=== PATIENT | male | born 1930 | race Caucasian/White ===

== ENCOUNTER → 2017-08-19 | Outpatient (CLI) | payer MEDICARE ==
[~2017-08-19] VITALS: Ht 172.7 cm; Wt 75.3 kg
[~2017-08-19] MED LIST: ACDPT PO; ACHD5005 PO; AMOUR THYROID PO; ASP81CT PO; ASPI325T32 PO; ATOR40TA PO; CATHETER FLUSH 10 ML SYR IV PRN; CLOP75TA PO; CYAN10007 PO; HYDR-757 PO; IPRA3AMP IH; ISM30TCR PO; LISI-552 PO; LISI10TA PO; MELO-195 PO; MELO-198 PO; METO-333 PO; METO-387 PO; METOPROLOL PO; MTP25TSR PO; MULT-1029 PO; MULT1CAP27 PO; NAPR220C11 PO; NFNEB10T PO; NITR0.4T12 SL; OMEG-109 PO; OMEG-12 PO; OMEG1CAP58 PO; OMEGA XL; OMEP20CA12 PO; OMG1KC PO; PANT20TA3 PO; PNT40TEC PO; RED YEAST RICE PO; RED600TA PO; ROSU10TA12 PO; SIMV40TA4 PO; SIMV80TA3 PO; THYR30TA2 PO
[2017-08-19 09:06] VITALS: BP 179/95
[2017-08-19 09:14] VITALS: BP 187/91
--- NOTE | 2017-08-20 09:56 | STRESS TEST ---
DATE OF SERVICE: 08/19/2017 EXERCISE MYOVIEW STRESS TEST REPORT REFERRING PHYSICIAN: Dr. Jj Martinez. Baseline heart rate is 73, baseline blood pressure 168/100. Baseline EKG is sinus rhythm with no EKG changes. SUMMARY: The patient was injected with 10.68 mCi of technetium-99 Myoview and the resting images were obtained. Then, the patient started exercising with a baseline heart rate, blood pressure and EKG mentioned above. He was able to exercise for 3 minutes on standard Tree protocol, achieving maximum heart rate of 115, which is 84% of maximum expected heart rate. With peak exercise level, EKG was showing nondiagnostic changes. Blood pressure was 193/97. During recovery, heart rate and blood pressure returned to baseline. EKG returned to baseline. The resting and stress images were reviewed and compared in the short axis, horizontal long axis, and vertical long axis views. Review of the images showed good radiotracer uptake with no significant ischemia or infarction. SSS is 4, SDS is 3, TID value 0.87. On the gated images, the left ventricle appeared to be normal size, mild diffuse left ventricular hypokinesia, calculated ejection fraction 47%. CONCLUSION: 1. Fair exercise tolerance, a total of 3 minutes on standard Tree protocol, total of 4.6 METS achieving 84% of maximum expected heart rate. 2. Hypertensive response to exercise, returned to baseline during recovery. 3. Minimal nondiagnostic EKG changes with exercise, returned to baseline during recovery. 4. Diaphragmatic attenuation with typical male pattern. No significant ischemia or infarction on SPECT images. 5. Mild diffuse left ventricular hypokinesia on gated images with a calculated ejection fraction of 47%. Job ID: [id number] DocumentID: [id number] Dictated Date: 08/20/2017 07:44:37 Suppression Crew Leader Date: 08/20/2017 09:55:26 Dictated By: ENZO MACHADO MD
== END ==
LOC: CARD 06:32
PROVIDERS: ATTEND Internal Medicine Cardiovascular Disease
DX: I25.10 Atherosclerotic heart disease of native coronary artery without angina pectoris (principal); I11.0 Hypertensive heart disease with heart failure; I50.9 Heart failure, unspecified; R06.09 Other forms of dyspnea; E78.5 Hyperlipidemia, unspecified
CPT/HCPCS: 78452; 93017

== ENCOUNTER → 2018-01-21 | Outpatient (CLI) | payer MEDICARE ==
[~2018-01-21] MED LIST changes: -CATHETER FLUSH 10 ML SYR IV PRN; -IPRA3AMP IH; +IPRA3AMP31 IH
--- NOTE | 2018-01-21 14:21 | Diagnostic Imaging Report ---
PROCEDURE: MRI lumbar spine. TECHNIQUE: Multiplanar, multisequence MRI of the lumbar spine was performed without contrast. INDICATION: Back pain. Comparison made with prior examination from 11/04/2011. FINDINGS: The alignment of the lumbar spine is normal. The vertebral body heights are well maintained. There is no spondylolysis or spondylolisthesis. No fractures are identified. Conus medullaris is seen at L1 and is normal in appearance. There is some prominent epidural fat posteriorly at L1-L2, L2-L3, L3-L4, and to a lesser degree L4-L5. At T12-L1, there is some broad-based annular bulging and facet disease. There is mild central spinal stenosis. There is mild bilateral neuroforaminal encroachment. At L1-L2, there is marked broad-based annular bulging, facet disease, and thickening of the ligamentum flavum. There is moderate central spinal stenosis with encroachment upon the lateral recess bilaterally. There is moderate bilateral neuroforaminal encroachment. At L2-L3, there is broad-based annular bulging, facet disease, and thickening of the ligamentum flavum. There is moderate spinal stenosis with encroachment upon the lateral recess bilaterally right greater than left. There is moderate bilateral neuroforaminal encroachment right greater than left. At L3-L4, there is broad-based annular bulging, facet disease, and thickening of the ligamentum flavum. There is [id number] central spinal stenosis with encroachment upon the lateral recess bilaterally. There is moderate left and [id number]-kw-[id number] right neuroforaminal encroachment. At L4-L5, there is broad-based annular bulging, facet disease, and thickening of the ligamentum flavum. There is mild central spinal stenosis with encroachment upon the lateral recess bilaterally. There is moderately severe right and moderate left neuroforaminal encroachment. At L5-S1, there is some minimal annular bulging and facet disease. There is no significant spinal or neuroforaminal encroachment. The abdominal aorta is nonaneurysmal. There are cysts in the kidneys bilaterally. IMPRESSION: Diffuse lumbar spondylosis and multilevel degenerative disc disease as detailed above. This is exacerbated by some prominent epidural fat posteriorly in the upper and mid lumbar spine. Bilateral renal cysts. Dictated by: Dictated on workstation # [id number]
== END ==
LOC: RAD 12:51
PROVIDERS: ATTEND Physician Assistant
DX: M48.05 Spinal stenosis, thoracolumbar region (principal); M51.25 Other intervertebral disc displacement, thoracolumbar region; M51.36 Other intervertebral disc degeneration, lumbar region; M47.816 Spondylosis without myelopathy or radiculopathy, lumbar region; N28.1 Cyst of kidney, acquired
CPT/HCPCS: 72148

== ENCOUNTER → 2018-08-18 | Outpatient (CLI) | payer MEDICARE ==
[~2018-08-18] MED LIST changes: +RT-ALBUTEROL SULF 2.5 MG/3 ML PRE-MIX VIAL INH ONE; +RT-ALBUTEROL SULF 2.5 MG/3 ML PRE-MIX VIAL ONE
== END ==
LOC: RT 09:23
PROVIDERS: ATTEND Nurse Practitioner Family
DX: J44.9 Chronic obstructive pulmonary disease, unspecified (principal); R06.00 Dyspnea, unspecified; G47.10 Hypersomnia, unspecified; G47.33 Obstructive sleep apnea (adult) (pediatric)
CPT/HCPCS: 94060; 94726; 94729

== ENCOUNTER 2018-09-01 20:32 | Outpatient (CLI) | payer MEDICARE ==
[~2018-09-01 20:32] MED LIST changes: -RT-ALBUTEROL SULF 2.5 MG/3 ML PRE-MIX VIAL INH ONE; -RT-ALBUTEROL SULF 2.5 MG/3 ML PRE-MIX VIAL ONE
== END 2018-09-02 06:20 | disposition home or self-care (01) ==
LOC: SLEEP 20:32
PROVIDERS: ATTEND Nurse Practitioner Family
DX: G47.33 Obstructive sleep apnea (adult) (pediatric) (principal); G47.10 Hypersomnia, unspecified; J44.9 Chronic obstructive pulmonary disease, unspecified; R06.00 Dyspnea, unspecified
CPT/HCPCS: 95810

== ENCOUNTER 2018-10-30 19:16 | Outpatient (CLI) | payer MEDICARE | END 2018-10-31 04:00 | disposition home or self-care (01) | LOC: SLEEP 19:16 | PROVIDERS: ATTEND Nurse Practitioner Family | DX: G47.33 Obstructive sleep apnea (adult) (pediatric) (principal); G47.10 Hypersomnia, unspecified; R06.00 Dyspnea, unspecified; J44.9 Chronic obstructive pulmonary disease, unspecified ==

== ENCOUNTER → 2019-03-18 | Outpatient (CLI) | payer MEDICARE | LOC: CARD 13:05 | PROVIDERS: ATTEND Internal Medicine Cardiovascular Disease | DX: I08.3 Combined rheumatic disorders of mitral, aortic and tricuspid valves (principal); I25.10 Atherosclerotic heart disease of native coronary artery without angina pectoris; I11.0 Hypertensive heart disease with heart failure; I50.9 Heart failure, unspecified; E78.5 Hyperlipidemia, unspecified | CPT/HCPCS: 93306 ==

== ENCOUNTER → 2021-01-01 | Outpatient (CLI) | payer MEDICARE ==
[~2021-01-01] VITALS: Ht 172 cm; Wt 73.0 kg
[~2021-01-01] MED LIST changes: +ACET-3075 PO; +AMLO-250 PO; +ASPI-1238 PO; +ATOR80TA76 PO; +CLOP75TA28 PO; +CYAN500T8 PO; +DOCU100C37 PO; +GABA-486 PO; -LISI-552 PO; +LISI20TA26 PO; +MELO15TA39 PO; -METO-387 PO; +MULT-1136 PO; +PANT20TA18 PO; -PANT20TA3 PO; +PANT40TA52 PO; +REGADENOSON 0.4 MG/5 ML SYR (LEXISCAN) IV ONE; +SIMV40TA25 PO; -SIMV40TA4 PO; +[UNRECOGNIZED DRUG - OTHER] PO
[2021-01-01] MEDS: CATHETER FLUSH 10 ML SYR IV PRN ×2 (10:31→12:02)
[2021-01-01 11:54] VITALS: BP 161/74
--- NOTE | 2021-01-02 13:11 | Cardiology Stress Test Report ---
Stress Test Report Date of Procedure/Referring: Date of Procedure: Jan 02, 2021 Mary Crespo Admitting Physician Jj Martinez DO Indications: CAD Baseline Heart Rate: 55 Baseline Blood Pressure: Blood Pressure Systolic: 161 Blood Pressure Diastolic: 74 Baseline Vitals Vital Signs Date Time Temp Pulse Resp B/P (MAP) Pulse Ox O2 Delivery O2 Flow Rate FiO2 01/01/21 11:54 57 14 161/74 (103) 99 Room Air Baseline EKG: Baseline EKG: NSR Summary After explaining the procedure to the patient, he signed a consent and then brought to the stress nuclear laboratory. Patient received 0.4 mg Lexiscan for stress test, ECG, heart rate and blood pressure were monitored continuously. Resting and stress dose of radio tracer were injected, imaging was acquired and reviewed in short axis, horizontal long axis and vertical long axis views. TID: 1 SSS: 11 SDS: 4 EF: 37 1. Patient tolerated Lexiscan well 2. Decreased uptake involving the base of the anterior wall and anterolateral wall and inferolateral wall with subtle reversibility 3. Prominent left ventricle with diffuse left ventricular hypokinesia ejection fraction 37% ENZO MACHADO MD Jan 02, 2021 13:11
== END ==
LOC: CARD 11:00
PROVIDERS: ATTEND Physician Assistant
DX: I25.10 Atherosclerotic heart disease of native coronary artery without angina pectoris (principal)
CPT/HCPCS: 78452; 93017; A9502

== ENCOUNTER 2021-01-30 10:00 | Day surgery (SDC) | payer MEDICARE ==
[2021-01-30] VITALS (11 sets, daily range): BP systolic 111–178; BP diastolic 2–90
[~2021-01-30] VITALS: Ht 172 cm; Wt 72.0 kg
[2021-01-30 07:51] LABS: BILIRUBIN,URINE NEGATIVE (NEGATIVE); CLARITY,URINE CLEAR; COLOR,URINE YELLOW; GLUCOSE, URINE (UA) NEGATIVE (NEGATIVE); KETONES,URINE NEGATIVE (NEGATIVE); LEUKOCYTE ESTERASE ,URINE NEGATIVE (NEGATIVE); NITRITE,URINE NEGATIVE (NEGATIVE); PROTEIN,URINE NEGATIVE (NEGATIVE)
--- NOTE | 2021-01-30 07:52 | Diagnostic Imaging Report ---
Indication: Pre-heart catheterization COMPARISON STUDY: Chest radiograph from 09/03/2020. FINDINGS: Frontal view chest demonstrates previous sternotomy changes. Heart size and vascularity are normal. The lungs are clear. There are no pleural effusions. IMPRESSION: There are no acute findings. Dictated by: Dictated on workstation # [id number]
[2021-01-30 08:11] LABS: ALBUMIN 4.3 GM/DL (3.2-4.5); BILIRUBIN,TOTAL 0.6 MG/DL (0.1-1.0); CALCIUM 9.7 MG/DL (8.5-10.1); CREATININE SERUM 1.25 MG/DL (0.60-1.30); TOTAL PROTEIN 7.9 GM/DL (6.4-8.2)
[2021-01-30 08:15] LABS: PROTHROMBIN TIME PATIENT 13.4 SEC (12.2-14.7)
[2021-01-30 08:20] LABS: RBC,URINE 0-2 /HPF
[2021-01-30 08:21] LABS: BACTERIA,URINE TRACE /HPF; HYALINE CASTS, URINE 0-2 /LPF; SQUAMOUS EPITHELIAL CELL,UR 0-2 /HPF
[~2021-01-30 10:00] MED LIST changes: +ALBU2.5V4 INH; +HEParin (CATH LAB) 2,000 ML IV ONE; +ISOS30TA82 PO; +LIDOCAINE 1% INJ 20 ML 20 ML VIAL ONE; +NS IV 1000 ML 1,000 ML IV SCH; +NS IV 1000 ML 1,000 ML ONE; -REGADENOSON 0.4 MG/5 ML SYR (LEXISCAN) IV ONE; +RT-ALBUINH IH
[2021-01-30] MEDS ORDERED: diphenhydrAMINE 50 MG/ML INJ (BENADRYL) ONE (10:59)
[2021-01-30] MEDS ORDERED: fentaNYL INJ 100 MCG/2 ML AMP ONE (10:59)
[2021-01-30] MEDS ORDERED: MIDAZOLAM 5 MG/5 ML (VERSED) VIAL ONE (11:00)
[2021-01-30] MEDS ORDERED: FAMOTIDINE 20MG/2ML IV (PEPCID) ONE (11:00)
--- NOTE | 2021-01-30 11:10 | Conscious Sedation/ASA ---
Conscious Sedation Pre-Proced Time 11:10 ASA Score 3 For ASA 3 and 4: Consider anesthesia and medical clearance. Also, for patients with a history of failed moderate sedation consider anesthesia. Airway Lungs Heart ASA score ASA 1: a normal healthy patient ASA 2: a patient with a mild systemic disease (mid diabetes, controlled hypertension, obesity x ASA 3: a patient with a severe systemic disease that limits activity (angina, COPD, prior Myocardial infarction) ASA 4: a patient with an incapacitating disease that is a constant threat to life (CHF, renal failure) ASA 5: a moribund patient not expected to survive 24 hrs. (ruptured aneurysm) ASA 6: a declared brain- patient whose organs are being harvested. For emergent operations, add the letter E after the classification Mallampati Classification Grade 3 Sedation Plan Analgesia, Amnesia, Plan communicated to team members, Discussed options with patient/fam, Discussed risks with patient/fam The patient is an appropriate candidate to undergo the planned procedure, sedation, and anesthesia. The patient immediately re-assessed prior to indication. ENZO MACHADO MD Jan 30, 2021 11:10
[2021-01-30] MEDS ORDERED: HEParin 1000 UNIT/ML (10ML VIAL) FOR BOLUS ONE (11:44)
[2021-01-30 11:57] LABS: HEMATOCRIT 44 % (40-54); MEAN CORPUSCULAR HEMOGLOBIN 34 pg (25-34); MEAN CORPUSCULAR HGB CONC 32 g/dL (32-36); MEAN CORPUSCULAR VOLUME 104 fL (80-99); MEAN PLATELET VOLUME 11.5 fL (9.0-12.2); PLATELET COUNT 224 10^3/uL (130-400); WHITE BLOOD COUNT 6.6 10^3/uL (4.3-11.0)
--- NOTE | 2021-01-30 12:06 | Discharge Inst-Post CATH ---
Discharge Inst-CATH/EP Problems Reviewed?: Yes Post Cardiac Cath/EP D/C Inst Follow Up/Plan Appointment with Dr. Burnett's office in 2 to 4 weeks <b>CARDIAC CATH/EP PROCEDURE DISCHARGE INSTRUCTIONS</b> ACTIVITY * Go Home directly and rest. * Limit activity of the leg (or wrist if it was used) for 7 days including aer obics, swimming, jogging, bicycling, etc. * Restrict stair-climbing for 7 days if possible, if not, climb up with your non-cath leg, then bring together on the same step. * Avoid lifting, pushing, pulling or excessive movement of the affected extremi ty for 7 days. * Customary sexual activity may be resumed after 2 days-use caution not to use a position that strains or causes pain to the affected extremity. * No driving for 24 hours. * NO SMOKING. * Avoid straining for bowel movements for 7 days. * Gentle walking on level ground is allowed. * Returning to work will depend on the type of procedure and the results. Your doctor will discuss this with you. CALL YOUR DOCTOR FOR ANY OF THE FOLLOWING: *If bleeding from the puncture site occurs- Apply gentle pressure to site with clean cloth and call your doctor or EMS. * If a knot or lump forms under the skin, increases in size, or causes pain. * If bruising appears to be worsening or moving further down your leg instead of disappearing. * Temperature above 101 F. CARE OF YOUR GROIN INCISION; * Bruising or purple discoloration of the skin near the puncture site is common. * You may shower only, no bathtub bathing for 5 days. Be careful to avoid slipping as your leg may feel stiff. * If a closure device was used on your femoral artery, please see the attached guide regarding care of the device and your leg. * Leave dressing on FOR 24 hours. CARE OF YOUR WRIST INCISION; * Bruising or purple discoloration of the skin near the puncture site is common. * You may shower. * DO NOT submerge wrist. * Leave dressing on FOR 24 hours. ENZO BURNETT MD Jan 30, 2021 12:06
--- NOTE | 2021-01-30 12:12 | Cardiac Cath Report ---
Cardiac Cath Report Physician (s)/Bill Peddler (s) Physician ENZO MACHADO MD Pre-Procedure Diagnosis Pre-Procedure Diagnosis: Coronary artery disease Post-Procedure Note Procedure Start Date: Jan 30, 2021 Name of Procedure: Left heart catheterization Vein graft angiogram Attempt for intervention Findings/Procedure Note PROCEDURE NOTE: 89 years old gentleman with history of coronary artery disease, CABG, underwent intervention on the vein graft to the diagonal artery and vein graft to the obtuse marginal and the right coronary artery in August 2020, has been having some chest pain, had an abnormal stress test, scheduled for cardiac catheterization possible PTCA After explaining the procedure to the patient, all pros and cons were explained, all questions were answered. The patient signed the consent and then he was placed on the cardiac catheterization laboratory. Groin was prepped SL fashion local anesthesia was used. Sheath placed in the right femoral artery. Constantin right and left catheter were used to access the coronary system.Vein Graft evaluated. SPEAR was not evaluated due to the fact that it was patent in August 2020 and no intervention was done, the ischemia was more to the lateral wall.. Pigtail was used to access the left ventricular cavity. Left ventriculogram was not done, pressure was measured Patient did not receive any heparin, I advanced Constantin right guide to the vein graft that was occluded, known to be to the obtuse marginal, attempt to cross it with multiple wires has failed, procedure was aborted. At the end of the procedure the sheath was removed. Closure device was deployed FINDINGS: Hemodynamics LV 156/14, end-diastolic pressure 14 Aorta 145/78 mean of 76 ANATOMY: Left Main is occluded Left Anterior Descending is occluded, SPEAR to the LAD is known to be patent, vein graft to the diagonal artery is occluded Left Circumflex is occluded and the vein graft to the circumflex artery is occluded, attempt to cross the occlusion has failed. Right Coronary Artery is dominant artery with patent stent to the mid right coronary artery SPEAR is known to be patent to the LAD was not evaluated on the study Vein Graft evaluation showed 2 vein grafts Note the lower vein graft is the vein graft to the diagonal artery has a patent stent in the midportion with excellent flow The upper vein graft is the vein graft to the obtuse marginal branch had balloon angioplasty done in August 2020, appeared to be totally occluded at this time. Attempt to cross the lesion was not successful LV Gram was not done pressure was measured CONCLUSION: 1. Severe [place] coronary artery disease in the left system, patent SPEAR to LAD and vein graft to the diagonal artery. The vein graft to the obtuse marginal branch is occluded and appears to be chronic occlusion, failed attempt to intervention. 2. Dominant right coronary artery with patent stent in the mid right coronary artery, mild disease distally nonobstructive disease 3. Normal left ventricular end-diastolic pressure DISCUSSION AND RECOMMENDATION: Medical therapy is recommended Anesthesia Type: Conscious Sedation Estimated blood loss (mL): 25 ml Contrast Amount: 40 ml Total Radiation Dose: 614 mGy Post-Procedure Diagnosis Post-operative diagnosis: Chest pain Coronary artery disease Hypertension Hyperlipidemia ENZO MACHADO MD Jan 30, 2021 12:12
[2021-01-30] MEDS ORDERED: PATIENT MAY USE OWN MEDS, ALL PO SCH (12:15)
[2021-01-30] MEDS ORDERED: NS IV 1000 ML 1,000 ML IV SCH (12:15)
== END 2021-01-30 16:45 ==
LOC: CATH 10:00 → SDC 12:18 → CATH 16:45
PROVIDERS: ATTEND Internal Medicine Cardiovascular Disease
DX: I25.10 Atherosclerotic heart disease of native coronary artery without angina pectoris (principal); E78.2 Mixed hyperlipidemia; E66.9 Obesity, unspecified; G47.33 Obstructive sleep apnea (adult) (pediatric); J44.9 Chronic obstructive pulmonary disease, unspecified; M19.90 Unspecified osteoarthritis, unspecified site; I65.23 Occlusion and stenosis of bilateral carotid arteries; I11.0 Hypertensive heart disease with heart failure; I50.22 Chronic systolic (congestive) heart failure; Z79.51 Long term (current) use of inhaled steroids; Z79.82 Long term (current) use of aspirin; Z79.899 Other long term (current) drug therapy; Z87.891 Personal history of nicotine dependence
CPT/HCPCS: 71045; 80053; 80061; 81000; 85027; 85610; 85730; 87081; 93458; C1760; C1769 ×2; C1887; C1894; 36415

== ENCOUNTER 2021-02-02 06:35 | Inpatient (IN) | payer MEDICARE ==
[~2021-02-02] VITALS: Ht 174 cm; Wt 76.4 kg
[~2021-02-02 06:35] MED LIST changes: -HEParin (CATH LAB) 2,000 ML IV ONE; -LIDOCAINE 1% INJ 20 ML 20 ML VIAL ONE; -NS IV 1000 ML 1,000 ML IV SCH; -NS IV 1000 ML 1,000 ML ONE
--- NOTE | 2021-02-02 06:54 | ED GI ---
General Chief Complaint: Abdominal/GI Problems Stated Complaint: BLOODY POOP Source of Information: Patient Exam Limitations: No Limitations History of Present Illness Date Seen by Provider: Feb 02, 2021 Time Seen by Provider: 06:30 Initial Comments Patient to the ER by EMS from home with chief complaint that he was awoken around 5:00 in the morning and had some bright red bloody stools. He is on Plavix and recently had a heart cath by Dr. Burnett. He says there is nothing that was amenable to stenting at that time. He is not on a blood thinner just antiplatelets. He does take meloxicam for chronic joint pain. He is denying any chest pain jaw pain shortness of air or dyspnea on exertion. No weakness or lightheadedness. Primary care is Dr. NJ in [place]. Last oral intake was yesterday evening. [facility] Cardiac catheterization by Dr. Burnett January 30, 2021: Severe [place] disease of the coronaries with a patent SPEAR to the LAD. Vein graft to the obtuse marginal is chronically occluded failing attempt to intervene. Patent stent in the mid right coronary artery with mild disease distally nonobstructive. Normal left ventricular end-diastolic pressure. Patient had a laparoscopic gastropexy 2005. Dr. Anaya. He reports colonoscopy maybe 3 years ago unsure of any details. Allergies and Home Medications Allergies Coded Allergies: penicillin G (Verified Allergy, Unknown, 08/11/05) Uncoded Allergies: IV CONTRAST (Allergy, Intermediate, 07/23/15) Home Medications Acetaminophen/Diphenhydramine 1 Each Tablet, 2 EACH PO HS, (Reported) Albuterol Sulfate 1 Puff Puff, 2 PUFF IH Q4H PRN for SHORTNESS OF BREATH, (Reported) Albuterol Sulfate 2.5 Mg/3 Ml Vial.neb, 2.5 MG INH Q4H PRN for SHORTNESS OF BREATH, (Reported) Amlodipine Besylate 5 Mg Tablet, 5 MG PO DAILY, (Reported) Aspirin 81 Mg Tablet.dr, 81 MG PO DAILY, (Reported) Atorvastatin Calcium 80 Mg Tablet, 40 MG PO HS, (Reported) TAKES OF A 80MG TAB Clopidogrel Bisulfate 75 Mg Tablet, 75 MG PO DAILY, (Reported) Cyanocobalamin (Vitamin B-12) 500 Mcg Tablet, 500 MCG PO DAILY, (Reported) Gabapentin 100 Mg Capsule, 200 MG PO BID, (Reported) TAKES 2 (100MG) CAPSULES Isosorbide Mononitrate 30 Mg Tab.er.24h, 30 MG PO DAILY, (Reported) Lisinopril 20 Mg Tablet, 20 MG PO DAILY, (Reported) Meloxicam 15 Mg Tablet, 7.5 MG PO DAILY, (Reported) TAKES OF A (15MG) TABLET Metoprolol Tartrate 25 Mg Tablet, 25 MG PO BID, (Reported) Multivitamin 1 Each Tablet, 1 EACH PO DAILY, (Reported) Pantoprazole Sodium 40 Mg Tablet.dr, 40 MG PO DAILY, (Reported) [Supe Beta Prostate] , 1 EA PO BID, (Reported) Patient Home Medication List Home Medication List Reviewed: Yes Review of Systems Review of Systems Constitutional: No chills, No diaphoresis EENTM: No Blurred Vision, No Double Vision Respiratory: Denies Cough, Denies Shortness of Air Cardiovascular: Denies Chest Pain, Denies Lightheadedness Gastrointestinal: See HPI; Denies Constipated; Diarrhea, Rectal Bleeding Genitourinary: Denies Burning, Denies Discharge Musculoskeletal: No back pain, No joint pain All Other Systems Reviewed Negative Unless Noted: Yes Past Vhfqtmg-Evieeh-Qihejj Hx Patient Social History Tobacco Use?: No Use of E-Cig and/or Vaping dev: No Substance use?: No Immunizations Up To Date Tetanus Booster (TDap): Unknown Seasonal Allergies Seasonal Allergies: No Past Medical History Surgeries: Yes (HIATAL HERNIA REPAIR;L SHOULDER REPLACEMENT;3V CABG + STENTS;CATARACTS) Abdominal, Cardiac, CABG, Coronary Stent, Eye Surgery, Orthopedic Respiratory: Yes Chronic Bronchitis Cardiac: Yes (3 VESSEL CABG + STENTS) Coronary Artery Disease, High Cholesterol, Hypertension Neurological: No Reproductive Disorders: No Sexually Transmitted Disease: No HIV/AIDS: No Genitourinary: No Gastrointestinal: Yes (S/P HIATAL HERNIA REPAIR) Gastroesophageal Reflux, Diverticulosis, Hiatal Hernia Musculoskeletal: Yes (LEFT SHOULDER REPLACEMENT) Arthritis Endocrine: Yes Hypothyroidsim Cataract Cancer: No Psychosocial: No Integumentary: No Blood Disorders: No Adverse Reaction/Blood Tranf: No Family Medical History Patient reports no known family medical history. SOCIAL HISTORY: -ETOH--REGULAR/DAILY USE--"A COUPLE " OF DRINKS A DAY -DRUGS-DENIES USE -SMOKED 1 PPD, QUIT 1988 ADDITIONAL PAST MEDICAL/SURGICAL HISTORY: -CARDIAC CATH 07/2015--NO INTERVENTION. DR. BURNETT Physical Exam Vital Signs Vital Signs - First Documented 02/02/21 06:35 Temp 35.8 Pulse 81 Resp 18 B/P (MAP) 122/73 (89) Pulse Ox 98 O2 Delivery Room Air Capillary Refill : Height/Weight/BMI Height: 5'8.00" Weight: 166lbs. 0.0oz. 75.586704qh; 24.33 BMI Method: General Appearance: WD/WN, mild distress HEENT: PERRL/EOMI, pharynx normal Neck: full range of motion, normal inspection Respiratory: no respiratory distress, no accessory muscle use Cardiovascular: normal peripheral pulses, regular rate, rhythm Peripheral Pulses: 2+ Radial Pulses (R), 2+ Radial Pulses (L) Gastrointestinal: normal bowel sounds (Active), non tender, soft Neurologic/Psychiatric: alert, normal mood/affect, oriented x 3 Skin: warm/dry, pallor Progress/Results/Core Measures Results/Orders Lab Results Laboratory Tests Test 02/02/21 07:04 Range/Units White Blood Count 10.4 4.3-11.0 10^3/uL Red Blood Count 3.21 L 4.30-5.52 10^6/uL Hemoglobin 10.8 #L 13.3-17.7 g/dL Hematocrit 34 L 40-54 % Mean Corpuscular Volume 105 H 80-99 fL Mean Corpuscular Hemoglobin 34 25-34 pg Mean Corpuscular Hemoglobin Concent 32 32-36 g/dL Red Cell Distribution Width 14.2 10.0-14.5 % Platelet Count 188 130-400 10^3/uL Mean Platelet Volume 11.1 9.0-12.2 fL Immature Granulocyte % (Auto) 1 % Neutrophils (%) (Auto) 74 42-75 % Lymphocytes (%) (Auto) 17 12-44 % Monocytes (%) (Auto) 8 0-12 % Eosinophils (%) (Auto) 1 0-10 % Basophils (%) (Auto) 0 0-10 % Neutrophils # (Auto) 7.7 1.8-7.8 10^3/uL Lymphocytes # (Auto) 1.7 1.0-4.0 10^3/uL Monocytes # (Auto) 0.8 0.0-1.0 10^3/uL Eosinophils # (Auto) 0.1 0.0-0.3 10^3/uL Basophils # (Auto) 0.0 0.0-0.1 10^3/uL Immature Granulocyte # (Auto) 0.1 0.0-0.1 10^3/uL Sodium Level 134 L 135-145 MMOL/L Potassium Level 4.2 3.6-5.0 MMOL/L Chloride Level 104 98-107 MMOL/L Carbon Dioxide Level 24 21-32 MMOL/L Anion Gap 6 5-14 MMOL/L Blood Urea Nitrogen 36 H 7-18 MG/DL Creatinine 1.27 0.60-1.30 MG/DL Estimat Glomerular Filtration Rate 54 BUN/Creatinine Ratio 28 Glucose Level 99 70-105 MG/DL Calcium Level 8.4 L 8.5-10.1 MG/DL Corrected Calcium 8.8 8.5-10.1 MG/DL Total Bilirubin 0.7 0.1-1.0 MG/DL Aspartate Amino Transf (AST/SGOT) 18 5-34 U/L Alanine Aminotransferase (ALT/SGPT) 16 0-55 U/L Alkaline Phosphatase 83 40-136 U/L Total Protein 6.0 L 6.4-8.2 GM/DL Albumin 3.5 3.2-4.5 GM/DL Smear Scan YES My Orders Orders - ROSCOE CARSON Orthostatic Vital Signs (Adult (02/02/21 06:47) Cbc With Automated Diff (02/02/21 06:47) Comprehensive Metabolic Panel (02/02/21 06:47) Occult Blood Stool (02/02/21 06:47) Orthostatic Vital Signs (Adult (02/02/21 06:47) Ed Iv/Invasive Line Start (02/02/21 06:47) Ns Iv 500 Ml (Sodium Chloride 0.9%) (02/02/21 07:00) Type And Screen (02/02/21 06:54) Pantoprazole Injection (Protonix Injecti (02/02/21 07:00) Ondansetron Injection (Zofran Injectio (02/02/21 07:00) Ed Iv/Invasive Line Start (02/02/21 09:29) Lr 1000ml Iv (02/02/21 09:30) Medications Given in ED Current Medications Medications Dose Ordered Sig/Adolfo Route Start Time Stop Time Status Last Admin Dose Admin Ondansetron HCl 4 mg ONCE ONCE IVP 02/02/21 07:00 02/02/21 07:01 DC 02/02/21 07:21 4 MG Pantoprazole 40 mg ONCE ONCE IV 02/02/21 07:00 02/02/21 07:01 DC 02/02/21 07:20 40 MG Sodium Chloride 500 ml @ 0 mls/hr Q0M ONCE IV 02/02/21 07:00 02/02/21 07:01 DC 02/02/21 07:21 0 MLS/HR Vital Signs/I&O 02/02/21 06:35 Temp 35.8 Pulse 81 Resp 18 B/P (MAP) 122/73 (89) Pulse Ox 98 O2 Delivery Room Air Progress Progress Note : Time: 06:53 Progress Note Gentleman with several episodes in the last 2 hours of bloody stools with blood clots. Plan to initiate an IV give him half a liter of fluids since he has not had anything to eat or drink since yesterday and check a hemoglobin and a type and screen. Orthostatic vital signs. Presenting blood pressure is okay. Considering his dark red stools and he he uses meloxicam daily we will put him on pantoprazole and suspect possibly an upper GI bleed. Departure Communication (Admissions) Time/Spoke to Admitting Phy: 08:42 Dr Phan agrees to admit the patient but she would like him on cardiac stepdown s merly his blood pressure is a little on the soft side 104/58 for continuous monitoring. Another liter of lactated Ringer's was ordered. H&H at 1400. Time/Spoke to Consulting Phy: 08:35 Discussed the case with Dr. Butler who would like medicine to admit. He agrees with pantoprazole twice daily IV, n.p.o. status, hold Plavix since there was no new stent placed recently. Impression Primary Impression: Upper GI bleeding Disposition: ADMITTED INPATIENT Condition: Stable Admissions Decision to Admit Reason: Admit from ER (General) Decision to Admit/Date: Feb 02, 2021 Time/Decision to Admit Time: 08:30 Departure-Patient Inst. Referrals: FOUZIA NJ DO (PCP/Family) Primary Care Physician ROSCOE CARSON Feb 02, 2021 06:54
[2021-02-02] MEDS ORDERED: NS IV 500 ML 500 ML IV ONE (07:00)
[2021-02-02] MEDS ORDERED: PANTOPRAZOLE 40 MG (PROTONIX) VIAL IV ONE (07:00)
[2021-02-02] MEDS ORDERED: ONDANSETRON 4 MG/2 ML (SDV) Z0FRAN IVP ONE (07:00)
[2021-02-02 07:24] LABS: BASOPHILS % (AUTO) 0 % (0-10); EOSINOPHILS # (AUTO) 0.1 10^3/uL (0.0-0.3); EOSINOPHILS % (AUTO) 1 % (0-10); HEMATOCRIT 34 % (40-54); HEMOGLOBIN 10.8 g/dL (13.3-17.7); LYMPHOCYTES # (AUTO) 1.7 10^3/uL (1.0-4.0); LYMPHOCYTES % (AUTO) 17 % (12-44); MEAN CORPUSCULAR HEMOGLOBIN 34 pg (25-34); MEAN CORPUSCULAR HGB CONC 32 g/dL (32-36); MEAN CORPUSCULAR VOLUME 105 fL (80-99); MEAN PLATELET VOLUME 11.1 fL (9.0-12.2); MONOCYTES # (AUTO) 0.8 10^3/uL (0.0-1.0); MONOCYTES % (AUTO) 8 % (0-12); NEUTROPHILS # (AUTO) 7.7 10^3/uL (1.8-7.8); NEUTROPHILS % (AUTO) 74 % (42-75); PLATELET COUNT 188 10^3/uL (130-400); WHITE BLOOD COUNT 10.4 10^3/uL (4.3-11.0)
[2021-02-02 07:40] LABS: SMEAR SCAN COMMENT YES
[2021-02-02 07:47] LABS: ALBUMIN 3.5 GM/DL (3.2-4.5); BILIRUBIN,TOTAL 0.7 MG/DL (0.1-1.0); CALCIUM 8.4 MG/DL (8.5-10.1); CREATININE SERUM 1.27 MG/DL (0.60-1.30); POTASSIUM 4.2 MMOL/L (3.6-5.0)
[2021-02-02] MEDS ORDERED: LACTATED RINGERS 1,000 ML IV ONE (09:30)
--- NOTE | 2021-02-02 12:02 | Conscious Sedation/ASA ---
Conscious Sedation Pre-Proced Time 12:00 ASA Score 3 For ASA 3 and 4: Consider anesthesia and medical clearance. Also, for patients with a history of failed moderate sedation consider anesthesia. Airway Lungs Heart ASA score ASA 1: a normal healthy patient ASA 2: a patient with a mild systemic disease (mid diabetes, controlled hypertension, obesity ASA 3: a patient with a severe systemic disease that limits activity (angina, COPD, prior Myocardial infarction) ASA 4: a patient with an incapacitating disease that is a constant threat to life (CHF, renal failure) ASA 5: a moribund patient not expected to survive 24 hrs. (ruptured aneurysm) ASA 6: a declared brain- patient whose organs are being harvested. For emergent operations, add the letter E after the classification Mallampati Classification Grade 2 Sedation Plan Analgesia, Amnesia, Plan communicated to team members, Discussed options with patient/fam, Discussed risks with patient/fam The patient is an appropriate candidate to undergo the planned procedure, sedation, and anesthesia. The patient immediately re-assessed prior to indication. VIRI MARTINEZ MD Feb 02, 2021 12:02
--- NOTE | 2021-02-02 12:02 | Progress Note-Pre Operative ---
Pre-Operative Progress Note H&P Reviewed The H&P was reviewed, patient examined and no changes noted. Date Seen by Provider: Feb 02, 2021 Time Seen by Provider: 12:00 Date H&P Reviewed: Feb 02, 2021 Time H&P Reviewed: 12:00 Pre-Operative Diagnosis: upper GI bleed VIRI MARTINEZ MD Feb 02, 2021 12:02
--- NOTE | 2021-02-02 12:08 | CONSULTATION REPORT ---
DATE OF SERVICE: 02/02/2021 ATTENDING PRIMARY CARE PHYSICIAN: Jj Martinez DO HISTORY OF PRESENT ILLNESS: The patient is an 89-year-old male who presented to the Emergency Department with several episodes of bloody stools. The stools have been dark maroon in coloration. He also did have an episode in the Emergency Department, and this was visualized and appeared to be clotted dark blood. Upon further questioning, he does report that he did have a colonoscopy approximately 2 years ago for the same issue and no abnormalities detected. He does have a history of peptic ulcer disease and also does take meloxicam. He also does have a history of coronary artery disease and is on Plavix and aspirin daily. PAST MEDICAL HISTORY: Coronary artery disease, hypertension, hypercholesterolemia, peptic ulcer disease, gastroesophageal reflux disease, diverticulosis, COPD. PAST SURGICAL HISTORY: Coronary artery bypass grafting x3 vessels, umbilical hernia repair, left shoulder surgery. ALLERGIES: PENICILLIN, IV CONTRAST. MEDICATIONS: Albuterol 2 puffs q.4 hours p.r.n., amlodipine 5 mg daily, aspirin 81 mg daily, Plavix 75 mg daily, atorvastatin 80 mg daily, gabapentin 200 mg b.i.d., isosorbide mononitrate 30 mg daily, lisinopril 20 mg daily, meloxicam 15 mg daily, metoprolol 25 mg b.i.d., Protonix 40 mg daily. SOCIAL HISTORY: Previous smoke, quit 30 years ago. Social alcohol. FAMILY HISTORY: Mother with some form of malignancy. VITAL SIGNS: Temperature 35.8, blood pressure 122/73, pulse 81, respirations 18, pulse ox 98% on room air. REVIEW OF SYSTEMS: Well-nourished male currently in no acute distress. He is not experiencing any shortness of breath or difficulty breathing. No chest pain, palpitations, diaphoresis. No nausea, vomiting with three episodes of clotted dark maroon stools. He reports a similar episode approximately 2 years ago. No fever, chills, no recent inadvertent weight loss. All other review of systems negative. PHYSICAL EXAMINATION: CHEST: Scattered rales bilaterally. HEART: Regular, no murmurs. EXTREMITIES: No lower extremity edema, negative Homans sign. HEENT: No scleral icterus. NECK: No cervical lymphadenopathy. ABDOMEN: Soft, nontender, nondistended. SKIN: Warm, dry. LABORATORY DATA: WBC 10.4, hemoglobin 10.8, hematocrit 34, platelets 188. BUN is 36, creatinine 1.27. ASSESSMENT AND PLAN: An 89-year-old male with likely upper GI bleed. We will proceed with resuscitation as necessary and close monitoring of hemoglobin as well as clinical correlates. We will also proceed with Protonix 40 mg IV b.i.d. and proceed with an EGD in a.m. Job ID: [id number] DocumentID: [id number] Dictated Date: 02/02/2021 11:59:34 Casting Operator Helper Date: 02/02/2021 12:08:13 Dictated By: VIRI MARTINEZ MD
[2021-02-02 13:57] LABS: HEMOGLOBIN 9.7 g/dL (13.3-17.7)
[2021-02-02] MEDS ORDERED: CATHETER FLUSH 10 ML SYR IV PRN (14:00)
--- NOTE | 2021-02-02 14:15 | History & Physical-Hospitalist ---
History of Present Illness HPI/Chief Complaint Pt is an 89yoCM with a PMH of CAD s/p CABG, HTN, HLD who presented to the ER due to bloody stools. Hereports that he woke up at 5am this morning with maroon colored stools. He is currently on Plavix and takes Mobic as well. They continued so he decided to seek evaluation in the ER. He was found to have a Hgb of 10.8 on arrival down from 14 on 01/30/21. He was also somewhat hypotensive with a BP of 90/70. He had a gastropexy in [address] Anaya and he believes he had a colonoscopy a few years ago when he had a similar episode 2-3 years ago at [facility]. Source: patient Date Seen 02/02/21 Time Seen by a Provider: 14:10 Attending Physician Philly Phan MD PCP Jj Martinez DO Referring Physician Date of Admission Feb 02, 2021 at 08:45 Home Medications & Allergies Home Medications Reviewed patient Home Medication Reconciliation performed by pharmacy medication reconciliations auto technician mechanic and/or nursing. Patients Allergies have been reviewed. Allergies Allergies Coded Allergies penicillin G (Verified Allergy, Unknown, 08/11/05) Uncoded Allergies IV CONTRAST ( Allergy, Intermediate, 07/23/15) Past Zhtmdee-Bdajwl-Cicaab Hx Patient Social History Employed/Student: retired Tobacco Use?: No Smoking Status: Former Smoker Use of E-Cig and/or Vaping dev: No Substance use?: No Alcohol Use?: Yes Alcohol type: Beer Alcohol Frequency: Rarely Pt feels they are or have been: No Immunizations Up To Date Date of Influenza Vaccine: Mar 05, 2020 First/Initial COVID19 Vaccinat: 2 months ago Second COVID19 Vaccination Rony: 2 months ago Tetanus Booster (TDap): Less Than 5 Years Date of Pneumonia Vaccine: Mar 22, 2009 Seasonal Allergies Seasonal Allergies: No Current Status Advance Directives: No Communicates: Verbally Primary Language: Hungarian Preferred Spoken Language: Hungarian Is interpretation needed?: No Sensory deficits: Hearing impairment Implanted or Applied Medical D: None Past Medical History Surgeries: Abdominal, Cardiac, CABG, Coronary Stent, Eye Surgery, Orthopedic Chronic Bronchitis Coronary Artery Disease, High Cholesterol, Hypertension Sexually Transmitted Disease: No HIV/AIDS: No Gastroesophageal Reflux, Diverticulosis, Hiatal Hernia Arthritis Hypothyroidsim Cataract Blood Disorders: No Adverse Reaction/Blood Tranf: No Family Medical History Reviewed Nursing Family Hx Patient reports no known family medical history. SOCIAL HISTORY: -ETOH--REGULAR/DAILY USE--"A COUPLE " OF DRINKS A DAY -DRUGS-DENIES USE -SMOKED 1 PPD, QUIT 1988 ADDITIONAL PAST MEDICAL/SURGICAL HISTORY: -CARDIAC CATH 07/2015--NO INTERVENTION. DR. MACHADO Review of Systems Constitutional: No chills, No fever EENTM: no symptoms reported Respiratory: No cough, No short of breath Cardiovascular: No chest pain, No edema; Hx of Intervention; No palpitations Gastrointestinal: see HPI Genitourinary: no symptoms reported Musculoskeletal: no symptoms reported Skin: no symptoms reported Psychiatric/Neurological: No Symptoms Reported Physical Exam Physical Exam Vital Signs Vital Signs - First Documented 02/02/21 06:35 Temp 35.8 Pulse 81 Resp 18 B/P (MAP) 122/73 (89) Pulse Ox 98 O2 Delivery Room Air Capillary Refill : Less Than 3 Seconds Height, Weight, BMI Height: 5'8.00" Weight: 166lbs. 0.0oz. [id number]; 23.31 BMI Method: General Appearance: No Apparent Distress, WD/WN HEENT: PERRL/EOMI, Moist Mucous Membranes; No Scleral Icterus (L), No Scleral Icterus (R) Neck: Normal Inspection, Supple Respiratory: Lungs Clear, No Respiratory Distress Cardiovascular: Regular Rate, Rhythm, No Murmur Gastrointestinal: Normal Bowel Sounds, Non Tender, Soft Extremity: Normal Capillary Refill, No Calf Tenderness, No Pedal Edema Neurologic/Psychiatric: Alert, Oriented x3 Skin: Normal Color, Warm/Dry, Tattoos/Piercings Results Results/Procedures Labs Laboratory Tests 02/02/21 07:04 02/02/21 13:50 Patient resulted labs reviewed. Assessment/Plan Admission Diagnosis GI Bleed Admission Status: Inpatient Order (span 2 midnights) Reason for Inpatient Admission: see below Assessment and Plan GI Bleed Multiple dark stools in the ER Hgb down from 14 to 10 in 3 days Surgery consulted, appreciate recs Continue IV protonix Plan for EGD in AM T&S done in ER Continue IVF for mild hypotension- blood if needed CAD s/p CABG HTN HLD Hold home meds as it actively bleeding and hypotensive Appears to have last had stents placed in August 2020 DVT ppx: No lovenox for GI bleed Diagnosis/Problems Diagnosis/Problems (1) HLD (hyperlipidemia) (2) Normocytic anemia (3) Upper GI bleeding Status: Acute (4) Coronary artery disease Status: Acute (5) HTN (hypertension) Status: Acute PHILLY PHAN MD Feb 02, 2021 14:15
[2021-02-02] MEDS: LACTATED RINGERS 1,000 ML IV SCH ×2 (14:17→20:57)
[2021-02-02] MEDS: GABAPENTIN 100 MG (NEURONTIN) CAP PO SCH (20:57)
[2021-02-02] MEDS: PANTOPRAZOLE 40 MG (PROTONIX) VIAL IV SCH (20:57)
[2021-02-03] VITALS (20 sets, daily range): BP systolic 70–174; BP diastolic 38–91
[2021-02-03 02:22] LABS: BASOPHILS % (AUTO) 0 % (0-10); EOSINOPHILS % (AUTO) 1 % (0-10); HEMATOCRIT 22 % (40-54); LYMPHOCYTES # (AUTO) 1.5 10^3/uL (1.0-4.0); LYMPHOCYTES % (AUTO) 24 % (12-44); MEAN CORPUSCULAR HEMOGLOBIN 33 pg (25-34); MEAN CORPUSCULAR HGB CONC 31 g/dL (32-36); MEAN CORPUSCULAR VOLUME 106 fL (80-99); MEAN PLATELET VOLUME 11.6 fL (9.0-12.2); MONOCYTES # (AUTO) 0.6 10^3/uL (0.0-1.0); MONOCYTES % (AUTO) 10 % (0-12); NEUTROPHILS # (AUTO) 3.9 10^3/uL (1.8-7.8); NEUTROPHILS % (AUTO) 64 % (42-75); PLATELET COUNT 141 10^3/uL (130-400)
[2021-02-03 02:26] LABS: HEMOGLOBIN 6.8 g/dL (13.3-17.7)
[2021-02-03 02:38] LABS: ALBUMIN 2.7 GM/DL (3.2-4.5); POTASSIUM 4.2 MMOL/L (3.6-5.0)
[2021-02-03 02:39] LABS: CALCIUM 7.5 MG/DL (8.5-10.1)
[2021-02-03 02:40] LABS: TOTAL PROTEIN 4.3 GM/DL (6.4-8.2)
[2021-02-03 02:42] LABS: BILIRUBIN,TOTAL 0.5 MG/DL (0.1-1.0)
[2021-02-03] MEDS ORDERED: NS IV 500 ML 500 ML IV SCH (02:45)
[2021-02-03] MEDS: LACTATED RINGERS 1,000 ML IV SCH ×3 (03:36→16:42)
[2021-02-03] MEDS ORDERED: fentaNYL INJ 100 MCG/2 ML AMP ONE (09:11)
[2021-02-03] MEDS ORDERED: MIDAZOLAM 5 MG/5 ML (VERSED) VIAL ONE (09:12)
[2021-02-03] MEDS ORDERED: HURRICAINE EXT TUBE (BENZOCAINE) ONE (09:13)
[2021-02-03] MEDS ORDERED: LIDOCAINE JELLY 2% 6 ML SYRINGE ONE (09:13)
[2021-02-03] MEDS ORDERED: NS IV 500 ML 500 ML ONE (09:35)
--- NOTE | 2021-02-03 09:50 | Progress Note - Hospitalist ---
Subjective HPI/CC On Admission Date Seen by Provider: Feb 03, 2021 Time Seen by Provider: 09:47 Pt is an 89yoCM with a PMH of CAD s/p CABG, HTN, HLD who presented to the ER due to bloody stools. Hereports that he woke up at 5am this morning with maroon colored stools. He is currently on Plavix and takes Mobic as well. They continu ed so he decided to seek evaluation in the ER. He was found to have a Hgb of 10.8 on arrival down from 14 on 01/30/21. He was also somewhat hypotensive with a BP of 90/70. He had a gastropexy in [address] Anaya and he believes he had a colonoscopy a few years ago when he had a similar episode 2-3 years ago at [facility]. Subjective/Events-last exam Pt reports doing well. last Bm yesterday was yesterday and very bloody. Objective Exam Vital Signs Vital Signs Date Time Temp Pulse Resp B/P (MAP) Pulse Ox O2 Delivery O2 Flow Rate FiO2 02/03/21 08:21 Room Air 02/03/21 07:35 37.0 82 15 139/75 (96) 99 Capillary Refill : Less Than 3 Seconds General Appearance: No Apparent Distress, Chronically ill Respiratory: Lungs Clear, No Respiratory Distress Cardiovascular: Regular Rate, Rhythm, No Murmur Neurologic/Psychiatric: Alert, Oriented x3 Results/Procedures Lab Laboratory Tests 02/02/21 13:50 02/02/21 14:23 02/03/21 02:00 Patient resulted labs reviewed. Assessment/Plan Assessment and Plan Assess & Plan/Chief Complaint GI Bleed Multiple dark stools in the ER, another red stool yesterday Hgb down to 6.8 this AM, 2 units pRBCs given Surgery consulted, appreciate recs Continue IV protonix Patient heading to EGD now Continue IVF, RN reports mild orthostasis with standing CAD s/p CABG HTN HLD Hold home meds as it actively bleeding and hypotensive Appears to have last had stents placed in August 2020 DVT ppx: No lovenox for GI bleed Diagnosis/Problems Diagnosis/Problems (1) HLD (hyperlipidemia) (2) Normocytic anemia (3) Upper GI bleeding Status: Acute (4) Coronary artery disease Status: Acute (5) HTN (hypertension) Status: Acute RAMESH MACARIO MD Feb 03, 2021 09:49
[2021-02-03] MEDS ORDERED: NS IV 500 ML 500 ML IV PRN (10:30)
[2021-02-03] MEDS ORDERED: MIDAZOLAM 5 MG/5 ML (VERSED) VIAL IV ONE (10:30)
[2021-02-03] MEDS ORDERED: fentaNYL INJ 100 MCG/2 ML AMP IVP ONE (10:30)
[2021-02-03] MEDS ORDERED: HURRICAINE EXT TUBE (BENZOCAINE) XX PRN (10:30)
[2021-02-03] MEDS ORDERED: LIDOCAINE JELLY 2% 6 ML SYRINGE MM PRN (10:30)
--- NOTE | 2021-02-03 11:50 | Progress Note-Post Operative ---
Post-Operative Progess Note Surgeon (s)/Acid Conditioner (s) Surgeon VIRI MARTINEZ MD Acid Conditioner: none Pre-Operative Diagnosis upper GI bleed Post-Operative Diagnosis reflux esophagitis(stage 2), recurrent HH(4cm), moderate gastritis, no active bleed. Procedure & Operative Findings Date of Procedure 02/03/21 Procedure Performed/Findings EGD with bx. Anesthesia Type cs Estimated Blood Loss Estimated blood loss (mL): minimal Specimens/Packing Specimens Removed ge jxn, antrum VIRI MARTINEZ MD Feb 03, 2021 11:50
[2021-02-03] MEDS: GABAPENTIN 100 MG (NEURONTIN) CAP PO SCH ×2 (12:26→20:16)
[2021-02-03] MEDS: PANTOPRAZOLE 40 MG (PROTONIX) VIAL IV SCH ×2 (12:27→20:16)
[2021-02-03 13:17] LABS: HEMOGLOBIN 9.6 g/dL (13.3-17.7)
[2021-02-03] MEDS ORDERED: NS IV 1000 ML 1,000 ML ONE (15:23)
--- NOTE | 2021-02-03 15:52 | OPERATIVE REPORT ---
DATE OF SERVICE: 02/03/2021 PREOPERATIVE DIAGNOSIS: Gastrointestinal bleed. POSTOPERATIVE DIAGNOSES: Reflux esophagitis stage II, recurrent, moderate to large hiatal hernia, moderate gastritis, no active bleeding. PROCEDURE: EGD with biopsy. SURGEON: Viri Martinez MD. ANESTHESIA: Conscious sedation. ESTIMATED BLOOD LOSS: Minimal. FINDINGS: Reflux esophagitis stage II, recurrent, moderate to large hiatal hernia, moderate gastritis, no active bleeding. DISPOSITION: The patient tolerated the procedure well. INDICATIONS: The patient is an 89-year-old male, who presented with dark maroon-colored stools for the past day. He states that he had approximately 3 episodes. He did recently undergo cardiac catheterization and does have a significant history of coronary artery disease and is on anticoagulation with aspirin and Plavix. He states that he did have a colonoscopy approximately 2 years ago and does not recall any significant abnormalities. He does have a history of gastroesophageal reflux disease and is status post hiatal hernia repair. DESCRIPTION OF PROCEDURE: The patient was brought to the endoscopy suite, laid in the left lateral decubitus position. After adequate IV pain and sedative medications and conscious sedation anesthesia, the mouthpiece was applied. The endoscope was placed in the mouth, visualizing the pharynx and hypopharyngeal region. Vocal cords, epiglottis and vallecula identified and appeared to be normal. The endoscope was then gently intubated esophageal opening and esophagus insufflated. The endoscope was then advanced through the first, second and third portion of the esophagus at the level of the GE junction, a reflux esophagitis stage II identified. No ulcers or strictures or active bleeding sources identified. The GE junction was also intrathoracic consistent with a recurrent hiatal hernia. The endoscope was then advanced in the stomach and endoscope retroflexed, visualizing the hiatal hernia approximately 4 cm in size. There was a moderate severity gastritis. No formal ulcerations, polyps, or any active bleeding sources. A biopsy was taken of the antrum to rule out H. pylori with visualization of good hemostasis. The endoscope was then advanced through the pylorus into the first and second portion of the duodenum, which appeared normal with no ulcerations or any active bleeding sources. The endoscope was then slowly withdrawn while taking a second look and suctioning of residual air with no additional findings. The patient tolerated the procedure well. We will continue with medical management with Protonix 40 mg on a b.i.d. basis and continue to monitor his clinical status as well as a hemoglobin. If he does have persistent bleeding, we will then proceed with a colonoscopy. Job ID: [id number] DocumentID: [id number] Dictated Date: 02/03/2021 10:20:08 Pediatric Medical Assistant Date: 02/03/2021 15:51:10 Dictated By: VIRI MARTINEZ MD
[2021-02-04] MEDS: LACTATED RINGERS 1,000 ML IV SCH ×4 (00:12→15:28)
[2021-02-04] MEDS: fentaNYL INJ 100 MCG/2 ML AMP IV PRN ×3 (00:12→23:21)
[2021-02-04 04:19] LABS: HEMATOCRIT 27 % (40-54); HEMOGLOBIN 8.7 g/dL (13.3-17.7); MEAN CORPUSCULAR HEMOGLOBIN 33 pg (25-34); MEAN CORPUSCULAR HGB CONC 33 g/dL (32-36); MEAN CORPUSCULAR VOLUME 101 fL (80-99); MEAN PLATELET VOLUME 11.1 fL (9.0-12.2); PLATELET COUNT 174 10^3/uL (130-400); WHITE BLOOD COUNT 6.7 10^3/uL (4.3-11.0)
[2021-02-04 04:28] LABS: POTASSIUM 3.9 MMOL/L (3.6-5.0)
[2021-02-04 04:29] LABS: CALCIUM 7.9 MG/DL (8.5-10.1)
[2021-02-04 04:34] LABS: CREATININE SERUM 1.09 MG/DL (0.60-1.30)
[2021-02-04] MEDS: ONDANSETRON 4 MG/2 ML (SDV) Z0FRAN IV PRN ×2 (07:17→13:01)
[2021-02-04] MEDS: PANTOPRAZOLE 40 MG (PROTONIX) VIAL IV SCH ×2 (07:18→20:00)
[2021-02-04] MEDS ORDERED: meTOprolol 5 MG/5 ML (LOPRESSOR) VIAL ONE (08:43)
[2021-02-04] MEDS: GABAPENTIN 100 MG (NEURONTIN) CAP PO SCH ×2 (08:57→20:00)
[2021-02-04] MEDS ORDERED: meTOprolol 5 MG/5 ML (LOPRESSOR) VIAL IV ONE ×2 (09:00)
--- NOTE | 2021-02-04 09:05 | Progress Note - Hospitalist ---
Subjective HPI/CC On Admission Date Seen by Provider: Feb 04, 2021 Time Seen by Provider: 09:00 Pt is an 89yoCM with a PMH of CAD s/p CABG, HTN, HLD who presented to the ER due to bloody stools. Hereports that he woke up at 5am this morning with maroon colored stools. He is currently on Plavix and takes Mobic as well. They continu ed so he decided to seek evaluation in the ER. He was found to have a Hgb of 10.8 on arrival down from 14 on 01/30/21. He was also somewhat hypotensive with a BP of 90/70. He had a gastropexy in [address] Anaya and he believes he had a colonoscopy a few years ago when he had a similar episode 2-3 years ago at [facility]. Subjective/Events-last exam Pt reports having a lousy night. Had some nausea and vomiting. Thinks it is due to reflux. Objective Exam Vital Signs Vital Signs Date Time Temp Pulse Resp B/P (MAP) Pulse Ox O2 Delivery O2 Flow Rate FiO2 02/04/21 08:10 36.1 100 18 131/73 (92) 96 Room Air 02/03/21 10:25 10 Capillary Refill : Less Than 3 Seconds General Appearance: No Apparent Distress, WD/WN Respiratory: Lungs Clear, No Respiratory Distress Cardiovascular: Regular Rate, Rhythm, No Murmur Neurologic/Psychiatric: Alert, Oriented x3 Results/Procedures Lab Laboratory Tests 02/03/21 13:00 02/04/21 04:00 Patient resulted labs reviewed. Assessment/Plan Assessment and Plan Assess & Plan/Chief Complaint GI Bleed Multiple dark stools in the ER, another red stool yesterday Hgb down a point from yesterday PM Surgery consulted, appreciate recs Continue IV protonix EGD done with revealed gastritis,hiatal hernia, reflux esophagitis CAD s/p CABG HTN HLD Hold home meds as it actively bleeding and hypotensive Appears to have last had stents placed in August 2020- confirmed with that he has been compliant with Plavix until this dose Had some chest pain over night- likely GERD related but will consult card iology DVT ppx: No lovenox for GI bleed Diagnosis/Problems Diagnosis/Problems (1) HLD (hyperlipidemia) (2) Normocytic anemia (3) Upper GI bleeding Status: Acute (4) Coronary artery disease Status: Acute (5) HTN (hypertension) Status: Acute RAMESH MACARIO MD Feb 04, 2021 09:05
--- NOTE | 2021-02-04 09:17 | Consultation-Cardiology ---
HPI-Cardiology Cardiology Consultation Date of Consultation 02/04/21 Date of Admission Time Seen by Provider: 09:09 Indication: Tachycardia, coronary artery disease HPI 89 years old gentleman with history of coronary artery disease, multiple intervention and history of CABG, last cardiac catheterization was done last week. Patient reported multiple episode of bright red blood per rectum, admitted on February 02, 2021 for GI bleed. Underwent upper endoscopy which showed gastritis with no active bleeding, reported a similar episode 2 to 3 years ago and had a colonoscopy and does not recall finding a source of bleeding. This morning he became tachycardic, was having dry heave and nausea, had EKG changes with ST depression. Denied any chest pain. Appeared to be slightly dyspneic Home Medications & Allergies Allergies: Coded Allergies: penicillin G (Verified Allergy, Unknown, 08/11/05) Uncoded Allergies: IV CONTRAST (Allergy, Intermediate, 07/23/15) Home Medication List Reviewed: Yes LQT-Hsgrzk-Nobznt Hx Patient Social History Marital Status: Employed/Student: retired Smoking Status: Former Smoker Former smoker/When Quit: November 04, 1989 2nd Hand Smoke Exposure: No Recent Hopitalizations: No Have you traveled recently?: No Alcohol Use?: Yes Immunizations Up To Date Tetanus Booster (TDap): Unknown Date of Pneumonia Vaccine: Mar 22, 2009 Date of Influenza Vaccine: Mar 05, 2020 Past Medical History Discussed below Family Medical History Family Medical Hx Noncontributory Family History: Patient reports no known family medical history. Review of Systems-General Review of Systems Constitutional: see HPI; No chills, No fever; malaise EENTM: see HPI, no symptoms reported Respiratory: see HPI; No cough, No dyspnea on exertion, No hemoptysis, No orthopnea, No phlegm; short of breath; No stridor, No wheezing, No other Cardiovascular: see HPI; No chest pain, No edema; Hx of Intervention; No palpitations Gastrointestinal: see HPI, heartburn, nausea, vomiting Genitourinary: no symptoms reported, see HPI Musculoskeletal: no symptoms reported, see HPI Skin: no symptoms reported, see HPI Psychiatric/Neurological: No Symptoms Reported, See HPI All Other Systems Reviewed Negative Unless Noted: Yes Reviewed Test Results Reviewed Test Results Lab Laboratory Tests Test 02/03/21 13:00 02/04/21 04:00 Range/Units Hemoglobin 9.6 #L 8.7 L 13.3-17.7 g/dL Hematocrit 30 L 27 L 40-54 % White Blood Count 6.7 4.3-11.0 10^3/uL Red Blood Count 2.66 L 4.30-5.52 10^6/uL Mean Corpuscular Volume 101 H 80-99 fL Mean Corpuscular Hemoglobin 33 25-34 pg Mean Corpuscular Hemoglobin Concent 33 32-36 g/dL Red Cell Distribution Width 15.9 H 10.0-14.5 % Platelet Count 174 130-400 10^3/uL Mean Platelet Volume 11.1 9.0-12.2 fL Sodium Level 137 135-145 MMOL/L Potassium Level 3.9 3.6-5.0 MMOL/L Chloride Level 108 H 98-107 MMOL/L Carbon Dioxide Level 22 21-32 MMOL/L Anion Gap 7 5-14 MMOL/L Blood Urea Nitrogen 19 H 7-18 MG/DL Creatinine 1.09 0.60-1.30 MG/DL Estimat Glomerular Filtration Rate 64 BUN/Creatinine Ratio 17 Glucose Level 113 H 70-105 MG/DL Calcium Level 7.9 L 8.5-10.1 MG/DL Physical Exam Physical Exam Vital Signs Vital Signs - First Documented 02/02/21 02/03/21 06:35 09:35 Temp 35.8 Pulse 81 Resp 18 B/P (MAP) 122/73 (89) Pulse Ox 98 O2 Delivery Room Air O2 Flow Rate 10 Capillary Refill : Less Than 3 Seconds Height, Weight, BMI Height: 5'8.00" Weight: 166lbs. 0.0oz. [id number]; 23.31 BMI Method: General Appearance: No Apparent Distress, WD/WN HEENT: PERRL/EOMI, Moist Mucous Membranes; No Scleral Icterus (L), No Scleral Icterus (R) Neck: Normal Inspection, Supple Respiratory: Lungs Clear, No Respiratory Distress Cardiovascular: Regular Rate, Rhythm, Systolic Murmur Gastrointestinal: Normal Bowel Sounds, Non Tender, Soft Extremity: Normal Capillary Refill, No Calf Tenderness, No Pedal Edema Neurologic/Psychiatric: Alert, Oriented x3 Skin: Normal Color, Warm/Dry, Tattoos/Piercings A/P-Cardiology Admission Diagnosis Anemia GI bleed CAD HTN Assessment/Plan Anemia, GI bleed, underwent upper endoscopy with Dr. Butler reporting gastritis and hiatal hernia, history of gastroplexi done with Dr. Anaya in 2005. Reported colonoscopy 2 to 3 years ago, report is not available. Will require another colonoscopy. Managed by Dr. Butler Sinus tachycardia, frequent PVCs, I gave him 5 mg of IV Lopressor and he is feeling somewhat better. I will start him on IV Lopressor with close monitoring. Chest pain, chronic stable angina, was maintained on Imdur as an outpatient. Coronary artery disease, history of CABG 5 done in 1993. Cardiac catheterization was done in 2011 showing severe in-stent restenosis in the ramus intermedius. Underwent balloon angioplasty using 2.7520 mm apex balloon with no residual stenosis. Underwent cardiac catheterization in July 2015 showing patent 3 bypasses, SPEAR to LAD, vein graft to diagonal with severe disease beyond the anastomosis point and vein graft to obtuse marginal, did not change compared to 2011 procedure, had a patent stent in the proximal ramus intermedius with mild disease distally, patent stent in the midright Coronary artery with 60 percent stenosis distal right coronary artery mild disease, medical therapy is recommended. Had NSTEMI on 09.04.20 underwent LHC showing severe [place] coronary artery disease involving the left main, ostial LAD occlusion, occlusion of the ramus intermedius and diffuse moderate disease in the Cx with 90 percent stenosis in the distal RCA, successful stenting fo the RCA, Alpine 3.0 x12mm, severe stenosis in the prox VG to the OM that was 90 percent in stent restenosis with successful balloon angioplasty. Sever mid vessel stenosis to the VG to danny diagonal artery with successful stenting using Alpine 3.0 x23mm. Cardiac catheterization was carried out on January 30, 2021 showing patent stents in the right coronary artery, patent vein graft to the diagonal artery, occluded vein graft to the obtuse marginal branch and occluded [place] obtuse marginal branch, known to have patent SPEAR. Attempt to intervene on the chronic total occlusion of the vein graft has failed. I did not want to pursue aggressive intervention due to the fact that the patient was clinically stable. Agree with stopping aspirin and Plavix at this point and continue to monitor Echocardiogram done in February 2019 showing normal left ventricular size, ejection fraction 50-55 percent, mild MR, aortic valve sclerosis no stenosis, mild TR, PA 35 mmHg. Continue to monitor Shortness of breath on exertion, restarting Lopressor, monitor tolerance and response Congestive heart failure, chronic compensated left ventricular systolic dysfunction, improved, last echocardiogram done in July 2018 showing ejection fraction 50-55 percent. Continue to monitor Hypertension, currently all his medication on hold. Continue to monitor this Hyperlipidemia, monitor lipids Mild bilateral carotid stenoses nonobstructive disease, last ultrasound was done in August 2020 History of TIA, resolution of his symptoms. Continue to monitor at this time. COPD/obstructive sleep apnea using C Pap, does not follow up with bleach packer, I will arrange an appointment with Dr. Chakraborty Sick sinus syndrome, borderline bradycardia, history of intolerance to beta blockers, tolerating metoprolol at this time. Palpitations-history of Holter monitor done July 2007 revealing occasional episode of PVC, PAC, short runs of paroxysmal SVT. Unable to tolerate higher dose of beta anup secondary to underlying sick sinus syndrome. ENZO MACHADO MD Feb 04, 2021 09:17
[2021-02-04 11:11] LABS: HEMOGLOBIN 8.9 g/dL (13.3-17.7)
--- NOTE | 2021-02-04 11:25 | Physical Therapy Progress Note ---
Therapy Progress Note Patient on Hold per RN secondary to current medical status. PT will check status tomorrow MAULIK Moralez PT Feb 04, 2021 11:25
--- NOTE | 2021-02-04 11:51 | Occ Therapy Progress Note ---
Therapy Progress Note OT orders received and chart reviewed. Pt currently on hold per nurse due to current medical stattus, OT will attempt evaluation tomorrow. DECLAN ALCANTAR OT Feb 04, 2021 11:51
[2021-02-04] MEDS: meTOprolol 5 MG/5 ML (LOPRESSOR) VIAL IV SCH ×3 (11:55→23:22)
[2021-02-04] MEDS: NITROGLYCERIN 0.4 MG SL TABS BTL 25'S SL PRN ×3 (13:58→16:54)
--- NOTE | 2021-02-04 17:59 | Tele-ICU Progress Note ---
Subjective Time Seen by a Provider: 17:58 Sepsis Event Evaluation Height, Weight, BMI Height: 5'8.00" Weight: 166lbs. 0.0oz. [id number]; 23.31 BMI Method: Exam Exam Patient acknowledged, consented, and participated in this virtual visit which was conducted using real time audio/video Vital Signs Date Time Temp Pulse Resp B/P (MAP) Pulse Ox O2 Delivery O2 Flow Rate FiO2 02/04/21 16:00 36.8 02/04/21 16:00 Room Air 02/04/21 16:00 85 21 143/77 (99) 98 Room Air 02/04/21 15:00 141/70 (93) Room Air 02/04/21 12:36 70 02/04/21 12:00 77 30 136/81 (99) 96 Room Air 02/04/21 11:41 37.0 89 14 138/74 (95) 97 Room Air 02/04/21 11:00 85 16 138/74 (95) 99 Room Air 02/04/21 10:00 95 31 149/78 (101) 98 Room Air 02/04/21 09:00 80 13 132/60 (84) 98 Room Air 02/04/21 08:10 36.1 100 18 131/73 (92) 96 Room Air 02/04/21 07:33 Room Air 02/04/21 07:22 90 02/04/21 03:00 36.9 85 14 146/64 (91) 95 Room Air 02/04/21 01:00 79 02/04/21 00:11 36.3 84 14 137/75 (95) 96 Room Air 02/03/21 21:00 Room Air 02/03/21 20:15 84 8 122/75 (91) 96 Room Air 02/03/21 19:55 37.0 81 13 114/64 (81) 95 Room Air 02/03/21 19:09 36.8 86 22 117/64 96 Room Air 02/03/21 19:00 94 I & O 02/04/21 07:00 Intake Total 1620 ml Output Total 625 ml Balance 995 ml Height & Weight Height: 5'8.00" Weight: 166lbs. 0.0oz. 75.541316hm; 23.31 BMI Method: General Appearance: No Apparent Distress, WD/WN HEENT: PERRL/EOMI, Moist Mucous Membranes; No Scleral Icterus (L), No Scleral Icterus (R) Neck: Normal Inspection, Supple Respiratory: Lungs Clear, No Respiratory Distress Cardiovascular: Regular Rate, Rhythm, Systolic Murmur Capillary Refill: Less Than 3 Seconds Peripheral Pulses: 2+ Radial Pulses (R), 2+ Radial Pulses (L) Gastrointestinal: normal bowel sounds (Active), non tender, soft Extremity: Normal Capillary Refill, No Calf Tenderness, No Pedal Edema Neurologic/Psychiatric: Alert, Oriented x3 Skin: Normal Color, Warm/Dry, Tattoos/Piercings Results Lab Laboratory Tests 02/03/21 02:00 02/03/21 13:00 02/04/21 04:00 02/04/21 11:00 Assessment/Plan Assessment/Plan (Tele-ICU Physician , consultation) Available chart/ vitals / labs / Images reviewed H&P is from ER notes Patient's information available about PMH, Shx, Fhx allergy reviewed in EMR. ROS as per chart and RN report Patient admitted 02/02- admitted with ABLA, GIB 02/04 - tramsferred to ICU with angina Now in ICU, hemodynamically stable Video assessment done using teleICU camera, rest of exam as per RN Discussed with RN. Consultants: cards Sx ( GI A/P CAD s/p CABG- multiple stenting in past , recent attempt to intervene on the chronic total occlusion of the vein graft has failed. Acute on chronic angina - as per crds -EF 50% GI Bleed, ABLA - IV protonix -EGD done with revealed gastritis,hiatal hernia, reflux esophagitis - RBPR as per RN - as per SX need for colonoscopy - plavix on hold - monitor Hb COPD/obstructive sleep apnea using C Pap Plans in collaboration with bedside consultants and IM MDs. Discussed with RN to reach out if any questions or concerns A total of 20 minutes of critical care time was devoted to this patient today, required to treat and/or prevent further deterioration of critical care condition ( as above ) . DAREN BUSTOS MD Feb 04, 2021 17:59
[2021-02-04 19:27] LABS: HEMOGLOBIN 8.2 g/dL (13.3-17.7)
--- NOTE | 2021-02-04 19:47 | Progress Note ---
Subjective Date Seen by a Provider: Feb 04, 2021 Time Seen by a Provider: 19:00 Subjective/Events-last exam patient still having maroon stools, hb 8.2 tonight. also having cardiac angina and on nitro. Objective Exam Vital Signs Date Time Temp Pulse Resp B/P (MAP) Pulse Ox O2 Delivery O2 Flow Rate FiO2 02/04/21 18:00 73 17 152/84 (106) 97 Room Air 02/04/21 17:00 96 18 124/76 (92) 97 Room Air 02/04/21 16:00 36.8 02/04/21 16:00 Room Air 02/04/21 16:00 85 21 143/77 (99) 98 Room Air 02/04/21 15:00 141/70 (93) Room Air 02/04/21 12:36 70 02/04/21 12:00 77 30 136/81 (99) 96 Room Air 02/04/21 11:41 37.0 89 14 138/74 (95) 97 Room Air 02/04/21 11:00 85 16 138/74 (95) 99 Room Air 02/04/21 10:00 95 31 149/78 (101) 98 Room Air 02/04/21 09:00 80 13 132/60 (84) 98 Room Air 02/04/21 08:10 36.1 100 18 131/73 (92) 96 Room Air 02/04/21 07:33 Room Air 02/04/21 07:22 90 02/04/21 03:00 36.9 85 14 146/64 (91) 95 Room Air 02/04/21 01:00 79 02/04/21 00:11 36.3 84 14 137/75 (95) 96 Room Air 02/03/21 21:00 Room Air 02/03/21 20:15 84 8 122/75 (91) 96 Room Air 02/03/21 19:55 37.0 81 13 114/64 (81) 95 Room Air I & O 02/04/21 07:00 Intake Total 1620 ml Output Total 625 ml Balance 995 ml Capillary Refill : Less Than 3 Seconds General Appearance: No Apparent Distress HEENT: PERRL/EOMI Neck: Full Range of Motion Respiratory: Decreased Breath Sounds Cardiovascular: Other (having left chest pain relieved by nitro) Gastrointestinal: normal bowel sounds, soft Extremity: Normal Capillary Refill Neurologic/Psychiatric: Alert, Oriented x3 Skin: Normal Color Lymphatic: No Adenopathy Results Lab Laboratory Tests 02/04/21 04:00: White Blood Count 6.7, Red Blood Count 2.66L, Hemoglobin 8.7L, Hematocrit 27L, Mean Corpuscular Volume 101H, Mean Corpuscular Hemoglobin 33, Mean Corpuscular Hemoglobin Concent 33, Red Cell Distribution Width 15.9H, Platelet Count 174, Mean Platelet Volume 11.1, Sodium Level 137, Potassium Level 3.9, Chloride Level 108H, Carbon Dioxide Level 22, Anion Gap 7, Blood Urea Nitrogen 19H, Creatinine 1.09, Estimat Glomerular Filtration Rate 64, BUN/Creatinine Ratio 17, Glucose Level 113H, Calcium Level 7.9L, Troponin I 0.675*H 02/04/21 11:00: Hemoglobin 8.9L, Hematocrit 27L 02/04/21 13:10: Glucometer 115H 02/04/21 16:05: Troponin I 0.618*H 02/04/21 19:20: Hemoglobin 8.2L, Hematocrit 25L Assessment/Plan Assessment/Plan Assess & Plan/Chief Complaint lower gi bleed. give another unit platelets. patient now too unstable for bowel prep however will reeval tomorrow and schedule colonoscopy. VIRI MARTINEZ MD Feb 04, 2021 19:47
[2021-02-04] MEDS ORDERED: NS IV 500 ML 500 ML ONE (21:19)
[2021-02-04 21:24] VITALS: BP 143/79
[2021-02-04 21:40] VITALS: BP 145/92
[2021-02-05 00:14] VITALS: BP 137/72
[2021-02-05] MEDS: LACTATED RINGERS 1,000 ML IV SCH ×4 (00:38→23:34)
[2021-02-05] MEDS: fentaNYL INJ 100 MCG/2 ML AMP IV PRN ×2 (02:10→15:50)
[2021-02-05 03:34] LABS: BASOPHILS % (AUTO) 0 % (0-10); EOSINOPHILS % (AUTO) 0 % (0-10); HEMATOCRIT 25 % (40-54); HEMOGLOBIN 8.1 g/dL (13.3-17.7); LYMPHOCYTES # (AUTO) 1.3 10^3/uL (1.0-4.0); LYMPHOCYTES % (AUTO) 13 % (12-44); MEAN CORPUSCULAR HEMOGLOBIN 33 pg (25-34); MEAN CORPUSCULAR HGB CONC 32 g/dL (32-36); MEAN CORPUSCULAR VOLUME 101 fL (80-99); MEAN PLATELET VOLUME 10.5 fL (9.0-12.2); MONOCYTES # (AUTO) 0.9 10^3/uL (0.0-1.0); MONOCYTES % (AUTO) 8 % (0-12); NEUTROPHILS # (AUTO) 7.9 10^3/uL (1.8-7.8); NEUTROPHILS % (AUTO) 78 % (42-75); PLATELET COUNT 277 10^3/uL (130-400); WHITE BLOOD COUNT 10.2 10^3/uL (4.3-11.0)
[2021-02-05 03:45] LABS: POTASSIUM 3.6 MMOL/L (3.6-5.0)
[2021-02-05 03:47] LABS: CALCIUM 8.1 MG/DL (8.5-10.1)
[2021-02-05 03:50] LABS: PHOSPHORUS 2.5 MG/DL (2.3-4.7)
[2021-02-05 03:51] LABS: CREATININE SERUM 0.9 MG/DL (0.60-1.30)
[2021-02-05 03:52] LABS: MAGNESIUM 1.8 MG/DL (1.6-2.4)
[2021-02-05] MEDS: MAGNESIUM 1 GM/100 ML IVPB 100 ML IV SCH (04:02)
[2021-02-05] MEDS: POTASSIUM CL 10MEQ/50ML IVPB 50 ML IV SCH (04:02)
[2021-02-05] MEDS: KCL 20 MEQ TAB (K-DUR) PO SCH (04:03)
[2021-02-05] MEDS: meTOprolol 5 MG/5 ML (LOPRESSOR) VIAL IV SCH ×3 (06:41→17:46)
--- NOTE | 2021-02-05 06:56 | Occ Therapy Progress Note ---
Therapy Progress Note Due to decline in medical status, pt is discharged from OT services. New orders will be needed when pt is medically stable to tolerate skilled therapy. DEMARCO ZENG Feb 05, 2021 06:55
--- NOTE | 2021-02-05 07:44 | Physical Therapy Progress Note ---
Therapy Progress Note Patient transferred to ICU. PT will require new orders when patient is medically stable and able to actively participate with skilled therapy. MAULIK SAMANO PT Feb 05, 2021 07:44
[2021-02-05] MEDS: PANTOPRAZOLE 40 MG (PROTONIX) VIAL IV SCH ×2 (07:58→20:29)
[2021-02-05] MEDS: GABAPENTIN 100 MG (NEURONTIN) CAP PO SCH ×2 (07:59→20:29)
--- NOTE | 2021-02-05 08:33 | Cardiology Progress Note ---
Subjective Date Seen by Provider: Feb 05, 2021 Time Seen by Provider: 08:31 Subjective/Events-last exam Patient is still having significant nausea, occasional jaw pain. No chest pain Review of Systems General: No Chills, No Night Sweats, No Fatigue, No Malaise, No Appetite, No Other HEENT: No Head Aches, No Visual Changes, No Eye Pain, No Ear Pain, No Dysphasia, No Sinus Congestion, No Post Nasal Drip, No Sore Throat, No Other Pulmonary: No Dyspnea, No Cough, No Pleuritic Chest Pain, No Other Cardiovascular: No: Chest Pain, Palpitations, Orthopnea, Paroxysmal Noc. Dyspnea, Edema, Lt Headedness, Other Objective-Cardiology Exam Last Set of Vital Signs Vital Signs 02/03/21 02/05/21 02/05/21 02/05/21 02/05/21 02/05/21 10:25 05:00 06:00 07:00 07:40 08:00 Temp 37.0 Pulse 83 Resp 14 B/P (MAP) 134/68 (90) Pulse Ox 96 O2 Delivery Room Air O2 Flow Rate 10 I&O Intake and Output 02/05/21 00:00 Intake Total 550 ml Output Total 1250 ml Balance -700 ml Intake Oral 550 ml Output Urine Total 1250 ml # Voids 1 # Bowel Movements 8 General: Alert, Oriented X3, Cooperative HEENT: Atraumatic, PERRLA Neck: Supple, No JVD, No Thyromegaly Lungs: Clear to Auscultation, Normal Air Movement Heart: Regular Rate, Normal S1, Normal S2, Other (Systolic murmur at the left sternal border) Abdomen: Normal Bowel Sounds, Soft, No Tenderness, No Hepatosplenomegaly, No Masses Extremities: No Clubbing, No Cyanosis, No Edema, Normal Pulses, No Tenderness/Swelling Skin: No Rashes, No Breakdown, No Significant Lesion Neuro: Normal Gait, Normal Speech, Strength at 5/5 X4 Ext, Normal Tone, Sensation Intact Psych/Mental Status: Mental Status NL, Mood NL Results Lab Laboratory Tests 02/04/21 11:00 02/04/21 19:20 02/05/21 03:20 A/P-Cardiology Admission Diagnosis Anemia GI bleed CAD HTN Assessment/Plan Anemia, GI bleed, underwent upper endoscopy with Dr. Butler reporting gastritis and hiatal hernia, history of gastroplexi done with Dr. Anaya in 2005. Reported colonoscopy 2 to 3 years ago, report is not available. Will require another colonoscopy. Managed by Dr. Butler Recurrent nausea, occasional vomiting, probably secondary to gastritis, managed by primary team Sinus tachycardia, frequent PVCs, better after starting Lopressor. Continue to monitor Chest pain, chronic stable angina, was maintained on Imdur as an outpatient. I will restart Imdur at this point Coronary artery disease, history of CABG 5 done in 1993. Cardiac catheterization was done in 2011 showing severe in-stent restenosis in the ramus intermedius. Underwent balloon angioplasty using 2.7520 mm apex balloon with no residual stenosis. Underwent cardiac catheterization in July 2015 showing patent 3 bypasses, SPEAR to LAD, vein graft to diagonal with severe disease beyond the anastomosis point and vein graft to obtuse marginal, did not change compared to 2011 procedure, had a patent stent in the proximal ramus intermedius with mild disease distally, patent stent in the midright Coronary artery with 60 percent stenosis distal right coronary artery mild disease, medical therapy is recommended. Had NSTEMI on 09.04.20 underwent LHC showing severe [place] coronary artery disease involving the left main, ostial LAD occlusion, occlusion of the ramus intermedius and diffuse moderate disease in the Cx with 90 percent stenosis in the distal RCA, successful stenting fo the RCA, Alpine 3.0 x12mm, severe stenosis in the prox VG to the OM that was 90 percent in stent restenosis with successful balloon angioplasty. Sever mid vessel stenosis to the VG to danny diagonal artery with successful stenting using Alpine 3.0 x23mm. Cardiac catheterization was carried out on January 30, 2021 showing patent stents in the right coronary artery, patent vein graft to the diagonal artery, occluded vein graft to the obtuse marginal branch and occluded chitimacha obtuse marginal branch, known to have patent SPEAR. Attempt to intervene on the chronic total occlusion of the vein graft has failed. I did not want to pursue aggressive intervention due to the fact that the patient was clinically stable. Agree with stopping aspirin and Plavix at this point and continue to monitor Echocardiogram done in February 2019 showing normal left ventricular size, ejection fraction 50-55 percent, mild MR, aortic valve sclerosis no stenosis, mild TR, PA 35 mmHg. Continue to monitor Shortness of breath on exertion, restarting Lopressor, monitor tolerance and response Congestive heart failure, chronic compensated left ventricular systolic dysfunction, improved, last echocardiogram done in July 2018 showing ejection fraction 50-55 percent. Continue to monitor Hypertension, currently all his medication on hold. Continue to monitor this Hyperlipidemia, monitor lipids Mild bilateral carotid stenoses nonobstructive disease, last ultrasound was done in August 2020 History of TIA, resolution of his symptoms. Continue to monitor at this time. 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 Chakraborty Sick sinus syndrome, borderline bradycardia, history of intolerance to beta blockers, tolerating metoprolol at this time. Palpitations-history of Holter monitor done July 2007 revealing occasional episode of PVC, PAC, short runs of paroxysmal SVT. Unable to tolerate higher dose of beta anup secondary to underlying sick sinus syndrome. ENZO MACHADO MD Feb 05, 2021 08:33
[2021-02-05] MEDS: ONDANSETRON 4 MG/2 ML (SDV) Z0FRAN IV PRN (08:35)
[2021-02-05] MEDS ORDERED: KCL 20 MEQ TAB (K-DUR) PO ONE (09:00)
[2021-02-05] MEDS: ISOSORBIDE MONONITRATE 30 MG (IMDUR) TAB PO SCH (09:37)
--- NOTE | 2021-02-05 12:19 | Progress Note - Hospitalist ---
Subjective HPI/CC On Admission Date Seen by Provider: Feb 05, 2021 Time Seen by Provider: 08:20 Pt is an 89yoCM with a PMH of CAD s/p CABG, HTN, HLD who presented to the ER due to bloody stools. Hereports that he woke up at 5am this morning with maroon colored stools. He is currently on Plavix and takes Mobic as well. They continu ed so he decided to seek evaluation in the ER. He was found to have a Hgb of 10.8 on arrival down from 14 on 01/30/21. He was also somewhat hypotensive with a BP of 90/70. He had a gastropexy in [address] Anaya and he believes he had a colonoscopy a few years ago when he had a similar episode 2-3 years ago at [facility]. Subjective/Events-last exam He is feeling nauseous. He has been having jaw pain. He has been diaphoretic. He denies any chest pain. He denies any shortness of breath. He has not had any more bloody stools. Objective Exam Vital Signs Vital Signs Date Time Temp Pulse Resp B/P (MAP) Pulse Ox O2 Delivery O2 Flow Rate FiO2 02/05/21 12:00 37.3 02/05/21 09:00 90 20 126/67 (86) 94 Room Air 02/03/21 10:25 10 Capillary Refill : Less Than 3 Seconds General Appearance: Mild Distress (uncomfortable) Respiratory: Lungs Clear, Normal Breath Sounds, No Respiratory Distress Cardiovascular: Regular Rate, Rhythm, No Edema, No Murmur Gastrointestinal: Normal Bowel Sounds, Non Tender, Soft Extremity: Normal Inspection, Non Tender, No Pedal Edema Neurologic/Psychiatric: Alert, Oriented x3, No Motor/Sensory Deficits, Normal Mood/Affect Skin: Normal Color, Warm/Dry Results/Procedures Lab Laboratory Tests 02/04/21 19:20 02/05/21 03:20 Patient resulted labs reviewed. Assessment/Plan Assessment and Plan Assess & Plan/Chief Complaint Acute upper GI bleed Hemoglobin stable Status post 2 units PRBC EGD revealed gastritis, hiatal hernia, and esophagitis Continue PPI NSTEMI CAD Likely type II, demand ischemia, due to anemia Cardiology following Planning for conservative medical management Continue Imdur Continue metoprolol Holding aspirin and Plavix Nausea Continue antiemetics HTN HLD Holding home meds DVT prophylaxis: SCDs, pharmacologic held due to GI bleeding Diagnosis/Problems Diagnosis/Problems (1) Upper GI bleeding Status: Acute (2) Non-STEMI (non-ST elevated myocardial infarction) Status: Acute (3) Coronary artery disease Status: Acute IRVING ZARATE MD Feb 05, 2021 12:19
--- NOTE | 2021-02-05 13:07 | Tele-ICU Progress Note ---
Subjective Date Seen by a Provider: Feb 05, 2021 Time Seen by a Provider: 13:07 Sepsis Event Evaluation Height, Weight, BMI Height: 5'8.00" Weight: 166lbs. 0.0oz. 75.506507ga; 23.31 BMI Method: Exam Exam Patient acknowledged, consented, and participated in this virtual visit which was conducted using real time audio/video Vital Signs Date Time Temp Pulse Resp B/P (MAP) Pulse Ox O2 Delivery O2 Flow Rate FiO2 02/05/21 12:00 37.3 02/05/21 12:00 66 24 129/65 (86) 96 Room Air 02/05/21 11:00 75 20 140/77 (98) 98 Room Air 02/05/21 10:00 71 14 133/62 (85) 97 Room Air 02/05/21 09:00 90 20 126/67 (86) 94 Room Air 02/05/21 08:00 80 19 134/68 (90) 95 Room Air 02/05/21 08:00 37.0 02/05/21 07:40 96 Room Air 02/05/21 07:00 75 16 136/72 (93) 97 Room Air 02/05/21 07:00 83 02/05/21 06:00 71 134/68 (90) 97 Room Air 02/05/21 05:00 89 14 141/79 (99) 97 Room Air 02/05/21 04:55 36.8 02/05/21 04:02 Room Air 02/05/21 04:00 84 15 142/82 (102) 97 Room Air 02/05/21 03:00 76 13 141/82 (101) 94 Room Air 02/05/21 02:00 99 25 118/72 (87) Room Air 02/05/21 01:00 67 02/05/21 01:00 67 15 107/51 (69) 94 Room Air 02/05/21 00:34 Room Air 02/05/21 00:15 37.2 02/05/21 00:14 37.2 73 16 137/72 97 Room Air 02/05/21 00:00 70 16 122/66 (84) 94 Room Air 02/04/21 23:00 87 16 152/79 (103) 97 Room Air 02/04/21 22:00 73 143/68 (93) 98 Room Air 02/04/21 21:40 37.1 86 16 145/92 99 Room Air 02/04/21 21:25 74 10 143/79 (100) 98 Room Air 02/04/21 21:24 37.3 74 19 143/79 98 Room Air 02/04/21 20:50 37.0 02/04/21 20:00 Room Air 02/04/21 20:00 82 22 155/90 (111) 98 Room Air 02/04/21 19:59 79 20 154/78 (103) 98 Room Air 02/04/21 19:00 75 02/04/21 19:00 75 15 154/78 (103) 99 Room Air 02/04/21 18:00 73 17 152/84 (106) 97 Room Air 02/04/21 17:00 96 18 124/76 (92) 97 Room Air 02/04/21 16:00 36.8 02/04/21 16:00 Room Air 02/04/21 16:00 85 21 143/77 (99) 98 Room Air 02/04/21 15:00 141/70 (93) Room Air I & O 02/05/21 07:00 Intake Total 300 ml Output Total 1650 ml Balance -1350 ml Height & Weight Height: 5'8.00" Weight: 166lbs. 0.0oz. 75.679400lb; 23.31 BMI Method: General Appearance: Mild Distress (uncomfortable) HEENT: PERRL/EOMI Neck: Full Range of Motion Respiratory: Lungs Clear, Normal Breath Sounds, No Respiratory Distress Cardiovascular: Regular Rate, Rhythm, No Edema, No Murmur Capillary Refill: Less Than 3 Seconds Peripheral Pulses: 2+ Radial Pulses (R), 2+ Radial Pulses (L) Gastrointestinal: normal bowel sounds, soft Extremity: Normal Inspection, Non Tender, No Pedal Edema Neurologic/Psychiatric: Alert, Oriented x3, No Motor/Sensory Deficits, Normal Mood/Affect Skin: Normal Color, Warm/Dry Lymphatic: No Adenopathy Results Lab Laboratory Tests 02/04/21 04:00 02/04/21 11:00 02/04/21 19:20 02/05/21 03:20 Assessment/Plan Assessment/Plan Video assessment done , Hemodynamically stable Available charting reviewed, discussed with RN 02/02- admitted with ABLA, GIB 02/04 - tramsferred to ICU with angina Consultants: cards Sx ( GI A/P CAD s/p CABG- multiple stenting in past , recent attempt to intervene on the chronic total occlusion of the vein graft has failed. Acute on chronic angina - as per crds -EF 50% GI Bleed, ABLA - IV protonix -EGD done with revealed gastritis,hiatal hernia, reflux esophagitis - RBPR as per RN - as per SX need for colonoscopy when stable - plavix on hold , PLT transfused - monitor Hb - stable COPD/ OASA? -? using C Pap NO TELE-ICU CONSULT REQUESTED CONTINUE TO MONITOR PER USUAL TELE-ICU PROTOCOL No need for Tele-ICU interventions Plans as delineated by bedside physicians / consultants DAREN BUSTOS MD Feb 05, 2021 13:07
[2021-02-05] MEDS ORDERED: PROMETHAZINE INJ 25 MG/ML (PHENERGAN) AMP IVP PRN (13:15)
--- NOTE | 2021-02-05 15:32 | Progress Note ---
Subjective Date Seen by a Provider: Feb 05, 2021 Time Seen by a Provider: 12:00 Subjective/Events-last exam no rectal bleed since yesterday. Hb stable at 8.1. having significant n ausea/vomiting. Objective Exam Vital Signs Date Time Temp Pulse Resp B/P (MAP) Pulse Ox O2 Delivery O2 Flow Rate FiO2 02/05/21 14:00 99 Nasal Cannula 2.00 02/05/21 13:00 95 02/05/21 12:00 97 Room Air 02/05/21 12:00 37.3 02/05/21 12:00 66 24 129/65 (86) 96 Room Air 02/05/21 11:00 75 20 140/77 (98) 98 Room Air 02/05/21 10:00 71 14 133/62 (85) 97 Room Air 02/05/21 09:00 90 20 126/67 (86) 94 Room Air 02/05/21 08:00 80 19 134/68 (90) 95 Room Air 02/05/21 08:00 37.0 02/05/21 07:40 96 Room Air 02/05/21 07:00 75 16 136/72 (93) 97 Room Air 02/05/21 07:00 83 02/05/21 06:00 71 134/68 (90) 97 Room Air 02/05/21 05:00 89 14 141/79 (99) 97 Room Air 02/05/21 04:55 36.8 02/05/21 04:02 Room Air 02/05/21 04:00 84 15 142/82 (102) 97 Room Air 02/05/21 03:00 76 13 141/82 (101) 94 Room Air 02/05/21 02:00 99 25 118/72 (87) Room Air 02/05/21 01:00 67 02/05/21 01:00 67 15 107/51 (69) 94 Room Air 02/05/21 00:34 Room Air 02/05/21 00:15 37.2 02/05/21 00:14 37.2 73 16 137/72 97 Room Air 02/05/21 00:00 70 16 122/66 (84) 94 Room Air 02/04/21 23:00 87 16 152/79 (103) 97 Room Air 02/04/21 22:00 73 143/68 (93) 98 Room Air 02/04/21 21:40 37.1 86 16 145/92 99 Room Air 02/04/21 21:25 74 10 143/79 (100) 98 Room Air 02/04/21 21:24 37.3 74 19 143/79 98 Room Air 02/04/21 20:50 37.0 02/04/21 20:00 Room Air 02/04/21 20:00 82 22 155/90 (111) 98 Room Air 02/04/21 19:59 79 20 154/78 (103) 98 Room Air 02/04/21 19:00 75 02/04/21 19:00 75 15 154/78 (103) 99 Room Air 02/04/21 18:00 73 17 152/84 (106) 97 Room Air 02/04/21 17:00 96 18 124/76 (92) 97 Room Air 02/04/21 16:00 36.8 02/04/21 16:00 Room Air 02/04/21 16:00 85 21 143/77 (99) 98 Room Air I & O 02/05/21 07:00 Intake Total 300 ml Output Total 1650 ml Balance -1350 ml Capillary Refill : Less Than 3 Seconds General Appearance: No Apparent Distress HEENT: PERRL/EOMI Neck: Full Range of Motion Respiratory: Decreased Breath Sounds, Rhonci Cardiovascular: Regular Rate, Rhythm Gastrointestinal: normal bowel sounds, soft Extremity: Normal Capillary Refill Neurologic/Psychiatric: Alert, Oriented x3 Skin: Normal Color Lymphatic: No Adenopathy Results Lab Laboratory Tests 02/04/21 16:05: Troponin I 0.618*H 02/04/21 19:20: Hemoglobin 8.2L, Hematocrit 25L 02/05/21 03:20: Hemoglobin 8.1L, Hematocrit 25L, White Blood Count 10.2, Red Blood Count 2.49L, Mean Corpuscular Volume 101H, Mean Corpuscular Hemoglobin 33, Mean Corpuscular Hemoglobin Concent 32, Red Cell Distribution Width 15.5H, Platelet Count 277, Mean Platelet Volume 10.5, Immature Granulocyte % (Auto) 1, Neutrophils (%) (Auto) 78H, Lymphocytes (%) (Auto) 13, Monocytes (%) (Auto) 8, Eosinophils (%) (Auto) 0, Basophils (%) (Auto) 0, Neutrophils # (Auto) 7.9H, Lymphocytes # (Auto) 1.3, Monocytes # (Auto) 0.9, Eosinophils # (Auto) 0.0, Basophils # (Auto) 0.0, Immature Granulocyte # (Auto) 0.1, Sodium Level 137, Potassium Level 3.6, Chloride Level 104, Carbon Dioxide Level 19L, Anion Gap 14, Blood Urea Nitrogen 19H, Creatinine 0.90, Estimat Glomerular Filtration Rate 80, BUN/Creatinine Ratio 21, Glucose Level 104, Calcium Level 8.1L, Phosphorus Level 2.5, Magnesium Level 1.8 02/05/21 13:33: Lab Scanned Report Transfusion Reaction Form Assessment/Plan Assessment/Plan Assess & Plan/Chief Complaint lower gi bleed. seems to have slowed or stoppped. still having significant nausea and vomiting. start phenergan and try prep tomorrow. VIRI MARTINEZ MD Feb 05, 2021 15:32
[2021-02-06] MEDS: meTOprolol 5 MG/5 ML (LOPRESSOR) VIAL IV SCH ×5 (00:02→23:41)
[2021-02-06 03:12] LABS: BASOPHILS % (AUTO) 0 % (0-10); EOSINOPHILS # (AUTO) 0.2 10^3/uL (0.0-0.3); EOSINOPHILS % (AUTO) 2 % (0-10); HEMATOCRIT 21 % (40-54); LYMPHOCYTES # (AUTO) 1.6 10^3/uL (1.0-4.0); LYMPHOCYTES % (AUTO) 19 % (12-44); MEAN CORPUSCULAR HEMOGLOBIN 34 pg (25-34); MEAN CORPUSCULAR HGB CONC 33 g/dL (32-36); MEAN CORPUSCULAR VOLUME 103 fL (80-99); MEAN PLATELET VOLUME 10.8 fL (9.0-12.2); MONOCYTES # (AUTO) 0.8 10^3/uL (0.0-1.0); MONOCYTES % (AUTO) 10 % (0-12); NEUTROPHILS # (AUTO) 5.6 10^3/uL (1.8-7.8); NEUTROPHILS % (AUTO) 68 % (42-75); PLATELET COUNT 258 10^3/uL (130-400); WHITE BLOOD COUNT 8.3 10^3/uL (4.3-11.0)
[2021-02-06 03:14] LABS: HEMOGLOBIN 6.8 g/dL (13.3-17.7)
[2021-02-06 03:15] LABS: POTASSIUM 3.4 MMOL/L (3.6-5.0)
[2021-02-06 03:17] LABS: CALCIUM 7.7 MG/DL (8.5-10.1)
[2021-02-06 03:21] LABS: CREATININE SERUM 0.89 MG/DL (0.60-1.30); PHOSPHORUS 1.9 MG/DL (2.3-4.7)
[2021-02-06 03:24] LABS: MAGNESIUM 1.6 MG/DL (1.6-2.4)
[2021-02-06] MEDS: MAGNESIUM 1 GM/100 ML IVPB 100 ML IV SCH ×2 (04:01→04:11)
[2021-02-06] MEDS: POTASSIUM CL 10MEQ/50ML IVPB 50 ML IV SCH ×2 (04:01→04:11)
[2021-02-06] MEDS: KCL 20 MEQ TAB (K-DUR) PO SCH (04:11)
[2021-02-06] MEDS: LACTATED RINGERS 1,000 ML IV SCH ×3 (06:02→23:47)
[2021-02-06] MEDS ORDERED: NS IV 500 ML 500 ML IV SCH ×2 (08:15→08:30)
[2021-02-06] MEDS: PANTOPRAZOLE 40 MG (PROTONIX) VIAL IV SCH ×2 (08:35→20:23)
[2021-02-06] MEDS: GABAPENTIN 100 MG (NEURONTIN) CAP PO SCH ×2 (08:35→20:24)
[2021-02-06] MEDS: ISOSORBIDE MONONITRATE 30 MG (IMDUR) TAB PO SCH (08:35)
[2021-02-06] MEDS: MAGNESIUM CITRATE 300 ML BTL PO SCH ×2 (08:37→20:23)
--- NOTE | 2021-02-06 09:17 | Cardiology Progress Note ---
Subjective Date Seen by Provider: Feb 06, 2021 Time Seen by Provider: 09:15 Subjective/Events-last exam Patient was seen at bedside, laying down comfortably, feeling better, no chest pain or shortness of breath, no nausea today. Has significant drop in his hemoglobin Review of Systems General: No Chills, No Night Sweats, No Fatigue, No Malaise, No Appetite, No Other HEENT: No Head Aches, No Visual Changes, No Eye Pain, No Ear Pain, No Dysphasia, No Sinus Congestion, No Post Nasal Drip, No Sore Throat, No Other Pulmonary: No Dyspnea, No Cough, No Pleuritic Chest Pain, No Other Cardiovascular: No: Chest Pain, Palpitations, Orthopnea, Paroxysmal Noc. Dyspnea, Edema, Lt Headedness, Other Objective-Cardiology Exam Last Set of Vital Signs Vital Signs 02/05/21 02/06/21 02/06/21 15:00 06:00 08:00 Temp 36.1 Pulse 73 Resp 14 B/P (MAP) 126/62 (83) Pulse Ox 100 O2 Delivery Room Air O2 Flow Rate 2.00 I&O Intake and Output 02/06/21 00:00 Intake Total 2500 ml Output Total 1650 ml Balance 850 ml Intake Oral 500 ml IV Total 2000 ml Output Urine Total 1650 ml # Voids 1 General: Alert, Oriented X3, Cooperative HEENT: Atraumatic, PERRLA Neck: Supple, No JVD, No Thyromegaly Lungs: Clear to Auscultation, Normal Air Movement Heart: Regular Rate, Normal S1, Normal S2, Other (Systolic murmur at the left sternal border) Abdomen: Normal Bowel Sounds, Soft, No Tenderness, No Hepatosplenomegaly, No Masses Extremities: No Clubbing, No Cyanosis, No Edema, Normal Pulses, No Tenderness/Swelling Skin: No Rashes, No Breakdown, No Significant Lesion Neuro: Normal Gait, Normal Speech, Strength at 5/5 X4 Ext, Normal Tone, Sensation Intact Psych/Mental Status: Mental Status NL, Mood NL Results Lab Laboratory Tests 02/06/21 02:45 A/P-Cardiology Admission Diagnosis Anemia GI bleed CAD HTN Assessment/Plan Anemia, GI bleed, underwent upper endoscopy with Dr. Butler reporting gastritis and hiatal hernia, history of gastroplexi done with Dr. Anaya in 2005. Reported colonoscopy 2 to 3 years ago, report is not available. Scheduled for possible colonoscopy tomorrow Anemia, another drop in hemoglobin, I will transfuse 2 units of packed RBCs and give Lasix 20 mg in between units. Recurrent nausea, occasional vomiting, probably secondary to gastritis, managed by primary team Sinus tachycardia, frequent PVCs, better after starting Lopressor. Continue to monitor Chest pain, chronic stable angina, was maintained on Imdur as an outpatient. Try to avoid severe anemia as a cause for ischemia and chest pain especially with his extensive small vessel disease and coronary artery disease. Coronary artery disease, history of CABG 5 done in 1993. Cardiac catheterization was done in 2011 showing severe in-stent restenosis in the ramus intermedius. Underwent balloon angioplasty using 2.7520 mm apex balloon with no residual stenosis. Underwent cardiac catheterization in July 2015 showing patent 3 bypasses, SPEAR to LAD, vein graft to diagonal with severe disease beyond the anastomosis point and vein graft to obtuse marginal, did not change compared to 2011 procedure, had a patent stent in the proximal ramus intermedius with mild disease distally, patent stent in the midright Coronary artery with 60 percent stenosis distal right coronary artery mild disease, medical therapy is recommended. Had NSTEMI on 09.04.20 underwent LHC showing severe [place] coronary artery disease involving the left main, ostial LAD occlusion, occlusion of the ramus intermedius and diffuse moderate disease in the Cx with 90 percent stenosis in the distal RCA, successful stenting fo the RCA, Alpine 3.0 x12mm, severe stenosis in the prox VG to the OM that was 90 percent in stent restenosis with successful balloon angioplasty. Sever mid vessel stenosis to the VG to danny diagonal artery with successful stenting using Alpine 3.0 x23mm. Cardiac catheterization was carried out on January 30, 2021 showing patent stents in the right coronary artery, patent vein graft to the diagonal artery, occluded vein graft to the obtuse marginal branch and occluded [place] obtuse marginal branch, known to have patent SPEAR. Attempt to intervene on the chronic total occlusion of the vein graft has failed. I did not want to pursue aggressive intervention due to the fact that the patient was clinically stable. Agree with stopping aspirin and Plavix at this point and continue to monitor Echocardiogram done in February 2019 showing normal left ventricular size, ejection fraction 50-55 percent, mild MR, aortic valve sclerosis no stenosis, mild TR, PA 35 mmHg. Continue to monitor Shortness of breath on exertion, restarting Lopressor, monitor tolerance and response Congestive heart failure, chronic compensated left ventricular systolic dysfunction, improved, last echocardiogram done in July 2018 showing ejection fraction 50-55 percent. Continue to monitor Hypertension, currently all his medication on hold. Continue to monitor this Hyperlipidemia, monitor lipids Mild bilateral carotid stenoses nonobstructive disease, last ultrasound was done in August 2020 History of TIA, resolution of his symptoms. Continue to monitor at this time. 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 Chakraborty Sick sinus syndrome, borderline bradycardia, history of intolerance to beta blockers, tolerating metoprolol at this time. Palpitations-history of Holter monitor done July 2007 revealing occasional episode of PVC, PAC, short runs of paroxysmal SVT. Unable to tolerate higher dose of beta anup secondary to underlying sick sinus syndrome. ENZO MACHADO MD Feb 06, 2021 09:17
[2021-02-06 10:12] VITALS: BP 113/62
[2021-02-06 10:33] VITALS: BP 119/59
[2021-02-06] MEDS ORDERED: FUROSEMIDE 40 MG/4 ML INJ (LASIX) IVP ONE (11:00)
[2021-02-06] MEDS: fentaNYL INJ 100 MCG/2 ML AMP IV PRN ×2 (11:41→22:05)
[2021-02-06 13:22] VITALS: BP 123/58
[2021-02-06 13:47] VITALS: BP 121/66
--- NOTE | 2021-02-06 14:02 | Physical Therapy Progress Note ---
Therapy Progress Note Attempted to see patient for PT Evaluation. Nurse reports patients BP has been low this morning and he is currently receiving his first of 2 units of blood. Patient will be placed on Hold this date and will attempt PT eval tomorrow is able to participate. RUBY KNIGHT PT Feb 06, 2021 14:02
[2021-02-06 14:10] VITALS: BP 138/80
--- NOTE | 2021-02-06 14:53 | Progress Note ---
Subjective Date Seen by a Provider: Feb 06, 2021 Time Seen by a Provider: 14:30 Subjective/Events-last exam was only able to tolerate 150ml of mg citrate however was able to have a liquid dark BM. Objective Exam Vital Signs Date Time Temp Pulse Resp B/P (MAP) Pulse Ox O2 Delivery O2 Flow Rate FiO2 02/06/21 14:10 36.5 70 14 138/80 100 Room Air 02/06/21 14:00 71 13 136/74 (94) 100 Room Air 02/06/21 13:47 36.4 66 14 121/66 98 Room Air 02/06/21 13:22 36.4 61 12 123/58 100 Room Air 02/06/21 13:02 62 16 122/58 (79) 100 Room Air 02/06/21 12:18 69 02/06/21 12:00 62 9 101/54 (70) 100 Room Air 02/06/21 11:57 36.2 02/06/21 11:22 100 Room Air 02/06/21 11:00 66 11 122/68 (86) 90 Room Air 02/06/21 10:33 36.2 80 12 119/59 100 Room Air 02/06/21 10:12 36.2 91 20 113/62 100 Room Air 02/06/21 10:00 96 20 115/67 (83) 97 Room Air 02/06/21 09:00 82 17 142/97 (112) 100 Room Air 02/06/21 08:40 99 Room Air 02/06/21 08:00 36.1 02/06/21 08:00 69 14 136/72 (93) 96 Room Air 02/06/21 07:07 62 02/06/21 07:00 68 17 124/63 (83) 100 Room Air 02/06/21 06:00 73 14 126/62 (83) 100 Room Air 02/06/21 05:00 68 11 130/66 (87) 99 Room Air 02/06/21 04:00 99 Room Air 02/06/21 04:00 71 9 129/109 (116) 100 Room Air 02/06/21 03:00 73 12 123/64 (83) 100 Room Air 02/06/21 02:00 61 16 113/56 (75) 98 Room Air 02/06/21 01:00 85 02/06/21 01:00 71 9 110/67 (81) 100 Room Air 02/06/21 00:00 36.4 02/06/21 00:00 64 12 114/66 (82) 100 Room Air 02/05/21 23:59 99 Room Air 02/05/21 23:00 82 12 128/73 (91) 100 Room Air 02/05/21 22:00 71 11 119/68 (85) 100 Room Air 02/05/21 21:00 76 11 120/73 (89) 100 Room Air 02/05/21 20:00 97 Room Air 02/05/21 20:00 36.6 02/05/21 20:00 74 14 125/63 (83) 100 Room Air 02/05/21 19:00 74 19 132/72 (92) 100 Room Air 02/05/21 19:00 74 02/05/21 18:00 80 22 134/74 (94) 100 Room Air 02/05/21 17:00 83 13 142/73 (96) 99 Room Air 02/05/21 16:30 97 Room Air 02/05/21 16:00 97 Room Air 02/05/21 16:00 82 9 113/59 (77) 100 Room Air 02/05/21 16:00 36.6 02/05/21 15:00 71 15 89/50 (63) 99 Nasal Cannula 2.00 I & O 02/06/21 07:00 Intake Total 2500 ml Output Total 2025 ml Balance 475 ml Capillary Refill : Less Than 3 Seconds General Appearance: No Apparent Distress HEENT: PERRL/EOMI Neck: Full Range of Motion Respiratory: Decreased Breath Sounds Cardiovascular: Regular Rate, Rhythm Gastrointestinal: normal bowel sounds, soft Extremity: Normal Capillary Refill Neurologic/Psychiatric: Alert, Oriented x3 Skin: Normal Color Lymphatic: No Adenopathy Results Lab Laboratory Tests 02/06/21 02:45: White Blood Count 8.3, Red Blood Count 2.01L, Hemoglobin 6.8*L, Hematocrit 21L, Mean Corpuscular Volume 103H, Mean Corpuscular Hemoglobin 34, Mean Corpuscular Hemoglobin Concent 33, Red Cell Distribution Width 15.5H, Platelet Count 258, Mean Platelet Volume 10.8, Immature Granulocyte % (Auto) 1, Neutrophils (%) (Auto) 68, Lymphocytes (%) (Auto) 19, Monocytes (%) (Auto) 10, Eosinophils (%) (Auto) 2, Basophils (%) (Auto) 0, Neutrophils # (Auto) 5.6, Lymphocytes # (Auto) 1.6, Monocytes # (Auto) 0.8, Eosinophils # (Auto) 0.2, Basophils # (Auto) 0.0, Immature Granulocyte # (Auto) 0.1, Sodium Level 136, Potassium Level 3.4L, Chloride Level 105, Carbon Dioxide Level 21, Anion Gap 10, Blood Urea Nitrogen 15, Creatinine 0.89, Estimat Glomerular Filtration Rate 81, BUN/Creatinine Ratio 17, Glucose Level 98, Calcium Level 7.7L, Phosphorus Level 1.9L, Magnesium Level 1.6 Assessment/Plan Assessment/Plan Assess & Plan/Chief Complaint lower gi bleed. seems to have slowed or stoppped. still having significant nausea and vomiting. start phenergan schedule colonoscopy for tomorrow VIRI MARTINEZ MD Feb 06, 2021 14:53
--- NOTE | 2021-02-06 15:13 | Diagnostic Imaging Report ---
PROCEDURE: US Gallbladder. TECHNIQUE: Multiple real-time grayscale images were obtained over the right upper quadrant in various projections. INDICATION: Nausea and vomiting and bloody stools. FINDINGS: Liver is normal in size at 15 cm. No discrete liver mass is identified. Portal vein is patent and shows normal direction of flow. Gallbladder is without stones or sludge. No wall thickening or biliary ductal dilatation is seen. Pancreas is obscured. Aorta is obscured. IVC is patent. Right kidney does contain a cyst in the midportion of 17 mm in size. No calculi or hydronephrosis is identified. There is no ascites. IMPRESSION: 1. No evidence of cholelithiasis or acute cholecystitis. 2. Right renal cyst. Dictated by: Dictated on workstation # [id number]
--- NOTE | 2021-02-06 15:35 | Progress Note - Hospitalist ---
Subjective HPI/CC On Admission Date Seen by Provider: Feb 06, 2021 Time Seen by Provider: 08:40 Pt is an 89yoCM with a PMH of CAD s/p CABG, HTN, HLD who presented to the ER due to bloody stools. Hereports that he woke up at 5am this morning with maroon colored stools. He is currently on Plavix and takes Mobic as well. They continu ed so he decided to seek evaluation in the ER. He was found to have a Hgb of 10.8 on arrival down from 14 on 01/30/21. He was also somewhat hypotensive with a BP of 90/70. He had a gastropexy in [address] Anaya and he believes he had a colonoscopy a few years ago when he had a similar episode 2-3 years ago at [place]. Subjective/Events-last exam He is feeling better. He is not nauseous. He has not had any bowel movements. He denies chest pain. His jaw pain has resolved. Objective Exam Vital Signs Vital Signs Date Time Temp Pulse Resp B/P (MAP) Pulse Ox O2 Delivery O2 Flow Rate FiO2 02/06/21 15:00 67 13 133/79 (97) 100 Room Air 02/06/21 14:10 36.5 02/05/21 15:00 2.00 Capillary Refill : Less Than 3 Seconds General Appearance: No Apparent Distress, WD/WN Respiratory: Lungs Clear, Normal Breath Sounds, No Respiratory Distress Cardiovascular: Regular Rate, Rhythm, No Edema, No Murmur Gastrointestinal: Normal Bowel Sounds, Non Tender, Soft Extremity: Normal Inspection, Non Tender, No Pedal Edema Neurologic/Psychiatric: Alert, Oriented x3, Normal Mood/Affect Skin: Warm/Dry, Pallor Results/Procedures Lab Laboratory Tests 02/06/21 02:45 Patient resulted labs reviewed. Imaging: Reviewed Imaging Report Assessment/Plan Assessment and Plan Assess & Plan/Chief Complaint Acute upper GI bleed Hemoglobin 6.8 s/p 2 units PRBC Transfuse 2 more units PRBC EGD revealed gastritis, hiatal hernia, and esophagitis Continue PPI Continue fluids Dr. Butler, surgery, following Planning for colonoscopy tomorrow NSTEMI CAD Likely type II, demand ischemia, due to anemia Cardiology following Planning for conservative medical management Continue Imdur Continue metoprolol Holding aspirin and Plavix Nausea Continue antiemetics HTN HLD Holding home meds DVT prophylaxis: SCDs, pharmacologic held due to GI bleeding Diagnosis/Problems Diagnosis/Problems (1) Upper GI bleeding Status: Acute (2) Non-STEMI (non-ST elevated myocardial infarction) Status: Acute (3) Coronary artery disease Status: Acute IRVING ZARATE MD Feb 06, 2021 15:35
--- NOTE | 2021-02-06 16:29 | Progress Note-Pre Operative ---
Pre-Operative Progress Note H&P Reviewed The H&P was reviewed, patient examined and no changes noted. Date Seen by Provider: Feb 06, 2021 Time Seen by Provider: 16:00 Date H&P Reviewed: Feb 06, 2021 Time H&P Reviewed: 16:00 Pre-Operative Diagnosis: lower gi bleed VIRI MARTINEZ MD Feb 06, 2021 16:29
[2021-02-06 17:35] VITALS: BP 131/86
[2021-02-06 19:54] LABS: HEMOGLOBIN 10.9 g/dL (13.3-17.7)
[2021-02-06] MEDS: ONDANSETRON 4 MG/2 ML (SDV) Z0FRAN IV PRN (22:05)
[2021-02-07 06:38] LABS: BASOPHILS % (AUTO) 0 % (0-10); EOSINOPHILS # (AUTO) 0.1 10^3/uL (0.0-0.3); EOSINOPHILS % (AUTO) 1 % (0-10); HEMATOCRIT 32 % (40-54); HEMOGLOBIN 10.6 g/dL (13.3-17.7); LYMPHOCYTES # (AUTO) 1.2 10^3/uL (1.0-4.0); LYMPHOCYTES % (AUTO) 14 % (12-44); MEAN CORPUSCULAR HEMOGLOBIN 31 pg (25-34); MEAN CORPUSCULAR HGB CONC 33 g/dL (32-36); MEAN CORPUSCULAR VOLUME 92 fL (80-99); MEAN PLATELET VOLUME 10.5 fL (9.0-12.2); MONOCYTES % (AUTO) 11 % (0-12); NEUTROPHILS # (AUTO) 6.4 10^3/uL (1.8-7.8); NEUTROPHILS % (AUTO) 73 % (42-75); PLATELET COUNT 239 10^3/uL (130-400); WHITE BLOOD COUNT 8.8 10^3/uL (4.3-11.0)
[2021-02-07] MEDS: KCL 20 MEQ TAB (K-DUR) PO SCH (06:44)
[2021-02-07] MEDS: meTOprolol 5 MG/5 ML (LOPRESSOR) VIAL IV SCH ×4 (06:52→23:19)
[2021-02-07 06:53] LABS: POTASSIUM 3.6 MMOL/L (3.6-5.0)
[2021-02-07 06:54] LABS: CALCIUM 8.3 MG/DL (8.5-10.1)
[2021-02-07] MEDS: POTASSIUM CL 10MEQ/50ML IVPB 50 ML IV SCH ×3 (06:57→11:40)
[2021-02-07 06:58] LABS: PHOSPHORUS 2.4 MG/DL (2.3-4.7)
[2021-02-07 07:01] LABS: MAGNESIUM 2.5 MG/DL (1.6-2.4)
[2021-02-07] MEDS: MAGNESIUM 1 GM/100 ML IVPB 100 ML IV SCH (07:33)
--- NOTE | 2021-02-07 07:49 | Physical Therapy Progress Note ---
Therapy Progress Note With transfer to ICU, PT will require new orders to initiate therapy. MAULIK SAMANO PT Feb 07, 2021 07:49
--- NOTE | 2021-02-07 08:20 | Cardiology Progress Note ---
Subjective Date Seen by Provider: Feb 07, 2021 Time Seen by Provider: 08:19 Subjective/Events-last exam Patient was seen at bedside, laying down comfortably, having right shoulder pain Review of Systems General: No Chills, No Night Sweats, No Fatigue, No Malaise, No Appetite, No Other HEENT: No Head Aches, No Visual Changes, No Eye Pain, No Ear Pain, No Dysphasia, No Sinus Congestion, No Post Nasal Drip, No Sore Throat, No Other Pulmonary: No Dyspnea, No Cough, No Pleuritic Chest Pain, No Other Cardiovascular: No: Chest Pain, Palpitations, Orthopnea, Paroxysmal Noc. Dyspnea, Edema, Lt Headedness, Other Objective-Cardiology Exam Last Set of Vital Signs Vital Signs 02/05/21 02/07/21 02/07/21 02/07/21 15:00 06:00 07:00 08:06 Temp 36.7 Pulse 71 Resp 16 B/P (MAP) 150/78 (102) Pulse Ox 100 O2 Delivery Room Air O2 Flow Rate 2.00 I&O Intake and Output 02/07/21 00:00 Intake Total 1970 ml Output Total 4450 ml Balance -2480 ml Intake Oral 1850 ml Other 120 ml Output Urine Total 4450 ml # Voids 1 # Bowel Movements 2 General: Alert, Oriented X3, Cooperative HEENT: Atraumatic, PERRLA Neck: Supple, No JVD, No Thyromegaly Lungs: Clear to Auscultation, Normal Air Movement Heart: Regular Rate, Normal S1, Normal S2, Other (Systolic murmur at the left sternal border) Abdomen: Normal Bowel Sounds, Soft, No Tenderness, No Hepatosplenomegaly, No Masses Extremities: No Clubbing, No Cyanosis, No Edema, Normal Pulses, No Tenderness/Swelling Skin: No Rashes, No Breakdown, No Significant Lesion Neuro: Normal Gait, Normal Speech, Strength at 5/5 X4 Ext, Normal Tone, Sensation Intact Psych/Mental Status: Mental Status NL, Mood NL Results Lab Laboratory Tests 02/06/21 19:48 02/07/21 05:25 A/P-Cardiology Admission Diagnosis Anemia GI bleed CAD HTN Assessment/Plan Anemia, GI bleed, underwent upper endoscopy with Dr. Butler reporting gastritis and hiatal hernia, history of gastroplexi done with Dr. Anaya in 2005. Reported colonoscopy 2 to 3 years ago, report is not available. Scheduled for possible colonoscopy today Anemia, received 2 units of packed RBCs on February 06, 2021, hemoglobin is better. Patient is feeling better. Scheduled for colonoscopy today. Recurrent nausea, occasional vomiting, probably secondary to gastritis, managed by primary team Sinus tachycardia, frequent PVCs, better after starting Lopressor. Continue to monitor Chest pain, chronic stable angina, was maintained on Imdur as an outpatient. Try to avoid severe anemia as a cause for ischemia and chest pain especially with his extensive small vessel disease and coronary artery disease. Coronary artery disease, history of CABG 5 done in 1993. Cardiac catheterization was done in 2011 showing severe in-stent restenosis in the ramus intermedius. Underwent balloon angioplasty using 2.7520 mm apex balloon with no residual stenosis. Underwent cardiac catheterization in July 2015 showing patent 3 bypasses, SPEAR to LAD, vein graft to diagonal with severe disease beyond the anastomosis point and vein graft to obtuse marginal, did not change compared to 2011 procedure, had a patent stent in the proximal ramus intermedius with mild disease distally, patent stent in the midright Coronary artery with 60 percent stenosis distal right coronary artery mild disease, medical therapy is recommended. Had NSTEMI on 21 underwent LHC showing severe [place] coronary artery disease involving the left main, ostial LAD occlusion, occlusion of the ramus intermedius and diffuse moderate disease in the Cx with 90 percent stenosis in the distal RCA, successful stenting fo the RCA, Alpine 3.0 x12mm, severe stenosis in the prox VG to the OM that was 90 percent in stent restenosis with successful balloon angioplasty. Sever mid vessel stenosis to the VG to [place]anny diagonal artery with successful stenting using Alpine 3.0 x23mm. Cardiac catheterization was carried out on January 30, 2021 showing patent stents in the right coronary artery, patent vein graft to the diagonal artery, occluded vein graft to the obtuse marginal branch and occluded [place] obtuse marginal branch, known to have patent SPEAR. Attempt to intervene on the chronic total occlusion of the vein graft has failed. I did not want to pursue aggressive int ervention due to the fact that the patient was clinically stable. Agree with stopping aspirin and Plavix at this point and continue to monitor Echocardiogram done in February 2019 showing normal left ventricular size, ejection fraction 50-55 percent, mild MR, aortic valve sclerosis no stenosis, mi ld TR, PA 35 mmHg. Continue to monitor Shortness of breath on exertion, restarting Lopressor, monitor tolerance and response Congestive heart failure, chronic compensated left ventricular systolic d ysfunction, improved, last echocardiogram done in July 2018 showing ejection fraction 50-55 percent. Continue to monitor Hypertension, currently all his medication on hold. Continue to monitor this Hyperlipidemia, monitor lipids Mild bilateral carotid stenoses nonobstructive disease, last ultrasound was done in August 2020 History of TIA, resolution of his symptoms. Continue to monitor at this time. 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 Chakraborty Sick sinus syndrome, borderline bradycardia, history of intolerance to beta blockers, tolerating metoprolol at this time. Palpitations-history of Holter monitor done July 2007 revealing occasional episode of PVC, PAC, short runs of paroxysmal SVT. Unable to tolerate higher dose of beta anup secondary to underlying sick sinus syndrome. ENZO MACHADO MD Feb 07, 2021 08:20
[2021-02-07] MEDS: PANTOPRAZOLE 40 MG (PROTONIX) VIAL IV SCH ×2 (08:55→19:56)
[2021-02-07] MEDS: GABAPENTIN 100 MG (NEURONTIN) CAP PO SCH ×2 (08:55→19:57)
[2021-02-07] MEDS: ISOSORBIDE MONONITRATE 30 MG (IMDUR) TAB PO SCH (08:55)
--- NOTE | 2021-02-07 14:30 | Progress Note - Hospitalist ---
Subjective HPI/CC On Admission Date Seen by Provider: Feb 07, 2021 Time Seen by Provider: 08:30 Pt is an 89yoCM with a PMH of CAD s/p CABG, HTN, HLD who presented to the ER due to bloody stools. Hereports that he woke up at 5am this morning with maroon colored stools. He is currently on Plavix and takes Mobic as well. They continu ed so he decided to seek evaluation in the ER. He was found to have a Hgb of 10.8 on arrival down from 14 on 01/30/21. He was also somewhat hypotensive with a BP of 90/70. He had a gastropexy in [address] Anaya and he believes he had a colonoscopy a few years ago when he had a similar episode 2-3 years ago at [place]. Subjective/Events-last exam He is feeling better today. He has had several bowel movements with his bowel prep. He has not had any frankly bloody stools. He denies lightheadedness and dizziness. He denies chest pain. He denies jaw pain. He is not short of breath. Objective Exam Vital Signs Vital Signs Date Time Temp Pulse Resp B/P (MAP) Pulse Ox O2 Delivery O2 Flow Rate FiO2 02/07/21 12:16 37.0 02/07/21 12:00 77 16 156/81 (106) 95 Room Air 02/05/21 15:00 2.00 Capillary Refill : Less Than 3 Seconds General Appearance: No Apparent Distress, WD/WN Respiratory: Lungs Clear, Normal Breath Sounds, No Respiratory Distress Cardiovascular: Regular Rate, Rhythm, No Edema, No Murmur Gastrointestinal: Normal Bowel Sounds, Non Tender, Soft Extremity: Normal Inspection, Non Tender, No Pedal Edema Neurologic/Psychiatric: Alert, Oriented x3, No Motor/Sensory Deficits, Normal Mood/Affect Skin: Normal Color, Warm/Dry Results/Procedures Lab Laboratory Tests 02/06/21 19:48 02/07/21 05:25 Patient resulted labs reviewed. Imaging: Reviewed Imaging Report Assessment/Plan Assessment and Plan Assess & Plan/Chief Complaint Acute GI bleed Hemoglobin improved s/p 4 units PRBC Keep Hemoglobin >8 due to acute coronary disease/type II NSTEMI EGD revealed gastritis, hiatal hernia, and esophagitis Continue PPI Continue fluids Dr. Butler, surgery, following Planning for colonoscopy today NSTEMI CAD Likely type II, demand ischemia, due to anemia Cardiology following Planning for conservative medical management Continue Imdur Continue metoprolol Holding aspirin and Plavix HTN HLD Holding home meds DVT prophylaxis: SCDs, pharmacologic held due to GI bleeding Nausea, resolved Diagnosis/Problems Diagnosis/Problems (1) Upper GI bleeding Status: Acute (2) Non-STEMI (non-ST elevated myocardial infarction) Status: Acute (3) Coronary artery disease Status: Acute IRVING ZARATE MD Feb 07, 2021 14:30
[2021-02-07] MEDS ORDERED: LACTATED RINGERS 1,000 ML IV ONE (15:32)
[2021-02-07] MEDS ORDERED: LIDOCAINE JELLY 2% 6 ML SYRINGE ONE (16:11)
[2021-02-07] MEDS ORDERED: PROPOFOL INJECTION 50 ML IV ONE (16:12)
[2021-02-07] MEDS ORDERED: LIDOCAINE JELLY 2% 6 ML SYRINGE MM PRN (16:15)
[2021-02-07] MEDS ORDERED: LACTATED RINGERS 1,000 ML IV STA (16:15)
[2021-02-07 16:35] VITALS: BP 70/46
[2021-02-07 16:40] VITALS: BP 79/47
[2021-02-07 16:45] VITALS: BP 105/56
--- NOTE | 2021-02-07 17:15 | Progress Note-Post Operative ---
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 Procedure & Operative Findings Date of Procedure 02/07/21 Procedure Performed/Findings colonoscopy Anesthesia Type mac Estimated Blood Loss Estimated blood loss (mL): minimal Specimens/Packing Specimens Removed none VIRI MARTINEZ MD Feb 07, 2021 17:15
[2021-02-07] MEDS: LACTATED RINGERS 1,000 ML IV SCH ×2 (17:51→20:24)
--- NOTE | 2021-02-07 23:41 | OPERATIVE REPORT ---
DATE OF SERVICE: ATTENDING PRIMARY CARE PHYSICIAN: Jj Martinez DO PREOPERATIVE DIAGNOSIS: Lower gastrointestinal bleeding. POSTOPERATIVE DIAGNOSES: Chronic stage II external and internal hemorrhoids, severe descending and sigmoid colonic diverticulosis with dark maroon colored stools. There was no active red blood per any of the identified diverticula within the lumen of the colon. PROCEDURE: Colonoscopy. SURGEON: Viri Butler MD. ANESTHESIA: Monitored anesthesia care. ESTIMATED BLOOD LOSS: Minimal. FINDINGS: Same as postoperative diagnosis. DISPOSITION: The patient tolerated the procedure well. INDICATIONS: The patient is an 89-year-old male who was initially admitted on 02/02/2021 for significant anemia. He had reported dark stools and it was initially thought that he had an upper gastrointestinal bleed. He does have significant coronary artery disease and underwent a recent cardiac catheterization; however, no stents were placed. He is on aspirin and Plavix for his coronary artery disease. Since being admitted, his aspirin and Plavix have been held. He underwent an EGD earlier on admission where he was found to have a reflux esophagitis stage II, small hiatal hernia as well as a moderate gastritis; however, no active bleeding. He continued to have bleeding and required further blood transfusions and we will now proceed with a colonoscopy. His hemoglobin has been stable for the past 2 days. DESCRIPTION OF PROCEDURE: The patient was brought to the endoscopy suite, laid in the left lateral decubitus position. After adequate IV pain and sedative medications and monitored anesthesia care, digital rectal examination was performed. Mild chronic stage II external and internal hemorrhoids were identified, which were not actively edematous nor inflamed and no bleeding. Normal sphincter tone was felt and there were no palpable masses. Prostate gland was enlarged; however, no nodules. The endoscope was then intubated into anus and rectum gently insufflated. The endoscope was then advanced to the valves of Rogers of the rectum with no polyps or any neoplasms identified. Throughout the entirety of the rectum and colon, there was a dark maroon to now brown color film likely consistent with a previous bleed; however, nothing active at this time. The endoscope was then advanced through the sigmoid colon where a severe sigmoid diverticulosis was identified. There was again the same type of darker blood; however, there was no visual active red blood per any of the diverticula identified. There was no active red blood within any part of the lumen of the colon as well. The endoscope was then advanced through the remainder of the descending, transverse and ascending colon to the cecum, which appeared to be normal. The endoscope was then slowly withdrawn while taking a second look and suctioning of residual air with no additional findings. The patient tolerated the procedure well. We will start a clear liquid diet and advance as tolerated. We will recommend continued conservative management with a hemoglobin and hematocrit checks and clinical monitoring of any continued bleed. Once stable, medical and cardiac management may continue anticoagulation as necessary. Job ID: [id number] DocumentID: [id number] Dictated Date: 02/07/2021 16:41:03 Canoe Maker Date: 02/07/2021 22:01:16 Dictated By: VIRI BUTLER MD
--- NOTE | 2021-02-07 23:42 | Anesthesia-General Post-Op ---
MAC Patient Condition Mental Status/LOC: Same as Preop Cardiovascular: Satisfactory Nausea/Vomiting: Absent Respiratory: Satisfactory Pain: Controlled Complications: Absent Post Op Complications Complications None Follow Up Care/Instructions Patient Instructions None needed. Anesthesiology Discharge Order Discharge Order Patient is doing well, no complaints, stable vital signs, no apparent adverse anesthesia problems. No complications reported per nursing. LUCIE ADKINS CRNA Feb 07, 2021 23:42
[2021-02-08] MEDS: fentaNYL INJ 100 MCG/2 ML AMP IV PRN (03:40)
[2021-02-08 04:28] LABS: BASOPHILS % (AUTO) 0 % (0-10); EOSINOPHILS # (AUTO) 0.2 10^3/uL (0.0-0.3); EOSINOPHILS % (AUTO) 2 % (0-10); HEMATOCRIT 31 % (40-54); LYMPHOCYTES # (AUTO) 1.1 10^3/uL (1.0-4.0); LYMPHOCYTES % (AUTO) 11 % (12-44); MEAN CORPUSCULAR HEMOGLOBIN 30 pg (25-34); MEAN CORPUSCULAR HGB CONC 32 g/dL (32-36); MEAN CORPUSCULAR VOLUME 94 fL (80-99); MEAN PLATELET VOLUME 10.6 fL (9.0-12.2); MONOCYTES # (AUTO) 0.9 10^3/uL (0.0-1.0); MONOCYTES % (AUTO) 9 % (0-12); NEUTROPHILS # (AUTO) 7.4 10^3/uL (1.8-7.8); NEUTROPHILS % (AUTO) 77 % (42-75); PLATELET COUNT 239 10^3/uL (130-400); WHITE BLOOD COUNT 9.6 10^3/uL (4.3-11.0)
[2021-02-08 04:30] LABS: POTASSIUM 3.6 MMOL/L (3.6-5.0)
[2021-02-08 04:32] LABS: CALCIUM 8.2 MG/DL (8.5-10.1)
[2021-02-08 04:36] LABS: PHOSPHORUS 2.4 MG/DL (2.3-4.7)
[2021-02-08 04:38] LABS: MAGNESIUM 2.1 MG/DL (1.6-2.4)
[2021-02-08] MEDS: meTOprolol 5 MG/5 ML (LOPRESSOR) VIAL IV SCH (04:58)
[2021-02-08] MEDS: POTASSIUM CL 10MEQ/50ML IVPB 50 ML IV SCH (04:58)
[2021-02-08] MEDS: KCL 20 MEQ TAB (K-DUR) PO SCH (05:58)
[2021-02-08] MEDS: MAGNESIUM 1 GM/100 ML IVPB 100 ML IV SCH (05:58)
--- NOTE | 2021-02-08 07:27 | Physical Therapy Progress Note ---
Therapy Progress Note PT will require new orders due to transfer to ICU with change in status. MAULIK SAMANO PT Feb 08, 2021 07:27
[2021-02-08] MEDS: PANTOPRAZOLE 40 MG (PROTONIX) VIAL IV SCH (07:56)
[2021-02-08] MEDS: ISOSORBIDE MONONITRATE 30 MG (IMDUR) TAB PO SCH (07:56)
[2021-02-08] MEDS: GABAPENTIN 100 MG (NEURONTIN) CAP PO SCH (07:56)
[2021-02-08] MEDS ORDERED: meTOprolol SUCCINATE 100 MG (TOPROL XL) TAB PO SCH (10:30)
[2021-02-08] MEDS ORDERED: FAMO-119 PO (10:38)
[2021-02-08] MEDS ORDERED: MTP100TCR PO (10:38)
[2021-02-08] MEDS ORDERED: ASPI-999 PO (10:38)
[2021-02-08] MEDS ORDERED: ASPIRIN 81 MG CHEW (CHILDREN'S ASA) PO ONE (10:45)
--- NOTE | 2021-02-08 11:03 | Progress Note ---
Subjective Date Seen by a Provider: Feb 08, 2021 Time Seen by a Provider: 10:30 Subjective/Events-last exam doing ok. did have some loose dark BM yesterday but not today. Hb stable. tolerating diet. Objective Exam Vital Signs Date Time Temp Pulse Resp B/P (MAP) Pulse Ox O2 Delivery O2 Flow Rate FiO2 02/08/21 10:00 86 17 97 Room Air 02/08/21 09:00 101 21 134/72 (92) 96 Room Air 02/08/21 08:00 100 Room Air 02/08/21 08:00 88 21 157/88 (111) 96 Room Air 02/08/21 07:26 36.0 02/08/21 07:00 85 02/08/21 07:00 87 24 149/78 (101) 96 Room Air 02/08/21 06:00 84 20 149/78 (101) 92 Room Air 02/08/21 05:00 86 21 142/79 (100) 96 Room Air 02/08/21 04:00 86 19 143/82 (102) 96 Room Air 02/08/21 04:00 36.4 02/08/21 04:00 100 Room Air 02/08/21 03:00 74 19 152/80 (104) 95 Room Air 02/08/21 02:00 87 18 124/64 (84) 91 Room Air 02/08/21 01:00 78 14 140/66 (90) 97 Room Air 02/08/21 01:00 78 02/08/21 00:00 36.5 02/08/21 00:00 80 17 94/72 (79) 98 Room Air 02/07/21 23:59 98 Room Air 02/07/21 23:00 70 17 111/69 (83) 97 Room Air 02/07/21 22:00 77 17 103/48 (66) 97 Room Air 02/07/21 21:00 85 17 132/65 (87) 98 Room Air 02/07/21 20:08 36.4 02/07/21 20:00 100 Room Air 02/07/21 19:00 82 02/07/21 19:00 77 21 121/65 (83) 98 Room Air 02/07/21 18:15 18 160/84 (109) 100 Room Air 02/07/21 17:20 36.7 02/07/21 17:16 100 Room Air 02/07/21 17:00 143/71 (95) 99 Room Air 02/07/21 16:45 67 16 100 Room Air 02/07/21 16:40 59 16 100 OxyMask 10 02/07/21 16:35 62 16 100 OxyMask 10 02/07/21 15:00 90 12 99 Room Air 02/07/21 14:00 79 17 152/79 (103) 99 Room Air 02/07/21 13:00 80 02/07/21 13:00 76 17 141/87 (105) 94 Room Air 02/07/21 12:16 37.0 02/07/21 12:00 77 16 156/81 (106) 95 Room Air 02/07/21 12:00 100 Room Air I & O 02/08/21 07:00 Intake Total 3700 ml Output Total 1500 ml Balance 2200 ml Capillary Refill : Less Than 3 Seconds General Appearance: No Apparent Distress HEENT: PERRL/EOMI Neck: Full Range of Motion Respiratory: Chest Non Tender, Lungs Clear, Normal Breath Sounds Cardiovascular: Regular Rate, Rhythm Gastrointestinal: normal bowel sounds, non tender, soft Extremity: Normal Capillary Refill Neurologic/Psychiatric: Alert, Oriented x3 Skin: Normal Color Lymphatic: No Adenopathy Results Lab Laboratory Tests 02/08/21 04:08: White Blood Count 9.6, Red Blood Count 3.32L, Hemoglobin 10.0L, Hematocrit 31L, Mean Corpuscular Volume 94, Mean Corpuscular Hemoglobin 30, Mean Corpuscular Hemoglobin Concent 32, Red Cell Distribution Width 20.8H, Platelet Count 239, Mean Platelet Volume 10.6, Immature Granulocyte % (Auto) 0, Neutrophils (%) (Auto) 77H, Lymphocytes (%) (Auto) 11L, Monocytes (%) (Auto) 9, Eosinophils (%) (Auto) 2, Basophils (%) (Auto) 0, Neutrophils # (Auto) 7.4, Lymphocytes # (Auto) 1.1, Monocytes # (Auto) 0.9, Eosinophils # (Auto) 0.2, Basophils # (Auto) 0.0, Immature Granulocyte # (Auto) 0.0, Sodium Level 135, Potassium Level 3.6, Chloride Level 102, Carbon Dioxide Level 22, Anion Gap 11, Blood Urea Nitrogen 11, Creatinine 1.00, Estimat Glomerular Filtration Rate 71, BUN/Creatinine Ratio 11, Glucose Level 101, Calcium Level 8.2L, Phosphorus Level 2.4, Magnesium Level 2.1 Assessment/Plan Assessment/Plan Assess & Plan/Chief Complaint lower gi bleed secondary to diverticulosis. no active bleed on colonoscopy. ok asa. ambulate. diet as tolerated. VIRI MARTINEZ MD Feb 08, 2021 11:03
[2021-02-08] MEDS: LACTATED RINGERS 1,000 ML IV SCH (11:28)
--- NOTE | 2021-02-08 12:45 | Progress Note - Cardiology ---
Cardiology SOAP Progress Note Subjective: No cp or palp or syncope No shortness of breath No n/v/d Insistent on going home Objective: I&O/Vital Signs 02/08/21 02/08/21 02/08/21 02/08/21 01:00 01:00 02:00 03:00 Pulse 78 78 87 74 Resp 14 18 19 B/P (MAP) 140/66 (90) 124/64 (84) 152/80 (104) Pulse Ox 97 91 95 O2 Delivery Room Air Room Air Room Air 02/08/21 02/08/21 02/08/21 02/08/21 04:00 04:00 04:00 05:00 Temp 36.4 Pulse 86 86 Resp 19 21 B/P (MAP) 143/82 (102) 142/79 (100) Pulse Ox 100 96 96 O2 Delivery Room Air Room Air Room Air 02/08/21 02/08/21 02/08/21 02/08/21 06:00 07:00 07:00 07:26 Temp 36.0 Pulse 84 87 85 Resp 20 24 B/P (MAP) 149/78 (101) 149/78 (101) Pulse Ox 92 96 O2 Delivery Room Air Room Air 02/08/21 02/08/21 02/08/21 02/08/21 08:00 08:00 08:00 09:00 Temp 37.0 Pulse 88 101 Resp 21 21 B/P (MAP) 157/88 (111) 134/72 (92) Pulse Ox 96 100 96 O2 Delivery Room Air Room Air Room Air 02/08/21 02/08/21 10:00 11:00 Pulse 86 86 Resp 17 17 B/P (MAP) 114/62 (79) Pulse Ox 97 97 O2 Delivery Room Air Room Air 02/08/21 00:00 Intake Total 3200 ml Output Total 600 ml Balance 2600 ml Weight (Pounds): 166 Weight (Ounces): 0.0 Weight (Calculated Kilograms): 75.036464 Constitutional: AAO x 3, well-developed, well-nourished Respiratory: No accessory muscle use; other (fair to good, bilateral air entry, somewhat diminished at the bases) Cardiovascular: regular rate-rhythm, S1 and S2, systolic murmur (soft AMANDO at card bse) Gastrointestional: No tender; soft; No guarding, No rebound; audible bowel sounds Extremities: No clubbing, No cyanosis, No significant edema Neurologic/Psychiatric: alert, oriented x 3, other (moves all limbs equally) Skin: No rash on exposed areas, No ulcerations on exposed areas Results/Procedures: Labs Laboratory Tests 02/08/21 04:08: White Blood Count 9.6, Red Blood Count 3.32L, Hemoglobin 10.0L, Hematocrit 31L, Mean Corpuscular Volume 94, Mean Corpuscular Hemoglobin 30, Mean Corpuscular Hemoglobin Concent 32, Red Cell Distribution Width 20.8H, Platelet Count 239, Mean Platelet Volume 10.6, Immature Granulocyte % (Auto) 0, Neutrophils (%) (Auto) 77H, Lymphocytes (%) (Auto) 11L, Monocytes (%) (Auto) 9, Eosinophils (%) (Auto) 2, Basophils (%) (Auto) 0, Neutrophils # (Auto) 7.4, Lymphocytes # (Auto) 1.1, Monocytes # (Auto) 0.9, Eosinophils # (Auto) 0.2, Basophils # (Auto) 0.0, Immature Granulocyte # (Auto) 0.0, Sodium Level 135, Potassium Level 3.6, Chloride Level 102, Carbon Dioxide Level 22, Anion Gap 11, Blood Urea Nitrogen 11, Creatinine 1.00, Estimat Glomerular Filtration Rate 71, BUN/Creatinine Ratio 11, Glucose Level 101, Calcium Level 8.2L, Phosphorus Level 2.4, Magnesium Level 2.1 Laboratory Tests 02/06/21 19:48 02/07/21 05:25 02/08/21 04:08 A/P: Assessment: Anemia due to GI bleed requiring transfusions - underwent upper and lower endoscopy: gastritis, hiatal hernia, diverticulosis. Dr Butler has diagnosed the bleed to be due to diverticulosis and has okayed resumption of ASA Chest pain, chronic stable angina, was maintained on Imdur as an outpatient. Try to avoid severe anemia as a cause for ischemia and chest pain especially with his extensive small vessel disease and coronary artery disease. Coronary artery disease, history of CABG 5 done in 1993. Cardiac catheterization was done in 2011 showing severe in-stent restenosis in the ramus intermedius. Underwent balloon angioplasty using 2.7520 mm apex balloon with no residual stenosis. Underwent cardiac catheterization in July 2015 showing patent 3 bypasses, SPEAR to LAD, vein graft to diagonal with severe disease beyond the anastomosis point and vein graft to obtuse marginal, did not change compared to 2012 procedure, had a patent stent in the proximal ramus intermedius with mild disease distally, patent stent in the midright Coronary artery with 60 percent stenosis distal right coronary artery mild disease, medical therapy is recommended. Had NSTEMI on 21 underwent LHC showing severe [place] coronary artery disease involving the left main, ostial LAD occlusion, occlusion of the ramus intermedius and diffuse moderate disease in the Cx with 90 percent stenosis in the distal RCA, successful stenting fo the RCA, Alpine 3.0 x12mm, severe stenosis in the prox VG to the OM that was 90 percent in stent restenosis with successful balloon angioplasty. Sever mid vessel stenosis to the VG to danny diagonal artery with successful stenting using Alpine 3.0 x23mm. Cardiac catheterization was carried out on January 30, 2021 showing patent stents in the right coronary artery, patent vein graft to the diagonal artery, occluded vein graft to the obtuse marginal branch and occluded [place] obtuse marginal branch, known to have patent SPEAR. Attempt to intervene on the chronic total occlusion of the vein graft has failed. SSS: intermittent SVT/PAF that has been treated with iv lopressor 5 mg q 6h [id number] during this hospitalization Congestive heart failure, chronic compensated left ventricular systolic dysfunction, improved - last echocardiogram done in July 2018 showing ejection fraction 50-55 percent Hypertension Hyperlipidemia Mild bilateral carotid stenoses nonobstructive disease, last ultrasound was done in August 2020 History of TIA, no recent symptoms Obstructive sleep apnea, using C Pap Plan: * I interviewed and examined him and reviewed his records * I discussed his case with Dr Burnett and Dr Segura on the phone * Management is complex because of the need for antiplatelet agents for his CAD and the need for oral anticoagulation for stroke prophylaxis, but because of active and marked GI bleed he is not suitable for full resumption. Today, we are resuming only low-dose ASA that is to be given every other day, after this has been approved by Dr Segura and Dr Butler. This would need to be monitored closely and we have asked him to f/u with Dr Burnett in 4-5 days * In the hospital he has regularly been getting iv beta-anup (q 6 h) and has tolerated it well. We are changing to Toprol XL 100 mg daily. We are holding off on amlodipine to allow room on bp for Toprol XL. We are continuing CHELITA- inhib * Continue stating and Imdur * Questions answered in detail and he was advised close outpt f/u ADIN JAMES MD FACP FACC CCDS Feb 08, 2021 12:45
== END 2021-02-08 13:00 | disposition home or self-care (01) | DRG 377 ==
LOC: EDUNIT# 06:35 → ER 06:36 → CSD 08:45 → OBSVTOIN 02-04 11:24 → ICU 02-04 15:00
PROVIDERS: ADMIT Family Medicine; ATTEND Internal Medicine
PROC: 0DB48ZX Excision of Esophagogastric Junction, Via Natural or Artificial Opening Endoscopic, Diagnostic (ICD-10-PCS; 2021-02-03)
PROC: 0DB78ZX Excision of Stomach, Pylorus, Via Natural or Artificial Opening Endoscopic, Diagnostic (ICD-10-PCS; principal; 2021-02-03 09:30)
PROC: 0DJD8ZZ Inspection of Lower Intestinal Tract, Via Natural or Artificial Opening Endoscopic (ICD-10-PCS; 2021-02-07)
DX: K57.31 Diverticulosis of large intestine without perforation or abscess with bleeding (principal); I21.A1 Myocardial infarction type 2; D62 Acute posthemorrhagic anemia; I50.22 Chronic systolic (congestive) heart failure; I25.719 Atherosclerosis of autologous vein coronary artery bypass graft(s) with unspecified angina pectoris; I25.82 Chronic total occlusion of coronary artery; I25.119 Atherosclerotic heart disease of native coronary artery with unspecified angina pectoris; I11.0 Hypertensive heart disease with heart failure; Z20.822 Contact with and (suspected) exposure to COVID-19; K64.1 Second degree hemorrhoids; E78.00 Pure hypercholesterolemia, unspecified; E78.5 Hyperlipidemia, unspecified; I49.3 Ventricular premature depolarization; J44.9 Chronic obstructive pulmonary disease, unspecified; K21.9 Gastro-esophageal reflux disease without esophagitis; K21.00 Gastro-esophageal reflux disease with esophagitis, without bleeding; K44.9 Diaphragmatic hernia without obstruction or gangrene; K29.70 Gastritis, unspecified, without bleeding; G47.33 Obstructive sleep apnea (adult) (pediatric); M19.91 Primary osteoarthritis, unspecified site; E03.9 Hypothyroidism, unspecified; I08.3 Combined rheumatic disorders of mitral, aortic and tricuspid valves; I65.23 Occlusion and stenosis of bilateral carotid arteries; I25.2 Old myocardial infarction; Z87.891 Personal history of nicotine dependence; Z86.73 Personal history of transient ischemic attack (TIA), and cerebral infarction without residual deficits; Z95.1 Presence of aortocoronary bypass graft; Z95.5 Presence of coronary angioplasty implant and graft; Z96.612 Presence of left artificial shoulder joint; Z88.0 Allergy status to penicillin; Z79.02 Long term (current) use of antithrombotics/antiplatelets; Z79.82 Long term (current) use of aspirin
CPT/HCPCS: 36410; 36415; 36430; 76705; 76937; 80048; 80053; 82947; 83735; 84100; 84484; 85014; 85018; 85025; 85027; 86850; 86900; 86901; 86920; 87636; 88305; 93005

== ENCOUNTER → 2021-05-27 | Outpatient (CLI) | payer MEDICARE ==
[~2021-05-27] MED LIST changes: +ASPI-999 PO; +FAMO-119 PO; +FAMO20TA5 PO; +FERR325T24 PO; +FURO20TA4 PO; +MTP100TCR PO
[2021-05-27 11:32] LABS: CALCIUM 9.5 MG/DL (8.5-10.1); CREATININE SERUM 1.19 MG/DL (0.60-1.30); POTASSIUM 4.5 MMOL/L (3.6-5.0)
== END ==
LOC: LAB 10:53
PROVIDERS: ATTEND Internal Medicine Cardiovascular Disease
DX: I50.22 Chronic systolic (congestive) heart failure (principal)
CPT/HCPCS: 36415; 80048

== ENCOUNTER 2021-08-15 19:50 | Emergency (ER) | payer MEDICARE ==
[~2021-08-15] VITALS: Ht 174 cm; Wt 70.3 kg
--- NOTE | 2021-08-15 20:00 | ED Chest Pain ---
General Chief Complaint: Chest Pain Stated Complaint: CHEST PAIN Source: patient Exam Limitations: no limitations History of Present Illness Date Seen by Provider: Aug 15, 2021 Time Seen by Provider: 19:55 Initial Comments To ER by [facility] with reports of pain to the plantar surface of both feet this evening as well as some pressure in his chest. His rubbed his feet and he took a nitro and then the pain in his feet and the chest pressure went away. He has been getting some intermittent chest pressure and jaw pain over the course of the past week with some intermittent troubles breathing. He states that he will wake up from a nap gasping for breath which is unusual for him. He otherwise does not feel short of breath. He denies nausea or sweating. History of CABG. Follows with Dr. Burnett. Currently is pain-free. EMS gave 324 mg of aspirin around the hospital. PMH includes CAD, HLD, HTN, COPD, RAJINDER requiring CPAP, CHF, GI bleed requiring transfusions. Timing/Duration: intermittent, 2-3 days Severity/Quality: moderate Location: central Radiation: no radiation Activities at Onset: none ASA po HRBP: Yes NTG SL HRBP: Yes Allergies and Home Medications Allergies Coded Allergies: penicillin G (Verified Allergy, Unknown, 08/11/05) Uncoded Allergies: IV CONTRAST (Allergy, Intermediate, 07/23/15) Patient Home Medication List Home Medication List Reviewed: Yes Acetaminophen/Diphenhydramine (Tylenol Pm Ex-Strength Caplet) 1 Each Tablet, 2 EACH PO HS, (Reported) Entered as Reported by: JACINTO MORENO on 09/04/20 1227 Albuterol Sulfate (Proair Hfa) 1 Puff Puff, 2 PUFF IH Q4H PRN for SHORTNESS OF BREATH, (Reported) Entered as Reported by: MARQUISE CHACON on 01/30/21 0839 Albuterol Sulfate (Albuterol Sulfate) 2.5 Mg/3 Ml Vial.neb, 2.5 MG INH Q4H PRN for SHORTNESS OF BREATH, (Reported) Entered as Reported by: MARQUISE CHACON on 01/30/21 0839 Aspirin (Aspirin) 81 Mg Tab.chew, 81 MG PO Q48H Prescribed by: RAMESH MACARIO on 02/15/21 0959 Atorvastatin Calcium (Atorvastatin Calcium) 80 Mg Tablet, 40 MG PO HS, (Reported) Entered as Reported by: JACINTO MORENO on 09/04/201226 Cyanocobalamin (Vitamin B-12) (Vitamin B-12) 500 Mcg Tablet, 500 MCG PO DAILY, (Reported) Entered as Reported by: JACINTO MORENO on 09/04/201226 Famotidine (Famotidine) 20 Mg Tablet, 20 MG PO BID, (Reported) Entered as Reported by: JACINTO MORENO on 02/14/21 1049 Ferrous Sulfate (Ferosul) 325 Mg Tablet, 325 MG PO DAILY Prescribed by: RAMESH MACARIO on 02/15/21 0959 Furosemide (Furosemide) 20 Mg Tablet, 20 MG PO DAILY Prescribed by: RAMESH MACARIO on 02/15/21 0953 Gabapentin (Gabapentin) 100 Mg Capsule, 200 MG PO BID, (Reported) Entered as Reported by: JACINTO MORENO on 09/04/201226 Isosorbide Mononitrate (Isosorbide Mononitrate ER) 30 Mg Tab.er.24h, 30 MG PO Anita RAI, (Reported) Entered as Reported by: MARQUISE CHACON on 01/30/21 0839 Lisinopril (Lisinopril) 20 Mg Tablet, 20 MG PO DAILY, (Reported) Entered as Reported by: MARQUISE CHACON on 01/30/21 0839 Metoprolol Succinate (Metoprolol Succinate) 100 Mg Tab.er.24h, 100 MG PO DAILY, (Reported) Entered as Reported by: JACINTO MORENO on 02/14/21 104 Multivitamin (Multivitamin) 1 Each Tablet, 1 EACH PO DAILY, (Reported) Entered as Reported by: JACINTO MORENO on 09/04/201226 Pantoprazole Sodium (Pantoprazole Sodium) 40 Mg Tablet.dr, 40 MG PO DAILY, (Reported) Entered as Reported by: JACINTO MORENO on 09/04/201226 [Supe Beta Prostate] , 1 EA PO BID, (Reported) Entered as Reported by: JACINTO MORENO on 09/04/201226 Review of Systems Review of Systems Constitutional: see HPI EENTM: No Symptoms Reported Respiratory: No Symptoms Reported Cardiovascular: No Symptoms Reported Gastrointestinal: No Symptoms Reported Genitourinary: No Symptoms Reported Musculoskeletal: no symptoms reported Skin: no symptoms reported Psychiatric/Neurological: No Symptoms Reported Endocrine: No Symptoms Reported Hematologic/Lymphatic: No Symptoms Reported Past Ieusqxx-Igwsfe-Xawdvu Hx Immunizations Up To Date Tetanus Booster (TDap): Unknown Seasonal Allergies Seasonal Allergies: No Past Medical History Surgery/Hospitalization HX: 5 VESSEL CABG 1993 CARDIAC CATHS AND MULTIPLE STENTS AND ANGIOPLASTIES--LAST CARDIAC CATH 01/30/[address] BURNETT CONCLUSION: 1. Severe [place] coronary artery disease in the left system, patent SPEAR to LAD and vein graft to the diagonal artery. The vein graft to the obtuse marginal branch is occluded and appears to be chronic occlusion, failed attempt to intervention. 2. Dominant right coronary artery with patent stent in the mid right coronary artery, mild disease distally nonobstructive disease 3. Normal left ventricular end-diastolic pressure DISCUSSION AND RECOMMENDATION: Medical therapy is recommended LEFT SHOULDER SURGERY/REPLACEMENT HIATAL HERNIA REPAIR/LAPAROSCOPIC GASTROPEXY [address] HERNANDEZ EGD/COLONOSCOPIES CATARACT SURGERIES Surgeries: Yes (HIATAL HERNIA REPAIR;L SHOULDER REPLACEMENT;3V CABG + STENTS;CATARACTS) Abdominal, Cardiac, CABG, Coronary Stent, Eye Surgery, Joint Replacement, Orthopedic Respiratory: Yes Chronic Bronchitis, Sleep Apnea Currently Using CPAP: No Cardiac: Yes (5 VESSEL CABG + STENTS/ANGIOPLASTIES;MILD CAROTID DISEASE;CHF;SVT/PVC/PAC) Atrial Fibrillation, Coronary Artery Disease, Heart Attack, High Cholesterol, Hypertension, Palpitations Neurological: Yes TIA Reproductive Disorders: No Sexually Transmitted Disease: No HIV/AIDS: No Genitourinary: No Gastrointestinal: Yes (S/P HIATAL HERNIA REPAIR) Gastroesophageal Reflux, Gastrointestinal Bleed, Diverticulosis, Hiatal Hernia Musculoskeletal: Yes (LEFT SHOULDER REPLACEMENT) Arthritis Endocrine: Yes Hypothyroidsim HEENT: Yes Cataract Cancer: No Psychosocial: No Integumentary: No Blood Disorders: No Adverse Reaction/Blood Tranf: No Family Medical History Patient reports no known family medical history. SOCIAL HISTORY: -ETOH--REGULAR/DAILY USE--"A COUPLE " OF DRINKS A DAY -DRUGS-DENIES USE -SMOKED 1 PPD, QUIT 1988 ADDITIONAL PAST MEDICAL/SURGICAL HISTORY: -CARDIAC CATH 07/2015--NO INTERVENTION. DR. BURNETT Physical Exam Vital Signs Vital Signs - First Documented 08/15/21 19:50 Temp 36.7 Pulse 76 Resp 20 B/P (MAP) 165/99 (121) Pulse Ox 97 O2 Delivery Room Air Capillary Refill : Height, Weight, BMI Height: 5'8.00" Weight: 166lbs. 0.0oz. 75.680548lg; 23.56 BMI Method: General Appearance: No Apparent Distress, WD/WN, Chronically ill HEENT: PERRL/EOMI, TMs Normal Neck: Full Range of Motion, Normal Inspection Respiratory: No Accessory Muscle Use, No Respiratory Distress Cardiovascular: Regular Rate, Rhythm, Normal Peripheral Pulses Gastrointestinal: Non Tender, Soft Extremity: Normal Capillary Refill, Normal Inspection Neurologic/Psychiatric: Alert, Oriented x3 Skin: Normal Color, Warm/Dry Progress/Results/Core Measures Results/Orders Lab Results Laboratory Tests Test 08/15/21 19:55 08/15/21 20:34 08/15/21 21:58 Range/Units White Blood Count 8.4 4.3-11.0 10^3/uL Red Blood Count 3.64 L 4.30-5.52 10^6/uL Hemoglobin 11.7 L 13.3-17.7 g/dL Hematocrit 37 L 40-54 % Mean Corpuscular Volume 101 H 80-99 fL Mean Corpuscular Hemoglobin 32 25-34 pg Mean Corpuscular Hemoglobin Concent 32 32-36 g/dL Red Cell Distribution Width 14.6 H 10.0-14.5 % Platelet Count 210 130-400 10^3/uL Mean Platelet Volume 11.2 9.0-12.2 fL Immature Granulocyte % (Auto) 0 % Neutrophils (%) (Auto) 72 42-75 % Lymphocytes (%) (Auto) 15 12-44 % Monocytes (%) (Auto) 11 0-12 % Eosinophils (%) (Auto) 1 0-10 % Basophils (%) (Auto) 0 0-10 % Neutrophils # (Auto) 6.1 1.8-7.8 10^3/uL Lymphocytes # (Auto) 1.2 1.0-4.0 10^3/uL Monocytes # (Auto) 0.9 0.0-1.0 10^3/uL Eosinophils # (Auto) 0.1 0.0-0.3 10^3/uL Basophils # (Auto) 0.0 0.0-0.1 10^3/uL Immature Granulocyte # (Auto) 0.0 0.0-0.1 10^3/uL Prothrombin Time 13.2 12.2-14.7 SEC INR Comment 1.0 0.8-1.4 Activated Partial Thromboplast Time 28 24-35 SEC Sodium Level 138 135-145 MMOL/L Potassium Level 4.2 3.6-5.0 MMOL/L Chloride Level 106 98-107 MMOL/L Carbon Dioxide Level 23 21-32 MMOL/L Anion Gap 9 5-14 MMOL/L Blood Urea Nitrogen 21 H 7-18 MG/DL Creatinine 1.14 0.60-1.30 MG/DL Estimat Glomerular Filtration Rate 62 BUN/Creatinine Ratio 18 Glucose Level 63 L 70-105 MG/DL Calcium Level 8.7 8.5-10.1 MG/DL Corrected Calcium 8.9 8.5-10.1 MG/DL Magnesium Level 2.1 1.6-2.4 MG/DL Total Bilirubin 0.4 0.1-1.0 MG/DL Aspartate Amino Transf (AST/SGOT) 22 5-34 U/L Alanine Aminotransferase (ALT/SGPT) 10 0-55 U/L Alkaline Phosphatase 88 40-136 U/L Myoglobin 60.7 10.0-92.0 NG/ML Troponin I < 0.028 < 0.028 <0.028 NG/ML B-Type Natriuretic Peptide 774.8 H <100.0 PG/ML Total Protein 6.7 6.4-8.2 GM/DL Albumin 3.7 3.2-4.5 GM/DL Glucometer 81 70-110 MG/DL My Orders Orders - DONY JOHNSON APRN Cbc With Automated Diff (08/15/21 19:54) Magnesium (08/15/21 19:54) Chest 1 View, Ap/Pa Only (08/15/21 19:54) Ekg Tracing (08/15/21 19:54) Comprehensive Metabolic Panel (08/15/21 19:54) Myoglobin Serum (08/15/21 19:54) Protime With Inr (08/15/21 19:54) Partial Thromboplastin Time (08/15/21 19:54) O2 (08/15/21 19:54) Monitor-Rhythm Ecg Trace Only (08/15/21 19:54) Lipid Panel (08/16/21 06:00) Ed Iv/Invasive Line Start (08/15/21 19:54) Bnp [place] (08/15/21 19:54) Troponin I [place] (08/15/21 19:54) Accucheck Stat ONCE (08/15/21 20:30) Troponin I [place] (08/15/21 21:49) Furosemide Injection (Lasix Injection) (08/15/21 22:30) Medications Given in ED Current Medications Medications Dose Ordered Sig/Adolfo Route Start Time Stop Time Status Last Admin Dose Admin Furosemide 40 mg ONCE ONCE IVP 08/15/21 22:30 08/15/21 22:31 08/15/21 22:26 40 MG Vital Signs/I&O 08/15/21 19:50 Temp 36.7 Pulse 76 Resp 20 B/P (MAP) 165/99 (121) Pulse Ox 97 O2 Delivery Room Air Departure Communication (Admissions) Family Conversation 2229-repeat troponin still negative and he is still symptom-free and would like to go home. We will get this going. EKG is without any ST segment elevation. It does actually look better than his last EKG on February 142020 which is to say that the significant ST depression in the anterolateral leads is less notable today. Impression Primary Impression: CHF (congestive heart failure) Additional Impressions: Coronary artery disease Chest pain Disposition: ADMITTED INPATIENT Condition: Stable Admissions Decision to Admit/Date: Aug 15, 2021 Departure-Patient Inst. Decision time for Depature: 22:31 Referrals: FOUZIA NJ DO (PCP/Family) Primary Care Physician Patient Instructions: Chest Pain, Adult ED Add. Discharge Instructions: 1. Return to ER for any concerns. Follow-up with your doctor next week. All discharge instructions reviewed with patient and/or family. Voiced understanding. DONY JOHNSON APRN Aug 15, 2021 20:00
[2021-08-15 20:07] LABS: BASOPHILS % (AUTO) 0 % (0-10); EOSINOPHILS # (AUTO) 0.1 10^3/uL (0.0-0.3); EOSINOPHILS % (AUTO) 1 % (0-10); HEMATOCRIT 37 % (40-54); HEMOGLOBIN 11.7 g/dL (13.3-17.7); LYMPHOCYTES # (AUTO) 1.2 10^3/uL (1.0-4.0); LYMPHOCYTES % (AUTO) 15 % (12-44); MEAN CORPUSCULAR HEMOGLOBIN 32 pg (25-34); MEAN CORPUSCULAR HGB CONC 32 g/dL (32-36); MEAN CORPUSCULAR VOLUME 101 fL (80-99); MEAN PLATELET VOLUME 11.2 fL (9.0-12.2); MONOCYTES # (AUTO) 0.9 10^3/uL (0.0-1.0); MONOCYTES % (AUTO) 11 % (0-12); NEUTROPHILS # (AUTO) 6.1 10^3/uL (1.8-7.8); NEUTROPHILS % (AUTO) 72 % (42-75); PLATELET COUNT 210 10^3/uL (130-400); WHITE BLOOD COUNT 8.4 10^3/uL (4.3-11.0)
[2021-08-15 20:22] LABS: PROTHROMBIN TIME PATIENT 13.2 SEC (12.2-14.7)
--- NOTE | 2021-08-15 20:25 | Diagnostic Imaging Report ---
EXAMINATION: Portable chest. COMPARISON: Prior study from February 14, 2021. INDICATION: Chest pressure and chest pain. FINDINGS: Sternotomy wires and multiple surgical clips projecting over the heart and mediastinal contours are unchanged. There are no current findings to suggest edema or failure. There is flattening of the diaphragms. There is no alveolar consolidation. There is no large effusion or pneumothorax. There is density related to a hiatal hernia. IMPRESSION: 1. Prior operative changes of bypass grafting. Heart size is prominent without current evidence of edema or failure. There are no findings of pneumonia or a significant effusion. 2. Hiatal hernia. Dictated by: Dictated on workstation # [id number]
[2021-08-15 20:29] LABS: ALBUMIN 3.7 GM/DL (3.2-4.5); BILIRUBIN,TOTAL 0.4 MG/DL (0.1-1.0); CALCIUM 8.7 MG/DL (8.5-10.1); CREATININE SERUM 1.14 MG/DL (0.60-1.30); MAGNESIUM 2.1 MG/DL (1.6-2.4); POTASSIUM 4.2 MMOL/L (3.6-5.0); TOTAL PROTEIN 6.7 GM/DL (6.4-8.2)
[2021-08-15] MEDS ORDERED: FUROSEMIDE 40 MG/4 ML INJ (LASIX) IVP ONE (22:30)
[2021-08-15 22:38] VITALS: BP 166/96
== END 2021-08-15 22:38 | disposition other institution (70) ==
LOC: EDUNIT# 19:50 → ER 19:51
DX: I50.9 Heart failure, unspecified (principal); I25.10 Atherosclerotic heart disease of native coronary artery without angina pectoris
CPT/HCPCS: 36415; 71045; 80053; 82947; 83735; 83874; 83880; 84484; 85025; 85610; 85730; 93005; 93041; 96374

== ENCOUNTER 2022-02-06 12:09 | Inpatient (IN) | payer MEDICARE ==
[~2022-02-06] VITALS: Ht 172.7 cm; Wt 75.0 kg
[2022-02-06] MEDS ORDERED: LOPERAMIDE 2 MG (IMODIUM) TABLET PO PRN (12:15)
[2022-02-06] MEDS ORDERED: CALCIUM CARBONATE 500 MG (TUMS) TAB.CHEW PO PRN (12:15)
[2022-02-06] MEDS ORDERED: FLEET ENEMA ADULT 1 EA BTL PR PRN (12:15)
[2022-02-06] MEDS ORDERED: DOCUSATE SODIUM 100 MG (COLACE) CAP PO PRN (12:15)
[2022-02-06] MEDS ORDERED: BISACODYL 10 MG SUPP (DULCOLAX) PR PRN (12:15)
[2022-02-06] MEDS ORDERED: diphenhydrAMINE 25 MG TAB (BENADRYL) PO PRN (12:15)
[2022-02-06] MEDS ORDERED: LACTULOSE SYRUP 10GM/15ML (ENULOSE) 30ML UDC PO PRN (12:15)
[2022-02-06] MEDS ORDERED: guaiFENesin/CODEINE (ROBITUSSIN AC) 10ML UDC PO PRN (12:15)
--- NOTE | 2022-02-06 12:17 | PM&R Post Admission Assessment ---
PM&R HP Date of Visit: Feb 06, 2022 Time of Visit: 16:00 History of Present Illness Chief complaint: CVA with homonymous hemianopsia History present illness: This is an 89-year-old white male clinic patient of Dr. NJ and cardiology Dr. 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 He is in need of working on balance and ambulation and increase ADLs with vision loss. CC: vision loss, debility due to CVA HPI: Reymundo Manley is a 89y/o M who has been transferred from [facility] due to vision loss and debility due to CVA. Pt reports that on 02/05 he began having acute vision loss. Says that he started losing vision in the lower half of both his eyes. Denies having any issues with mobility or physical weakness at that time. He was then taken to the ED in [place]. A MRI was done which showed an area of restricted diffusion on the right occipital lobe in distribution of the right ELEPHANT TAMER suggesting a subacute infarct. CT also done which showed low attenuation in right occipital lobe in distribution of right ELEPHANT TAMER. Pt states that before the stroke that he was living at home with no difficulties. He is having issues seeing on the left side currently. Says that his hearing has worsened since the CVA. Able to talk without any issue. His physical conditioning and strength is "not quite what it was before the stroke" according to patient. 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 FH: no pertinent ROS: gen-no fevers, chills heent- positive for vision and hearing changes cardiac- no chest pain, palpitations lungs- has a cough, no SOB GI- no abdominal pain, N/V, constipation - no dysuria, hematuria MSK- no muscle weakness or pain neuro- positive for dizziness and headaches PE: gen: WD/WD, no distress heent: PERRL, unable to see in left half of vision field for both eyes cardiac: RRR, normal pulses lungs: CTAB, normal rate GI: soft, not tender LE: no pedal edema, no tenderness 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 strength 5/5 b/l, alert Imaging: see HPI for pertinent image reports from [facility] A&P: Assessment Debility due to CVA Left homonymous hemianopsia HTN HLD RAJINDER COPD Hx of TIA b/l carotid stenosis sick sinus syndrome neuropathy osteoarthritis Plan Start PT/OT Consult cardiology Restart home medications Will get labs tomorrow morning Closely monitor SCDs for DVT prophylaxis, anticoagulation contraindicated due to hx of GI bleed and anemia Protonix for GI prophylaxis Regular diet Code status: full code SHAYNE ALLEN Feb 06, 2022 15:46 <Created by SHAYNE ALLEN > Past Imitwnb-Dkrxat-Ikiier Hx Past Med/Social Hx: Reviewed Nursing Past Med/Soc Hx, Reviewed and Corrections made Patient Social History Marrital Status: Employed/Student: employed Alcohol Use: Rarely Uses Alcohol Beverage of Choice: Beer 2nd Hand Smoke Exposure: No Recent Hopitalizations: No Immunizations Up To Date Tetanus Booster (TDap): Unknown Date of Pneumonia Vaccine: Mar 22, 2009 Date of Influenza Vaccine: Mar 05, 2020 Seasonal Allergies Seasonal Allergies: No Past Medical History Surgeries: Abdominal, Cardiac, CABG, Coronary Stent, Eye Surgery, Joint Replacement, Orthopedic Currently Using CPAP: No Cardiac: Atrial Fibrillation, Coronary Artery Disease, Heart Attack, High Cholesterol, Hypertension, Palpitations Neurological: TIA Reproductive: No Sexually Transmitted Disease: No HIV/AIDS: No Gastrointestinal: Gastroesophageal Reflux, Gastrointestinal Bleed, Diverticulosis, Hiatal Hernia Musculoskeletal: Arthritis Endocrine: Hypothyroidsim HEENT: Cataract History of Blood Disorders: No Adverse Reaction to Blood Lopez: No Family History Patient reports no known family medical history. SOCIAL HISTORY: -ETOH--REGULAR/DAILY USE--"A COUPLE " OF DRINKS A DAY -DRUGS-DENIES USE -SMOKED 1 PPD, QUIT 1988 ADDITIONAL PAST MEDICAL/SURGICAL HISTORY: -CARDIAC CATH 07/2015--NO INTERVENTION. DR. BURNETT PM&R Allergy/Meds/Data Review Allergies Coded Allergies: penicillin G (Verified Allergy, Unknown, 08/11/05) Uncoded Allergies: IV CONTRAST (Allergy, Intermediate, 07/23/15) Home Medications Scheduled Amlodipine Besylate (Amlodipine Besylate), 5 MG PO DAILY, (Reported) Aspirin (Aspirin), 81 MG PO DAILY, (Reported) Atorvastatin Calcium (Atorvastatin Calcium), 40 MG PO HS, (Reported) Clopidogrel Bisulfate (Clopidogrel), 75 MG PO DAILY, (Reported) Furosemide (Furosemide), 20 MG PO DAILY, (Reported) Gabapentin (Gabapentin), 100 MG PO BID, (Reported) Lisinopril (Lisinopril), 20 MG PO DAILY, (Reported) Meloxicam (Meloxicam), 7.5 MG PO DAILY, (Reported) Metoprolol Succinate (Metoprolol Succinate), 50 MG PO DAILY, (Reported) Potassium Chloride (Klor-Con 10), 10 MEQ PO DAILY, (Reported) Scheduled PRN Albuterol Sulfate (Albuterol Sulfate), 2.5 MG INH Q4H PRN for SHORTNESS OF BREATH, (Reported) Discontinued Medications Acetaminophen/Diphenhydramine (Tylenol Pm Ex-Strength Caplet), 2 EACH PO HS, (Reported) Discontinued Reason: No Longer Taking Albuterol Sulfate (Proair Hfa), 2 PUFF IH Q4H PRN for SHORTNESS OF BREATH, (Reported) Discontinued Reason: No Longer Taking Aspirin (Aspirin), 81 MG PO Q48H Discontinued Reason: No Longer Taking Cyanocobalamin (Vitamin B-12) (Vitamin B-12), 500 MCG PO DAILY, (Reported) Discontinued Reason: No Longer Taking Famotidine (Famotidine), 20 MG PO BID, (Reported) Discontinued Reason: No Longer Taking Ferrous Sulfate (Ferosul), 325 MG PO DAILY Discontinued Reason: No Longer Taking Furosemide (Furosemide), 20 MG PO DAILY Discontinued Reason: No Longer Taking Isosorbide Mononitrate (Isosorbide Mononitrate ER), 30 MG PO DAILY, (Reported) Discontinued Reason: No Longer Taking Metoprolol Succinate (Metoprolol Succinate), 100 MG PO DAILY, (Reported) Discontinued Reason: No Longer Taking Multivitamin (Multivitamin), 1 EACH PO DAILY, (Reported) Discontinued Reason: No Longer Taking Pantoprazole Sodium (Pantoprazole Sodium), 40 MG PO DAILY, (Reported) Discontinued Reason: No Longer Taking [Supe Beta Prostate], 1 EA PO BID, (Reported) Discontinued Reason: No Longer Taking Current Medications Current Medications Reviewed Review of Systems Constitutional: see HPI, malaise, weakness EENTM: blurred vision, double vision, vision loss Respiratory: no symptoms reported Cardiovascular: no symptoms reported Gastrointestinal: no symptoms reported Genitourinary: no symptoms reported Musculoskeletal: no symptoms reported Skin: no symptoms reported Psychiatric/Neurological: No Symptoms Reported All Other Systems Reviewed Negative Unless Noted: Yes Physical Exam Physical Exam Vital Signs Capillary Refill : Height, Weight, BMI Height: 5'8.00" Weight: 166lbs. 0.0oz. 75.315614rp; 23.00 BMI Method: General Appearance: No Apparent Distress, WD/WN, Chronically ill Eyes: Bilateral Eye Normal Inspection, Bilateral Eye PERRL HEENT: Normal ENT Inspection, Pharynx Normal, Other (Vision loss lower left bilaterally) Neck: Full Range of Motion, Normal Inspection, Non Tender, Supple, Carotid Br uit Respiratory: Chest Non Tender, Lungs Clear, Normal Breath Sounds, No Accessory Muscle Use, No Respiratory Distress Cardiovascular: Regular Rate, Rhythm, No Edema, No Gallop, No JVD, No Murmur, Normal Peripheral Pulses Gastrointestinal: Normal Bowel Sounds, No Organomegaly, No Pulsatile Mass, Non Tender, Soft Back: Normal Inspection, No CVA Tenderness, No Vertebral Tenderness Extremity: Normal Capillary Refill, Normal Inspection, Normal Range of Motion, Non Tender, No Calf Tenderness, No Pedal Edema Neurologic/Psychiatric: Alert, Oriented x3, Normal Mood/Affect, instrumentation technologist II-XII Norm as Tested, Abnormal Gait, Motor Weakness (Generalized weakness 4/5) Skin: Normal Color, Warm/Dry Lymphatic: No Adenopathy PM&R Medical Assessment & Plan REHAB/MEDICAL ASSESSMENT AND PLAN: REHAB IMPAIRMENT GROUP: CVA ETIOLOGIC DIAGNOSIS: CVA The comorbidities that impact the patients function and/or functional outcome by: Advanced age, GI bleed in the past placed on aspirin and Plavix, complicated CAD REHAB PLAN: The patient is being admitted to our comprehensive inpatient rehabilitation facility and can tolerate the intensity of service consisting of at least: 180 minutes of therapy a day, 5 out of 7 days a week Rehab treatment will consist of: PT and OT will focus on regaining enough func tion to return back to independent living and use assistive devices to compensate for the acute vision loss The patient/family has a good understanding of our discharge process and will benefit from an interdisciplinary inpatient rehabilitation program. The patient has potential to make improvement and is in need of at least two of the following multidisciplinary therapies including but not limited to physical, occupational, speech, and prosthetics and orthotics. Additionally the patient will need services from respiratory, nutritional services, wound care, psychology, etc. (Customize this to each patient). Given the patients complex condition and risk of further medical complications, rehabilitation services cannot be safely or effectively provided at a lower level of care such as a senior living facility. BARRIERS TO DISCHARGE: Vision loss and advanced age ESTIMATED LOS: 10 days DISPOSITION: Home RELEVANT CHANGES SINCE PREADMISSION SCREENING: I have compared the patients medical and functional status at the time of the preadmission screening and there are: no changes PROGNOSIS: Fair REHABILITATION GOALS: 1. PT and OT will focus on regaining enough function to return back to independent living and use assistive devices to compensate for the acute vision loss All the above goals were reviewed with the patient and he/she is in agreement. By signing this document, I acknowledge that I have personally performed a full physical examination on this patient within 24 hours of admission to this [facility] rehabilitation facility and have determined the patient to be able to tolerate the above course of treatment at an intensive level for a reasonable period of time. I will be completing a detailed individualized Plan of Care for this patient by day #4 of the patients stay based upon the Preadmission Screen, the Post-Admission Evaluation, and the therapy evaluations. Admission Dx/Comorbidities: (1) Homonymous hemianopsia ICD Codes: H53.469 - Homonymous bilateral field defects, unspecified side (2) CHF (congestive heart failure) Status: Acute ICD Codes: I50.9 - Heart failure, unspecified (3) Coronary artery disease Status: Acute (4) HTN (hypertension) Status: Acute (5) HLD (hyperlipidemia) ICD Codes: E78.5 - Hyperlipidemia, unspecified Assessment/Plan Assessment and Plan Assess & Plan/Chief Complaint Assessment: CVA Homonymous hemianopsia CAD previous bypass and stents Recent GI bleed 1 year ago Atrial fibrillation Hypertension COPD RAJINDER Hyperlipidemia Hypothyroidism Plan: Inpatient rehab protocol Supportive care Monitor for GI bleed due to Plavix and aspirin TOY TAPIA DO Feb 06, 2022 12:17
[2022-02-06 13:35] VITALS: BP 121/80
[2022-02-06] MEDS ORDERED: POTA-160 PO (14:03)
[2022-02-06] MEDS ORDERED: FURO20TA4 PO (14:03)
[2022-02-06] MEDS ORDERED: MELO15TA39 PO (14:03)
[2022-02-06] MEDS ORDERED: METO50TA7 PO (14:03)
[2022-02-06] MEDS ORDERED: AMLO-250 PO (14:03)
[2022-02-06] MEDS ORDERED: CLOP75TA28 PO (14:03)
[2022-02-06] MEDS ORDERED: ASPI-999 PO (14:03)
--- NOTE | 2022-02-06 14:18 | Occupational Therapy Eval ---
OT Evaluation-General/PLF Medical Diagnosis Admission Date Feb 06, 2022 at 13:35 Medical Diagnosis: CVA with homonymous hemianopsia Onset Date: Feb 05, 2022 Therapy Diagnosis Therapy Diagnosis: decreased ADL status, vision impairments Height/Weight Height (Feet): 5 Height (Inches): 8.00 Weight (Pounds): 166 Weight (Ounces): 0.0 Precautions Precautions/Isolations: Fall Prevention, Standard Precautions Weight Bear Status Weight Bearing Restriction: Weight Bearing/Tolerated Location Restriction: LE Bilateral Referral Physician: Dami Referral Reason: Evaluation/Treatment Medical History Additional Medical History CHF, CAD, previous bypass with multiple stents, angina, HTN, HLD, bilateral carotid stenosis, SSS intolerant to most beta-blockers, COPD, neuropathy, RAJINDER, OA, TIA, Current History 02/05/22 [place] [facility] [place] acute vision loss. MRI revealed subacute infarct in R occipital lobe Social History Home: Single Level Current Living Status: Significant Other Entry Into Home: Ramp, Stairs With Railing Steps Into Home: 3 3-4 steps in the back, pt also has a ramp ADL-Prior Level of Function SCALE: Activities may be completed with or without assistive devices. 8-Wndmkajqmr-yqjpoks completes the activity by him/herself with no assistance from a helper. 5-Set-up or Clean-up Assistance-helper sets up or cleans up; patient completes activity. [place] assists only prior to or following the activity. 4-Supervision or Touching Assistance-helper provides verbal cues and/or touchin g/steadying and/or contact guard assistance as patient completes activity. Assistance may be provided throughout the activity or intermittently. 3-Partial/Moderate Assistance-helper does LESS THAN HALF the effort. [place] lifts, holds or supports trunk or limbs, but provides less than half the effort. 2-Substantial/Maximal Assistance-helper does MORE THAN HALF the effort. [place] lifts or holds trunk or limbs and provides more than half the effort. 8-Ohtubugbc-swggtr does ALL the effort. Patient does none of the effort to complete the activity. Or, the assistance of 2 or more helpers is required for the patient to complete the activity. If activity was not attempted, code reason: 7-Patient Refused. 9-Not Applicable-not attempted and the patient did not perform the activity before the current illness, exacerbation or injury. 10-Not Attempted due to Environmental Limitations-(lack of equipment, weather restraints, etc.). 88-Not Attempted due to Medical Conditions or Safety Concerns. ADL PLOF Comments Pt was independent with ADLs and functional mobility at [facility], using SPC when outside of the house. 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 He has both a tall toilet and a standard toilet, walk in shower and walk in tub. No SC. 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 Pt wore sunglasses during tx d/t light sensitivity. Mental Status/Objective Patient Orientation: Person, Place, Situation Current Glasses/Contacts: Yes Dentures/Partials: Yes Hand Dominance: Right Upper Extremity ROM WFL BUEs Upper Extremity Coordination WFL, no coordination deficits noted. Upper Extremity Sensation WFL, pt denies changes in sensation bilaterally. Upper Extremity Strength grossly 4/5 BUEs. L Homonymous Hemianopsia, L field cut bilaterally. ADL-Treatment Eating (QC): 6 (IND per pt report) Oral Hygiene (QC): 4 (CGA standing at sink, with cues initially where items were located) Shower/Bathe Self (QC): 4 (SBA for standing balance, VCs for safety/scanning) Upper Body Dressing (QC): 5 Lower Body Dressing (QC): 3 (Min A with threading BLE through correct pant legs and tying strings) On/Off Footwear (QC): 5 Toileting Hygiene (QC): 4 (SBA for standing balance during pant hike) Other Treatments Pt in [facility] with family, CGA from car to w/c. Pt taken up to ARU via w/c, OT evaluation complete and vision assessed. Pt has L side homonymous hemianopsia. PT evaluation complete, then OT/PT cotreat due to skill of 2 clinicians required which a rehab office coordinator could not perform in order to increase strength, activity tolerance, dynamic standing balance, visual attention to environment, and due to pt's limitations in strength, activity tolerance, and vision deficits. OT focused on UE placement, gross overall movement, ADLs, PT focused on LE placement, gross overall movements, transfers and mobility. Pt completed functional mobility/transfers in ARU common area/therapy gym, and participated in balance assessment. Pt returned to his room, completing showering and dressing in bathroom, please refer to QC scores above. Pt walked back to therapy gym with SPC, CGA, requiring verbal and tactile cues to scan environment. Pt participated in standing functional activities to challenge activity tolerance and scanning visual field, instructed to locate letters in various planes, requiring scanning into L visual field. Pt appeared to tolerate activity well, requiring min verbal cues in order to locate letters. Pt able to locate letters A-S, then required seated rest break, c/o slight headache above his eyes, nurse aware. Pt returned to room using SPC, transferred to recliner. Post tx, pt in recliner, call light in reach and all needs met. Education OT Patient Education: Correct positioning, Energy conservation, Modified ADL techniques, Progress toward Goal/Update tx plan, Purpose of tx/functional activities, Rehab process Teaching Recipient: Patient Teaching Methods: Discussion Response to Teaching: Verbalize Understanding OT Short Term Goals Short Term Goals Time Frame: Feb 14, 2022 Shower/bathe self: 5 Lower body dressin Putting on/taking off footwear: 5 OT Pig Lead Melter Helper Goals Pig Lead Melter Helper Goals Time Frame: Mar 07, 2022 Eating (QC): 6 Oral Hygiene (QC): 6 Toileting Hygiene (QC): 6 Shower/Bathe Self (QC): 6 Upper Body Dressing (QC): 6 Lower Body Dressing (QC): 6 On/Off Footwear (QC): 6 Additional Goals: 1-Demonstrate ADL Tasks, 2-Verbalize Understanding, 3- ImproveStrength/Dolly 1=Demonstrate adherence to instructed precautions during ADL tasks. 2=Patient will verbalize/demonstrate understanding of assistive devices/modifications for ADL. 3=Patient will improve strength/tolerance for activity to enable patient to perform ADL's. OT Education/Plan Problem List/Assessment Assessment: Decreased Activ Tolerance, Decreased UE Strength, Impaired Coordination, Impaired Funct Balance, Impaired I ADL's, Impaired Self-Care Skills, Visual-Perceptual Deficit Discharge Recommendations Plan/Recommendations: Continue POC Therapy Discharge Recommendati: Home & Family Equpiment Recommendations-D/C: Bath Chair Treatment Plan/Plan of Care Patient would benefit from OT for education, treatment and training to promote independence in ADL's, mobility, safety and/or upper extremity function for ADL's. Plan of Care: ADL Retraining, Functional Mobility, Group Exercise/Act as Ind, UE Funct Exercise/Act, Visual/Perceptual Retrain Treatment Duration: Mar 07, 2022 Frequency: At least 5 of 7 days/Wk (IRF) Estimated Hrs Per Day: 1.5 hours per day Agreement: Yes Time/GCodes Start Time: 13:35 Stop Time: 15:20 Total Time Billed (hr/min): 95 Billed Treatment Time 0141-9461 OT evaluation, 0907-2514 PT eval (not billed), [id number] Cotreat 1, EVL (20'), FA 3 (45'), ADL 2 (30') DECLAN ALCANTAR OT Feb 06, 2022 14:18
--- NOTE | 2022-02-06 15:22 | Physical Therapy Daily Note ---
PT Daily Note-Current Subjective Patient agrees to PT. Transfers SCALE: Activities may be completed with or without assistive devices. 7-Nxnqrvvocv-ulheyuv completes the activity by him/herself with no assistance from a helper. 5-Set-up or Clean-up Assistance-helper sets up or cleans up; patient completes activity. [place] assists only prior to or following the activity. 4-Supervision or Touching Assistance-helper provides verbal cues and/or touching/steadying and/or contact guard assistance as patient completes activity. Assistance may be provided throughout the activity or intermittently. 3-Partial/Moderate Assistance-helper does LESS THAN HALF the effort. [place] lifts, holds or supports trunk or limbs, but provides less than half the effort. 2-Substantial/Maximal Assistance-helper does MORE THAN HALF the effort. [place] lifts or holds trunk or limbs and provides more than half the effort. 3-Xflhvdovz-kmruyi does ALL the effort. Patient does none of the effort to complete the activity. Or, the assistance of 2 or more helpers is required for the patient to complete the activity. If activity was not attempted, code reason: 7-Patient Refused. 9-Not Applicable-not attempted and the patient did not perform the activity before the current illness, exacerbation or injury. 10-Not Attempted due to Environmental Limitations-(lack of equipment, weather restraints, etc.). 88-Not Attempted due to Medical Conditions or Safety Concerns. Sit to Stand (QC): 4 Gait Training Distance: 150' Walk 10 feet (QC): 4 Walk 50 ft with 2 Turns(QC): 4 Walk 150 ft (QC): 4 Gait Assistive Device: Cane Single Point safe and functional with minimal VC's due to left visual deficit Treatments Co Treat with OT on neuromuscular balance technique with visual activity on white board with scattered alphabet letters. Assessment Patient very fatigued and has c/o mild GUILLEN with RN notified. PT to continue to address functional strength, mobility and balance activity. PT Plan Treatment/Plan Treatment Plan: Continue Plan of Care Frequency: At least 5 of 7 days/Wk (IRF) Estimated Hrs Per Day: 1.5 hours per day Time/GCodes Time In: 1500 Time Out: 1520 Total Billed Treatment Time: 20 Total Billed Treatment 1 visit NM 20 min MAULIK SAMANO PT Feb 06, 2022 15:22
--- NOTE | 2022-02-06 15:46 | Progress Note ---
SHAYNE ALLEN 02/06/22 1546: Progress Note CC: vision loss, debility due to CVA HPI: Reymundo Manley is a 89y/o M who has been transferred from [facility] due to vision loss and debility due to CVA. Pt reports that on 02/05 he began having acute vision loss. Says that he started losing vision in the lower half of both his eyes. Denies having any issues with mobility or physical weakness at that time. He was then taken to the ED in [place]. A MRI was done which showed an area of restricted diffusion on the right occipital lobe in distribution of the right PHOTO TECH suggesting a subacute infarct. CT also done which showed low attenuation in right occipital lobe in distribution of right PHOTO TECH. Pt states that before the stroke that he was living at home with no difficulties. He is having issues seeing on the left side currently. Says that his hearing has worsened since the CVA. Able to talk without any issue. His physical conditioning and strength is "not quite what it was before the stroke" according to patient. 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 FH: no pertinent ROS: gen-no fevers, chills heent- positive for vision and hearing changes cardiac- no chest pain, palpitations lungs- has a cough, no SOB GI- no abdominal pain, N/V, constipation - no dysuria, hematuria MSK- no muscle weakness or pain neuro- positive for dizziness and headaches PE: gen: WD/WD, no distress heent: PERRL, unable to see in left half of vision field for both eyes cardiac: RRR, normal pulses lungs: CTAB, normal rate GI: soft, not tender LE: no pedal edema, no tenderness neuro: medical leader strength 5/5 b/l, alert Imaging: see HPI for pertinent [place] [facility] [place] [facility] [place]: Assessment Debility due to CVA Left homonymous hemianopsia HTN HLD RAJINDER COPD Hx of TIA b/l carotid stenosis sick sinus syndrome neuropathy osteoarthritis Plan Start PT/OT Consult cardiology Restart home medications Will get labs tomorrow morning Closely monitor SCDs for DVT prophylaxis, anticoagulation contraindicated due to hx of GI bleed and anemia Protonix for GI prophylaxis Regular diet Code status: full code MAURA TAPIA DO 02/06/221: Supervisory-Addendum Brief Verification & Attestation Participated in pt care: history, MDM, physical Personally performed: exam, history, MDM, supervision of care Care discussed with: Medical Student Procedures: n/a Results interpretation: Verified all documentation Verification and Attestation of Medical Student E/M Service A medical student performed and documented this service in my presence. I reviewed and verified all information documented by the medical student and made modifications to such information, when appropriate. I personally performed the physical exam and medical decision making. Maura Tapia Feb 06, 2022,21:31 SHAYNE ALLEN Feb 06, 2022 15:46 MAURA TAPIA DO Feb 06, 2022 21:31
--- NOTE | 2022-02-06 16:09 | Physical Therapy Evaluation ---
PT Evaluation-General Medical Diagnosis Admission Date Feb 06, 2022 at 13:35 Medical Diagnosis: CVA with homonymous hemianopsia Onset Date: Feb 05, 2022 Therapy Diagnosis Therapy Diagnosis: impaired mobility Height/Weight Height (Feet): 5 Height (Inches): 8.00 Weight (Pounds): 166 Weight (Ounces): 0.0 Precautions Precautions/Isolations: Fall Prevention, Standard Precautions Referral Physician: Maura Lomax DO Reason for Referral: Evaluation/Treatment Medical History Additional Medical History CHF, CAD, previous bypass with multiple stents, angina, HTN, HLD, bilateral carotid stenosis, SSS intolerant to most beta-blockers, COPD, neuropathy, RJAINDER, OA, TIA, Reviewed History: Yes Social History Home: Single Level Current Living Status: Significant Other Entry Into Home: Ramp, Stairs With Railing PT Steps Into Home: 3 ramp in the front Prior Prior Level of Function SCALE: Activities may be completed with or without assistive devices. 0-Dtqhgolxns-uunsqvj completes the activity by him/herself with no assistance fr om a helper. 5-Set-up or Clean-up Assistance-helper sets up or cleans up; patient completes activity. [place] assists only prior to or following the activity. 4-Supervision or Touching Assistance-helper provides verbal cues and/or touching/steadying and/or contact guard assistance as patient completes activity. Assistance may be provided throughout the activity or intermittently. 3-Partial/Moderate Assistance-helper does LESS THAN HALF the effort. [place] lifts, holds or supports trunk or limbs, but provides less than half the effort. 2-Substantial/Maximal Assistance-helper does MORE THAN HALF the effort. [place] lifts or holds trunk or limbs and provides more than half the effort. 1-Sbtdalywa-hczyqg does ALL the effort. Patient does none of the effort to complete the activity. Or, the assistance of 2 or more helpers is required for the patient to complete the activity. If activity was not attempted, code reason: 7-Patient Refused. 9-Not Applicable-not attempted and the patient did not perform the activity before the current illness, exacerbation or injury. 10-Not Attempted due to Environmental Limitations-(lack of equipment, weather restraints, etc.). 88-Not Attempted due to Medical Conditions or Safety Concerns. Bed Mobility: 6 Transfers (B,C,W/C): 6 Gait: 6 Stairs: 6 Indoor Mobility (Ambulation): Independent Stairs: Independent used a SPC outside of the home PT Evaluation-Current Subjective Patient in WC in room pre tx, agrees to PT, has no complaints of pain, just complaints of impaired vision. Will be co-treating with OT for part of tx due to poor patient mobility, endurance, SOB with activity, coordinate UE and LE with activity, safety and reduce risk of falls. Pt/Family Goals to be independent at home Objective Patient Orientation: Person, Place, Situation ROM/Strength ROM Lower Extremities WNL Strength Lower Extremities LLE (hip flexion 4/5, knee flexion 4+/5, knee extension 4+/5, dorsiflexion 4+/5), RLE (hip flexion 4/5, knee flexion 4+/5, knee extension 4+/5, dorsifl exion 4+/5) Neuromuscular (Tone, Coordination, Reflexes) Patient has impaired peripheral vision on the left and impaired tracking. Patient shows intact coordination via marie slide bilaterally and intact proprioception at the ankle. Sensory Vision: Hearing: Impaired Hand Dominance: Right Sensation Right Lower Extremit: Intact Sensation Left Lower Extremity: Intact Transfers Roll Left & Right (QC): 6 Sit to Lying (QC): 6 Lying to Sitting/Side of Bed(Q: 6 Sit to Stand (QC): 4 Chair/Qmt-np-Eheqp Xfer(QC): 4 Toilet Transfer (QC): 4 Car Transfer (QC): 4 Patient performs rolling and supine <-> sit with independence, sit <-> stand and transfers CGA, car transfer CGA. Patient needs a lot of cues for direction due to his impaired vision and cues for hand placement when sitting. Gait Does the Patient Walk?: Yes Mode of Locomotion: Walk Anticipated Mode of Locomotion: Walk Walk 10 feet (QC): 4 Walk 50 ft with 2 Turns(QC): 4 Walk 150 ft (QC): 4 Walking 10ft/uneven surface-QC: 4 Distance: 150', 120'x2 Gait Assistive Device: FWW Comments/Gait Description Patient can ambulate 150' with a rolling walker with CGA (including 50' with at least 2 turns of 90 degrees and 10' over an uneven surface), he also ambulated 120'x2 using a single point cane with CGA, he needs cues for direction due to his impaired vision, patient ambulates very slowly Wheelchair Training Wheel 50 ft with 2 turns (QC): 9 Wheel 150 ft (QC): 9 Stairs #of Steps: 12 1 Step (curb) (QC): 4 4 Steps (QC): 4 12 Steps (QC): 4 Patient can go up and down 12 steps using 2 handrails with CGA, cues for safety Balance Sitting Static: Normal Sitting Dynamic: Normal Standing Static: Fair Standing Dynamic: Fair Picking up an Object (QC): 4 (CGA with yarn finisher) Special Test Comments Patient scored 24/28 on the Tinetti Assessment Tool. Treatment Patient also performed bathing and dressing and ADL's at the sink as well as a standing activity with reaching and scanning. PT performed bed mobility and transfers, ambulation, stair training, balance during standing activity, standing and positioning during bathing and dressing and ADL's. OT performed bathing, dressing, ADL's, UE positioning and safety during activity, safety cues. Assessment/Needs Patient in therapy gym post tx, RN TELEPHONIC taking over for PT. Rehab Potential: Fair PT Short Term Goals Short Term Goals Time Frame: Feb 13, 2022 Roll Left & Right: 6 Sit to lyin Lying to sitting on side of be: 6 Sit to stand: 4 (SBA) Chair/gug-ql-xfoeq transfer: 4 (SBA) Walk 10 feet: 4 (SBA) Walk 50 feet with two turns: 4 (SBA) Walk 150 feet: 4 (SBA) PT [facility] Goals Motor Runner Goals PT Motor Runner Goals Time Frame: Feb 27, 2022 Roll Left & Right (QC): 6 Sit to Lying (QC): 6 Lying-Sitting on Side/Bed(QC): 6 Sit to Stand (QC): 5 Chair/Bmu-xe-Qjlro Xfer(QC): 5 Toilet Transfer (QC): 5 Car Transfer (QC): 5 Does the Patient Walk: Yes Walk 10 feet (QC): 5 Walk 50ft with 2 Turns (QC): 5 Walk 150 ft (QC): 5 Walking 10ft on Uneven Surface: 5 1 Step (curb) (QC): 4 (SBA) 4 Steps (QC): 4 (SBA) 12 Steps (QC): 4 (SBA) Picking up an Object (QC): 4 (SBA) Wheel 50 feet with 2 turns (QC: 9 Wheel 150 feet: 9 PT Plan Problem List Problem List: Activity Tolerance, Functional Strength, Safety, Balance, Gait, Transfer, Bed Mobility, ROM Treatment/Plan Treatment Plan: Continue Plan of Care Treatment Plan: Bed Mobility, Education, Functional Activity [place], Functional Strength, Group Therapy, Gait, Safety, Therapeutic Exercise, Transfers Treatment Duration: Feb 27, 2022 Frequency: At least 5 of 7 days/Wk (IRF) Estimated Hrs Per Day: 1.5 hours per day Patient and/or Family Agrees t: Yes Safety Risks/Education Patient Education: Gait Training, Transfer Techniques, Steps, Correct Positioning, Safety Issues Teaching Recipient: Patient Teaching Methods: Demonstration, Discussion Response to Teaching: Reinforcement Needed Discharge Recommendations Plan Patient will perform bed mobility and transfer training, balance and endurance training, functional strengthening, stair training, gait training, and education, to improve functional mobility and independence at home. Therapy Discharge Recommendati: Scheduled Assistance, Home & Family, Post Acute PT Time/GCodes Time In: 1355 Time Out: 1500 Total Billed Treatment Time: 65 Total Billed Treatment 1 visit EVM 10' FA 55' (only charge 3 units) PT eval from 4051-0169, co-treat from [id number] KYLE HEREDIA PT Feb 06, 2022 16:09
[2022-02-06] MEDS: ACETAMINOPHEN 325 MG TABLET PO PRN (16:39)
[2022-02-06] MEDS: ONDANSETRON 4 MG (ZOFRAN) ORAL DISSOLVE TAB PO PRN (18:02)
[2022-02-06 19:00] VITALS: BP 177/89
[2022-02-06 19:23] VITALS: BP 171/79
[2022-02-06] MEDS: SENNA W/DOCUSATE (SENOKOT S) TABLET PO SCH (20:27)
[2022-02-06] MEDS: PANTOPRAZOLE 40 MG (PROTONIX) TAB PO SCH (20:27)
[2022-02-06] MEDS: GABAPENTIN 100 MG (NEURONTIN) CAP PO SCH (20:27)
[2022-02-06] MEDS: DOCUSATE SODIUM 100 MG (COLACE) CAP PO SCH (20:27)
[2022-02-06] MEDS: polyethylene glycoL POWDER 17 GM (MIRALAX) PACK PO SCH (20:28)
[2022-02-06 21:57] VITALS: BP 130/69
--- NOTE | 2022-02-07 03:30 | PM&R Progress Note ---
Subjective HPI/CC On Admission Date Seen by Provider: Feb 07, 2022 Time Seen by Provider: 06:00 Subjective/Events-last exam 02/07/2022: Doing about the same Vision loss is a challenge No falls but he is impulsive Eating well Checked meds and labs Review of Systems General: Fatigue, Malaise HEENT: Visual Changes Objective Exam Vital Signs Vital Signs Date Time Temp Pulse Resp B/P (MAP) Pulse Ox O2 Delivery O2 Flow Rate FiO2 02/07/22 20:12 36.7 67 20 146/71 (96) 97 Room Air Capillary Refill : General Appearance: No Apparent Distress, WD/WN, Chronically ill HEENT: Normal ENT Inspection, Pharynx Normal, Other (Vision loss lower left bilaterally) Neck: Full Range of Motion, Normal Inspection, Non Tender, Supple, Carotid Bruit Respiratory: Chest Non Tender, Lungs Clear, Normal Breath Sounds, No Accessory Muscle Use, No Respiratory Distress Cardiovascular: Regular Rate, Rhythm, No Edema, No Gallop, No JVD, No Murmur, Normal Peripheral Pulses Gastrointestinal: Normal Bowel Sounds, No Organomegaly, No Pulsatile Mass, Non Tender, Soft Back: Normal Inspection, No CVA Tenderness, No Vertebral Tenderness Extremity: Normal Capillary Refill, Normal Inspection, Normal Range of Motion, Non Tender, No Calf Tenderness, No Pedal Edema Neurologic/Psychiatric: Alert, Oriented x3, Normal Mood/Affect, perforating 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 FIM Transfers Therapy Code Descriptions/Definitions Functional [place] Measure: 0=Not Assessed/NA 4=Minimal Assistance 1=Total Assistance 5=Supervision or Setup 2=Maximal Assistance 6=Modified [place] 3=Moderate Assistance 7=Complete IndependenceSCALE: Activities may be completed with or without assistive devices. 5-Bvfyknlwmc-ysyzsdh completes the activity by him/herself with no assistance from a helper. 5-Set-up or Clean-up Assistance-helper sets up or cleans up; patient completes activity. [place] assists only prior to or following the activity. 4-Supervision or Touching Assistance-helper provides verbal cues and/or touching/steadying and/or contact guard assistance as patient completes activity. Assistance may be provided throughout the activity or intermittently. 3-Partial/Moderate Assistance-helper does LESS THAN HALF the effort. [place] lifts, holds or supports trunk or limbs, but provides less than half the effort. 2-Substantial/Maximal Assistance-helper does MORE THAN HALF the effort. [place] lifts or holds trunk or limbs and provides more than half the effort. 9-Gstrqgtxn-tnqofn does ALL the effort. Patient does none of the effort to complete the activity. Or, the assistance of 2 or more helpers is required for the patient to complete the activity. If activity was not attempted, code reason: 7-Patient Refused. 9-Not Applicable-not attempted and the patient did not perform the activity before the current illness, exacerbation or injury. 10-Not Attempted due to Environmental Limitations-(lack of equipment, weather restraints, etc.). 88-Not Attempted due to Medical Conditions or Safety Concerns. Roll Left to Right (QC): 6 Sit to Lying (QC): 6 Sit to Stand (QC): 4 Chair/Zph-yt-Fpyeo Xfer(QC): 4 Car Transfer (QC): 4 Gait Training Does the Patient Walk?: Yes Distance: 150' Walk 10 feet (QC): 4 Walk 50 ft with 2 Turns(QC): 4 Walk 150 ft (QC): 4 Walking 10ft/uneven surface-QC: 4 Gait Assistive Device: FWW Wheelchair Training Wheel 50 ft with 2 turns (QC): 9 Wheel 150 ft (QC): 9 Stair Training #of Steps: 12 1 Step (curb) (QC): 4 4 Steps (QC): 4 12 Steps (QC): 4 Balance Picking up an Object (QC): 4 (CGA with primer inserting machine operator) ADL-Treatment Eating (QC): 6 (IND per pt report) Oral Hygiene (QC): 4 (CGA standing at sink, with cues initially where items were located) Shower/Bathe Self (QC): 4 (SBA for standing balance, VCs for safety/scanning) Upper Body Dressing (QC): 5 Lower Body Dressing (QC): 3 (Min A with threading BLE through correct pant legs and tying strings) On/Off Footwear (QC): 5 Toileting Hygiene (QC): 4 (SBA for standing balance during pant hike) Assessment/Plan Assessment and Plan Assess & Plan/Chief Complaint Assessment: CVA Homonymous hemianopsia CAD previous bypass and stents Recent GI bleed 1 year ago Atrial fibrillation Hypertension COPD 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
--- NOTE | 2022-02-07 03:30 | Individualized Plan of Care ---
Individualized Plan of Care Rehab Nursing IPOC Order Admission Date Feb 06, 2022 at 13:35 Current Orders Orders Admission Order(Inpt,Obs,Sdc) (02/06/22 12:14) Vital Signs: Per Unit Policy ( 08,16,00 (02/06/22 12:14) Steven Ojeda (02/06/22 12:14) Sequential Compression Device (02/06/22 12:14) Inventory Manager-Inpt Rehab Con (02/06/22 12:14) Rehab Nursing Orders-Ipoc (02/06/22 12:14) Physical Therapy Rehab Orders (02/06/22 12:14) Occupational Therapy Rehab Ord (02/06/22 12:14) Speech Therapy Rehab Orders (02/06/22 12:14) Cbc With Automated Diff (02/07/22 06:00) Comprehensive Metabolic Panel (02/07/22 06:00) Precautions (Aru) (02/06/22 12:14) Weekly Weight WEEK (02/06/22 12:14) Rehab-Intensity Of Therapy (02/06/22 12:14) Initiate Admission Nursing Pro .admission (02/06/22 12:14) Alprazolam Tablet (Xanax Tablet) (02/06/22 12:15) Calcium Carbonate Chew Tablet (Antacid C (02/06/22 12:15) Diphenhydramine Tablet (Benadryl Tablet) (02/06/22 12:15) Docusate Sodium Capsule (Colace Capsule) (02/06/22 21:00) Docusate Sodium Capsule (Colace Capsule) (02/06/22 12:15) Bisacodyl Suppository (Dulcolax Supposit (02/06/22 12:15) Lactulose Oral Solution (Enulose Oral So (02/06/22 12:15) Na Phos/Na Biphos Enema (Fleet Enema Henri (02/06/22 12:15) Guaifenesin/Codeine Syrup (Robitussin Ac (02/06/22 12:15) Loperamide Tablet (Imodium Tablet) (02/06/22 12:15) Melatonin Tablet (Melatonin Tablet) (02/06/22 12:15) Polyethylene Glycol Powder Pkt (Miralax (02/06/22 21:00) Ondansetron Oral Dissolve Tab (Zofran (02/06/22 12:15) Senna S Tablet (Senokot S Tablet) (02/06/22 21:00) Acetaminophen Tablet/Caplet (Tylenol T (02/06/22 12:15) Code/Resuscitation (02/06/22 12:14) Initiate Admission Nursing Pro .admission (02/06/22 12:14) Consult Cardiology (02/06/22 12:14) Pantoprazole Tablet (Protonix Tablet) (02/06/22 21:00) Admission Arrival Bed Request (02/06/22 13:42) Patient Visit (02/06/22 ) Ex Neuromuscular, Ea 15 Min (02/06/22 ) Code/Resuscitation (02/06/22 16:04) Albuterol Pre-Mix Nebs (Rt) (Proventil (02/06/22 17:00) Amlodipine Tablet (Norvasc Tablet) (02/07/22 09:00) Aspirin Chewable Tablet (Baby Aspirin Ch (02/07/22 09:00) Atorvastatin Tablet (Lipitor Tablet) (02/06/22 21:00) Clopidogrel Tablet (Plavix Tablet) (02/07/22 09:00) Furosemide Tablet (Lasix Tablet) (02/07/22 09:00) Gabapentin Capsule/Tablet (Neurontin Cap (02/06/22 21:00) Lisinopril Tablet (Zestril Tablet) (02/07/22 09:00) Metoprolol Succinate (Xl) Tab (Toprol Xl (02/07/22 09:00) Potassium Chloride (Tablet) (Klor Con Ta (02/07/22 08:00) (Nf) Meloxicam (02/07/22 09:00) Svn Small Volume Nebulizer (02/06/22 16:48) Meloxicam Tablet (Mobic Tablet) (02/07/22 08:00) General/Regular (02/06/22 Lunch) Patient Visit (02/06/22 ) Pt Eval Moderate Complexity (02/06/22 ) Functional Activities, Ea 15 (02/06/22 ) Ekg Tracing (02/07/22 09:17) Telemetry (02/07/22 09:18) Telemetry Nursing Assessment ( (02/07/22 09:18) Telemetry Nursing Assessment ( (02/07/22 09:18) Patient Visit (02/07/22 ) Speech Sound Lang Comp (02/07/22 ) Treat. Speech/Lang/Voice (02/07/22 ) Patient Visit (02/07/22 ) Exercise Therap, Ea 15 Min (02/07/22 ) Functional Activities, Ea 15 (02/07/22 ) Patient Visit (02/07/22 ) Exercise Therap, Ea 15 Min (02/07/22 ) Functional Activities, Ea 15 (02/07/22 ) Rehab Nursing Orders: Ongoing Assess. of Cognitive Status, Ongoing Assess. of Function Status, Bladder Management, Bladder Scan, Bladder Training, Bowel Management, Bowel Training, Disease Management & Educaiton, DVT Prophylaxis, Fall Prevention, Fluid/Electrolyte/Nutrition Mgmt, Infection Prevention, Medication Management & Education, Management of Risks & Complications, Management of Skin Intergrity, Nutrition Management, Pain Management, Pa tient/Family Support, Safety Management Intensity of Therapy to be met Patient to be seen: Min.3h per day/5 of 7d PT IPOC Problem List: Activity Tolerance, Functional Strength, Safety, Balance, Gait, Transfer, Bed Mobility, ROM Treatment Plan: Continue Plan of Care Bed Mobility, Education, Functional Activity Dolly, Functional Strength, Group Therapy, Gait, Safety, Therapeutic Exercise, Transfers Treatment Duration: Feb 27, 2022 Frequency: At least 5 of 7 days/Wk (IRF) Estimated Hrs Per Day: 1.5 hours per day OT IPOC Problems: Decreased Activ Tolerance, Decreased UE Strength, Impaired Coordination, Impaired Funct Balance, Impaired I ADL's, Impaired Self-Care Skills, Visual-Perceptual Deficit OT Treatment, Training and Edu: Yes Plan of Care: ADL Retraining, Functional Mobility, Group Exercise/Act as Ind, UE Funct Exercise/Act, Visual/Perceptual Retrain Treatment Duration: Mar 07, 2022 Frequency: At least 5 of 7 days/Wk (IRF) Estimated Hrs Per Day: 1.[address] IPOC Speech Therapy Treatment Plan: Continue Plan of Care Treatment Duration: Feb 07, 2022 Frequency: Modified Program (IRF) Estimated Hrs Per Day: Other Inventory Manager/Case Mgmt Inventory Manager/Case Managemen: Discharge Planning Dietitian/Cooler Conveyor Loader Dietitian/Cooler Conveyor Loader to monitor nutritional status and make changes and/or recommendations as needed and work with speech pathology on dietary upgrades as the occur. Physician IPOC Medical Issues being managed closely and that require the 24 hour availability of a physician: Recent CVA with acute vision loss will require close monitoring for decompensation and will require monitoring for GIB Medical Issues: Bowel/Bladder Function, DVT Prophylaxis, Falls Precautions, Fluid/Electrolyte/Nutrition Balance, Infection Protection, Pain Management Brief Synthesis of Preadmission Screen, Post-Admission Evaluation, and Therapy Evaluations: PT OT will focus on regaining function in order to use assisitive devices in order to compensate for vision loss and increased fall risk Medical Prognosis: Fair Anticipated Length of Stay: 7 days TOY TAPIA DO Feb 07, 2022 03:30
[2022-02-07 06:22] LABS: BASOPHILS % (AUTO) 0 % (0-10); EOSINOPHILS # (AUTO) 0.1 10^3/uL (0.0-0.3); EOSINOPHILS % (AUTO) 1 % (0-10); HEMATOCRIT 40 % (40-54); HEMOGLOBIN 13.2 g/dL (13.3-17.7); LYMPHOCYTES # (AUTO) 1.2 10^3/uL (1.0-4.0); LYMPHOCYTES % (AUTO) 19 % (12-44); MEAN CORPUSCULAR HEMOGLOBIN 35 pg (25-34); MEAN CORPUSCULAR HGB CONC 33 g/dL (32-36); MEAN CORPUSCULAR VOLUME 104 fL (80-99); MEAN PLATELET VOLUME 11.5 fL (9.0-12.2); MONOCYTES # (AUTO) 0.7 10^3/uL (0.0-1.0); MONOCYTES % (AUTO) 12 % (0-12); NEUTROPHILS # (AUTO) 4.2 10^3/uL (1.8-7.8); NEUTROPHILS % (AUTO) 67 % (42-75); PLATELET COUNT 196 10^3/uL (130-400); WHITE BLOOD COUNT 6.3 10^3/uL (4.3-11.0)
[2022-02-07 06:34] LABS: ALBUMIN 3.8 GM/DL (3.2-4.5)
[2022-02-07 06:35] LABS: POTASSIUM 4.2 MMOL/L (3.6-5.0)
[2022-02-07 06:36] LABS: CALCIUM 9.2 MG/DL (8.5-10.1)
[2022-02-07 06:37] LABS: TOTAL PROTEIN 6.7 GM/DL (6.4-8.2)
[2022-02-07 06:39] LABS: BILIRUBIN,TOTAL 0.6 MG/DL (0.1-1.0)
[2022-02-07 06:41] LABS: CREATININE SERUM 1.16 MG/DL (0.60-1.30)
--- NOTE | 2022-02-07 07:05 | Physical Therapy Daily Note ---
PT Daily Note-Current Transfers SCALE: Activities may be completed with or without assistive devices. 1-Fdyabmgkei-aysnnwk completes the activity by him/herself with no assistance from a helper. 5-Set-up or Clean-up Assistance-helper sets up or cleans up; patient completes activity. [place] assists only prior to or following the activity. 4-Supervision or Touching Assistance-helper provides verbal cues and/or touching/steadying and/or contact guard assistance as patient completes activity. Assistance may be provided throughout the activity or intermittently. 3-Partial/Moderate Assistance-helper does LESS THAN HALF the effort. [place] lifts, holds or supports trunk or limbs, but provides less than half the effort. 2-Substantial/Maximal Assistance-helper does MORE THAN HALF the effort. [place] lifts or holds trunk or limbs and provides more than half the effort. 1-Njarmeqbq-ptcjcn does ALL the effort. Patient does none of the effort to complete the activity. Or, the assistance of 2 or more helpers is required for the patient to complete the activity. If activity was not attempted, code reason: 7-Patient Refused. 9-Not Applicable-not attempted and the patient did not perform the activity before the current illness, exacerbation or injury. 10-Not Attempted due to Environmental Limitations-(lack of equipment, weather restraints, etc.). 88-Not Attempted due to Medical Conditions or Safety Concerns. Sit to Stand (QC): 4 Gait Training Distance: 150' Walk 10 feet (QC): 4 Walk 50 ft with 2 Turns(QC): 4 Walk 150 ft (QC): 4 Gait Assistive Device: Cane Single Point safe and functional with minimal VC's due to left visual deficit Treatments Co Treat with OT on neuromuscular balance technique with visual activity on white board with scattered alphabet letters. Assessment Patient very fatigued and has c/o mild GUILLEN with RN notified. PT to continue to address functional strength, mobility and balance activity. PT Short Term Goals Short Term Goals Time Frame: Feb 13, 2022 Roll Left & Right: 6 Sit to lyin Lying to sitting on side of be: 6 Sit to stand: 4 (SBA) Chair/hyd-ie-wxobq transfer: 4 (SBA) Walk 10 feet: 4 (SBA) Walk 50 feet with two turns: 4 (SBA) Walk 150 feet: 4 (SBA) PT Vp Of Customer Experience Strategy Goals Vp Of Customer Experience Strategy Goals PT Vp Of Customer Experience Strategy Goals Time Frame: Feb 27, 2022 Roll Left & Right (QC): 6 Sit to Lying (QC): 6 Lying-Sitting on Side/Bed(QC): 6 Sit to Stand (QC): 5 Chair/Vfj-nk-Mnzpt Xfer(QC): 5 Toilet Transfer (QC): 5 Car Transfer (QC): 5 Does the Patient Walk: Yes Walk 10 feet (QC): 5 Walk 50ft with 2 Turns (QC): 5 Walk 150 ft (QC): 5 Walking 10ft on Uneven Surface: 5 1 Step (curb) (QC): 4 (SBA) 4 Steps (QC): 4 (SBA) 12 Steps (QC): 4 (SBA) Picking up an Object (QC): 4 (SBA) Wheel 50 feet with 2 turns (QC: 9 Wheel 150 feet: 9 PT Plan Treatment/Plan Treatment Plan: Continue Plan of Care Treatment Plan: Bed Mobility, Education, Functional Activity Dolly, Functional Strength, Group Therapy, Gait, Safety, Therapeutic Exercise, Transfers Treatment Duration: Feb 27, 2022 Frequency: At least 5 of 7 days/Wk (IRF) Estimated Hrs Per Day: 1.5 hours per day Patient and/or Family Agrees t: Yes Time/GCodes Time In: 1500 Time Out: 1520 Total Billed Treatment Time: 20 Total Billed Treatment 1 visit NM 20 min MAULIK SAMANO PT Feb 07, 2022 07:05
[2022-02-07] MEDS: CLOPIDOGREL 75 MG (PLAVIX) TABLET PO SCH (07:59)
[2022-02-07] MEDS: KCL 10 MEQ TAB (MICRO K) PO SCH (07:59)
[2022-02-07 08:00] VITALS: BP 141/84
[2022-02-07] MEDS: meTOproloL SUCCINATE 50 MG (TOPROL XL) TAB PO SCH (08:00)
[2022-02-07] MEDS: MELOXICAM 7.5 MG (MOBIC) TABLET PO SCH (08:00)
[2022-02-07] MEDS: FUROSEMIDE 20 MG (LASIX) TAB PO SCH (08:00)
[2022-02-07] MEDS: ASPIRIN 81 MG CHEW (CHILDREN'S ASA) PO SCH (08:00)
[2022-02-07] MEDS: amLODIPine 5 MG (NORVASC) TAB PO SCH (08:00)
[2022-02-07] MEDS: lisINopril 20 MG (PRINIVIL) TABLET PO SCH (08:00)
[2022-02-07] MEDS: GABAPENTIN 100 MG (NEURONTIN) CAP PO SCH ×2 (08:00→19:53)
[2022-02-07] MEDS: PANTOPRAZOLE 40 MG (PROTONIX) TAB PO SCH ×2 (08:00→19:54)
--- NOTE | 2022-02-07 08:00 | Physical Therapy Daily Note ---
PT Daily Note-Current Subjective Pt. in chair eating breakfast. States he can barley make out the items on his tray visually but can feel them with his fork and it tastes good. Pt. states he misses his " She is what makes the sun rise for me" Pain Location: No Pain Reported Mental Status Patient Orientation: Normal For Age Transfers SCALE: Activities may be completed with or without assistive devices. 1-Pksabzcean-srswrnf completes the activity by him/herself with no assistance fr om a helper. 5-Set-up or Clean-up Assistance-helper sets up or cleans up; patient completes activity. [place] assists only prior to or following the activity. 4-Supervision or Touching Assistance-helper provides verbal cues and/or touching/steadying and/or contact guard assistance as patient completes activity. Assistance may be provided throughout the activity or intermittently. 3-Partial/Moderate Assistance-helper does LESS THAN HALF the effort. [place] lifts, holds or supports trunk or limbs, but provides less than half the effort. 2-Substantial/Maximal Assistance-helper does MORE THAN HALF the effort. [place] lifts or holds trunk or limbs and provides more than half the effort. 7-Pnnibleok-rjcygn does ALL the effort. Patient does none of the effort to complete the activity. Or, the assistance of 2 or more helpers is required for the patient to complete the activity. If activity was not attempted, code reason: 7-Patient Refused. 9-Not Applicable-not attempted and the patient did not perform the activity before the current illness, exacerbation or injury. 10-Not Attempted due to Environmental Limitations-(lack of equipment, weather restraints, etc.). 88-Not Attempted due to Medical Conditions or Safety Concerns. sit to stands x 2 with SBA, at recliner Exercises Seated Therapy Exercises: Ankle pumps, Sit to stand, Long arc quads, Hip flexion, Hip abd/add Seated Reps: 15 Treatments seated therex, ARU orientation, assist to manage brkfst, sit to stands Assessment Current Status: Good Progress PT Short Term Goals Short Term Goals Time Frame: Feb 13, 2022 Roll Left & Right: 6 Sit to lyin Lying to sitting on side of be: 6 Sit to stand: 4 (SBA) Chair/vtn-iv-qldop transfer: 4 (SBA) Walk 10 feet: 4 (SBA) Walk 50 feet with two turns: 4 (SBA) Walk 150 feet: 4 (SBA) PT Residential Goals Residential Goals PT Residential Goals Time Frame: Feb 27, 2022 Roll Left & Right (QC): 6 Sit to Lying (QC): 6 Lying-Sitting on Side/Bed(QC): 6 Sit to Stand (QC): 5 Chair/Byd-gc-Simuf Xfer(QC): 5 Toilet Transfer (QC): 5 Car Transfer (QC): 5 Does the Patient Walk: Yes Walk 10 feet (QC): 5 Walk 50ft with 2 Turns (QC): 5 Walk 150 ft (QC): 5 Walking 10ft on Uneven Surface: 5 1 Step (curb) (QC): 4 (SBA) 4 Steps (QC): 4 (SBA) 12 Steps (QC): 4 (SBA) Picking up an Object (QC): 4 (SBA) Wheel 50 feet with 2 turns (QC: 9 Wheel 150 feet: 9 PT Plan Treatment/Plan Treatment Plan: Continue Plan of Care Treatment Plan: Bed Mobility, Education, Functional Activity Dolly, Functional Strength, Group Therapy, Gait, Safety, Therapeutic Exercise, Transfers Treatment Duration: Feb 27, 2022 Frequency: At least 5 of 7 days/Wk (IRF) Estimated Hrs Per Day: 1.5 hours per day Patient and/or Family Agrees t: Yes Safety Risks/Education Patient Education: Transfer Techniques, Correct Positioning, Disease Process, Safety Issues Teaching Recipient: Patient Teaching Methods: Demonstration, Discussion Response to Teaching: Verbalize Understanding, Return Demonstration, Reinforcement Needed Time/GCodes Time In: 730 Time Out: 800 Total Billed Treatment Time: 30 Total Billed Treatment 1,FA10m,EX20m JAYDEN HUNTLEY PROPERTY MANAGEMENT ACCOUNTANT Feb 07, 2022 08:00
--- NOTE | 2022-02-07 08:53 | Physical Therapy Daily Note ---
PT Daily Note-Current Subjective Patient in recliner pre tx, agrees to PT, has no complaints of pain. Appearance Patient in recliner post tx with nurse call, phone, tray, all needs met, chair alarm on. Mental Status Patient Orientation: Person, Place, Situation Transfers SCALE: Activities may be completed with or without assistive devices. 7-Xmpdlgwnbm-ewuwmdt completes the activity by him/herself with no assistance from a helper. 5-Set-up or Clean-up Assistance-helper sets up or cleans up; patient completes activity. [place] assists only prior to or following the activity. 4-Supervision or Touching Assistance-helper provides verbal cues and/or touching/steadying and/or contact guard assistance as patient completes activity. Assistance may be provided throughout the activity or intermittently. 3-Partial/Moderate Assistance-helper does LESS THAN HALF the effort. [place] lifts, holds or supports trunk or limbs, but provides less than half the effort. 2-Substantial/Maximal Assistance-helper does MORE THAN HALF the effort. [place] lifts or holds trunk or limbs and provides more than half the effort. 9-Gtbujhlho-codpxk does ALL the effort. Patient does none of the effort to complete the activity. Or, the assistance of 2 or more helpers is required for the patient to complete the activity. If activity was not attempted, code reason: 7-Patient Refused. 9-Not Applicable-not attempted and the patient did not perform the activity before the current illness, exacerbation or injury. 10-Not Attempted due to Environmental Limitations-(lack of equipment, weather restraints, etc.). 88-Not Attempted due to Medical Conditions or Safety Concerns. Sit to Stand (QC): 4 Chair/Qbl-qb-Yczpu Xfer(QC): 4 Gait Training Distance: 150'x2, 120' Walk 10 feet (QC): 4 Walk 50 ft with 2 Turns(QC): 4 Walk 150 ft (QC): 4 Gait Persons Needed: 1 Gait Assistive Device: Cane Single Point Patient has much worse vision today, needs WOOD PROCESSING WORKER on the left side (uses SPC on the right) and needs to be led using hand and with tactile cues from the gait belt as well as verbal cues. Ambulates extremely slowly, gets slightly SOB with activity. Exercises NuStep Minutes: 15 NuStep Workload: 5 Treatments transfers, ambulation, functional strengthening Assessment Current Status: Poor Progress Much worse vision, needs to be led around in addition to verbal cues, sometimes uses his cane as a blind person would to feel his surroundings. PT Short Term Goals Short Term Goals Time Frame: Feb 13, 2022 Roll Left & Right: 6 Sit to lyin Lying to sitting on side of be: 6 Sit to stand: 4 (SBA) Chair/mrp-wx-hnejk transfer: 4 (SBA) Walk 10 feet: 4 (SBA) Walk 50 feet with two turns: 4 (SBA) Walk 150 feet: 4 (SBA) PT Standpipe Tender Goals [facility] Goals PT Standpipe Tender Goals Time Frame: Feb 27, 2022 Roll Left & Right (QC): 6 Sit to Lying (QC): 6 Lying-Sitting on Side/Bed(QC): 6 Sit to Stand (QC): 5 Chair/Kst-tv-Swmyg Xfer(QC): 5 Toilet Transfer (QC): 5 Car Transfer (QC): 5 Does the Patient Walk: Yes Walk 10 feet (QC): 5 Walk 50ft with 2 Turns (QC): 5 Walk 150 ft (QC): 5 Walking 10ft on Uneven Surface: 5 1 Step (curb) (QC): 4 (SBA) 4 Steps (QC): 4 (SBA) 12 Steps (QC): 4 (SBA) Picking up an Object (QC): 4 (SBA) Wheel 50 feet with 2 turns (QC: 9 Wheel 150 feet: 9 PT Plan Problem List Problem List: Activity Tolerance, Functional Strength, Safety, Balance, Gait, Transfer, Bed Mobility, ROM Treatment/Plan Treatment Plan: Continue Plan of Care Treatment Plan: Bed Mobility, Education, Functional Activity Dolly, Functional Strength, Group Therapy, Gait, Safety, Therapeutic Exercise, Transfers Treatment Duration: Feb 27, 2022 Frequency: At least 5 of 7 days/Wk (IRF) Estimated Hrs Per Day: 1.5 hours per day Patient and/or Family Agrees t: Yes Safety Risks/Education Patient Education: Gait Training, Transfer Techniques, Correct Positioning, Safety Issues Teaching Recipient: Patient Teaching Methods: Demonstration, Discussion Response to Teaching: Reinforcement Needed Time/GCodes Time In: 0800 Time Out: 0900 Total Billed Treatment Time: 60 Total Billed Treatment 1 visit EX 15' FA 45' KYLE HEREDIA PT Feb 07, 2022 08:53
[2022-02-07] MEDS: polyethylene glycoL POWDER 17 GM (MIRALAX) PACK PO SCH ×2 (08:56→19:25)
[2022-02-07] MEDS: SENNA W/DOCUSATE (SENOKOT S) TABLET PO SCH ×2 (08:56→19:54)
[2022-02-07] MEDS: DOCUSATE SODIUM 100 MG (COLACE) CAP PO SCH ×2 (08:56→19:54)
[2022-02-07] MEDS ORDERED: MELOXICAM 7.5 MG PO SCH (09:00)
--- NOTE | 2022-02-07 10:11 | Consultation-Cardiology ---
HPI-Cardiology Cardiology Consultation Date of Consultation 02/07/22 Date of Admission Time Seen by Provider: 06:00 Indication: Acute CVA HPI 89 years old gentleman with history of recurrent GI bleed, was admitted to [facility] with acute vision loss showing homonymous hemianopsia. He was transferred to acute rehab for evaluation and management On my evaluation he was sitting in a chair. Still having problem with his vision. He denied any palpitation, admit having mild chest discomfort. 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 Denied any syncope or near syncopal episodes Home Medications & Allergies Allergies: Coded Allergies: penicillin G (Verified Allergy, Unknown, 08/11/05) Uncoded Allergies: IV CONTRAST (Allergy, Intermediate, 07/23/15) Home Medication List Reviewed: Yes TPN-Rokgpt-Cjvaib Hx Patient Social History Marital Status: Employed/Student: employed Former smoker/When Quit: November 04, 1989 2nd Hand Smoke Exposure: No Recent Hopitalizations: No Alcohol Use?: Yes Immunizations Up To Date Tetanus Booster (TDap): Unknown Date of Pneumonia Vaccine: Mar 22, 2009 Date of Influenza Vaccine: Mar 05, 2020 Past Medical History Discussed below Family Medical History Family Medical Hx Noncontributory Family History: Patient reports no known family medical history. Review of Systems-General Review of Systems Constitutional: see HPI, malaise, weakness EENTM: blurred vision, double vision, vision loss Respiratory: see HPI; No cough, No dyspnea on exertion, No hemoptysis, No orthopnea, No phlegm, No short of breath, No stridor, No wheezing, No other Cardiovascular: see HPI, chest pain; No edema, No Hx of Intervention, No palpitations, No syncope, No vascular heart diseas, No other Gastrointestinal: no symptoms reported, see HPI Genitourinary: no symptoms reported, see HPI Musculoskeletal: no symptoms reported, see HPI Skin: no symptoms reported, see HPI Psychiatric/Neurological: No Symptoms Reported, See HPI All Other Systems Reviewed Negative Unless Noted: Yes Reviewed Test Results Reviewed Test Results Lab Laboratory Tests Test 02/06/22 19:22 02/07/22 05:28 Range/Units Glucometer 144 H 70-110 MG/DL White Blood Count 6.3 4.3-11.0 10^3/uL Red Blood Count 3.81 L 4.30-5.52 10^6/uL Hemoglobin 13.2 L 13.3-17.7 g/dL Hematocrit 40 40-54 % Mean Corpuscular Volume 104 H 80-99 fL Mean Corpuscular Hemoglobin 35 H 25-34 pg Mean Corpuscular Hemoglobin Concent 33 32-36 g/dL Red Cell Distribution Width 14.5 10.0-14.5 % Platelet Count 196 130-400 10^3/uL Mean Platelet Volume 11.5 9.0-12.2 fL Immature Granulocyte % (Auto) 0 % Neutrophils (%) (Auto) 67 42-75 % Lymphocytes (%) (Auto) 19 12-44 % Monocytes (%) (Auto) 12 0-12 % Eosinophils (%) (Auto) 1 0-10 % Basophils (%) (Auto) 0 0-10 % Neutrophils # (Auto) 4.2 1.8-7.8 10^3/uL Lymphocytes # (Auto) 1.2 1.0-4.0 10^3/uL Monocytes # (Auto) 0.7 0.0-1.0 10^3/uL Eosinophils # (Auto) 0.1 0.0-0.3 10^3/uL Basophils # (Auto) 0.0 0.0-0.1 10^3/uL Immature Granulocyte # (Auto) 0.0 0.0-0.1 10^3/uL Sodium Level 137 135-145 MMOL/L Potassium Level 4.2 3.6-5.0 MMOL/L Chloride Level 102 98-107 MMOL/L Carbon Dioxide Level 25 21-32 MMOL/L Anion Gap 10 5-14 MMOL/L Blood Urea Nitrogen 16 7-18 MG/DL Creatinine 1.16 0.60-1.30 MG/DL Estimat Glomerular Filtration Rate 60 BUN/Creatinine Ratio 14 Glucose Level 90 70-105 MG/DL Calcium Level 9.2 8.5-10.1 MG/DL Corrected Calcium 9.4 8.5-10.1 MG/DL Total Bilirubin 0.6 0.1-1.0 MG/DL Aspartate Amino Transf (AST/SGOT) 20 5-34 U/L Alanine Aminotransferase (ALT/SGPT) 18 0-55 U/L Alkaline Phosphatase 82 40-136 U/L Total Protein 6.7 6.4-8.2 GM/DL Albumin 3.8 3.2-4.5 GM/DL Physical Exam Physical Exam Vital Signs Vital Signs - First Documented 02/06/22 02/06/22 13:35 15:47 Temp 37.2 Pulse 91 Resp 16 B/P (MAP) 121/80 (94) Pulse Ox 96 O2 Delivery Room Air Capillary Refill : Height, Weight, BMI Height: 5'8.00" Weight: 166lbs. 0.0oz. [id number]; 25.14 BMI Method: General Appearance: No Apparent Distress, WD/WN, Chronically ill Eyes: Bilateral Eye Normal Inspection, Bilateral Eye PERRL HEENT: Normal ENT Inspection, Pharynx Normal, Other (Vision loss lower left bilaterally) Neck: Full Range of Motion, Normal Inspection, Non Tender, Supple, Carotid Bruit Respiratory: Chest Non Tender, Lungs Clear, Normal Breath Sounds, No Accessory Muscle Use, No Respiratory Distress Cardiovascular: Regular Rate, Rhythm, No Edema, No Gallop, No JVD, No Murmur, Normal Peripheral Pulses Gastrointestinal: Normal Bowel Sounds, No Organomegaly, No Pulsatile Mass, Non Tender, Soft Back: Normal Inspection, No CVA Tenderness, No Vertebral Tenderness Extremity: Normal Capillary Refill, Normal Inspection, Normal Range of Motion, Non Tender, No Calf Tenderness, No Pedal Edema Neurologic/Psychiatric: Alert, Oriented x3, Normal Mood/Affect, rig superintendent II-XII Norm as Tested, Abnormal Gait, Motor Weakness (Generalized weakness 4/5) Skin: Normal Color, Warm/Dry Lymphatic: No Adenopathy A/P-Cardiology Admission Diagnosis Acute CVA Palpitation Coronary artery disease Hypertension Assessment/Plan Subacute CVA, MRI suggestive of infarct in the distribution of the right REGISTER CLERK. 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 Patient has history of GI bleed preclude the use of aspirin and Plavix. Currently restarted on aspirin and Plavix and will monitor H&H. I will evaluate twelve-lead EKG and a Holter monitor, I am suspecting underlying atrial fibrillation as a cause of his stroke. He probably could benefit from Pradaxa, it is reversible anticoagulation in case of active bleeding History of sick sinus syndrome with borderline bradycardia, has been on low-dose beta-blockers and tolerating it well. History of palpitation in the past. Had a Holter monitor done in 2007 showing occasional PVCs and PACs and short run of paroxysmal SVT. No documented atrial fibrillation in the past. Placing him back on telemetry and monitor History of recurrent GI, intolerant to anticoagulation Had work-up in the past for lower GI bleed which was negative. At that time conservative management was recommended Chest pain, patient had history of chronic stable angina. Coronary artery disease, History of CABG 5 done in 1993. Cardiac catheterization was done in 2011 showing severe in-stent restenosis in the ramus intermedius. Underwent balloon angioplasty using 2.7520 mm apex balloon with no residual stenosis. Cardiac catheterization in July 2015 showing patent 3 bypasses, SPEAR to LAD, vein graft to diagonal with severe disease beyond the anastomosis point and vein graft to obtuse marginal, did not change compared to 2011 procedure, had a patent stent in the proximal ramus intermedius with mild disease distally, patent stent in the midright Coronary artery with 60 percent stenosis distal right coronary artery mild disease, medical therapy is recommended. Had NSTEMI on 09.04.20 underwent LHC showing severe three affiliated coronary artery disease involving the left main, ostial LAD occlusion, occlusion of the ramus intermedius and diffuse moderate disease in the Cx with 90 percent stenosis in the distal RCA, successful stenting fo the RCA, Alpine 3.0 x12mm, severe stenosis in the prox VG to the OM that was 90 percent in stent restenosis with successful balloon angioplasty. Sever mid vessel stenosis to the VG to danny diagonal artery with successful stenting using Alpine 3.0 x23mm. Cardiac catheterization was done on January 30, 2021 showing severe three affiliated artery disease with patent SPEAR to LAD, vein graft to diagonal. The vein graft to the obtuse marginal branch that had balloon angioplasty in August 2020 became occluded. Failed attempt to intervention. The right coronary artery is dominant with patent stent in the mid right, mild disease distally. Was on aspirin and Plavix, has GI bleed, severe anemia which resolved and discontinuation of the aspirin and Plavix. Echocardiogram done in [facility] on February 06, 2022 showed normal left ventricular size and systolic function, no significant abnormality was noted. Stress test was done on January 18, 2021 and it was abnormal, underwent cardiac catheterization as described above Congestive heart failure, chronic compensated left ventricular systolic dysfunction, improved, last echocardiogram done in July 2018 showing ejection fraction 50-55 percent. Continue to monitor Hypertension, history of dizziness and lightheadedness Continue to monitor blood pressure Hyperlipidemia, monitor lipids Mild bilateral carotid stenoses nonobstructive disease, last ultrasound was done in August 2020 COPD/obstructive sleep apnea using C Pap, does not follow up with certified pharmacist assistant, I will arrange an appointment with Dr. Chakraborty Degenerative joint disease. Arthritic pain. ENZO MACHADO MD Feb 07, 2022 10:11
--- NOTE | 2022-02-07 10:26 | Occupational Ther Daily Note ---
OT Current Status-Daily Note Subjective Pt seated in recliner upon OT arrival, agreeable to tx. Pt c/o worsening vision and RUQ pain in his abdomen, states nurse and med student are aware. Mental Status/Objective Patient Orientation: Person, Place, Situation Attachments: Telemetry ADL-Treatment Therapy Code Descriptions/Definitions Functional [place] Measure: 0=Not Assessed/NA 4=Minimal Assistance 1=Total Assistance 5=Supervision or Setup 2=Maximal Assistance 6=Modified [place] 3=Moderate Assistance 7=Complete IndependenceSCALE: Activities may be completed with or without assistive devices. 2-Rihzcaovci-yudlpgg completes the activity by him/herself with no assistance from a helper. 5-Set-up or Clean-up Assistance-helper sets up or cleans up; patient completes activity. [place] assists only prior to or following the activity. 4-Supervision or Touching Assistance-helper provides verbal cues and/or touching/steadying and/or contact guard assistance as patient completes activity. Assistance may be provided throughout the activity or intermittently. 3-Partial/Moderate Assistance-helper does LESS THAN HALF the effort. [place] lifts, holds or supports trunk or limbs, but provides less than half the effort. 2-Substantial/Maximal Assistance-helper does MORE THAN HALF the effort. [place] lifts or holds trunk or limbs and provides more than half the effort. 6-Qpopiivqz-kbbgau does ALL the effort. Patient does none of the effort to complete the activity. Or, the assistance of 2 or more helpers is required for the patient to complete the activity. If activity was not attempted, code reason: 7-Patient Refused. 9-Not Applicable-not attempted and the patient did not perform the activity before the current illness, exacerbation or injury. 10-Not Attempted due to Environmental Limitations-(lack of equipment, weather restraints, etc.). 88-Not Attempted due to Medical Conditions or Safety Concerns. Eating (QC): 4 (SBA for v/c's d/t worsening vision) On/Off Footwear: 3 (Min A to thread L foot into velcro shoes. V/c's to fasten straps on both shoes.) Other Treatment Pt declined all ADLs at this time d/t worsening vision or having already completed them. He required verbal, visual, and tactile cues to locate shoes and Velcro straps during footwear. He stood from recliner with CGA, and required [facility] assistance to navigate hallways to therapy gym. He completed 10min seated on arm bike (with 15 chapin of resistance) to increase BUE strength and activity tolerance needed for ADLs and functional transfers. After completing task, pt c/o of nausea, nurse notified. He then participated in functional activities with colored cones to challenge visual scanning and hand-eye coordination, completed two rounds. Pt then walked back to room with [facility] assistance and SPC. Pt again required verbal, visual, and tactile cues to navigate hallways. Post tx, pt left in recliner with call light placed on R side and all needs met. Education OT Patient Education: Correct positioning, Energy conservation, Exercise program, Modified ADL techniques, Progress toward Goal/Update tx plan, Purpose of tx/functional activities, Rehab process, Safety issues, Transfer techniques Teaching Recipient: Patient Teaching Methods: Discussion Response to Teaching: Verbalize Understanding OT Short Term Goals Short Term Goals Time Frame: Feb 14, 2022 Shower/bathe self: 5 Lower body dressin Putting on/taking off footwear: 5 OT Fci Goals Fci Goals Time Frame: Mar 07, 2022 Eating (QC): 6 Oral Hygiene (QC): 6 Toileting Hygiene (QC): 6 Shower/Bathe Self (QC): 6 Upper Body Dressing (QC): 6 Lower Body Dressing (QC): 6 On/Off Footwear (QC): 6 Additional Goals: 1-Demonstrate ADL Tasks, 2-Verbalize Understanding, 3- ImproveStrength/Dolly 1=Demonstrate adherence to instructed precautions during ADL tasks. 2=Patient will verbalize/demonstrate understanding of assistive devices/mo difications for ADL. 3=Patient will improve strength/tolerance for activity to enable patient to perform ADL's. OT Education/Plan Problem List/Assessment Assessment: Decreased Activ Tolerance, Decreased Safety Aware, Decreased UE Strength, Impaired Coordination, Impaired Funct Balance, Impaired I ADL's, Impaired Self-Care Skills, Visual-Perceptual Deficit Discharge Recommendations Plan/Recommendations: Continue POC Treatment Plan/Plan of Care Patient would benefit from OT for education, treatment and training to promote independence in ADL's, mobility, safety and/or upper extremity function for ADL's. Plan of Care: ADL Retraining, Functional Mobility, Group Exercise/Act as Ind, UE Funct Exercise/Act, Visual/Perceptual Retrain Treatment Duration: Mar 07, 2022 Frequency: At least 5 of 7 days/Wk (IRF) Estimated Hrs Per Day: 1.5 hours per day Agreement: Yes Rehab Potential: Fair Time/GCodes Start Time: 10:00 Stop Time: 11:00 Total Time Billed (hr/min): 60 Billed Treatment Time 1, ADL (15'), Ex (15'), FA 2 (30') DECLAN ALCANTAR OT Feb 07, 2022 10:26
[2022-02-07] MEDS: ONDANSETRON 4 MG (ZOFRAN) ORAL DISSOLVE TAB PO PRN ×2 (10:39→17:10)
--- NOTE | 2022-02-07 12:38 | ST Cognitive Linguistic Eval ---
Speech Evaluation-General Medical Diagnosis CVA with Homonymous Hemianopsia Onset Date: Feb 05, 2022 Therapy Diagnosis Therapy Diagnosis: Neurocognitive Impairment Precautions Precautions: Fall Precautions/Isolations: Fall Prevention, Standard Precautions Referral Referring Physician: Dr. Maura Lomax Reason for Referral: Evaluation/Treatment Medical History Current History The patient is an 89 year-old male with a past medical history of CHF, CAD, HTN, HLD, atrial fibrillation, GI bleed, diverticulosis, hypothyroidism, hiatal h ernia, TIA, and COPD, who has been transferred from [facility] due to vision loss and debility secondary to CVA. 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 The patient denied declines in cognitive function, however, reports a deficit in his hearing and visual field. Subjective The patient was seated upright in his recliner, awake and alert upon entrance to his room by the clinician. The patient greeted the clinician appropriately and was agreeable to participation in the cognitive linguistic assessment. Language Eval: Auditory Comprehends Simple Yes/No Ques: Functional Indent/Objects Multiple [place]ja: Functional Ident/Pics in Multiple Ceja: Functional Follows 1-Step Commands: Functional Follows General Conversations: Functional Repetition was required for increased comprehension which may be secondary to the patient's hearing deficit. Language Eval: Verbal Language Completes Spontaneous Greeting: Functional Produces Auto, Serial Info: Functional Imitates Simple Words/Phrases: Functional Word Finding: Functional Requests Basic Needs: Functional States Basic Personal Info: Functional Language Evaluation: Writing Writes to Simple Dictation: Functional (With head turn away from visual field neglect.) Cognitive Patient Orientation The patient was independently oriented to self, location, month, day of week, date and year. Objective Cognitive Domain Attention: WNL Memory: Mild Problem Solving: Mild Visuospatial Skills: Moderate (Left visual field neglect.) Composite Severity Rating: Mild Clock Drawing Severity Rating: Mild Objective Formal/Standardized Tests [facility] Mental Status Exam (UMS) Results The patient demonstrated a result of +20/30 correlating to a result of mild neurocognitive impairment per SLUMS. Oral Motor/Speech Production The patient does not display dysarthria or apraxia of speech at this time. The patient is 100% intelligible in known and unknown contexts. Impression The patient demonstrated a mild neurocognitive impairment in the areas of memory and problem solving. Additionally, a left visual field neglect is present. Speech Patient Assess Expression of Ideas/Wants: Exhibits (3) Understanding Verbal Content: Usually Understands (3) (The patient's hearing status may negatively impact comprehension.) Brief Interview-Mental Status: Yes Repetition of Three Words: Three (3) Temporal Orientation: Year: Correct (3) Temporal Orientation: Month: Accurate within 5 days(2) Temporal Orientation: Day: Correct (1) Recall : Wear to say "Sock": Yes, no cue required (2) Recall : Color: Yes, no cue required (2) Recall : Bed: Yes,after cueing (1) Memory/Recall Ability: Current season, That he or she is in a hsp/hsp unit Speech Short Term Goals Short Term Goals Short Term Goals 1. The patient will complete visual scanning activities with 80% accuracy and mild clinician verbal and visual cueing. Time Frame-STG: One Week. Speech Skilled Nursing Goals Manager Multimedia Goals 1. The patient will demonstrate improved cognitive linguistic skills for safe discharge to the least restrictive environment. Time Frame: Ten Days. Speech-Plan Treatment Plan Speech Therapy Treatment Plan: Continue Plan of Care Treatment Duration: Feb 19, 2022 Frequency: Modified Program (IRF) (Three to five times per week.) Estimated Hrs Per Day: .5 hour per day Rehab Potential: Fair Pt/Family Agrees to Plan: Yes Safety Risks/Education Teaching Recipient: Patient Teaching Methods: Discussion Response to Teaching: Verbalize Understanding Education Topics Provided: Results of SLUMS, Speech Pathology Plan of Care Time Speech Therapy Time In: 11:30 Speech Therapy Time Out: 12:00 Total Billed Time: 30 Billed Treatment Time 1, LIZZIE CAR ELIZABETH ST Feb 07, 2022 12:38
--- NOTE | 2022-02-07 14:31 | Progress Note ---
BONG POWER 02/07/22 1431: Progress Note 89 M day 2 of admission to in-pt rehab for vision loss and debility due to CVA. Pt confirms diplopia and left sided homonous hemianopsia. Pt is in no pain but claims RUQ discomfort when sitting on rt side. Pt/OT tolerated well. DVT and GI bleed prophylaxis continued. BM and voiding remain normal.Denies loss of sensation or motor fxn in BL extremities. 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 I reviewed and verified all information documented by the medical student and made modifications to such information, when appropriate. I personally performed the physical exam and medical decision making. Maura Lomax Feb 07, 2022,21:16 BONG POWER Feb 07, 2022 14:31 MAURA LOMAX DO Feb 07, 2022 21:16
[2022-02-07 20:12] VITALS: BP 146/71
[2022-02-07] MEDS: MELATONIN 3 MG TABLET PO PRN (22:16)
[2022-02-08 07:43] VITALS: BP 126/72
--- NOTE | 2022-02-08 08:02 | PM&R Progress Note ---
Subjective HPI/CC On Admission Date Seen by Provider: Feb 08, 2022 Time Seen by Provider: 06:00 Subjective/Events-last exam 02/08/2022: Patient sleeping well at night Confusion is noted at times Patient patient loss causes increased confusion 02/07/2022: Doing about the same Vision loss is a challenge No falls but he is impulsive Eating well Checked meds and labs Review of Systems General: Fatigue, Malaise Objective Exam Vital Signs Vital Signs Date Time Temp Pulse Resp B/P (MAP) Pulse Ox O2 Delivery O2 Flow Rate FiO2 02/08/22 09:00 Room Air 02/08/22 08:20 95 0.00 02/08/22 07:43 36.7 71 16 126/72 (90) Capillary Refill : General Appearance: No Apparent Distress, WD/WN, Chronically ill HEENT: Normal ENT Inspection, Pharynx Normal, Other (Vision loss lower left bilaterally) Neck: Full Range of Motion, Normal Inspection, Non Tender, Supple, Carotid Bruit Respiratory: Chest Non Tender, Lungs Clear, Normal Breath Sounds, No Accessory Muscle Use, No Respiratory Distress Cardiovascular: Regular Rate, Rhythm, No Edema, No Gallop, No JVD, No Murmur, Normal Peripheral Pulses Gastrointestinal: Normal Bowel Sounds, No Organomegaly, No Pulsatile Mass, Non Tender, Soft Back: Normal Inspection, No CVA Tenderness, No Vertebral Tenderness Extremity: Normal Capillary Refill, Normal Inspection, Normal Range of Motion, Non Tender, No Calf Tenderness, No Pedal Edema Neurologic/Psychiatric: Alert, Oriented x3, Normal Mood/Affect, soap chipper II-XII Norm as Tested, Abnormal Gait, Motor Weakness (Generalized weakness 4/5) Skin: Normal Color, Warm/Dry Lymphatic: No Adenopathy Results/Procedures Lab Patient resulted labs reviewed. FIM Transfers Therapy Code Descriptions/Definitions Functional [place] Measure: 0=Not Assessed/NA 4=Minimal Assistance 1=Total Assistance 5=Supervision or Setup 2=Maximal Assistance 6=Modified [place] 3=Moderate Assistance 7=Complete IndependenceSCALE: Activities may be completed with or without assistive devices. 4-Egitpadnus-hpiiefv completes the activity by him/herself with no assistance from a helper. 5-Set-up or Clean-up Assistance-helper sets up or cleans up; patient completes activity. [place] assists only prior to or following the activity. 4-Supervision or Touching Assistance-helper provides verbal cues and/or touching/steadying and/or contact guard assistance as patient completes activity. Assistance may be provided throughout the activity or intermittently. 3-Partial/Moderate Assistance-helper does LESS THAN HALF the effort. [place] lifts, holds or supports trunk or limbs, but provides less than half the effort. 2-Substantial/Maximal Assistance-helper does MORE THAN HALF the effort. [place] lifts or holds trunk or limbs and provides more than half the effort. 2-Cnhpbumyr-kmrcdl does ALL the effort. Patient does none of the effort to complete the activity. Or, the assistance of 2 or more helpers is required for the patient to complete the activity. If activity was not attempted, code reason: 7-Patient Refused. 9-Not Applicable-not attempted and the patient did not perform the activity before the current illness, exacerbation or injury. 10-Not Attempted due to Environmental Limitations-(lack of equipment, weather restraints, etc.). 88-Not Attempted due to Medical Conditions or Safety Concerns. Roll Left to Right (QC): 6 Sit to Lying (QC): 6 Sit to Stand (QC): 4 Chair/Vyx-vn-Cwkhw Xfer(QC): 4 Car Transfer (QC): 4 Gait Training Does the Patient Walk?: Yes Distance: 150'x2, 120' Walk 10 feet (QC): 4 Walk 50 ft with 2 Turns(QC): 4 Walk 150 ft (QC): 4 Walking 10ft/uneven surface-QC: 4 Gait Persons Needed: 1 Gait Assistive Device: Cane Single Point Wheelchair Training Wheel 50 ft with 2 turns (QC): 9 Wheel 150 ft (QC): 9 Stair Training #of Steps: 12 1 Step (curb) (QC): 4 4 Steps (QC): 4 12 Steps (QC): 4 Balance Picking up an Object (QC): 4 (CGA with repairer resistance welding machines) ADL-Treatment Eating (QC): 4 (SBA for v/c's d/t worsening vision) Oral Hygiene (QC): 4 (CGA standing at sink, with cues initially where items were located) Shower/Bathe Self (QC): 4 (SBA for standing balance, VCs for safety/scanning) Upper Body Dressing (QC): 5 Lower Body Dressing (QC): 3 (Min A with threading BLE through correct pant legs and tying strings) On/Off Footwear (QC): 3 (Min A to thread L foot into velcro shoes. 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
[2022-02-08] MEDS: meTOproloL SUCCINATE 50 MG (TOPROL XL) TAB PO SCH (08:36)
[2022-02-08] MEDS: PANTOPRAZOLE 40 MG (PROTONIX) TAB PO SCH ×2 (08:36→19:44)
[2022-02-08] MEDS: lisINopril 20 MG (PRINIVIL) TABLET PO SCH (08:36)
[2022-02-08] MEDS: KCL 10 MEQ TAB (MICRO K) PO SCH (08:36)
[2022-02-08] MEDS: SENNA W/DOCUSATE (SENOKOT S) TABLET PO SCH ×2 (08:36→19:44)
[2022-02-08] MEDS: GABAPENTIN 100 MG (NEURONTIN) CAP PO SCH ×2 (08:36→19:44)
[2022-02-08] MEDS: DOCUSATE SODIUM 100 MG (COLACE) CAP PO SCH ×2 (08:36→19:44)
[2022-02-08] MEDS: FUROSEMIDE 20 MG (LASIX) TAB PO SCH (08:36)
[2022-02-08] MEDS: polyethylene glycoL POWDER 17 GM (MIRALAX) PACK PO SCH ×2 (08:36→19:45)
[2022-02-08] MEDS: MELOXICAM 7.5 MG (MOBIC) TABLET PO SCH (08:36)
[2022-02-08] MEDS: amLODIPine 5 MG (NORVASC) TAB PO SCH (08:36)
[2022-02-08] MEDS: CLOPIDOGREL 75 MG (PLAVIX) TABLET PO SCH (08:36)
[2022-02-08] MEDS: ASPIRIN 81 MG CHEW (CHILDREN'S ASA) PO SCH (08:36)
[2022-02-08] MEDS: ACETAMINOPHEN 325 MG TABLET PO PRN (08:46)
--- NOTE | 2022-02-08 11:12 | Cardiology Progress Note ---
Progress Note-Cardiology Events since last exam Date Seen by Provider: Feb 08, 2022 Time Seen by Provider: 11:06 Events since last exam We are following him due to his chronic cardiac conditions now with a cerebrovascular accident. He remains on the inpatient physical rehabilitation unit. His is at the bedside. He was doing bed exercises with his physical therapist. He has regained some vision in his left eye. He denies chest discomfort. He does have some dyspnea on exertion with physical therapy. He denies palpitations, syncope, or ankle edema. Certain portions of this document may have been dictated utilizing voice recognition technology. Inherent to this technology, typographical and grammatical errors may exist. As much as I am diligent to identify and correct these mistakes, some errors may remain in the document. Vitals Last set of Vitals Signs Vital Signs 02/08/22 02/08/22 02/08/22 07:43 08:20 09:00 Temp 36.7 Pulse 71 Resp 16 B/P (MAP) 126/72 (90) Pulse Ox 95 O2 Delivery Room Air O2 Flow Rate 0.00 Exam Vital Signs Vital Signs Date Time Temp Pulse Resp B/P (MAP) Pulse Ox O2 Delivery O2 Flow Rate FiO2 02/08/22 09:00 Room Air 02/08/22 08:20 95 0.00 02/08/22 07:43 36.7 71 16 126/72 (90) Physical Exam General: Alert. No acute distress. Eye: No xanthelasma. HENT: Normocephalic. Neck: Jugular venous pressure does not appear elevated. Respiratory: Lungs are clear to auscultation. Respirations are non-labored. Breath sounds are equal. Symmetrical chest wall expansion. Cardiovascular: Normal rate. Regular rhythm. No murmur. No gallop. No edema. Gastrointestinal: Soft. Normal bowel sounds. Skin: Warm. Dry. Neurologic: Alert and oriented to person, place, time. Cranial nerves 3-11 grossly intact but with partial vision loss in the left eye, mainly peripheral. Psychiatric: Cooperative. Appropriate mood & affect. Diagnosis/Problems Diagnosis/Problems (1) Acute cerebrovascular accident Assessment & Plan: He continues with ambulation physical therapy. His aspirin and clopidogrel have been resumed. These had been discontinued in the past due to severe anemia. He is also on statin medication. His regular bakery technician plans on some outpatient monitoring to screen for atrial fibrillation. At this point in time, in the absence of any confirmed atrial fibrillation, there is no indication for oral anticoagulant therapy. He should continue on the current antiplatelet therapy. (2) Chronic combined systolic and diastolic congestive heart failure Assessment & Plan: He seems to be about class I at this point in time. He does not take a diuretic at home. If his dyspnea persists or worsens, we may want to consider a chest x-ray. His most recent echocardiogram from 09/04/2020 showed an ejection fraction of 45-50% and then a nuclear stress test from 01/02/2021 showed an ejection fraction of 37%. He is on metoprolol succinate and lisinopril. We may want to consider a follow-up assessment of his ejection f raction but this could certainly be done as an outpatient. (3) Coronary artery disease without angina pectoris Assessment & Plan: He is not having any angina at this point in time. Continue aspirin, beta-anup and statin medication. As above, he is also on clopidogrel due to the recent stroke. (4) Primary hypertension Assessment & Plan: Blood pressure is reasonably controlled with the present combination of medications. (5) Mixed hyperlipidemia Assessment & Plan: Continue statin medication. (6) Normocytic anemia Assessment & Plan: His hemoglobin has been stable during this hospitalization. This will need to be monitored intermittently with the resumption of aspirin and clopidogrel. ABRAHAM BLEVINS JR, MD Feb 08, 2022 11:12
[2022-02-08 11:22] LABS: TRIGLYCERIDES 84 MG/DL (<150); VLDL CHOLESTEROL 17 MG/DL (5-40)
[2022-02-08 11:27] LABS: CHOLESTEROL 144 MG/DL (< 200); HDL CHOLESTEROL 52 MG/DL (40-60)
--- NOTE | 2022-02-08 11:32 | Physical Therapy Daily Note ---
PT Daily Note-Current Subjective Pt. and in room, pt. in bed, states in very weak voice, slow response, " I have already walked some today with the nurse, can I stay here in bed"? Pain Location: No Pain Reported Mental Status Patient Orientation: Person, Place, Time Transfers SCALE: Activities may be completed with or without assistive devices. 7-Vwlbkuxnbv-ibvicwc completes the activity by him/herself with no assistance from a helper. 5-Set-up or Clean-up Assistance-helper sets up or cleans up; patient completes activity. [place] assists only prior to or following the activity. 4-Supervision or Touching Assistance-helper provides verbal cues and/or touching/steadying and/or contact guard assistance as patient completes activit y. Assistance may be provided throughout the activity or intermittently. 3-Partial/Moderate Assistance-helper does LESS THAN HALF the effort. [place] lifts, holds or supports trunk or limbs, but provides less than half the effort. 2-Substantial/Maximal Assistance-helper does MORE THAN HALF the effort. [place] lifts or holds trunk or limbs and provides more than half the effort. 7-Udjodbnjv-fxyzjh does ALL the effort. Patient does none of the effort to complete the activity. Or, the assistance of 2 or more helpers is required for the patient to complete the activity. If activity was not attempted, code reason: 7-Patient Refused. 9-Not Applicable-not attempted and the patient did not perform the activity before the current illness, exacerbation or injury. 10-Not Attempted due to Environmental Limitations-(lack of equipment, weather restraints, etc.). 88-Not Attempted due to Medical Conditions or Safety Concerns. rolling left and right as well as pushing self up in bed all with instruction o nly Exercises Supine Ex: Bridging, Ankle pumps, Quad Set, Rolling, Glut sets, Lower trunk rotation, Heel Slides, Short Arc Quads, Scooting, Straight leg raise, Hip abd/add Supine Reps: 15 Assessment Current Status: Fair Progress PT Short Term Goals Short Term Goals Time Frame: Feb 13, 2022 Roll Left & Right: 6 Sit to lyin Lying to sitting on side of be: 6 Sit to stand: 4 (SBA) Chair/heu-mh-pmmhi transfer: 4 (SBA) Walk 10 feet: 4 (SBA) Walk 50 feet with two turns: 4 (SBA) Walk 150 feet: 4 (SBA) PT Care Home Goals Curriculum Writer Goals PT Care Home Goals Time Frame: Feb 27, 2022 Roll Left & Right (QC): 6 Sit to Lying (QC): 6 Lying-Sitting on Side/Bed(QC): 6 Sit to Stand (QC): 5 Chair/Mue-ba-Rcohf Xfer(QC): 5 Toilet Transfer (QC): 5 Car Transfer (QC): 5 Does the Patient Walk: Yes Walk 10 feet (QC): 5 Walk 50ft with 2 Turns (QC): 5 Walk 150 ft (QC): 5 Walking 10ft on Uneven Surface: 5 1 Step (curb) (QC): 4 (SBA) 4 Steps (QC): 4 (SBA) 12 Steps (QC): 4 (SBA) Picking up an Object (QC): 4 (SBA) Wheel 50 feet with 2 turns (QC: 9 Wheel 150 feet: 9 PT Plan Treatment/Plan Treatment Plan: Continue Plan of Care Treatment Plan: Bed Mobility, Education, Functional Activity Dolly, Functional Strength, Group Therapy, Gait, Safety, Therapeutic Exercise, Transfers Treatment Duration: Feb 27, 2022 Frequency: At least 5 of 7 days/Wk (IRF) Estimated Hrs Per Day: 1.5 hours per day Patient and/or Family Agrees t: Yes Safety Risks/Education Patient Education: Transfer Techniques, Correct Positioning Teaching Recipient: Patient Teaching Methods: Demonstration, Discussion Response to Teaching: Verbalize Understanding, Return Demonstration, Reinforcement Needed Time/GCodes Time In: 1055 Time Out: 1110 Total Billed Treatment Time: 15 Total Billed Treatment 1,EX15m JAYDEN HUNTLEY PENCIL SORTER Feb 08, 2022 11:32
[2022-02-08] MEDS: RT-ALBUTEROL SULF 2.5 MG/3 ML PRE-MIX VIAL INH PRN (12:10)
[2022-02-08] MEDS: ONDANSETRON 4 MG (ZOFRAN) ORAL DISSOLVE TAB PO PRN (19:17)
[2022-02-08] MEDS: MELATONIN 3 MG TABLET PO PRN (19:44)
[2022-02-08 20:00] VITALS: BP 102/62
[2022-02-09] MEDS: ACETAMINOPHEN 325 MG TABLET PO PRN (01:31)
[2022-02-09] MEDS: RT-ALBUTEROL SULF 2.5 MG/3 ML PRE-MIX VIAL INH PRN (02:34)
[2022-02-09 07:30] VITALS: BP 124/56
--- NOTE | 2022-02-09 08:09 | PM&R Progress Note ---
Subjective HPI/CC On Admission Date Seen by Provider: Feb 09, 2022 Time Seen by Provider: 13:00 Subjective/Events-last exam 02/09/2022: Doing better Vision loss is profound Dr Anderson ordered Tely Monitor closely 02/08/2022: Patient sleeping well at night Confusion is noted at times Patient patient loss causes increased confusion 02/07/2022: Doing about the same Vision loss is a challenge No falls but he is impulsive Eating well Checked meds and labs Review of Systems HEENT: Visual Changes Objective Exam Vital Signs Vital Signs Date Time Temp Pulse Resp B/P (MAP) Pulse Ox O2 Delivery O2 Flow Rate FiO2 02/09/22 12:53 61 02/09/22 09:58 98 Room Air 0.00 02/09/22 07:30 36.7 16 124/56 (78) Capillary Refill : General Appearance: No Apparent Distress, WD/WN, Chronically ill HEENT: Normal ENT Inspection, Pharynx Normal, Other (Vision loss lower left bilaterally) Neck: Full Range of Motion, Normal Inspection, Non Tender, Supple, Carotid Bruit Respiratory: Chest Non Tender, Lungs Clear, Normal Breath Sounds, No Accessory Muscle Use, No Respiratory Distress Cardiovascular: Regular Rate, Rhythm, No Edema, No Gallop, No JVD, No Murmur, Normal Peripheral Pulses Gastrointestinal: Normal Bowel Sounds, No Organomegaly, No Pulsatile Mass, Non Tender, Soft Back: Normal Inspection, No CVA Tenderness, No Vertebral Tenderness Extremity: Normal Capillary Refill, Normal Inspection, Normal Range of Motion, Non Tender, No Calf Tenderness, No Pedal Edema Neurologic/Psychiatric: Alert, Oriented x3, Normal Mood/Affect, cash register mechanic II-XII Norm as Tested, Abnormal Gait, Motor Weakness (Generalized weakness 4/5) Skin: Normal Color, Warm/Dry Lymphatic: No Adenopathy Results/Procedures Lab Patient resulted labs reviewed. FIM Transfers Therapy Code Descriptions/Definitions Functional [place] Measure: 0=Not Assessed/NA 4=Minimal Assistance 1=Total Assistance 5=Supervision or Setup 2=Maximal Assistance 6=Modified [place] 3=Moderate Assistance 7=Complete IndependenceSCALE: Activities may be completed with or without assistive devices. 4-Ptfxpjdrpt-zwgdzfx completes the activity by him/herself with no assistance from a helper. 5-Set-up or Clean-up Assistance-helper sets up or cleans up; patient completes a ctivity. [place] assists only prior to or following the activity. 4-Supervision or Touching Assistance-helper provides verbal cues and/or touching/steadying and/or contact guard assistance as patient completes activity. Assistance may be provided throughout the activity or intermittently. 3-Partial/Moderate Assistance-helper does LESS THAN HALF the effort. [place] lifts, holds or supports trunk or limbs, but provides less than half the effort. 2-Substantial/Maximal Assistance-helper does MORE THAN HALF the effort. [place] lifts or holds trunk or limbs and provides more than half the effort. 9-Kpgeqvfvh-fmlebi does ALL the effort. Patient does none of the effort to complete the activity. Or, the assistance of 2 or more helpers is required for the patient to complete the activity. If activity was not attempted, code reason: 7-Patient Refused. 9-Not Applicable-not attempted and the patient did not perform the activity before the current illness, exacerbation or injury. 10-Not Attempted due to Environmental Limitations-(lack of equipment, weather restraints, etc.). 88-Not Attempted due to Medical Conditions or Safety Concerns. Roll Left to Right (QC): 6 Sit to Lying (QC): 6 Sit to Stand (QC): 4 Chair/Ifz-xu-Jldua Xfer(QC): 4 Car Transfer (QC): 4 Gait Training Does the Patient Walk?: Yes Distance: 150'x2, 120' Walk 10 feet (QC): 4 Walk 50 ft with 2 Turns(QC): 4 Walk 150 ft (QC): 4 Walking 10ft/uneven surface-QC: 4 Gait Persons Needed: 1 Gait Assistive Device: Cane Single Point Wheelchair Training Wheel 50 ft with 2 turns (QC): 9 Wheel 150 ft (QC): 9 Stair Training #of Steps: 12 1 Step (curb) (QC): 4 4 Steps (QC): 4 12 Steps (QC): 4 Balance Picking up an Object (QC): 4 (CGA with retail tire sales manager) ADL-Treatment Eating (QC): 4 (SBA for v/c's d/t worsening vision) Oral Hygiene (QC): 4 (CGA standing at sink, with cues initially where items were located) Shower/Bathe Self (QC): 4 (SBA for standing balance, VCs for safety/scanning) Upper Body Dressing (QC): 5 Lower Body Dressing (QC): 3 (Min A with threading BLE through correct pant legs and tying strings) On/Off Footwear (QC): 3 (Min A to thread L foot into velcro shoes. V/c's to fasten straps on both shoes.) Toileting Hygiene (QC): 4 (SBA for standing balance during pant hike) Assessment/Plan Assessment and Plan Assess & Plan/Chief Complaint Assessment: CVA Homonymous hemianopsia CAD previous bypass and stents Recent GI bleed 1 year ago Atrial fibrillation Hypertension COPD RAJINDER Hyperlipidemia Hypothyroidism Plan: Inpatient rehab protocol Supportive care Monitor for GI bleed due to Plavix and aspirin 02/07/2022: Monitor for GIB 02/08/2022: Appreciate cardiology 02/09/2022: PT OT Vision loss will be a challenge (1) Acute cerebrovascular accident Assessment & Plan: He continues with ambulation physical therapy. His aspirin and clopidogrel have been resumed. These had been discontinued in the past due to severe anemia. He is also on statin medication. His regular music director plans on some outpatient monitoring to screen for atrial fibrillation. At this point in time, in the absence of any confirmed atrial fibrillation, there is no indication for oral anticoagulant therapy. He should continue on the current antiplatelet therapy. (2) Chronic combined systolic and diastolic congestive heart failure Assessment & Plan: He seems to be about class I at this point in time. He does not take a diuretic at home. If his dyspnea persists or worsens, we may want to consider a chest x-ray. His most recent echocardiogram from 09/04/2020 showed an ejection fraction of 45-50% and then a nuclear stress test from 01/02/2021 showed an ejection fraction of 37%. He is on metoprolol succinate and lisinopril. We may want to consider a follow-up assessment of his ejection fraction but this could certainly be done as an outpatient. (3) Coronary artery disease without angina pectoris Assessment & Plan: He is not having any angina at this point in time. Continue aspirin, beta-anup and statin medication. As above, he is also on clopidogrel due to the recent stroke. (4) Primary hypertension Assessment & Plan: Blood pressure is reasonably controlled with the present combination of medications. (5) Mixed hyperlipidemia Assessment & Plan: Continue statin medication. (6) Normocytic anemia Assessment & Plan: His hemoglobin has been stable during this hospitalization. This will need to be monitored intermittently with the resumption of aspirin and clopidogrel. TOY TAPIA DO Feb 09, 2022 08:09
[2022-02-09] MEDS: KCL 10 MEQ TAB (MICRO K) PO SCH (08:24)
[2022-02-09] MEDS: PANTOPRAZOLE 40 MG (PROTONIX) TAB PO SCH ×2 (08:24→19:57)
[2022-02-09] MEDS: meTOproloL SUCCINATE 50 MG (TOPROL XL) TAB PO SCH (08:24)
[2022-02-09] MEDS: MELOXICAM 7.5 MG (MOBIC) TABLET PO SCH (08:25)
[2022-02-09] MEDS: lisINopril 20 MG (PRINIVIL) TABLET PO SCH (08:25)
[2022-02-09] MEDS: DOCUSATE SODIUM 100 MG (COLACE) CAP PO SCH ×2 (08:25→19:56)
[2022-02-09] MEDS: amLODIPine 5 MG (NORVASC) TAB PO SCH (08:25)
[2022-02-09] MEDS: GABAPENTIN 100 MG (NEURONTIN) CAP PO SCH ×2 (08:25→19:56)
[2022-02-09] MEDS: CLOPIDOGREL 75 MG (PLAVIX) TABLET PO SCH (08:25)
[2022-02-09] MEDS: ASPIRIN 81 MG CHEW (CHILDREN'S ASA) PO SCH (08:25)
[2022-02-09] MEDS: FUROSEMIDE 20 MG (LASIX) TAB PO SCH (08:25)
[2022-02-09] MEDS: SENNA W/DOCUSATE (SENOKOT S) TABLET PO SCH ×2 (08:25→19:57)
[2022-02-09] MEDS: ONDANSETRON 4 MG (ZOFRAN) ORAL DISSOLVE TAB PO PRN (08:27)
[2022-02-09] MEDS: polyethylene glycoL POWDER 17 GM (MIRALAX) PACK PO SCH ×2 (08:28→19:30)
--- NOTE | 2022-02-09 11:08 | Cardiology Progress Note ---
Progress Note-Cardiology Events since last exam Date Seen by Provider: Feb 09, 2022 Time Seen by Provider: 11:07 Events since last exam We are following him due to his chronic cardiac conditions in the setting of a stroke. He has been having some nausea but denies vomiting. He told the nurse he has to be careful how much he eats or his reflux will bother him. He had been complaining of shortness of breath but was up walking today and not complaining of shortness of breath. He has not been reporting chest pain, palpitations, syncope, or ankle edema. Certain portions of this document may have been dictated utilizing voice recognition technology. Inherent to this technology, typographical and grammatical errors may exist. As much as I am diligent to identify and correct these mistakes, some errors may remain in the document. Vitals Last set of Vitals Signs Vital Signs 02/09/22 02/09/22 07:30 09:58 Temp 36.7 Pulse 64 Resp 16 B/P (MAP) 124/56 (78) Pulse Ox 98 O2 Delivery Room Air O2 Flow Rate 0.00 Exam Vital Signs Vital Signs Date Time Temp Pulse Resp B/P (MAP) Pulse Ox O2 Delivery O2 Flow Rate FiO2 02/09/22 09:58 98 Room Air 0.00 02/09/22 07:30 36.7 64 16 124/56 (78) Physical Exam General: Alert. No acute distress. He was up walking with a walker with assistance. Eye: No xanthelasma. HENT: Normocephalic. Neck: Jugular venous pressure does not appear elevated. Respiratory: Lungs are clear to auscultation. Respirations are non-labored. Breath sounds are equal. Symmetrical chest wall expansion. Cardiovascular: Normal rate. Regular rhythm. No murmur. No gallop. No edema. Gastrointestinal: Soft. Normal bowel sounds. Skin: Warm. Dry. Neurologic: Alert and oriented to person, place, time. Cranial nerves 3-11 grossly intact. Psychiatric: Cooperative. Appropriate mood & affect. Diagnosis/Problems Diagnosis/Problems (1) Acute cerebrovascular accident Assessment & Plan: He continues to work with occupational and physical therapy. His aspirin and clopidogrel have been resumed. These had been discontinued in the past due to severe anemia. He is also on statin medication. His regular freight agent plans on some outpatient monitoring to screen for atrial fibrillation. At this point in time, in the absence of any confirmed atrial fibrillation, there is no indication for oral anticoagulant therapy. He should continue on the current antiplatelet therapy. (2) Chronic combined systolic and diastolic congestive heart failure Assessment & Plan: He seems to be about class I at this point in time. He was complaining of dyspnea on 02/08 but today has not been complaining of dyspnea. He does not take a diuretic at home. If his dyspnea persists or worsens, we may want to consider a chest x-ray. His most recent echocardiogram from 09/04/2020 showed an ejection fraction of 45-50% and then a nuclear stress test from 01/02/2021 showed an ejection fraction of 37%. He is on metoprolol succinate and lisinopril. We may want to consider a follow-up assessment of his ejection fraction but this could certainly be done as an outpatient. (3) Coronary artery disease without angina pectoris Assessment & Plan: He is not having any angina at this point in time. Continue aspirin, beta-anup and statin medication. As above, he is also on clopidogrel due to the recent stroke. (4) Primary hypertension Assessment & Plan: Blood pressure is reasonably controlled with the present combination of medications. (5) Mixed hyperlipidemia Assessment & Plan: Continue statin medication. (6) Normocytic anemia Assessment & Plan: His hemoglobin has been stable during this hospitalization. This will need to be monitored intermittently with the resumption of aspirin and clopidogrel. ABRAHAM BLEVINS JR, MD Feb 09, 2022 11:08
[2022-02-09] MEDS: SUCRALFATE 1 GM (CARAFATE) TAB PO SCH ×3 (12:36→19:57)
[2022-02-09 19:51] VITALS: BP 132/59
[2022-02-09] MEDS: MELATONIN 3 MG TABLET PO PRN (19:57)
[2022-02-09] MEDS: ALPRAZolam 0.25 MG (XANAX) TAB PO PRN (21:46)
--- NOTE | 2022-02-10 05:37 | PM&R Progress Note ---
Subjective HPI/CC On Admission Date Seen by Provider: Feb 10, 2022 Time Seen by Provider: 08:30 Subjective/Events-last exam 02/10/2022: Pt is doing well Family is here Insomnia is noted Heart rate is 58 on telemetry Bowels moved today Loop recorder will likely be placed 02/09/2022: Doing better Vision loss is profound Dr Anderson ordered Tely Monitor closely 02/08/2022: Patient sleeping well at night Confusion is noted at times Patient patient loss causes increased confusion 02/07/2022: Doing about the same Vision loss is a challenge No falls but he is impulsive Eating well Checked meds and labs Review of Systems General: Fatigue, Malaise Objective Exam Vital Signs Vital Signs Date Time Temp Pulse Resp B/P (MAP) Pulse Ox O2 Delivery O2 Flow Rate FiO2 02/10/22 20:10 Room Air 02/10/22 19:36 36.8 58 16 123/65 (84) 96 02/09/22 09:58 0.00 Capillary Refill : General Appearance: No Apparent Distress, WD/WN, Chronically ill HEENT: Normal ENT Inspection, Pharynx Normal, Other (Vision loss lower left bilaterally) Neck: Full Range of Motion, Normal Inspection, Non Tender, Supple, Carotid Bruit Respiratory: Chest Non Tender, Lungs Clear, Normal Breath Sounds, No Accessory Muscle Use, No Respiratory Distress Cardiovascular: Regular Rate, Rhythm, No Edema, No Gallop, No JVD, No Murmur, Normal Peripheral Pulses Gastrointestinal: Normal Bowel Sounds, No Organomegaly, No Pulsatile Mass, Non Tender, Soft Back: Normal Inspection, No CVA Tenderness, No Vertebral Tenderness Extremity: Normal Capillary Refill, Normal Inspection, Normal Range of Motion, Non Tender, No Calf Tenderness, No Pedal Edema Neurologic/Psychiatric: Alert, Oriented x3, Normal 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 FIM Transfers Therapy Code Descriptions/Definitions Functional [place] Measure: 0=Not Assessed/NA 4=Minimal Assistance 1=Total Assistance 5=Supervision or Setup 2=Maximal Assistance 6=Modified [place] 3=Moderate Assistance 7=Complete IndependenceSCALE: Activities may be completed with or without assistive devices. 6-Qfrsxjpqpb-grcezfa completes the activity by him/herself with no assistance from a helper. 5-Set-up or Clean-up Assistance-helper sets up or cleans up; patient completes activity. [place] assists only prior to or following the activity. 4-Supervision or Touching Assistance-helper provides verbal cues and/or touching/steadying and/or contact guard assistance as patient completes activity. Assistance may be provided throughout the activity or intermittently. 3-Partial/Moderate Assistance-helper does LESS THAN HALF the effort. [place] lifts, holds or supports trunk or limbs, but provides less than half the effort. 2-Substantial/Maximal Assistance-helper does MORE THAN HALF the effort. [place] lifts or holds trunk or limbs and provides more than half the effort. 7-Njcuoqqzw-gjdqem does ALL the effort. Patient does none of the effort to complete the activity. Or, the assistance of 2 or more helpers is required for the patient to complete the activity. If activity was not attempted, code reason: 7-Patient Refused. 9-Not Applicable-not attempted and the patient did not perform the activity before the current illness, exacerbation or injury. 10-Not Attempted due to Environmental Limitations-(lack of equipment, weather restraints, etc.). 88-Not Attempted due to Medical Conditions or Safety Concerns. Roll Left to Right (QC): 6 Sit to Lying (QC): 6 Sit to Stand (QC): 4 Chair/Rrw-sy-Fozfg Xfer(QC): 4 Car Transfer (QC): 4 Gait Training Does the Patient Walk?: Yes Distance: 150'x2, 120' Walk 10 feet (QC): 4 Walk 50 ft with 2 Turns(QC): 4 Walk 150 ft (QC): 4 Walking 10ft/uneven surface-QC: 4 Gait Persons Needed: 1 Gait Assistive Device: Cane Single Point Wheelchair Training Wheel 50 ft with 2 turns (QC): 9 Wheel 150 ft (QC): 9 Stair Training #of Steps: 12 1 Step (curb) (QC): 4 4 Steps (QC): 4 12 Steps (QC): 4 Balance Picking up an Object (QC): 4 (CGA with jackscrew worker) ADL-Treatment Eating (QC): 4 (SBA for v/c's d/t worsening vision) Oral Hygiene (QC): 4 (CGA standing at sink, with cues initially where items were located) Shower/Bathe Self (QC): 4 (SBA for standing balance, VCs for safety/scanning) Upper Body Dressing (QC): 5 Lower Body Dressing (QC): 3 (Min A with threading BLE through correct pant legs and tying strings) On/Off Footwear (QC): 3 (Min A to thread L foot into velcro shoes. 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 His aspirin and clopidogrel have been resumed. These had been discontinued in the past due to severe anemia. He is also on statin medication. 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 At this point in time, in the absence of any confirmed atrial fibrillation, there is no indication for oral anticoagulant therapy. He should continue on the current antiplatelet therapy. (2) Chronic combined systolic and diastolic congestive heart failure Assessment & Plan: He seems to be about class I at this point in time. He was complaining of dyspnea on 02/08 but today has not been complaining of dyspnea. He does not take a diuretic at home. If his dyspnea persists or worsens, we may want to consider a chest x-ray. His most recent echocardiogram from 09/04/2020 showed an ejection fraction of 45-50% and then a nuclear stress test from 01/02/2021 showed an ejection fraction of 37%. He is on metoprolol succinate and lisinopril. We may want to consider a follow-up assessment of his ejection fraction but this could certainly be done as an outpatient. (3) Coronary artery disease without angina pectoris Assessment & Plan: He is not having any angina at this point in time. Continue aspirin, beta-anup and statin medication. As above, he is also on clopidogrel due to the recent stroke. (4) Primary hypertension Assessment & Plan: Blood pressure is reasonably controlled with the present combination of medications. (5) Mixed hyperlipidemia Assessment & Plan: Continue statin medication. (6) Normocytic anemia Assessment & Plan: His hemoglobin has been stable during this hospitalization. This will need to be monitored intermittently with the resumption of aspirin and clopidogrel. TOY TAPIA DO Feb 10, 2022 05:36
[2022-02-10] MEDS: SUCRALFATE 1 GM (CARAFATE) TAB PO SCH ×4 (06:03→21:32)
[2022-02-10] MEDS: amLODIPine 5 MG (NORVASC) TAB PO SCH (07:42)
[2022-02-10] MEDS: MELOXICAM 7.5 MG (MOBIC) TABLET PO SCH (07:42)
[2022-02-10] MEDS: PANTOPRAZOLE 40 MG (PROTONIX) TAB PO SCH ×2 (07:42→21:31)
[2022-02-10] MEDS: ASPIRIN 81 MG CHEW (CHILDREN'S ASA) PO SCH (07:42)
[2022-02-10] MEDS: SENNA W/DOCUSATE (SENOKOT S) TABLET PO SCH ×2 (07:42→21:50)
[2022-02-10] MEDS: lisINopril 20 MG (PRINIVIL) TABLET PO SCH (07:42)
[2022-02-10] MEDS: meTOproloL SUCCINATE 50 MG (TOPROL XL) TAB PO SCH (07:42)
[2022-02-10] MEDS: KCL 10 MEQ TAB (MICRO K) PO SCH (07:42)
[2022-02-10] MEDS: GABAPENTIN 100 MG (NEURONTIN) CAP PO SCH ×2 (07:42→21:32)
[2022-02-10] MEDS: CLOPIDOGREL 75 MG (PLAVIX) TABLET PO SCH (07:42)
[2022-02-10] MEDS: DOCUSATE SODIUM 100 MG (COLACE) CAP PO SCH ×2 (07:43→21:50)
[2022-02-10] MEDS: FUROSEMIDE 20 MG (LASIX) TAB PO SCH (07:43)
[2022-02-10] MEDS: polyethylene glycoL POWDER 17 GM (MIRALAX) PACK PO SCH ×2 (07:58→19:48)
[2022-02-10 08:00] VITALS: BP 129/59
--- NOTE | 2022-02-10 08:49 | Cardiology Progress Note ---
Subjective Date Seen by Provider: Feb 10, 2022 Time Seen by Provider: 08:47 Subjective/Events-last exam Patient sitting up in chair, reports vision improved. Denies any chest pain or palpitations. Objective-Cardiology Exam Last Set of Vital Signs Vital Signs 02/09/22 02/10/22 09:58 08:00 Temp 37.0 Pulse 57 Resp 16 B/P (MAP) 129/59 (82) Pulse Ox 96 O2 Delivery Room Air O2 Flow Rate 0.00 General: Alert, Oriented X3, Cooperative HEENT: Atraumatic Lungs: Clear to Auscultation, Normal Air Movement Heart: Regular Rate Abdomen: Normal Bowel Sounds, Soft, No Tenderness Extremities: No Clubbing, No Edema Skin: No Rashes, No Significant Lesion Neuro: Normal Speech Psych/Mental Status: Mental Status NL, Mood NL A/P-Cardiology Admission Diagnosis Acute CVA Palpitation Coronary artery disease Hypertension Assessment/Plan Subacute CVA, MRI suggestive of infarct in the distribution of the 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 Patient has history of GI bleed preclude the use of aspirin and Plavix. Currently restarted on aspirin and Plavix and will monitor H&H. Currently on telemetry, no arrhythmia detected so far. I am suspecting underlying atrial fibrillation as a cause of his stroke, planning to [employer] implantations for further monitoring. He probably could benefit from Pradaxa, it is reversible anticoagulation in case of active bleeding History of sick sinus syndrome with borderline bradycardia, has been on low-dose beta-blockers and tolerating it well. History of palpitation in the past. Had a Holter monitor done in 2007 showing occasional PVCs and PACs and short run of paroxysmal SVT. No documented atrial fibrillation in the past. Placing him back on telemetry and monitor History of recurrent GI, intolerant to anticoagulation Had work-up in the past for lower GI bleed which was negative. At that time conservative management was recommended Chest pain, patient had history of chronic stable angina. Coronary artery disease, History of CABG 5 done in 1993. Cardiac catheterization was done in 2011 showing severe in-stent restenosis in the ramus intermedius. Underwent balloon angioplasty using 2.7520 mm apex bal loon with no residual stenosis. Cardiac catheterization in July 2015 showing patent 3 bypasses, SPEAR to LAD, vein graft to diagonal with severe disease beyond the anastomosis point and vein graft to obtuse marginal, did not change compared to 2012 procedure, had a patent stent in the proximal ramus intermedius with mild disease distally, patent stent in the midright Coronary artery with 60 percent stenosis distal right coronary artery mild disease, medical therapy is recommended. Had NSTEMI on 09.04.21 underwent LHC showing severe grayling coronary artery disease involving the left main, ostial LAD occlusion, occlusion of the ramus intermedius and diffuse moderate disease in the Cx with 90 percent stenosis in the distal RCA, successful stenting fo the RCA, Alpine 3.0 x12mm, severe stenosis in the prox VG to the OM that was 90 percent in stent restenosis with successful balloon angioplasty. Sever mid vessel stenosis to the VG to danny diagonal artery with successful stenting using Alpine 3.0 x23mm. Cardiac catheterization was done on January 30, 2021 showing severe grayling artery disease with patent SPEAR to LAD, vein graft to diagonal. The vein graft to the obtuse marginal branch that had balloon angioplasty in August 2020 became occluded. Failed attempt to intervention. The right coronary artery is dominant with patent stent in the mid right, mild disease distally. Was on aspirin and Plavix, has GI bleed, severe anemia which resolved and discontinuation of the aspirin and Plavix. Currently back on ASA and Plavix, c ontinue to monitor. Echocardiogram done in [facility] on February 06, 2022 showed normal left ventricular size and systolic function, no significant abnormality was noted. Stress test was done on January 18, 2021 and it was abnormal, underwent cardiac catheterization as described above Congestive heart failure, chronic compensated left ventricular systolic dysfunction, improved, last echocardiogram done in July 2018 showing ejection fraction 50-55 percent. Continue to monitor Hypertension, history of dizziness and lightheadedness Continue to monitor blood pressure Hyperlipidemia, monitor lipids Mild bilateral carotid stenoses nonobstructive disease, last ultrasound was done in August 2020 COPD/obstructive sleep apnea using C Pap, does not follow up with hazardous waste remover, I will arrange an appointment with Dr. Chakraborty Degenerative joint disease. Arthritic pain. Supervisory-Addendum Brief Supervisory Addendum Participated in pt care: history, MDM, physical Personally performed: exam, history, MDM Care discussed with: MICHAEL Results interpretation: Verified all documentation Notes: Patient was seen and evaluated with Mary, examination performed, management plan was discussed, agree with the current scribed note, I made few changes to the note using Italic font Patient was seen at bedside, laying down comfortably, feeling better Asking to go home I proceeded with loop monitor implantation Continue on aspirin and Plavix for now Okay for discharge and follow-up as an outpatient. MARY MELARA Feb 10, 2022 08:49 ENZO MACHADO MD Feb 10, 2022 12:03
--- NOTE | 2022-02-10 09:59 | Occupational Ther Daily Note ---
OT Current Status-Daily Note Subjective Pt in recliner, family present. Pt agreeable to OT Tx. Pt states he would like to leave as soon as possible, he felt ready to leave yesterday. Mental Status/Objective Patient Orientation: Person, Place, Situation ADL-Treatment Therapy Code Descriptions/Definitions Functional [place] Measure: 0=Not Assessed/NA 4=Minimal Assistance 1=Total Assistance 5=Supervision or Setup 2=Maximal Assistance 6=Modified [place] 3=Moderate Assistance 7=Complete IndependenceSCALE: Activities may be completed with or without assistive devices. 9-Tgplqlyxdj-jizmdyq completes the activity by him/herself with no assistance from a helper. 5-Set-up or Clean-up Assistance-helper sets up or cleans up; patient completes activity. [place] assists only prior to or following the activity. 4-Supervision or Touching Assistance-helper provides verbal cues and/or touching/steadying and/or contact guard assistance as patient completes activi ty. Assistance may be provided throughout the activity or intermittently. 3-Partial/Moderate Assistance-helper does LESS THAN HALF the effort. [place] lifts, holds or supports trunk or limbs, but provides less than half the effort. 2-Substantial/Maximal Assistance-helper does MORE THAN HALF the effort. [place] lifts or holds trunk or limbs and provides more than half the effort. 2-Amvlugxjl-ildnbi does ALL the effort. Patient does none of the effort to complete the activity. Or, the assistance of 2 or more helpers is required for the patient to complete the activity. If activity was not attempted, code reason: 7-Patient Refused. 9-Not Applicable-not attempted and the patient did not perform the activity before the current illness, exacerbation or injury. 10-Not Attempted due to Environmental Limitations-(lack of equipment, weather restraints, etc.). 88-Not Attempted due to Medical Conditions or Safety Concerns. Oral Hygiene (QC): 7 Shower/Bathe Self (QC): 4 (Supervision) Upper Body Dressing (QC): 5 (Set up to doff overhead shirt.) Lower Body Dressing (QC): 4 (Supervision in stand.) On/Off Footwear: 3 (Min A with pulling gripper socks up.) Toileting Hygiene (QC): 4 (Supervision, pt able to manage clothes and hygiene) Other Treatment Pt in recliner, used SPC to transfer into bathroom and onto ND with CGA. Pt completed dressing and showering at ND, then returned to recliner. In order to increase scanning into L visual field, increase fine motor coordination and hand eye coordination, pt completed "Perfection" task. Pt required moderate verbal cues throughout task in order to place shapes into correct holes and for locating holes in L visual field. Post tx, pt in recliner, call light in reach and all needs met, chair alarm activated. Education OT Patient Education: Correct positioning, Energy conservation, Modified ADL te chniques, Progress toward Goal/Update tx plan, Purpose of tx/functional activities, Rehab process Teaching Recipient: Patient Teaching Methods: Discussion Response to Teaching: Verbalize Understanding OT Short Term Goals Short Term Goals Time Frame: Feb 14, 2022 Shower/bathe self: 5 Lower body dressin Putting on/taking off footwear: 5 OT Fpc Goals Fpc Goals Time Frame: Mar 07, 2022 Eating (QC): 6 Oral Hygiene (QC): 6 Toileting Hygiene (QC): 6 Shower/Bathe Self (QC): 6 Upper Body Dressing (QC): 6 Lower Body Dressing (QC): 6 On/Off Footwear (QC): 6 Additional Goals: 1-Demonstrate ADL Tasks, 2-Verbalize Understanding, 3- ImproveStrength/Dolly 1=Demonstrate adherence to instructed precautions during ADL tasks. 2=Patient will verbalize/demonstrate understanding of assistive devices/modifications for ADL. 3=Patient will improve strength/tolerance for activity to enable patient to perform ADL's. OT Education/Plan Problem List/Assessment Assessment: Decreased Activ Tolerance, Decreased UE Strength, Impaired Funct Balance, Impaired I ADL's, Impaired Self-Care Skills, Visual-Perceptual Deficit Discharge Recommendations Plan/Recommendations: Continue POC Treatment Plan/Plan of Care Patient would benefit from OT for education, treatment and training to promote independence in ADL's, mobility, safety and/or upper extremity function for ADL's. Plan of Care: ADL Retraining, Functional Mobility, Group Exercise/Act as Ind, UE Funct Exercise/Act, Visual/Perceptual Retrain Treatment Duration: Mar 07, 2022 Frequency: At least 5 of 7 days/Wk (IRF) Estimated Hrs Per Day: 1.5 hours per day Agreement: Yes Rehab Potential: Fair Time/GCodes Start Time: 09:00 Stop Time: 10:00 Total Time Billed (hr/min): 60 Billed Treatment Time 1, ADL 3 (45'), FA (15') DECLAN ALCANTAR OT Feb 10, 2022 09:59
--- NOTE | 2022-02-10 10:57 | Physical Therapy Daily Note ---
PT Daily Note-Current Subjective Patient in recliner pre tx, agrees to PT, has no complaints of pain. Appearance Patient in recliner post tx with nurse call, phone, tray, all needs met, chair alarm on. Mental Status Patient Orientation: Person, Place, Situation Transfers SCALE: Activities may be completed with or without assistive devices. 4-Vemuelpxkx-mhpeger completes the activity by him/herself with no assistance from a helper. 5-Set-up or Clean-up Assistance-helper sets up or cleans up; patient completes activity. [place] assists only prior to or following the activity. 4-Supervision or Touching Assistance-helper provides verbal cues and/or touching/steadying and/or contact guard assistance as patient completes activity. Assistance may be provided throughout the activity or intermittently. 3-Partial/Moderate Assistance-helper does LESS THAN HALF the effort. [place] lifts, holds or supports trunk or limbs, but provides less than half the effort. 2-Substantial/Maximal Assistance-helper does MORE THAN HALF the effort. [place] lifts or holds trunk or limbs and provides more than half the effort. 7-Svgjcfjef-hsbdyy does ALL the effort. Patient does none of the effort to complete the activity. Or, the assistance of 2 or more helpers is required for the patient to complete the activity. If activity was not attempted, code reason: 7-Patient Refused. 9-Not Applicable-not attempted and the patient did not perform the activity before the current illness, exacerbation or injury. 10-Not Attempted due to Environmental Limitations-(lack of equipment, weather restraints, etc.). 88-Not Attempted due to Medical Conditions or Safety Concerns. Sit to Stand (QC): 4 Chair/Nrn-kh-Pipod Xfer(QC): 4 Gait Training Distance: 150'x2, 120' Walk 10 feet (QC): 4 Walk 50 ft with 2 Turns(QC): 4 Walk 150 ft (QC): 4 Gait Persons Needed: 1 Gait Assistive Device: FWW very slow ambulation, needs cues for direction due to visual impairment Exercises sit to stands 2 sets of 10 NuStep Minutes: 15 NuStep Workload: 5 Treatments transfers,ambulation, functional strengthening Assessment Current Status: Fair Progress improved vision but still needs cues for direction PT Short Term Goals Short Term Goals Time Frame: Feb 13, 2022 Roll Left & Right: 6 Sit to lyin Lying to sitting on side of be: 6 Sit to stand: 4 (SBA) Chair/rqy-ux-ohhjt transfer: 4 (SBA) Walk 10 feet: 4 (SBA) Walk 50 feet with two turns: 4 (SBA) Walk 150 feet: 4 (SBA) PT Shelter Goals Business Proposal Rep Goals PT Shelter Goals Time Frame: Feb 27, 2022 Roll Left & Right (QC): 6 Sit to Lying (QC): 6 Lying-Sitting on Side/Bed(QC): 6 Sit to Stand (QC): 5 Chair/Uwu-da-Dutvs Xfer(QC): 5 Toilet Transfer (QC): 5 Car Transfer (QC): 5 Does the Patient Walk: Yes Walk 10 feet (QC): 5 Walk 50ft with 2 Turns (QC): 5 Walk 150 ft (QC): 5 Walking 10ft on Uneven Surface: 5 1 Step (curb) (QC): 4 (SBA) 4 Steps (QC): 4 (SBA) 12 Steps (QC): 4 (SBA) Picking up an Object (QC): 4 (SBA) Wheel 50 feet with 2 turns (QC: 9 Wheel 150 feet: 9 PT Plan Problem List Problem List: Activity Tolerance, Functional Strength, Safety, Balance, Gait, Transfer, Bed Mobility, ROM Treatment/Plan Treatment Plan: Continue Plan of Care Treatment Plan: Bed Mobility, Education, Functional Activity [place]olly, Functional Strength, Group Therapy, Gait, Safety, Therapeutic Exercise, Transfers Treatment Duration: Feb 27, 2022 Frequency: At least 5 of 7 days/Wk (IRF) Estimated Hrs Per Day: 1.5 hours per day Patient and/or Family Agrees t: Yes Safety Risks/Education Patient Education: Gait Training, Transfer Techniques, Correct Positioning, Safety Issues Teaching Recipient: Patient Teaching Methods: Demonstration, Discussion Response to Teaching: Reinforcement Needed Time/GCodes Time In: 1000 Time Out: 1100 Total Billed Treatment Time: 60 Total Billed Treatment 1 visit EX 20' FA 40' KYLE HEREDIA PT Feb 10, 2022 10:57
--- NOTE | 2022-02-10 12:04 | Implantation of Loop Monitor ---
Implant of Loop Monitior IMPLANTATION OF LOOP MONITOR REPORT DATE OF PROCEDURE: 02/10/22 PREOP DIAGNOSIS: Cryptogenic stroke POSTOP DIAGNOSIS: Cryptogenic stroke PROCEDURE DETAILS: The patient is a 89 male with cryptogenic stroke requiring long-term surveillance. Therefore implantable loop recorder was discussed and agreed with the patient. Informed consent was taken. All risks and complications were discussed at length. The patient was draped and prepped in the usual sterile fashion. Local anesthesia was lidocaine, which was given in the substernal area close to the 4th intercostal space. Loop monitor [employer] with serial number [id number] was implanted according to the protocol. Steri-Strips were placed at the end of the procedure. There were no complications and the patient tolerated the procedure well. ANESTHESIA: Local anesthesia with lidocaine. COMPLICATIONS: None CONTRAST/FLUOROSCOPY: None CONCLUSION: Successful implantation of loop monitor with no complication FINAL DIAGNOSIS: Cryptogenic stroke Hypertension ENZO MACHADO MD Feb 10, 2022 12:04
--- NOTE | 2022-02-10 12:48 | Speech Therapy Daily Note ---
Speech Daily Progress Note Subjective Date Seen by Provider: Feb 10, 2022 Time Seen by Provider: 11:00 The patient was seated upright in his bed for a portion of the session and upright in his recliner for a portion of the session. The patient was alert and awake upon entering his room, greeting the clinician appropriately and agreeing to participation in today's treatment session. Objective - Orientation: The patient remains independently oriented to self, location, month, day of the week, date and year. - Functional Review: The patient was able to review therapy exercises and recommendations on this date with high accuracy, independently. The patient consistently requests discharge stating he needs to get home to take care of his . The clinician reviewed the patient's current therapy goals, as well as, discussed the importance of strengthening for safe discharge to his home environment (if appropriate). The patient reports and demonstrates improved vision in the left visual field, however, a deficit does remain. Assessment Assessment Current Status: Fair Progress Treatment Plan Continue Plan of Care Speech Short Term Goals Short Term Goals Short Term Goals 1. The patient will complete visual scanning activities with 80% accuracy and mild clinician verbal and visual cueing. Time Frame-STG: One Week. Speech Picture Enlarger Goals Correction Goals 1. The patient will demonstrate improved cognitive linguistic skills for safe discharge to the least restrictive environment. Time Frame: Ten Days. Speech-Plan Treatment Plan Speech Therapy Treatment Plan: Continue Plan of Care Treatment Duration: Feb 07, 2022 Frequency: Modified Program (IRF) Estimated Hrs Per Day: Other Rehab Potential: Fair Safety Risks/Education Teaching Recipient: Patient Teaching Methods: Discussion Response to Teaching: Reinforcement Needed Education Topics Provided: Therapy Goals Time Speech Therapy Time In: 11:00 Speech Therapy Time Out: 11:30 Total Billed Time: 30 Billed Treatment Time 1, LIZZIE DIONICIO SAMUELS Feb 10, 2022 12:48
--- NOTE | 2022-02-10 13:19 | Occupational Ther Daily Note ---
OT Current Status-Daily Note Subjective Pt in bathroom, agreeable to therapy tx. ADL-Treatment Therapy Code Descriptions/Definitions Functional [place] Measure: 0=Not Assessed/NA 4=Minimal Assistance 1=Total Assistance 5=Supervision or Setup 2=Maximal Assistance 6=Modified [place] 3=Moderate Assistance 7=Complete IndependenceSCALE: Activities may be completed with or without assistive devices. 7-Fcbcjaqvka-votsclz completes the activity by him/herself with no assistance from a helper. 5-Set-up or Clean-up Assistance-helper sets up or cleans up; patient completes activity. [place] assists only prior to or following the activity. 4-Supervision or Touching Assistance-helper provides verbal cues and/or touching/steadying and/or contact guard assistance as patient completes activity. Assistance may be provided throughout the activity or intermittently. 3-Partial/Moderate Assistance-helper does LESS THAN HALF the effort. [place] lifts, holds or supports trunk or limbs, but provides less than half the effort. 2-Substantial/Maximal Assistance-helper does MORE THAN HALF the effort. [place] lifts or holds trunk or limbs and provides more than half the effort. 0-Pydjsyzui-swcvvs does ALL the effort. Patient does none of the effort to complete the activity. Or, the assistance of 2 or more helpers is required for the patient to complete the activity. If activity was not attempted, code reason: 7-Patient Refused. 9-Not Applicable-not attempted and the patient did not perform the activity before the current illness, exacerbation or injury. 10-Not Attempted due to Environmental Limitations-(lack of equipment, weather restraints, etc.). 88-Not Attempted due to Medical Conditions or Safety Concerns. Toileting Hygiene (QC): 4 (supervision) Other Treatment OT/PT cotreat due to skill of 2 clinicians required which a rehabilitation team lead could not perform in order to increase strength, activity tolerance, dynamic standing balance, visual attention to environment, and due to pt's limitations in strength, activity tolerance, and vision deficits. OT focused on UE placement, gross overall movement, ADLs, PT focused on LE placement, gross overall movements, transfers and mobility. Pt completed toileting, then used FWW to go to therapy gym. Pt stood at white board, participating in dynamic standing activity, requiring pt to scan into L visual field. Pt located letters of alphabet in order, reaching across midline in order to touch the letters with his fingers, min verbal cues required to locate all letters in order. Pt returned to his room, transferring to recliner. Post tx, pt in recliner, call light in reach and all needs met Education OT Patient Education: Correct positioning, Energy conservation, Modified ADL techniques, Progress toward Goal/Update tx plan, Purpose of tx/functional activities, Rehab process Teaching Recipient: Patient Teaching Methods: Discussion Response to Teaching: Verbalize Understanding OT Short Term Goals Short Term Goals Time Frame: Feb 14, 2022 Shower/bathe self: 5 Lower body dressin Putting on/taking off footwear: 5 OT Senior Living Goals Metal Building Assembler Goals Time Frame: Mar 07, 2022 Eating (QC): 6 Oral Hygiene (QC): 6 Toileting Hygiene (QC): 6 Shower/Bathe Self (QC): 6 Upper Body Dressing (QC): 6 Lower Body Dressing (QC): 6 On/Off Footwear (QC): 6 Additional Goals: 1-Demonstrate ADL Tasks, 2-Verbalize Understanding, 3- ImproveStrength/Dolly 1=Demonstrate adherence to instructed precautions during ADL tasks. 2=Patient will verbalize/demonstrate understanding of assistive devices/modifications for ADL. 3=Patient will improve strength/tolerance for activity to enable patient to perform ADL's. OT Education/Plan Problem List/Assessment Assessment: Decreased Activ Tolerance, Decreased UE Strength, Impaired Funct Balance, Impaired I ADL's, Impaired Self-Care Skills, Visual-Perceptual Deficit Discharge Recommendations Plan/Recommendations: Continue POC Treatment Plan/Plan of Care Patient would benefit from OT for education, treatment and training to promote independence in ADL's, mobility, safety and/or upper extremity function for ADL's. Plan of Care: ADL Retraining, Functional Mobility, Group Exercise/Act as Ind, UE Funct Exercise/Act, Visual/Perceptual Retrain Treatment Duration: Mar 07, 2022 Frequency: At least 5 of 7 days/Wk (IRF) Estimated Hrs Per Day: 1.5 hours per day Agreement: Yes Rehab Potential: Fair Time/GCodes Start Time: 13:00 Stop Time: 13:15 Total Time Billed (hr/min): 15 Billed Treatment Time 1, DECLAN BRYANT OT Feb 10, 2022 13:19
--- NOTE | 2022-02-10 13:33 | Physical Therapy Daily Note ---
PT Daily Note-Current Subjective Patient in restroom pre tx, agrees to PT, has no complaints of pain. Will be co-treating with OT due to poor patient mobility, severe debility, coordinate UE and LE during activity, safety and reduce risk of falls, and to work on more advanced standing and scanning activity. Appearance Patient in recliner post tx with nurse call, phone, tray, all needs met. Mental Status Patient Orientation: Person, Place, Situation Transfers SCALE: Activities may be completed with or without assistive devices. 3-Oitqsbipfs-bnqmmfd completes the activity by him/herself with no assistance from a helper. 5-Set-up or Clean-up Assistance-helper sets up or cleans up; patient completes activity. [place] assists only prior to or following the activity. 4-Supervision or Touching Assistance-helper provides verbal cues and/or touching/steadying and/or contact guard assistance as patient completes activity. Assistance may be provided throughout the activity or intermittently. 3-Partial/Moderate Assistance-helper does LESS THAN HALF the effort. [place] lifts, holds or supports trunk or limbs, but provides less than half the effort. 2-Substantial/Maximal Assistance-helper does MORE THAN HALF the effort. [place] lifts or holds trunk or limbs and provides more than half the effort. 8-Xstqtzpyf-thkibz does ALL the effort. Patient does none of the effort to complete the activity. Or, the assistance of 2 or more helpers is required for the patient to complete the activity. If activity was not attempted, code reason: 7-Patient Refused. 9-Not Applicable-not attempted and the patient did not perform the activity before the current illness, exacerbation or injury. 10-Not Attempted due to Environmental Limitations-(lack of equipment, weather restraints, etc.). 88-Not Attempted due to Medical Conditions or Safety Concerns. Sit to Stand (QC): 4 Chair/Zlr-os-Gdkon Xfer(QC): 4 cues for hand placement and safety Gait Training Distance: 120'x2 Walk 10 feet (QC): 4 Walk 50 ft with 2 Turns(QC): 4 Gait Persons Needed: 1 Gait Assistive Device: FWW very slow ambulation, cues for direction due to poor eyesight Exercises standing activity while scanning for different letters and reaching, working on balance and endurance Assessment Current Status: Fair Progress vision seems better today PT Short Term Goals Short Term Goals Time Frame: Feb 13, 2022 Roll Left & Right: 6 Sit to lyin Lying to sitting on side of be: 6 Sit to stand: 4 (SBA) Chair/qxk-rp-xitzc transfer: 4 (SBA) Walk 10 feet: 4 (SBA) Walk 50 feet with two turns: 4 (SBA) Walk 150 feet: 4 (SBA) PT Snf Goals Superintendent Stations Goals PT Snf Goals Time Frame: Feb 27, 2022 Roll Left & Right (QC): 6 Sit to Lying (QC): 6 Lying-Sitting on Side/Bed(QC): 6 Sit to Stand (QC): 5 Chair/Tqb-ng-Eofat Xfer(QC): 5 Toilet Transfer (QC): 5 Car Transfer (QC): 5 Does the Patient Walk: Yes Walk 10 feet (QC): 5 Walk 50ft with 2 Turns (QC): 5 Walk 150 ft (QC): 5 Walking 10ft on Uneven Surface: 5 1 Step (curb) (QC): 4 (SBA) 4 Steps (QC): 4 (SBA) 12 Steps (QC): 4 (SBA) Picking up an Object (QC): 4 (SBA) Wheel 50 feet with 2 turns (QC: 9 Wheel 150 feet: 9 PT Plan Problem List Problem List: Activity Tolerance, Functional Strength, Safety, Balance, Gait, Transfer, Bed Mobility, ROM Treatment/Plan Treatment Plan: Continue Plan of Care Treatment Plan: Bed Mobility, Education, Functional Activity Dolly, Functional Strength, Group Therapy, Gait, Safety, Therapeutic Exercise, Transfers Treatment Duration: Feb 27, 2022 Frequency: At least 5 of 7 days/Wk (IRF) Estimated Hrs Per Day: 1.5 hours per day Patient and/or Family Agrees t: Yes Safety Risks/Education Patient Education: Gait Training, Transfer Techniques, Correct Positioning, Safety Issues Teaching Recipient: Patient Teaching Methods: Demonstration, Discussion Response to Teaching: Reinforcement Needed Time/GCodes Time In: 1300 Time Out: 1315 Total Billed Treatment Time: 15 Total Billed Treatment 1 visit FA 15' co-treated for 15' YANKYLE PT Feb 10, 2022 13:32
[2022-02-10] MEDS: ACETAMINOPHEN 325 MG TABLET PO PRN (13:53)
[2022-02-10] MEDS: RT-ALBUTEROL SULF 2.5 MG/3 ML PRE-MIX VIAL INH PRN (15:02)
[2022-02-10 19:36] VITALS: BP 123/65
[2022-02-10] MEDS: MELATONIN 3 MG TABLET PO PRN (21:32)
--- NOTE | 2022-02-11 06:17 | PM&R Progress Note ---
Subjective HPI/CC On Admission Date Seen by Provider: Feb 11, 2022 Time Seen by Provider: 09:00 Subjective/Events-last exam 02/11/2022: Pt is doing alot better Wants to go home Carafate has really helped the GERD Bowels moved today Had a headache last night 02/10/2022: Pt is doing well Family is here Insomnia is noted Heart rate is 58 on telemetry Bowels moved today Loop recorder will likely be placed 02/09/2022: Doing better Vision loss is profound Dr Anderson ordered Tely Monitor closely 02/08/2022: Patient sleeping well at night Confusion is noted at times Patient patient loss causes increased confusion 02/07/2022: Doing about the same Vision loss is a challenge No falls but he is impulsive Eating well Checked meds and labs Review of Systems General: Fatigue, Malaise Objective Exam Vital Signs Vital Signs Date Time Temp Pulse Resp B/P (MAP) Pulse Ox O2 Delivery O2 Flow Rate FiO2 02/11/22 20:00 Room Air 02/11/22 07:59 36.0 65 20 151/71 (97) 95 02/09/22 09:58 0.00 Capillary Refill : General Appearance: No Apparent Distress, WD/WN, Chronically ill HEENT: Normal ENT Inspection, Pharynx Normal, Other (Vision loss lower left bilaterally) Neck: Full Range of Motion, Normal Inspection, Non Tender, Supple, Carotid Bruit Respiratory: Chest Non Tender, Lungs Clear, Normal Breath Sounds, No Accessory Muscle Use, No Respiratory Distress Cardiovascular: Regular Rate, Rhythm, No Edema, No Gallop, No JVD, No Murmur, Normal Peripheral Pulses Gastrointestinal: Normal Bowel Sounds, No Organomegaly, No Pulsatile Mass, Non Tender, Soft Back: Normal Inspection, No CVA Tenderness, No Vertebral Tenderness Extremity: Normal Capillary Refill, Normal Inspection, Normal Range of Motion, Non Tender, No Calf Tenderness, No Pedal Edema Neurologic/Psychiatric: Alert, Oriented x3, Normal Mood/Affect, health facilities surveyor II-XII Norm as Tested, Abnormal Gait, Motor Weakness (Generalized weakness 4/5) Skin: Normal Color, Warm/Dry Lymphatic: No Adenopathy Results/Procedures Lab Patient resulted labs reviewed. FIM Transfers Therapy Code Descriptions/Definitions Functional [place] Measure: 0=Not Assessed/NA 4=Minimal Assistance 1=Total Assistance 5=Supervision or Setup 2=Maximal Assistance 6=Modified [place] 3=Moderate Assistance 7=Complete IndependenceSCALE: Activities may be completed with or without assistive devices. 4-Ducawteegx-opiwfdo completes the activity by him/herself with no assistance from a helper. 5-Set-up or Clean-up Assistance-helper sets up or cleans up; patient completes activity. [place] assists only prior to or following the activity. 4-Supervision or Touching Assistance-helper provides verbal cues and/or touching/steadying and/or contact guard assistance as patient completes activity. Assistance may be provided throughout the activity or intermittently. 3-Partial/Moderate Assistance-helper does LESS THAN HALF the effort. [place] lifts, holds or supports trunk or limbs, but provides less than half the effort. 2-Substantial/Maximal Assistance-helper does MORE THAN HALF the effort. [place] lifts or holds trunk or limbs and provides more than half the effort. 8-Nxavcwgmw-qxomuv does ALL the effort. Patient does none of the effort to complete the activity. Or, the assistance of 2 or more helpers is required for the patient to complete the activity. If activity was not attempted, code reason: 7-Patient Refused. 9-Not Applicable-not attempted and the patient did not perform the activity before the current illness, exacerbation or injury. 10-Not Attempted due to Environmental Limitations-(lack of equipment, weather restraints, etc.). 88-Not Attempted due to Medical Conditions or Safety Concerns. Roll Left to Right (QC): 6 Sit to Lying (QC): 6 Sit to Stand (QC): 4 Chair/Yrx-sq-Ytixu Xfer(QC): 4 Car Transfer (QC): 4 Gait Training Does the Patient Walk?: Yes Distance: 120'x2 Walk 10 feet (QC): 4 Walk 50 ft with 2 Turns(QC): 4 Walk 150 ft (QC): 4 Walking 10ft/uneven surface-QC: 4 Gait Persons Needed: 1 Gait Assistive Device: FWW Wheelchair Training Wheel 50 ft with 2 turns (QC): 9 Wheel 150 ft (QC): 9 Stair Training #of Steps: 12 1 Step (curb) (QC): 4 4 Steps (QC): 4 12 Steps (QC): 4 Balance Picking up an Object (QC): 4 (CGA with washery engineer) ADL-Treatment Eating (QC): 4 (SBA for v/c's d/t worsening vision) Oral Hygiene (QC): 7 Shower/Bathe Self (QC): 4 (Supervision) Upper Body Dressing (QC): 5 (Set up to doff overhead shirt.) Lower Body Dressing (QC): 4 (Supervision in stand.) On/Off Footwear (QC): 3 (Min A with pulling gripper socks up.) Toileting Hygiene (QC): 4 (supervision) Assessment/Plan Assessment and Plan Assess & Plan/Chief Complaint Assessment: CVA Homonymous hemianopsia CAD previous bypass and stents Recent GI bleed 1 year ago Atrial fibrillation Hypertension COPD 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 (1) Acute cerebrovascular accident Assessment & Plan: He continues to work with occupational and physical therapy. His aspirin and clopidogrel have been resumed. These had been discontinued in the past due to severe anemia. He is also on statin medication. His regular acquisition marketing manager plans on some outpatient monitoring to screen for atrial fibrillation. At this point in time, in the absence of any confirmed atrial fibrillation, there is no indication for oral anticoagulant therapy. He should continue on the current antiplatelet therapy. (2) Chronic combined systolic and diastolic congestive heart failure Assessment & Plan: He seems to be about class I at this point in time. He was complaining of dyspnea on 02/08 but today has not been complaining of dyspnea. He does not take a diuretic at home. If his dyspnea persists or worsens, we may want to consider a chest x-ray. His most recent echocardiogram from 09/04/2020 showed an ejection fraction of 45-50% and then a nuclear stress test from 01/02/2021 showed an ejection fraction of 37%. He is on metoprolol succinate and lisinopril. We may want to consider a follow-up assessment of his ejection fraction but this could certainly be done as an outpatient. (3) Coronary artery disease without angina pectoris Assessment & Plan: He is not having any angina at this point in time. Continue aspirin, beta-anup and statin medication. As above, he is also on clopidogrel due to the recent stroke. (4) Primary hypertension Assessment & Plan: Blood pressure is reasonably controlled with the present combination of medications. (5) Mixed hyperlipidemia Assessment & Plan: Continue statin medication. (6) Normocytic anemia Assessment & Plan: His hemoglobin has been stable during this hospitalization. This will need to be monitored intermittently with the resumption of aspirin and clopidogrel. TOY TAPIA DO Feb 11, 2022 06:17
[2022-02-11] MEDS: ACETAMINOPHEN 325 MG TABLET PO PRN (06:19)
[2022-02-11] MEDS: SUCRALFATE 1 GM (CARAFATE) TAB PO SCH ×4 (06:19→19:55)
[2022-02-11 07:59] VITALS: BP 151/71
[2022-02-11] MEDS: KCL 10 MEQ TAB (MICRO K) PO SCH (08:11)
[2022-02-11] MEDS: PANTOPRAZOLE 40 MG (PROTONIX) TAB PO SCH ×2 (08:11→19:55)
[2022-02-11] MEDS: FUROSEMIDE 20 MG (LASIX) TAB PO SCH (08:11)
[2022-02-11] MEDS: CLOPIDOGREL 75 MG (PLAVIX) TABLET PO SCH (08:11)
[2022-02-11] MEDS: lisINopril 20 MG (PRINIVIL) TABLET PO SCH (08:11)
[2022-02-11] MEDS: GABAPENTIN 100 MG (NEURONTIN) CAP PO SCH ×2 (08:12→19:55)
[2022-02-11] MEDS: MELOXICAM 7.5 MG (MOBIC) TABLET PO SCH (08:12)
[2022-02-11] MEDS: amLODIPine 5 MG (NORVASC) TAB PO SCH (08:12)
[2022-02-11] MEDS: meTOproloL SUCCINATE 50 MG (TOPROL XL) TAB PO SCH (08:12)
[2022-02-11] MEDS: ASPIRIN 81 MG CHEW (CHILDREN'S ASA) PO SCH (08:12)
--- NOTE | 2022-02-11 08:40 | Occupational Ther Daily Note ---
OT Current Status-Daily Note Subjective Pt agreeable to OT Tx. ADL-Treatment Therapy Code Descriptions/Definitions Functional [place] Measure: 0=Not Assessed/NA 4=Minimal Assistance 1=Total Assistance 5=Supervision or Setup 2=Maximal Assistance 6=Modified [place] 3=Moderate Assistance 7=Complete IndependenceSCALE: Activities may be completed with or without assistive devices. 4-Kuhrsyqyur-bjbafjz completes the activity by him/herself with no assistance from a helper. 5-Set-up or Clean-up Assistance-helper sets up or cleans up; patient completes activity. [place] assists only prior to or following the activity. 4-Supervision or Touching Assistance-helper provides verbal cues and/or touching/steadying and/or contact guard assistance as patient completes activity. Assistance may be provided throughout the activity or intermittently. 3-Partial/Moderate Assistance-helper does LESS THAN HALF the effort. [place] lifts, holds or supports trunk or limbs, but provides less than half the effort. 2-Substantial/Maximal Assistance-helper does MORE THAN HALF the effort. [place] lifts or holds trunk or limbs and provides more than half the effort. 2-Eaduwvqaq-mczsei does ALL the effort. Patient does none of the effort to complete the activity. Or, the assistance of 2 or more helpers is required for the patient to complete the activity. If activity was not attempted, code reason: 7-Patient Refused. 9-Not Applicable-not attempted and the patient did not perform the activity before the current illness, exacerbation or injury. 10-Not Attempted due to Environmental Limitations-(lack of equipment, weather restraints, etc.). 88-Not Attempted due to Medical Conditions or Safety Concerns. Upper Body Dressing (QC): 5 (set up with overhead shirt.) Lower Body Dressing (QC): 3 (Min A threading feet due to pt threading in wrong hole, pt reports increased difficulty due to vision) Other Treatment Pt at EOB eating breakfast, used SPC to transfer into bathroom and to chair at sink. Pt completed shaving, min A with locating missed section on chin. Pt then completed dressing as outlined above. Pt took medications provided by nursing, then used SPC to perform functional mobility to kitchen area, CGA with cues for direction. Pt took seated rest break, then poured a cup of coffee, pt slow with movements, but able to pour coffee without spilling. Pt returned to his room, SPC CGA, cues to locate room, then transferred to recliner. Post tx, pt in r ecliner, call light in reach and all needs met, chair alarm activated. Education OT Patient Education: Correct positioning, Energy conservation, Modified ADL techniques, Progress toward Goal/Update tx plan, Purpose of tx/functional activities, Rehab process Teaching Recipient: Patient Teaching Methods: Discussion Response to Teaching: Verbalize Understanding OT Short Term Goals Short Term Goals Time Frame: Feb 14, 2022 Shower/bathe self: 5 Lower body dressin Putting on/taking off footwear: 5 OT Sound Ranging Crewmember Goals Sound Ranging Crewmember Goals Time Frame: Mar 07, 2022 Eating (QC): 6 Oral Hygiene (QC): 6 Toileting Hygiene (QC): 6 Shower/Bathe Self (QC): 6 Upper Body Dressing (QC): 6 Lower Body Dressing (QC): 6 On/Off Footwear (QC): 6 Additional Goals: 1-Demonstrate ADL Tasks, 2-Verbalize Understanding, 3- ImproveStrength/Dolly 1=Demonstrate adherence to instructed precautions during ADL tasks. 2=Patient will verbalize/demonstrate understanding of assistive devices/modifications for ADL. 3=Patient will improve strength/tolerance for activity to enable patient to perform ADL's. OT Education/Plan Problem List/Assessment Assessment: Decreased Activ Tolerance, Decreased UE Strength, Impaired Funct Balance, Impaired I ADL's, Impaired Self-Care Skills Discharge Recommendations Plan/Recommendations: Continue POC Treatment Plan/Plan of Care Patient would benefit from OT for education, treatment and training to promote independence in ADL's, mobility, safety and/or upper extremity function for ADL's. Plan of Care: ADL Retraining, Functional Mobility, Group Exercise/Act as Ind, UE Funct Exercise/Act, Visual/Perceptual Retrain Treatment Duration: Mar 07, 2022 Frequency: At least 5 of 7 days/Wk (IRF) Estimated Hrs Per Day: 1.5 hours per day Agreement: Yes Rehab Potential: Fair Time/GCodes Start Time: 07:45 Stop Time: 08:45 Total Time Billed (hr/min): 60 Billed Treatment Time 1, ADL 4 DECLAN ALCANTAR OT Feb 11, 2022 08:40
--- NOTE | 2022-02-11 08:57 | Cardiology Progress Note ---
Subjective Date Seen by Provider: Feb 11, 2022 Time Seen by Provider: 08:52 Subjective/Events-last exam Patient sitting up in chair, no new complaints. Denies any chest pain. Objective-Cardiology Exam Last Set of Vital Signs Vital Signs 02/09/22 02/11/22 02/11/22 09:58 07:59 09:00 Temp 36.0 Pulse 65 Resp 20 B/P (MAP) 151/71 (97) Pulse Ox 95 O2 Delivery Room Air O2 Flow Rate 0.00 General: Alert, Oriented X3, Cooperative HEENT: Atraumatic Lungs: Clear to Auscultation, Normal Air Movement Heart: Regular Rate Abdomen: Normal Bowel Sounds, Soft, No Tenderness Extremities: No Clubbing, No Edema Skin: No Rashes, No Significant Lesion Neuro: Normal Speech Psych/Mental Status: Mental Status NL, Mood NL A/P-Cardiology Admission Diagnosis Acute CVA Palpitation Coronary artery disease Hypertension Assessment/Plan Subacute CVA, MRI suggestive of infarct 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 Patient has history of GI bleed preclude the use of aspirin and Plavix. Currently restarted on aspirin and Plavix and will monitor H&H. Currently on telemetry, no arrhythmia detected so far. I am suspecting underlying atrial fibrillation as a cause of his stroke, s/p Linq implantation done yesterday. Site is C/D/I History of sick sinus syndrome with borderline bradycardia, has been on low-dose beta-blockers and tolerating it well. History of palpitation in the past. Had a Holter monitor done in 2007 showing occasional PVCs and PACs and short run of paroxysmal SVT. No documented atrial fibrillation in the past. Placing him back on telemetry and monitor History of recurrent GI, intolerant to anticoagulation Had work-up in the past for lower GI bleed which was negative. At that time conservative management was recommended Chest pain, patient had history of chronic stable angina. Coronary artery disease, History of CABG 5 done in 1993. Cardiac catheterization was done in 2011 showing severe in-stent restenosis in the ramus intermedius. Underwent balloon angioplasty using 2.7520 mm apex balloon with no residual stenosis. Cardiac catheterization in July 2015 showing patent 3 bypasses, SPEAR to LAD, vein graft to diagonal with severe disease beyond the anastomosis point and vein graft to obtuse marginal, did not change compared to 2012 procedure, had a patent stent in the proximal ramus intermedius with mild disease distally, patent stent in the midright Coronary artery with 60 percent stenosis distal right coronary artery mild disease, medical therapy is recommended. Had NSTEMI on 09.04.21 underwent LHC showing severe [place] coronary artery disease involving the left main, ostial LAD occlusion, occlusion of the ramus intermedius and diffuse moderate disease in the Cx with 90 percent stenosis in the distal RCA, successful stenting fo the RCA, Alpine 3.0 x12mm, severe stenosis in the prox VG to the OM that was 90 percent in stent restenosis with s uccessful balloon angioplasty. Sever mid vessel stenosis to the VG to danny diagonal artery with successful stenting using Alpine 3.0 x23mm. Cardiac catheterization was done on January 30, 2021 showing severe [place] artery disease with patent SPEAR to LAD, vein graft to diagonal. The vein graft to the obtuse marginal branch that had balloon angioplasty in August 2020 became occluded. Failed attempt to intervention. The right coronary artery is dominant with patent stent in the mid right, mild disease distally. Was on aspirin and Plavix, has GI bleed, severe anemia which resolved and discontinuation of the aspirin and Plavix. Currently back on ASA and Plavix, continue to monitor. Echocardiogram done in [facility] on February 06, 2022 showed normal left ventricular size and systolic function, no significant abnormality was noted. Stress test was done on January 18, 2021 and it was abnormal, underwent cardiac catheterization as described above Congestive heart failure, chronic compensated left ventricular systolic dysfunction, improved, last echocardiogram done in July 2018 showing ejection fraction 50-55 percent. Continue to monitor Hypertension, history of dizziness and lightheadedness Continue to monitor blood pressure Hyperlipidemia, monitor lipids Mild bilateral carotid stenoses nonobstructive disease, last ultrasound was done in August 2020 COPD/obstructive sleep apnea using C Pap, does not follow up with panelbeater, I will arrange an appointment with Dr. Chakraborty Degenerative joint disease. Arthritic pain. Supervisory-Addendum Brief Supervisory Addendum Participated in pt care: history, MDM, physical Personally performed: exam, history, MDM Care discussed with: MICHAEL Results interpretation: Verified all documentation Notes: Patient was seen and evaluated with Mary, examination performed, management plan was discussed, agree with the current scribed note, I made few changes to the note using Italic font Patient was seen at bedside, sitting comfortably Feeling better and asking to go home Cardiac status is stable Loop monitor site is healing well Continue to monitor MARY MELARA Feb 11, 2022 08:57 ENZO MACHADO MD Feb 11, 2022 11:40
[2022-02-11] MEDS: SENNA W/DOCUSATE (SENOKOT S) TABLET PO SCH ×2 (09:33→19:24)
[2022-02-11] MEDS: DOCUSATE SODIUM 100 MG (COLACE) CAP PO SCH ×2 (09:33→19:24)
[2022-02-11] MEDS: polyethylene glycoL POWDER 17 GM (MIRALAX) PACK PO SCH ×2 (09:33→19:24)
--- NOTE | 2022-02-11 11:10 | Speech Therapy Daily Note ---
Speech Daily Progress Note Subjective Date Seen by Provider: Feb 11, 2022 Time Seen by Provider: 10:00 The patient was seated upright in his recliner, awake but with an washcloth draped over his eyes and glasses due to light sensitivity. The patient greeted the clinician appropriately and was agreeable to participation in the cognitive linguistic treatment session. Objective The patient initiated the treatment session by letting the clinician know he was discharging on this date. Following a chart review, the clinician stated she did not see documentation of discharge for today's date and from a skilled speech pathology standpoint does not recommend discharge at this time. The patient stated, "I need you to let me out or I am going to let myself out." The clinician provided support and encouragement while providing skilled therapy goals and safety education. The patient stated, "I need to go take care of grandma." The patient refers to his as "grandma" and stated he cares for her medication management and needs to ensure she is taking her medication accurately. Per patient, "her minds not right." The clinician completed discussions of safety precautions following discharge. The patient stated he will return to "dozing" and driving following discharge. The clinician reviewed the patient's vision and he stated, "Yeah, I think I can still do it." The clinician stated she does not recommend controlling the heavy machinery or driving following discharge due to the patient's impaired visual field. The patient reported, "Then grandma can drive me." The patient previously reported his displays cognitive issues, therefore, the clinician is unsure if the patient's is safe to be driving either. Regardless of redirection, the patient continued to request discharge. At this time, the clinician contacted and provided the message to the patient's RN. To be specific, this clinician does not recommend discharge home independently, returning to work to control a piece of heavy machinery, or driving. Assessment Assessment Current Status: Poor Progress Treatment Plan Continue Plan of Care Speech Short Term Goals Short Term Goals Short Term Goals 1. The patient will complete visual scanning activities with 80% accuracy and mild clinician verbal and visual cueing. Time Frame-STG: One Week. Speech Longterm Goals Longterm Goals 1. The patient will demonstrate improved cognitive linguistic skills for safe discharge to the least restrictive environment. Time Frame: Ten Days. Speech-Plan Treatment Plan Speech Therapy Treatment Plan: Continue Plan of Care Treatment Duration: Feb 07, 2022 Frequency: Modified Program (IRF) Estimated Hrs Per Day: Other Rehab Potential: Fair Safety Risks/Education Teaching Recipient: Patient Teaching Methods: Discussion Response to Teaching: Reinforcement Needed Education Topics Provided: Safety Precautions Time Speech Therapy Time In: 10:00 Speech Therapy Time Out: 10:30 Total Billed Time: 30 Billed Treatment Time RayshawnGAVINNELY DIONICIO Mora Feb 11, 2022 11:10
--- NOTE | 2022-02-11 11:43 | Physical Therapy Daily Note ---
PT Daily Note-Current Subjective Patient in recliner pre tx, agrees to PT, has no complaints of pain. Appearance Patient in recliner post tx with nurse call, phone, tray, all needs met, family in room, chair alarm on. Mental Status Patient Orientation: Person, Place, Situation Transfers SCALE: Activities may be completed with or without assistive devices. 7-Synayxdhoi-bhiszoa completes the activity by him/herself with no assistance from a helper. 5-Set-up or Clean-up Assistance-helper sets up or cleans up; patient completes activity. [place] assists only prior to or following the activity. 4-Supervision or Touching Assistance-helper provides verbal cues and/or touching/steadying and/or contact guard assistance as patient completes activity. Assistance may be provided throughout the activity or intermittently. 3-Partial/Moderate Assistance-helper does LESS THAN HALF the effort. [place] lifts, holds or supports trunk or limbs, but provides less than half the effort. 2-Substantial/Maximal Assistance-helper does MORE THAN HALF the effort. [place] lifts or holds trunk or limbs and provides more than half the effort. 5-Vnzhoifdi-jfexvh does ALL the effort. Patient does none of the effort to complete the activity. Or, the assistance of 2 or more helpers is required for the patient to complete the activity. If activity was not attempted, code reason: 7-Patient Refused. 9-Not Applicable-not attempted and the patient did not perform the activity before the current illness, exacerbation or injury. 10-Not Attempted due to Environmental Limitations-(lack of equipment, weather restraints, etc.). 88-Not Attempted due to Medical Conditions or Safety Concerns. Roll Left & Right (QC): 6 Sit to Lying (QC): 6 Lying to Sitting/Side of Bed(Q: 6 Sit to Stand (QC): 4 Chair/Cej-eb-Pnkjf Xfer(QC): 4 Toilet Transfer (QC): 4 Car Transfer (QC): 4 Patient performs rolling and supine <-> sit with independence, sit <-> stand and transfers SBA, car transfer SBA. Patient needs occasional cues for hand placeme nt and safety. Gait Training Distance: 150'x3 Walk 10 feet (QC): 4 Walk 50 ft with 2 Turns(QC): 4 Walk 150 ft (QC): 4 Walking 10ft/uneven surface-QC: 4 Gait Persons Needed: 1 Gait Assistive Device: FWW Patient can ambulate 150' with a rolling walker with SBA (including 50' with at least 2 turns of 90 degrees but needs CGA for 10' over an uneven surface), ambulates very slowly, fatigues after 150' Wheelchair Training Does the Pt Use a Wheelchair?: No Wheel 50 ft with 2 turns (QC): 9 Wheel 150 ft (QC): 9 Stair Training Stair Training: Handrails/: 2 handrails #of Steps: 12 1 Step (curb) (QC): 4 4 Steps (QC): 4 12 Steps (QC): 4 Stairs: Pattern: Reciprocal Patient can go up and down 12 steps using 2 handrails with SBA, cues for safety Balance Picking up an Object (QC): 4 (CGA, without using a special education para professional) Neuromuscular Patient scored a 22/28 on the Tinetti Assessment Tool, moderate risk of falls. Treatments bed mobility and transfers, ambulation, stair training, balance Assessment Current Status: Fair Progress Patient has made progress with functional mobility but still needs somebody with him during ambulation and transfers, he is a moderate fall risk, his vision does seem a little better than yesterday PT Short Term Goals Short Term Goals Time Frame: Feb 13, 2022 Roll Left & Right: 6 Sit to lyin Lying to sitting on side of be: 6 Sit to stand: 4 (SBA) Chair/aks-se-wwcxf transfer: 4 (SBA) Walk 10 feet: 4 (SBA) Walk 50 feet with two turns: 4 (SBA) Walk 150 feet: 4 (SBA) PT Statistics Teacher Goals Statistics Teacher Goals PT Statistics Teacher Goals Time Frame: Feb 27, 2022 Roll Left & Right (QC): 6 Sit to Lying (QC): 6 Lying-Sitting on Side/Bed(QC): 6 Sit to Stand (QC): 5 Chair/Ebv-nw-Imtvv Xfer(QC): 5 Toilet Transfer (QC): 5 Car Transfer (QC): 5 Does the Patient Walk: Yes Walk 10 feet (QC): 5 Walk 50ft with 2 Turns (QC): 5 Walk 150 ft (QC): 5 Walking 10ft on Uneven Surface: 5 1 Step (curb) (QC): 4 (SBA) 4 Steps (QC): 4 (SBA) 12 Steps (QC): 4 (SBA) Picking up an Object (QC): 4 (SBA) Wheel 50 feet with 2 turns (QC: 9 Wheel 150 feet: 9 PT Plan Problem List Problem List: Activity Tolerance, Functional Strength, Safety, Balance, Gait, Transfer, Bed Mobility, ROM Treatment/Plan Treatment Plan: Continue Plan of Care Treatment Plan: Bed Mobility, Education, Functional Activity Dolly, Functional Strength, Group Therapy, Gait, Safety, Therapeutic Exercise, Transfers Treatment Duration: Feb 27, 2022 Frequency: At least 5 of 7 days/Wk (IRF) Estimated Hrs Per Day: 1.5 hours per day Patient and/or Family Agrees t: Yes Safety Risks/Education Patient Education: Gait Training, Transfer Techniques, Steps, Correct Positioning, Safety Issues Teaching Recipient: Patient Teaching Methods: Demonstration, Discussion Response to Teaching: Reinforcement Needed Time/GCodes Time In: 1100 Time Out: 1145 Total Billed Treatment Time: 45 Total Billed Treatment 1 visit FA 45' KYLE HEREDIA PT Feb 11, 2022 11:43
--- NOTE | 2022-02-11 14:54 | Therapy Group Daily Note ---
Therapy Daily Group Note Patient Education Topic Energy Cons, Other List Below (Community Access) Exercises LE Seated Exercise, UE Exercise Session Ratio (pt:therapist): 3:1 Goal of Session: Education on ARU Expectations, Energy Conservation Tech., UE/LE Strengthing Goal Met for this Session: Yes Pt Benefit of Group: Contributions to Others, F/U Use of Strategies @Home, Increased Functional Safety, Increased Functional Strength, Improved Cognition, Recognition of Peers, Socialization Other/Notes Pt ambulated to PT/OT Group using FWW. PT/OT group consisted of introductions (name, place living, favorite restaurant), socialization, B UE/LE seated exercises and educational topics of energy conservation/community access. Pt actively listened to peers and appropriately introduced self. Pt was able to complete B UE/LE seated exercises correctly with skilled instruction. Pt was able to demonstrate understanding of educational topics by giving own personal strategies and routines. After therapy, pt lying in bed with call light/phone in reach. All needs met in room. Start Time: 13:00 Stop Time: 14:00 Total Billed Treatment Time: 60 Total Billed Treatment 1, GRP RELLLAMBERTO MCCLELLAN BUSINESS TECHNOLOGY TEACHER Feb 11, 2022 14:54
[2022-02-11] MEDS: MELATONIN 3 MG TABLET PO PRN (19:55)
[2022-02-11 20:00] VITALS: BP 145/67
[2022-02-11] MEDS: ALPRAZolam 0.25 MG (XANAX) TAB PO PRN (22:34)
[2022-02-12] MEDS: SUCRALFATE 1 GM (CARAFATE) TAB PO SCH ×4 (05:55→20:39)
[2022-02-12] MEDS: ACETAMINOPHEN 325 MG TABLET PO PRN (05:56)
--- NOTE | 2022-02-12 06:19 | PM&R Progress Note ---
Subjective HPI/CC On Admission Date Seen by Provider: Feb 12, 2022 Time Seen by Provider: 08:30 Subjective/Events-last exam 02/12/2022: Pt is doing pretty well Took Xanax last night and that helped him Family training went pretty well Really needs more care but he is insisting on going home tomorrow 02/11/2022: Pt is doing alot better Wants to go home Carafate has really helped the GERD Bowels moved today Had a headache last night 02/10/2022: Pt is doing well Family is here Insomnia is noted Heart rate is 58 on telemetry Bowels moved today Loop recorder will likely be placed 02/09/2022: Doing better Vision loss is profound Dr Anderson ordered Tely Monitor closely 02/08/2022: Patient sleeping well at night Confusion is noted at times Patient patient loss causes increased confusion 02/07/2022: Doing about the same Vision loss is a challenge No falls but he is impulsive Eating well Checked meds and labs Review of Systems General: Fatigue, Malaise Objective Exam Vital Signs Vital Signs Date Time Temp Pulse Resp B/P (MAP) Pulse Ox O2 Delivery O2 Flow Rate FiO2 02/12/22 20:05 36.9 59 20 138/87 (104) 96 Room Air 02/09/22 09:58 0.00 Capillary Refill : General Appearance: No Apparent Distress, WD/WN, Chronically ill HEENT: Normal ENT Inspection, Pharynx Normal, Other (Vision loss lower left bilaterally) Neck: Full Range of Motion, Normal Inspection, Non Tender, Supple, Carotid Bruit Respiratory: Chest Non Tender, Lungs Clear, Normal Breath Sounds, No Accessory Muscle Use, No Respiratory Distress Cardiovascular: Regular Rate, Rhythm, No Edema, No Gallop, No JVD, No Murmur, Normal Peripheral Pulses Gastrointestinal: Normal Bowel Sounds, No Organomegaly, No Pulsatile Mass, Non Tender, Soft Back: Normal Inspection, No CVA Tenderness, No Vertebral Tenderness Extremity: Normal Capillary Refill, Normal Inspection, Normal Range of Motion, Non Tender, No Calf Tenderness, No Pedal Edema Neurologic/Psychiatric: Alert, Oriented x3, Normal Mood/Affect, trading analyst II-XII Norm as Tested, Abnormal Gait, Motor Weakness (Generalized weakness 4/5) Skin: Normal Color, Warm/Dry Lymphatic: No Adenopathy Results/Procedures Lab Patient resulted labs reviewed. FIM Transfers Therapy Code Descriptions/Definitions Functional [place] Measure: 0=Not Assessed/NA 4=Minimal Assistance 1=Total Assistance 5=Supervision or Setup 2=Maximal Assistance 6=Modified [place] 3=Moderate Assistance 7=Complete IndependenceSCALE: Activities may be completed with or without assistive devices. 3-Sgamiaepig-hgutogx completes the activity by him/herself with no assistance from a helper. 5-Set-up or Clean-up Assistance-helper sets up or cleans up; patient completes activity. [place] assists only prior to or following the activity. 4-Supervision or Touching Assistance-helper provides verbal cues and/or touching/steadying and/or contact guard assistance as patient completes activity. Assistance may be provided throughout the activity or intermittently. 3-Partial/Moderate Assistance-helper does LESS THAN HALF the effort. [place] lifts, holds or supports trunk or limbs, but provides less than half the effort. 2-Substantial/Maximal Assistance-helper does MORE THAN HALF the effort. [place] lifts or holds trunk or limbs and provides more than half the effort. 5-Genqmlszb-meecxp does ALL the effort. Patient does none of the effort to complete the activity. Or, the assistance of 2 or more helpers is required for the patient to complete the activity. If activity was not attempted, code reason: 7-Patient Refused. 9-Not Applicable-not attempted and the patient did not perform the activity before the current illness, exacerbation or injury. 10-Not Attempted due to Environmental Limitations-(lack of equipment, weather restraints, etc.). 88-Not Attempted due to Medical Conditions or Safety Concerns. Roll Left to Right (QC): 6 Sit to Lying (QC): 6 Sit to Stand (QC): 4 Chair/Jbw-ax-Exioi Xfer(QC): 4 Car Transfer (QC): 4 Gait Training Does the Patient Walk?: Yes Distance: 150'x3 Walk 10 feet (QC): 4 Walk 50 ft with 2 Turns(QC): 4 Walk 150 ft (QC): 4 Walking 10ft/uneven surface-QC: 4 Gait Persons Needed: 1 Gait Assistive Device: FWW Wheelchair Training Does the Pt Use a Wheelchair?: No Wheel 50 ft with 2 turns (QC): 9 Wheel 150 ft (QC): 9 Type of Wheelchair: N/A Stair Training Stair Training: Handrails/: 2 handrails #of Steps: 12 1 Step (curb) (QC): 4 4 Steps (QC): 4 12 Steps (QC): 4 Stairs: Pattern: Reciprocal Balance Picking up an Object (QC): 4 (CGA, without using a critical care educator) ADL-Treatment Eating (QC): 4 (SBA for v/c's d/t worsening vision) Oral Hygiene (QC): 7 Shower/Bathe Self (QC): 4 (Supervision) Upper Body Dressing (QC): 5 (set up with overhead shirt.) Lower Body Dressing (QC): 3 (Min A threading feet due to pt threading in wrong hole, pt reports increased difficulty due to vision) On/Off Footwear (QC): 3 (Min A with pulling gripper socks up.) Toileting Hygiene (QC): 4 (supervision) Assessment/Plan Assessment and Plan Assess & Plan/Chief Complaint Assessment: CVA Homonymous hemianopsia CAD previous bypass and stents Recent GI bleed 1 year ago Atrial fibrillation Hypertension COPD 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 02/12/2022: Discharge plan for tomorrow (1) Acute cerebrovascular accident Assessment & Plan: He continues to work with occupational and physical therapy. His aspirin and clopidogrel have been resumed. These had been discontinued in the past due to severe anemia. He is also on statin medication. His regular ballistics expert plans on some outpatient monitoring to screen for atrial fibrillation. At this point in time, in the absence of any confirmed atrial fibrillation, there is no indication for oral anticoagulant therapy. He should continue on the current antiplatelet therapy. (2) Chronic combined systolic and diastolic congestive heart failure Assessment & Plan: He seems to be about class I at this point in time. He was complaining of dyspnea on 02/08 but today has not been complaining of dyspnea. He does not take a diuretic at home. If his dyspnea persists or worsens, we may want to consider a chest x-ray. His most recent echocardiogram from 09/04/2020 showed an ejection fraction of 45-50% and then a nuclear stress test from 01/02/2021 showed an ejection fraction of 37%. He is on metoprolol succinate and lisinopril. We may want to consider a follow-up assessment of his ejection fraction but this could certainly be done as an outpatient. (3) Coronary artery disease without angina pectoris Assessment & Plan: He is not having any angina at this point in time. Continue aspirin, beta-anup and statin medication. As above, he is also on clopidogrel due to the recent stroke. (4) Primary hypertension Assessment & Plan: Blood pressure is reasonably controlled with the present combination of medications. (5) Mixed hyperlipidemia Assessment & Plan: Continue statin medication. (6) Normocytic anemia Assessment & Plan: His hemoglobin has been stable during this hospitalization. This will need to be monitored intermittently with the resumption of aspirin and clopidogrel. TOY TAPIA DO Feb 12, 2022 06:19
[2022-02-12 07:46] VITALS: BP 126/65
[2022-02-12] MEDS: lisINopril 20 MG (PRINIVIL) TABLET PO SCH (08:24)
[2022-02-12] MEDS: meTOproloL SUCCINATE 50 MG (TOPROL XL) TAB PO SCH (08:24)
[2022-02-12] MEDS: FUROSEMIDE 20 MG (LASIX) TAB PO SCH (08:24)
[2022-02-12] MEDS: GABAPENTIN 100 MG (NEURONTIN) CAP PO SCH ×2 (08:24→20:39)
[2022-02-12] MEDS: CLOPIDOGREL 75 MG (PLAVIX) TABLET PO SCH (08:24)
[2022-02-12] MEDS: PANTOPRAZOLE 40 MG (PROTONIX) TAB PO SCH ×2 (08:24→20:38)
[2022-02-12] MEDS: amLODIPine 5 MG (NORVASC) TAB PO SCH (08:25)
[2022-02-12] MEDS: ASPIRIN 81 MG CHEW (CHILDREN'S ASA) PO SCH (08:25)
[2022-02-12] MEDS: MELOXICAM 7.5 MG (MOBIC) TABLET PO SCH (08:25)
[2022-02-12] MEDS: KCL 10 MEQ TAB (MICRO K) PO SCH (08:25)
[2022-02-12] MEDS: DOCUSATE SODIUM 100 MG (COLACE) CAP PO SCH ×2 (08:25→20:45)
[2022-02-12] MEDS: SENNA W/DOCUSATE (SENOKOT S) TABLET PO SCH ×2 (09:00→20:45)
[2022-02-12] MEDS: polyethylene glycoL POWDER 17 GM (MIRALAX) PACK PO SCH ×2 (09:00→20:45)
--- NOTE | 2022-02-12 09:10 | Cardiology Progress Note ---
Subjective Date Seen by Provider: Feb 12, 2022 Time Seen by Provider: 08:20 Subjective/Events-last exam Patient is sitting up in bed, denies any chest pain or dyspnea. Asking to go home. Objective-Cardiology Exam Last Set of Vital Signs Vital Signs 02/09/22 02/12/22 02/12/22 09:58 07:46 09:08 Temp 36.8 Pulse 74 Resp 18 B/P (MAP) 126/65 (85) Pulse Ox 98 O2 Delivery Room Air O2 Flow Rate 0.00 General: Alert, Oriented X3, Cooperative HEENT: Atraumatic Lungs: Clear to Auscultation, Normal Air Movement Heart: Regular Rate Abdomen: Normal Bowel Sounds, Soft, No Tenderness Extremities: No Clubbing, No Edema Skin: No Rashes, No Significant Lesion Neuro: Normal Speech Psych/Mental Status: Mental Status NL, Mood NL A/P-Cardiology Admission Diagnosis Acute CVA Palpitation Coronary artery disease Hypertension Assessment/Plan Subacute CVA, MRI suggestive of infarct 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 Patient has history of GI bleed preclude the use of aspirin and Plavix. Currently restarted on aspirin and Plavix and will monitor H&H. Currently on telemetry, no arrhythmia detected so far. I am suspecting underlying atrial fibrillation as a cause of his stroke, s/p Linq implantation done yesterday. Site is C/D/I History of sick sinus syndrome with borderline bradycardia, has been on low-dose beta-blockers and tolerating it well. History of palpitation in the past. Had a Holter monitor done in 2007 showing occasional PVCs and PACs and short run of paroxysmal SVT. No documented atrial fibrillation in the past. s/p LINq implantation for further monitoring. History of recurrent GI, intolerant to anticoagulation Had work-up in the past for lower GI bleed which was negative. At that time conservative management was recommended Chest pain, patient had history of chronic stable angina. Coronary artery disease, History of CABG 5 done in 1993. Cardiac catheterization was done in 2011 showing severe in-stent restenosis in the ramus intermedius. Underwent balloon angioplasty using 2.7520 mm apex balloon with no residual stenosis. Cardiac catheterization in July 2015 showing patent 3 bypasses, SPEAR to LAD, vein graft to diagonal with severe disease beyond the anastomosis point and vein graft to obtuse marginal, did not change compared to 2012 procedure, had a patent stent in the proximal ramus intermedius with mild disease distally, p atent stent in the midright Coronary artery with 60 percent stenosis distal right coronary artery mild disease, medical therapy is recommended. Had NSTEMI on 09.04.21 underwent LHC showing severe upper [place] coronary artery disease involving the left main, ostial LAD occlusion, occlusion of the ramus intermedius and diffuse moderate disease in the Cx with 90 percent stenosis in the distal RCA, successful stenting fo the RCA, Alpine 3.0 x12mm, severe stenosis in the prox VG to the OM that was 90 percent in stent restenosis with successful balloon angioplasty. Sever mid vessel stenosis to the VG to danny diagonal artery with successful stenting using Alpine 3.0 x23mm. Cardiac catheterization was done on January 30, 2021 showing severe upper sioux artery disease with patent SPEAR to LAD, vein graft to diagonal. The vein graft to the obtuse marginal branch that had balloon angioplasty in August 2020 became occluded. Failed attempt to intervention. The right coronary artery is dominant with patent stent in the mid right, mild disease distally. Was on aspirin and Plavix, has GI bleed, severe anemia which resolved and discontinuation of the aspirin and Plavix. Currently back on ASA and Plavix, continue to monitor. Echocardiogram done in [facility] on February 06, 2022 showed normal left ventricular size and systolic function, no significant abnormality was noted. Stress test was done on January 18, 2021 and it was abnormal, underwent cardiac catheterization as described above Congestive heart failure, chronic compensated left ventricular systolic dysfunction, improved, last echocardiogram done in July 2018 showing ejection fraction 50-55 percent. Continue to monitor Hypertension, history of dizziness and lightheadedness Continue to monitor blood pressure Hyperlipidemia, monitor lipids Mild bilateral carotid stenoses nonobstructive disease, last ultrasound was done in August 2020 COPD/obstructive sleep apnea using C Pap Degenerative joint disease. Arthritic pain. Supervisory-Addendum Brief Supervisory Addendum Participated in pt care: history, MDM, physical Personally performed: exam, history, MDM Care discussed with: MICHAEL Results interpretation: Verified all documentation Notes: Patient was seen and evaluated with Mary, examination performed, management plan was discussed, agree with the current scribed note, I made few changes to the note using Italic font Patient was seen at bedside, laying down comfortably, denied any chest pain Loop monitor implanted on February 11, 2022 Possible discharge tomorrow. MARY MELARA Feb 12, 2022 09:10 ENZO MACHADO MD Feb 12, 2022 13:43
--- NOTE | 2022-02-12 10:03 | Occupational Ther Daily Note ---
OT Current Status-Daily Note Subjective Pt agreeable to Cotreatment with focus on family training. Pt wants to discharge home. ADL-Treatment Therapy Code Descriptions/Definitions Functional [place] Measure: 0=Not Assessed/NA 4=Minimal Assistance 1=Total Assistance 5=Supervision or Setup 2=Maximal Assistance 6=Modified [place] 3=Moderate Assistance 7=Complete IndependenceSCALE: Activities may be completed with or without assistive devices. 5-Wzcbqzslpi-bnvtifx completes the activity by him/herself with no assistance from a helper. 5-Set-up or Clean-up Assistance-helper sets up or cleans up; patient completes activity. [place] assists only prior to or following the activity. 4-Supervision or Touching Assistance-helper provides verbal cues and/or touching/steadying and/or contact guard assistance as patient completes activity. Assistance may be provided throughout the activity or intermittently. 3-Partial/Moderate Assistance-helper does LESS THAN HALF the effort. [place] lif ts, holds or supports trunk or limbs, but provides less than half the effort. 2-Substantial/Maximal Assistance-helper does MORE THAN HALF the effort. [place] lifts or holds trunk or limbs and provides more than half the effort. 5-Sdihsopby-ccerqn does ALL the effort. Patient does none of the effort to complete the activity. Or, the assistance of 2 or more helpers is required for the patient to complete the activity. If activity was not attempted, code reason: 7-Patient Refused. 9-Not Applicable-not attempted and the patient did not perform the activity before the current illness, exacerbation or injury. 10-Not Attempted due to Environmental Limitations-(lack of equipment, weather restraints, etc.). 88-Not Attempted due to Medical Conditions or Safety Concerns. Eating (QC): 6 (IND with lunch) Oral Hygiene (QC): 4 (Supervsion) Shower/Bathe Self (QC): 5 (set up to cover dressing) Upper Body Dressing (QC): 6 Lower Body Dressing (QC): 6 On/Off Footwear: 6 (IND donning/doffing gripper socks.) Toileting Hygiene (QC): 6 (IND with clothing management and hygiene.) Other Treatment [id number]: OT/PT cotreat due to skill of 2 clinicians required which a rehab director could not perform in order to increase strength, activity tolerance, dynamic standing balance, visual attention to environment, and due to pt's limitations in strength, activity tolerance, and vision deficits. OT focused on UE placement, gross overall movement, ADLs, PT focused on LE placement, gross overall movements, transfers and mobility. Pt completed bathing and dressing tasks in his room, then family arrived for family training. Family education provided on cues for vision deficits and assistance level with showering/dressing, then education provided on assistance with functional mobility/transfers. Pt returned to his room to recliner. Post tx, pt in recliner, call light in reach and all needs met, chair alarm activated. [id number]: OT tx with focus on assessing feeding with vision deficits. Pt able to scan tray in order to locate all food, he used utensils to cut salmon, and he opened Sprite and various containers independently. Post tx, pt in recliner, call light in reach and all needs met, chair alarm activated. Education OT Patient Education: Correct positioning, Energy conservation, Modified ADL techniques, Progress toward Goal/Update tx plan, Purpose of tx/functional activities, Rehab process Teaching Recipient: Patient Teaching Methods: Discussion Response to Teaching: Verbalize Understanding OT Short Term Goals Short Term Goals Time Frame: Feb 14, 2022 Shower/bathe self: 5 Lower body dressin Putting on/taking off footwear: 5 OT Ocularist Goals Ocularist Goals Time Frame: Mar 07, 2022 Eating (QC): 6 Oral Hygiene (QC): 6 Toileting Hygiene (QC): 6 Shower/Bathe Self (QC): 6 Upper Body Dressing (QC): 6 Lower Body Dressing (QC): 6 On/Off Footwear (QC): 6 Additional Goals: 1-Demonstrate ADL Tasks, 2-Verbalize Understanding, 3- ImproveStrength/Dolly 1=Demonstrate adherence to instructed precautions during ADL tasks. 2=Patient will verbalize/demonstrate understanding of assistive devic es/modifications for ADL. 3=Patient will improve strength/tolerance for activity to enable patient to perform ADL's. OT Education/Plan Problem List/Assessment Assessment: Decreased Activ Tolerance, Decreased UE Strength Discharge Recommendations Plan/Recommendations: Continue POC Treatment Plan/Plan of Care Patient would benefit from OT for education, treatment and training to promote independence in ADL's, mobility, safety and/or upper extremity function for ADL's. Plan of Care: ADL Retraining, Functional Mobility, Group Exercise/Act as Ind, UE Funct Exercise/Act, Visual/Perceptual Retrain Treatment Duration: Mar 07, 2022 Frequency: At least 5 of 7 days/Wk (IRF) Estimated Hrs Per Day: 1.5 hours per day Agreement: Yes Rehab Potential: Fair Time/GCodes Start Time: 09:00 ([id number]) Stop Time: 12:25 ([id number]) Total Time Billed (hr/min): 75 Billed Treatment Time [id number]: cotreat x60' - family training 1, ADL 2 (30'), FA 2 (30') [id number] 1, ADL DECLAN ALCANTAR OT Feb 12, 2022 10:03
--- NOTE | 2022-02-12 10:06 | Physical Therapy Daily Note ---
PT Daily Note-Current Subjective Pt. agrees to PT OT co Rx and family education Rx. Pt. asks 6 times about when he is going home. Pts family present and supportive. Pt. states he is seeing better all along and this has helped his balance a great deal Pain Location: No Pain Reported Mental Status Patient Orientation: Normal For Age Transfers SCALE: Activities may be completed with or without assistive devices. 5-Zwrdbhdeuu-vdljptm completes the activity by him/herself with no assistance from a helper. 5-Set-up or Clean-up Assistance-helper sets up or cleans up; patient completes activity. [place] assists only prior to or following the activity. 4-Supervision or Touching Assistance-helper provides verbal cues and/or touching/steadying and/or contact guard assistance as patient completes activity. Assistance may be provided throughout the activity or intermittently. 3-Partial/Moderate Assistance-helper does LESS THAN HALF the effort. [place] lifts, holds or supports trunk or limbs, but provides less than half the effort. 2-Substantial/Maximal Assistance-helper does MORE THAN HALF the effort. [place] lifts or holds trunk or limbs and provides more than half the effort. 3-Jhyzwwkuu-xyqzut does ALL the effort. Patient does none of the effort to complete the activity. Or, the assistance of 2 or more helpers is required for the patient to complete the activity. If activity was not attempted, code reason: 7-Patient Refused. 9-Not Applicable-not attempted and the patient did not perform the activity before the current illness, exacerbation or injury. 10-Not Attempted due to Environmental Limitations-(lack of equipment, weather restraints, etc.). 88-Not Attempted due to Medical Conditions or Safety Concerns. Sit to Stand (QC): 6 Chair/Jky-bt-Xoebc Xfer(QC): 6 Toilet Transfer (QC): 6 Car Transfer (QC): 6 Gait Training Does the Patient Walk?: Yes Walk 10 feet (QC): 4 Walk 50 ft with 2 Turns(QC): 4 Walk 150 ft (QC): 4 Gait Persons Needed: 1 Gait Assistive Device: Cane Single Point pt. walks slowly, needs directed toward destination secondary to decreased vision , uneven step length at times, good use of cane, good sequence Neuromuscular 360 drg turns left and right no LOB, side step left and right and retro no LOB 10 ft ea. Treatments co Rx for showering and dressing, gait , car TRF, balance challenges etc. Pt. has ramp to use at home as well as walker and cane. Family training scheduled for PT OT to jointly educate and demonstrate for family. Family demonstrates good knowledge of pt. and his needs and how they can assist Assessment Current Status: Good Progress PT Short Term Goals Short Term Goals Time Frame: Feb 13, 2022 Roll Left & Right: 6 Sit to lyin Lying to sitting on side of be: 6 Sit to stand: 4 (SBA) Chair/prv-eg-cdkjf transfer: 4 (SBA) Walk 10 feet: 4 (SBA) Walk 50 feet with two turns: 4 (SBA) Walk 150 feet: 4 (SBA) PT Halfway Goals Halfway Goals PT Quality Specialist Goals Time Frame: Feb 27, 2022 Roll Left & Right (QC): 6 Sit to Lying (QC): 6 Lying-Sitting on Side/Bed(QC): 6 Sit to Stand (QC): 5 Chair/Snk-tk-Rgaps Xfer(QC): 5 Toilet Transfer (QC): 5 Car Transfer (QC): 5 Does the Patient Walk: Yes Walk 10 feet (QC): 5 Walk 50ft with 2 Turns (QC): 5 Walk 150 ft (QC): 5 Walking 10ft on Uneven Surface: 5 1 Step (curb) (QC): 4 (SBA) 4 Steps (QC): 4 (SBA) 12 Steps (QC): 4 (SBA) Picking up an Object (QC): 4 (SBA) Wheel 50 feet with 2 turns (QC: 9 Wheel 150 feet: 9 PT Plan Treatment/Plan Treatment Plan: Continue Plan of Care Treatment Plan: Bed Mobility, Education, Functional Activity Dolly, Functional Strength, Group Therapy, Gait, Safety, Therapeutic Exercise, Transfers Treatment Duration: Feb 27, 2022 Frequency: At least 5 of 7 days/Wk (IRF) Estimated Hrs Per Day: 1.5 hours per day Patient and/or Family Agrees t: Yes Safety Risks/Education Patient Education: Gait Training, Transfer Techniques, Correct Positioning, Safety Issues Teaching Recipient: Patient, Family Teaching Methods: Demonstration, Discussion Response to Teaching: Verbalize Understanding, Return Demonstration, Reinforcement Needed Time/GCodes Time In: 900 Time Out: 1000 Total Billed Treatment Time: 60 Total Billed Treatment 1,FA30m,GT15m,NM15m JAYDEN HUNTLEY FOCUSED FACTORY MANAGER Feb 12, 2022 10:06
--- NOTE | 2022-02-12 10:34 | Speech Therapy Daily Note ---
Speech Daily Progress Note Subjective Date Seen by Provider: Feb 12, 2022 Time Seen by Provider: 10:00 The patient was seated upright in his recliner, awake and alert upon entrance to the patient's room. The patient has his and a family friend present at bedside. Objective - Orientation: The patient was independently oriented to self, location, month, day of the week, and year. The patient stated the date was the . - Visual Scanning: The patient was provided TV channels and was asked to locate the channel name on a TV channel list. The numbers were in columns on the left and right side of the page. The patient completed the exercise with 100% accuracy, independently. Per patient, "I just need to get my head to stop bobbing." The clinician reviewed her recommendation to cease driving (cars and bulldozers) at this time. The clinician highly recommends an eye exam prior to re- establishing driving and word privileges. The patient stated, "I won't do it until I am ready." The patient does not appear aware of the safety precautions consistently reviewed by this clinician. Expression of Ideas/Wants: (4) Understanding Verbal Content: Usually Understands (3) (The patient's hearing status may negatively impact comprehension.) Brief Interview-Mental Status: Yes Repetition of Three Words: Three (3) Temporal Orientation: Year: Correct (3) Temporal Orientation: Month: Accurate within 5 days(2) Temporal Orientation: Day: Correct (1) Recall : Wear to say "Sock": Yes, no cue required (2) Recall : Color: Yes, no cue required (2) Recall : Bed: (0) No, after cueing. Memory/Recall Ability: Current season, That he or she is in a hsp/hsp unit, room number, staff names. Assessment Assessment Current Status: Fair Progress Treatment Plan Continue Plan of Care Speech Short Term Goals Short Term Goals Short Term Goals 1. The patient will complete visual scanning activities with 80% accuracy and mild clinician verbal and visual cueing. Time Frame-STG: One Week. Speech Rail Director Goals Rail Director Goals 1. The patient will demonstrate improved cognitive linguistic skills for safe discharge to the least restrictive environment. Time Frame: Ten Days. Speech-Plan Treatment Plan Speech Therapy Treatment Plan: Discontinue ST Treatment Duration: Feb 07, 2022 Frequency: Modified Program (IRF) Estimated Hrs Per Day: Other Rehab Potential: Fair Safety Risks/Education Teaching Recipient: Patient, Significant Other, Friend Teaching Methods: Discussion Response to Teaching: Reinforcement Needed Education Topics Provided: Safety Precautions Time Speech Therapy Time In: 10:00 Speech Therapy Time Out: 10:30 Total Billed Time: 30 Billed Treatment Time LIZZIE Tabares [facility] Feb 12, 2022 10:34
--- NOTE | 2022-02-12 10:36 | Therapy Team Discharge Summary ---
Therapy Discharge Summary Discharge Recommendations Date of Discharge Physical Therapy Roll Left to Right (QC): 6 Sit to Lying (QC): 6 Lying to Sitting/Side of Bed(Q: 6 Sit to Stand (QC): 6 Chair/Gxo-fr-Leqdd Xfer(QC): 6 Toilet Transfer (QC): 6 Car Transfer (QC): 6 Does the Patient Walk: Yes Mode of Locomotion: Walk Anticipated Mode of Locomotion: Walk Walk 10 feet (QC): 4 Walk 50 ft with 2 Turns(QC): 4 Walk 150 ft (QC): 4 Walking 10ft on uneven surface: 4 Distance: 150', 120'x2 Gait Assistive Device: Cane Single Point Does the Pt Use a Wheelchair: No Wheel 50 ft with 2 turns (QC): 9 Wheel 150 ft (QC): 9 Type of Wheelchair: N/A #of Steps: 12 1 Step (curb) (QC): 4 4 Steps (QC): 4 12 Steps (QC): 4 Balance Sitting Static: Normal Balance Sitting Dynamic: Normal Balance-Standing Static: Fair Picking up an Object (QC): 4 (CGA, without using a brake machine operator) Occupational Therapy Decreased Activ Tolerance, Decreased UE Strength Eating (QC): 4 (SBA for v/c's d/t worsening vision) Oral Hygiene (QC): 4 (Supervsion) Shower/Bathe Self (QC): 5 (set up to cover dressing) Upper Body Dressing (QC): 6 Lower Body Dressing (QC): 6 On/Off Footwear (QC): 6 (IND donning/doffing gripper socks.) Toileting Hygiene (QC): 6 (IND with clothing management and hygiene.) Speech-Language Pathology Expression of Ideas/Wants: (4) Understanding Verbal Content: Usually Understands (3) (The patient's hearing status may negatively impact comprehension.) Brief Interview-Mental Status: Yes Repetition of Three Words: Three (3) Temporal Orientation: Year: Correct (3) Temporal Orientation: Month: Accurate within 5 days(2) Temporal Orientation: Day: Correct (1) Recall : Wear to say "Sock": Yes, no cue required (2) Recall : Color: Yes, no cue required (2) Recall : Bed: (0) No, after cueing. Memory/Recall Ability: Current season, That he or she is in a hsp/hsp unit, room number, staff names. PT Senior Care Goals Shotgun Shell Assembly Machine Adjuster Goals PT Shotgun Shell Assembly Machine Adjuster Goals Time Frame: Feb 27, 2022 Roll Left to Right (QC): 6 Sit to Lying (QC): 6 Lying-Sitting on Side/Bed(QC): 6 Sit to Stand (QC): 5 Chair/Vpc-rv-Wrzel Xfer(QC): 5 Car Transfer (QC): 5 Does the Patient Walk: Yes Walk 10 feet (QC): 5 Walk 10ft-Uneven Surface(QC): 5 Walk 50ft with 2 Turns (QC): 5 Walk 150 ft (QC): 5 Wheel 50 feet with 2 turns (QC: 9 1 Step (curb) (QC): 4 (SBA) 4 Steps (QC): 4 (SBA) 12 Steps (QC): 4 (SBA) Picking up an Object (QC): 4 (SBA) OT Shotgun Shell Assembly Machine Adjuster Goals Shotgun Shell Assembly Machine Adjuster Goals Time Frame: Mar 07, 2022 Eating (FIM): 6 Eating (QC): 6 Oral Hygiene (QC): 6 Shower/Bathe Self (QC): 6 Upper Body Dressing (QC): 6 Lower Body Dressing (QC): 6 On/Off Footwear (QC): 6 Toileting Hygiene (QC): 6 Toilet/Commode Transfer (QC): 5 Additional Goals: 1-Demonstrate ADL Tasks, 2-Verbalize Understanding, 3- ImproveStrength/Dolly 1=Demonstrate adherence to instructed precautions during ADL tasks. 2=Patient will verbalize/demonstrate understanding of assistive devices/modifications for ADL. 3=Patient will improve strength/tolerance for activity to enable patient to perform ADL's. Speech Senior Care Goals Shotgun Shell Assembly Machine Adjuster Goals 1. The patient will demonstrate improved cognitive linguistic skills for safe discharge to the least restrictive environment. NOT MET Expression of Ideas/Wants: (4) Understanding Verbal Content: Usually Understands (3) (The patient's hearing status may negatively impact comprehension.) Brief Interview-Mental Status: Yes Repetition of Three Words: Three (3) Temporal Orientation: Year: Correct (3) Temporal Orientation: Month: Accurate within 5 days(2) Temporal Orientation: Day: Correct (1) Recall : Wear to say "Sock": Yes, no cue required (2) Recall : Color: Yes, no cue required (2) Recall : Bed: (0) No, after cueing. Memory/Recall Ability: Current season, That he or she is in a hsp/hsp unit, room number, staff names. Time Frame: Ten Days. DIONICIO SAMUELS Feb 12, 2022 10:36
[2022-02-12] MEDS ORDERED: ONDA4TAB11 PO (11:33)
[2022-02-12] MEDS ORDERED: SUCR1TAB PO (11:33)
[2022-02-12] MEDS ORDERED: PANT40TA52 PO (11:33)
--- NOTE | 2022-02-12 11:36 | D/C HH Face to Face Order ---
D/C Face to Face Orders Reconcile Patient Problems Problems Reviewed?: Yes Instructions for Patient Integrity Patient Instructions/FollowUp: PCP Dr Martinez Physician to follow Patient: Michelle Discharge Diet for Home: No Restrictions Patient Problems: CVA Patient Data-Allergies,Ht & Wt Patient Allergies: Coded Allergies: penicillin G (Verified Allergy, Unknown, 08/11/05) Uncoded Allergies: IV CONTRAST (Allergy, Intermediate, 07/23/15) Height (Feet): 5 Height (Inches): 8.00 Weight (Pounds): 166 Weight (Ounces): 0.0 Home Health Need/Face to Face Date of Face to Face: Feb 12, 2022 Clinical Findings: Muscle weakness, Unsteady gait I have seen Pt unil-rs-xngy: Yes Discharged To: Home Diagnosis/Conditions: CVA Patient is Homebound due to: Muscle weakness, Shortness of breath/distress Homebound Status Due to the above stated illness, injury or surgical procedure (medical condition or diagnosis) and associated clinical findings, the patient is homebound because of his/her inability to leave home except with aid of a suppor tive device and/or person AND leaving the home requires a considerable and taxing effort or is medically contraindicated. Pt req the following assistanc: Walker Home Health Nursing Orders Home Health Services Order: Nursing Services, Furs Salesperson-Evaluate & Treat, Physical Therapy-Evaluate & Treat Certify Stmt I certify that this patient is under my care and that I, a nurse practitioner or a physician; a assistant spa manager working with me, had a face to face encounter that - meets the physician face to face encounter requirements with this patient as dated. TOY TAPIA DO Feb 12, 2022 11:35
--- NOTE | 2022-02-12 13:56 | Physical Therapy Daily Note ---
PT Daily Note-Current Subjective Patient in recliner pre tx, agrees to PT, has no complaints of pain. Appearance Patient in restroom on toilet post tx, states will use nurse call when done. Mental Status Patient Orientation: Person, Place, Situation Transfers SCALE: Activities may be completed with or without assistive devices. 3-Bxqqgqjkyj-biytuvs completes the activity by him/herself with no assistance from a helper. 5-Set-up or Clean-up Assistance-helper sets up or cleans up; patient completes activity. [place] assists only prior to or following the activity. 4-Supervision or Touching Assistance-helper provides verbal cues and/or touching/steadying and/or contact guard assistance as patient completes activity. Assistance may be provided throughout the activity or intermittently. 3-Partial/Moderate Assistance-helper does LESS THAN HALF the effort. [place] lifts, holds or supports trunk or limbs, but provides less than half the effort. 2-Substantial/Maximal Assistance-helper does MORE THAN HALF the effort. [place] lifts or holds trunk or limbs and provides more than half the effort. 4-Kuycfaduc-tabrbl does ALL the effort. Patient does none of the effort to complete the activity. Or, the assistance of 2 or more helpers is required for the patient to complete the activity. If activity was not attempted, code reason: 7-Patient Refused. 9-Not Applicable-not attempted and the patient did not perform the activity before the current illness, exacerbation or injury. 10-Not Attempted due to Environmental Limitations-(lack of equipment, weather restraints, etc.). 88-Not Attempted due to Medical Conditions or Safety Concerns. Sit to Stand (QC): 4 Chair/Mdj-wp-Kphcy Xfer(QC): 4 Gait Training Distance: 450' Walk 10 feet (QC): 4 Walk 50 ft with 2 Turns(QC): 4 Walk 150 ft (QC): 4 Gait Persons Needed: 1 Gait Assistive Device: Cane Single Point Patient needs steadying assist during ambulation, recommend using a rolling walker for stability. 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 He really just needs to use a walker though. PT Short Term Goals Short Term Goals Time Frame: Feb 13, 2022 Roll Left & Right: 6 Sit to lyin Lying to sitting on side of be: 6 Sit to stand: 4 (SBA) Chair/plm-nb-tpgfi transfer: 4 (SBA) Walk 10 feet: 4 (SBA) Walk 50 feet with two turns: 4 (SBA) Walk 150 feet: 4 (SBA) PT Ammonia Refrigeration Technician Goals Retirement Goals PT Retirement Goals Time Frame: Feb 27, 2022 Roll Left & Right (QC): 6 Sit to Lying (QC): 6 Lying-Sitting on Side/Bed(QC): 6 Sit to Stand (QC): 5 Chair/Bjp-lh-Hnrjw Xfer(QC): 5 Toilet Transfer (QC): 5 Car Transfer (QC): 5 Does the Patient Walk: Yes Walk 10 feet (QC): 5 Walk 50ft with 2 Turns (QC): 5 Walk 150 ft (QC): 5 Walking 10ft on Uneven Surface: 5 1 Step (curb) (QC): 4 (SBA) 4 Steps (QC): 4 (SBA) 12 Steps (QC): 4 (SBA) Picking up an Object (QC): 4 (SBA) Wheel 50 feet with 2 turns (QC: 9 Wheel 150 feet: 9 PT Plan Problem List Problem List: Activity Tolerance, Functional Strength, Safety, Balance, Gait, Transfer, Bed Mobility, ROM Treatment/Plan Treatment Plan: Continue Plan of Care Treatment Plan: Bed Mobility, Education, Functional Activity Dolly, Functional Strength, Group Therapy, Gait, Safety, Therapeutic Exercise, Transfers Treatment Duration: Feb 27, 2022 Frequency: At least 5 of 7 days/Wk (IRF) Estimated Hrs Per Day: 1.5 hours per day Patient and/or Family Agrees t: Yes Safety Risks/Education Patient Education: Gait Training, Transfer Techniques, Correct Positioning, Safety Issues Teaching Recipient: Patient Teaching Methods: Demonstration, Discussion Response to Teaching: Reinforcement Needed Time/GCodes Time In: 1335 Time Out: 1350 Total Billed Treatment Time: 15 Total Billed Treatment 1 visit FA 15' KYLE HEREDIA PT Feb 12, 2022 13:56
[2022-02-12 20:05] VITALS: BP 138/87
[2022-02-12] MEDS: ALPRAZolam 0.25 MG (XANAX) TAB PO PRN (20:39)
[2022-02-12] MEDS: MELATONIN 3 MG TABLET PO PRN (20:39)
[2022-02-13] MEDS: SUCRALFATE 1 GM (CARAFATE) TAB PO SCH ×2 (05:23→10:55)
[2022-02-13] MEDS: ACETAMINOPHEN 325 MG TABLET PO PRN (05:24)
--- NOTE | 2022-02-13 06:03 | Discharge Summary ---
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 02/12/2022: Discharge plan for tomorrow (1) Acute cerebrovascular accident Assessment & Plan: He continues to work with occupational and physical therapy. His aspirin and clopidogrel have been resumed. These had been discontinued in the past due to severe anemia. He is also on statin medication. His regular loop tender plans on some outpatient monitoring to screen for atrial fibrillation. At this point in time, in the absence of any confirmed atrial fibrillation, there is no indication for oral anticoagulant therapy. He should continue on the current antiplatelet therapy. (2) Chronic combined systolic and diastolic congestive heart failure Assessment & Plan: He seems to be about class I at this point in time. He was complaining of dyspnea on 02/08 but today has not been complaining of dyspnea. He does not take a diuretic at home. If his dyspnea persists or worsens, we may want to consider a chest x-ray. His most recent echocardiogram from 09/04/2020 showed an ejection fraction of 45-50% and then a nuclear stress test from 01/02/2021 showed an ejection fraction of 37%. He is on metoprolol succinate and lisinopril. We may want to consider a follow-up assessment of his ejection fraction but this could certainly be done as an outpatient. (3) Coronary artery disease without angina pectoris Assessment & Plan: He is not having any angina at this point in time. Continue aspirin, beta-anup and statin medication. As above, he is also on clopidogrel due to the recent stroke. (4) Primary hypertension Assessment & Plan: Blood pressure is reasonably controlled with the present combination of medications. (5) Mixed hyperlipidemia Assessment & Plan: Continue statin medication. (6) Normocytic anemia Assessment & Plan: His hemoglobin has been stable during this hospitalization. This will need to be monitored intermittently with the resumption of aspirin and clopidogrel. TOY TAPIA DO Feb 12, 2022 06:19 Discharge Summary Discharge Physical Examination Allergies: Coded Allergies: penicillin G (Verified Allergy, Unknown, 08/11/05) Uncoded Allergies: IV CONTRAST (Allergy, Intermediate, 07/23/15) Vitals & I&Os Vital Signs Date Time Temp Pulse Resp B/P (MAP) Pulse Ox O2 Delivery O2 Flow Rate FiO2 02/13/22 11:30 36.4 66 18 104/73 96 Room Air 0.00 General Appearance: Alert, Oriented X3, Cooperative Respiratory: Clear to Auscultation Cardiovascular: Regular Rate Psych/Mental Status: Mental Status NL Hospital Course Was the Problem List Reviewed?: Yes Hospital course: Patient had an uneventful hospital course while in inpatient rehab following CVA confirmed on MRI. Cardiology was consulted and loop recorder placed. He was able to regain enough function with use of assistive devices in order to return back home with his spouse. He participated with all therapy recommendations and will have close follow-up with primary care provider. Labs (last 24 hrs) Laboratory Tests 02/06/22 19:22: Glucometer 144H 02/07/22 05:28: White Blood Count 6.3, Red Blood Count 3.81L, Hemoglobin 13.2L, Hematocrit 40, Mean Corpuscular Volume 104H, Mean Corpuscular Hemoglobin 35H, Mean Corpuscular Hemoglobin Concent 33, Red Cell Distribution Width 14.5, Platelet Count 196, Mean Platelet Volume 11.5, Immature Granulocyte % (Auto) 0, Neutrophils (%) (Auto) 67, Lymphocytes (%) (Auto) 19, Monocytes (%) (Auto) 12, Eosinophils (%) (Auto) 1, Basophils (%) (Auto) 0, Neutrophils # (Auto) 4.2, Lymphocytes # (Auto) 1.2, Monocytes # (Auto) 0.7, Eosinophils # (Auto) 0.1, Basophils # (Auto) 0.0, Immature Granulocyte # (Auto) 0.0, Sodium Level 137, Potassium Level 4.2, Chloride Level 102, Carbon Dioxide Level 25, Anion Gap 10, Blood Urea Nitrogen 16, Creatinine 1.16, Estimat Glomerular Filtration Rate 60, BUN/Creatinine Ratio 14, Glucose Level 90, Calcium Level 9.2, Corrected Calcium 9.4, Total Bilirubin 0.6, Aspartate Amino Transf (AST/SGOT) 20, Alanine Aminotransferase (ALT/SGPT) 18, Alkaline Phosphatase 82, Total Protein 6.7, Albumin 3.8, Triglycerides Level 84, Cholesterol Level 144, LDL Cholesterol Direct 80, VLDL Cholesterol 17, HDL Cholesterol 52 Pending Labs Laboratory Tests 02/06/22 19:22: Glucometer 144 02/07/22 05:28: White Blood Count 6.3, Red Blood Count 3.81, Hemoglobin 13.2, Hematocrit 40, Mean Corpuscular Volume 104, Mean Corpuscular Hemoglobin 35, Mean Corpuscular Hemoglobin Concent 33, Red Cell Distribution Width 14.5, Platelet Count 196, Mean Platelet Volume 11.5, Immature Granulocyte % (Auto) 0, Neutrophils (%) (Auto) 67, Lymphocytes (%) (Auto) 19, Monocytes (%) (Auto) 12, Eosinophils (%) (Auto) 1, Basophils (%) (Auto) 0, Neutrophils # (Auto) 4.2, Lymphocytes # (Auto) 1.2, Monocytes # (Auto) 0.7, Eosinophils # (Auto) 0.1, Basophils # (Auto) 0.0, Immature Granulocyte # (Auto) 0.0, Sodium Level 137, Potassium Level 4.2, Chloride Level 102, Carbon Dioxide Level 25, Anion Gap 10, Blood Urea Nitrogen 16, Creatinine 1.16, Estimat Glomerular Filtration Rate 60, BUN/Creatinine Ratio 14, Glucose Level 90, Calcium Level 9.2, Corrected Calcium 9.4, Total Bilirubin 0.6, Aspartate Amino Transf (AST/SGOT) 20, Alanine Aminotransferase (ALT/SGPT) 18, Alkaline Phosphatase 82, Total Protein 6.7, Albumin 3.8, Triglycerides Level 84, Cholesterol Level 144, LDL Cholesterol Direct 80, VLDL Cholesterol 17, HDL Cholesterol 52 Discharge Home Medications: Active Scripts Active Pantoprazole Sodium 40 Mg Tablet.dr 40 Mg PO BID Sucralfate 1 Gram Tablet 1 Gm PO ACHS Ondansetron Odt (Ondansetron) 4 Mg Tab.rapdis 4 Mg PO Q6H PRN Reported Metoprolol Succinate 50 Mg Tab.er.24h 50 Mg PO DAILY Meloxicam 15 Mg Tablet 7.5 Mg PO DAILY TAKES OF A 15MG TAB Klor-Con 10 (Potassium Chloride) 10 Meq Tablet.er 10 Meq PO DAILY Furosemide 20 Mg Tablet 20 Mg PO DAILY Clopidogrel (Clopidogrel Bisulfate) 75 Mg Tablet 75 Mg PO DAILY Aspirin 81 Mg Tab.chew 81 Mg PO DAILY Amlodipine Besylate 5 Mg Tablet 5 Mg PO DAILY Lisinopril 20 Mg Tablet 20 Mg PO DAILY Albuterol Sulfate 2.5 Mg/3 Ml Vial.neb 2.5 Mg INH Q4H PRN Atorvastatin Calcium 80 Mg Tablet 40 Mg PO HS TAKES OF A 80MG TAB Gabapentin 100 Mg Capsule 100 Mg PO BID Instructions to patient/family Please see electronic discharge instructions given to patient. Diagnosis/Problems Diagnosis/Problems (1) Homonymous hemianopsia (2) CHF (congestive heart failure) Status: Acute (3) Coronary artery disease Status: Acute (4) HTN (hypertension) Status: Acute (5) HLD (hyperlipidemia) TOY TAPIA DO Feb 13, 2022 06:03
[2022-02-13 07:37] VITALS: BP 104/73
[2022-02-13] MEDS: FUROSEMIDE 20 MG (LASIX) TAB PO SCH (08:04)
[2022-02-13] MEDS: lisINopril 20 MG (PRINIVIL) TABLET PO SCH (08:04)
[2022-02-13] MEDS: PANTOPRAZOLE 40 MG (PROTONIX) TAB PO SCH (08:04)
[2022-02-13] MEDS: amLODIPine 5 MG (NORVASC) TAB PO SCH (08:04)
[2022-02-13] MEDS: CLOPIDOGREL 75 MG (PLAVIX) TABLET PO SCH (08:04)
[2022-02-13] MEDS: KCL 10 MEQ TAB (MICRO K) PO SCH (08:04)
[2022-02-13] MEDS: ASPIRIN 81 MG CHEW (CHILDREN'S ASA) PO SCH (08:04)
[2022-02-13] MEDS: meTOproloL SUCCINATE 50 MG (TOPROL XL) TAB PO SCH (08:04)
[2022-02-13] MEDS: MELOXICAM 7.5 MG (MOBIC) TABLET PO SCH (08:04)
[2022-02-13] MEDS: GABAPENTIN 100 MG (NEURONTIN) CAP PO SCH (08:04)
--- NOTE | 2022-02-13 08:58 | Cardiology Progress Note ---
Subjective Date Seen by Provider: Feb 13, 2022 Time Seen by Provider: 08:50 Subjective/Events-last exam Patient is sitting up in chair, c/o headache Objective-Cardiology Exam Last Set of Vital Signs Vital Signs 02/09/22 02/13/22 09:58 07:37 Temp 36.4 Pulse 66 Resp 18 B/P (MAP) 104/73 (83) Pulse Ox 96 O2 Delivery Room Air O2 Flow Rate 0.00 General: Alert, Oriented X3, Cooperative HEENT: Atraumatic Lungs: Clear to Auscultation, Normal Air Movement Heart: Regular Rate Abdomen: Normal Bowel Sounds, Soft, No Tenderness Extremities: No Clubbing, No Edema Skin: No Rashes, No Significant Lesion Neuro: Normal Speech Psych/Mental Status: Mental Status NL, Mood NL A/P-Cardiology Admission Diagnosis Acute CVA Palpitation Coronary artery disease Hypertension Assessment/Plan Subacute CVA, MRI 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 Patient has history of GI bleed preclude the use of aspirin and Plavix. Currently restarted on aspirin and Plavix and will monitor H&H. Currently on telemetry, no arrhythmia detected so far. I am suspecting underlying atrial fibrillation as a cause of his stroke, s/p Linq implantation, site is C/D/I History of sick sinus syndrome with borderline bradycardia, has been on low-dose beta-blockers and tolerating it well. History of palpitation in the past. Had a Holter monitor done in 2007 showing occasional PVCs and PACs and short run of paroxysmal SVT. No documented atrial fibrillation in the past. s/p LINq implantation for further monitoring. History of recurrent GI, intolerant to anticoagulation Had work-up in the past for lower GI bleed which was negative. At that time conservative management was recommended Chest pain, patient had history of chronic stable angina. Coronary artery disease, History of CABG 5 done in 1993. Cardiac catheterization was done in 2011 showing severe in-stent restenosis in the ramus intermedius. Underwent balloon angioplasty using 2.7520 mm apex balloon with no residual stenosis. Cardiac catheterization in July 2015 showing patent 3 bypasses, SPEAR to LAD, vein graft to diagonal with severe disease beyond the anastomosis point and vein graft to obtuse marginal, did not change compared to 2012 procedure, had a patent stent in the proximal ramus intermedius with mild disease distally, patent stent in the midright Coronary artery with 60 percent stenosis distal right coronary artery mild disease, medical therapy is recommended. Had NSTEMI on 09.04.21 underwent LHC showing severe comanche coronary artery disease involving the left main, ostial LAD occlusion, occlusion of the ramus intermedius and diffuse moderate disease in the Cx with 90 percent stenosis in the distal RCA, successful stenting fo the RCA, Alpine 3.0 x12mm, severe stenosis in the prox VG to the OM that was 90 percent in stent restenosis with successful balloon angioplasty. Sever mid vessel stenosis to the VG to danny diagonal artery with successful stenting using Alpine 3.0 x23mm. Cardiac catheterization was done on January 30, 2021 showing severe comanche artery disease with patent SPEAR to LAD, vein graft to diagonal. The vein graft to the obtuse marginal branch that had balloon angioplasty in August 2020 became occluded. Failed attempt to intervention. The right coronary artery is dominant with patent stent in the mid right, mild disease distally. Was on aspirin and Plavix, has GI bleed, severe anemia which resolved and discontinuation of the aspirin and Plavix. Currently back on ASA and Plavix, continue to monitor. Echocardiogram done in [facility] on February 06, 2022 showed normal left ventricular size and systolic function, no significant abnormality was noted. Stress test was done on January 18, 2021 and it was abnormal, underwent cardiac catheterization as described above Congestive heart failure, chronic compensated left ventricular systolic dysfunction, improved, last echocardiogram done in July 2018 showing ejection fraction 50-55 percent. Continue to monitor Hypertension, history of dizziness and lightheadedness Continue to monitor blood pressure Hyperlipidemia, monitor lipids Mild bilateral carotid stenoses nonobstructive disease, last ultrasound was done in August 2020 COPD/obstructive sleep apnea using C Pap Degenerative joint disease. Arthritic pain. Supervisory-Addendum Brief Supervisory Addendum Participated in pt care: history, MDM, physical Personally performed: exam, history, MDM Care discussed with: MICHAEL Results interpretation: Verified all documentation Notes: Patient was seen and evaluated with Mary, examination performed, management plan was discussed, agree with the current scribed note, I made few changes to the note using Italic font Patient was seen at bedside, sitting in bed, no chest pain. No palpitation. Possible discharge today I will arrange for follow-up as an outpatient Continue current medication Monitor loop recorder MARY MELARA Feb 13, 2022 08:58 ENZO MACHADO MD Feb 13, 2022 10:11
[2022-02-13 11:30] VITALS: BP 104/73
--- NOTE | 2022-02-13 14:51 | Therapy Team Discharge Summary ---
Therapy Discharge Summary Discharge Recommendations Date of Discharge Feb 13, 2022 at 11:30 Physical Therapy Roll Left to Right (QC): 6 Sit to Lying (QC): 6 Lying to Sitting/Side of Bed(Q: 6 Sit to Stand (QC): 4 Chair/Sxs-nn-Rvcza Xfer(QC): 4 Toilet Transfer (QC): 4 Car Transfer (QC): 6 Does the Patient Walk: Yes Mode of Locomotion: Walk Anticipated Mode of Locomotion: Walk Walk 10 feet (QC): 4 Walk 50 ft with 2 Turns(QC): 4 Walk 150 ft (QC): 4 Walking 10ft on uneven surface: 4 Distance: 150', 120'x2 Gait Assistive Device: Cane Single Point Does the Pt Use a Wheelchair: No Wheel 50 ft with 2 turns (QC): 9 Wheel 150 ft (QC): 9 Type of Wheelchair: N/A #of Steps: 12 1 Step (curb) (QC): 4 4 Steps (QC): 4 12 Steps (QC): 4 Balance Sitting Static: Normal Balance Sitting Dynamic: Normal Balance-Standing Static: Fair Picking up an Object (QC): 4 (CGA, without using a gun perforator loader) Occupational Therapy Pt admitted to ARU s/p CVA. At [facility], pt was independent with ADLs and functional mobility, using SPC outside. Upon initial evaluation, pt was independent with eating, CGA oral care, SBA showering, set up upper body dressing, min A lower body dressing, set up footwear and SBA toileting. OT txs focused on increasing BUE strength and activity tolerance, increasing independence and safety with ADLs and functional mobility, and education on visual scanning strategies due to L visual field deficits. Pt made good progress during stay, attaining most of his LTGs. Pt discharged from facility, home with spouse, d/c from OT at this time. 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 [employer] Goals PT Welding Machine Operator [employer] Goals Time Frame: Feb 27, 2022 Roll Left to Right (QC): 6 Sit to Lying (QC): 6 Lying-Sitting on Side/Bed(QC): 6 Sit to Stand (QC): 5 Chair/Ggm-gr-Syeyr Xfer(QC): 5 Car Transfer (QC): 5 Does the Patient Walk: Yes Walk 10 feet (QC): 5 Walk 10ft-Uneven Surface(QC): 5 Walk 50ft with 2 Turns (QC): 5 Walk 150 ft (QC): 5 Wheel 50 feet with 2 turns (QC: 9 1 Step (curb) (QC): 4 (SBA) 4 Steps (QC): 4 (SBA) 12 Steps (QC): 4 (SBA) Picking up an Object (QC): 4 (SBA) OT Welding Machine Operator [employer] Goals Senior Living Goals Time Frame: Mar 07, 2022 Eating (QC): 6 (mt) Oral Hygiene (QC): 6 (not met) Shower/Bathe Self (QC): 6 (not met) Upper Body Dressing (QC): 6 (met) Lower Body Dressing (QC): 6 (met) On/Off Footwear (QC): 6 (met) Toileting Hygiene (QC): 6 (met) Toilet/Commode Transfer (QC): 5 Additional Goals: 1-Demonstrate ADL Tasks, 2-Verbalize Understanding, 3- ImproveStrength/Dolly 1=Demonstrate adherence to instructed precautions during ADL tasks. 2=Patient will verbalize/demonstrate understanding of assistive devices/modifications for ADL. 3=Patient will improve strength/tolerance for activity to enable patient to perform ADL's. Speech Senior Living Goals Welding Machine Operator [employer] Goals 1. The patient will demonstrate improved cognitive linguistic skills for safe discharge to the least restrictive environment. NOT MET Expression of Ideas/Wants: (4) Understanding Verbal Content: Usually Understands (3) (The patient's hearing status may negatively impact comprehension.) Brief Interview-Mental Status: Yes Repetition of Three Words: Three (3) Temporal Orientation: Year: Correct (3) Temporal Orientation: Month: Accurate within 5 days(2) Temporal Orientation: Day: Correct (1) Recall : Wear to say "Sock": Yes, no cue required (2) Recall : Color: Yes, no cue required (2) Recall : Bed: (0) No, after cueing. Memory/Recall Ability: Current season, That he or she is in a hsp/hsp unit, room number, staff names. Time Frame: Ten Days. DECLAN ALCANTAR OT Feb 13, 2022 14:51
--- NOTE | 2022-02-13 15:14 | Therapy Team Discharge Summary ---
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 Upon evaluation patient performs rolling and supine <-> sit with independence, sit <-> stand and transfers CGA, car transfer CGA, ambulate 150' with a rolling walker with CGA (including 50' with at least 2 turns of 90 degrees and 10' over an uneven surface), went up and down 12 steps using 2 handrails with CGA, and picked up an object from the floor using a chemist water purification with CGA. Patient has been performing bed mobility and transfer training, balance and endurance training, functional strengthening, stair training, gait training, and education. Patient has made some progress but has only met his care home goals for rolling and supine <-> sit. Now, patient performs rolling and supine <-> sit with independence, sit <- > stand and transfers SBA, car transfer SBA, ambulate 150' with a rolling walker with SBA (including 50' with at least 2 turns of 90 degrees but needs CGA for 10' over an uneven surface), can go up and down 12 steps using 2 handrails with SBA, and can potato picker an object from the floor using a chemist water purification with CGA. Patient is being discharged from this facility today and will be discharged from PT at this time. Roll Left to Right (QC): 6 Sit to Lying (QC): 6 Lying to Sitting/Side of Bed(Q: 6 Sit to Stand (QC): 4 Chair/Snb-tj-Bzcbb Xfer(QC): 4 Toilet Transfer (QC): 4 Car Transfer (QC): 6 Does the Patient Walk: Yes Mode of Locomotion: Walk Anticipated Mode of Locomotion: Walk Walk 10 feet (QC): 4 Walk 50 ft with 2 Turns(QC): 4 Walk 150 ft (QC): 4 Walking 10ft on uneven surface: 4 Distance: 150', 120'x2 Gait Assistive Device: Cane Single Point Does the Pt Use a Wheelchair: No Wheel 50 ft with 2 turns (QC): 9 Wheel 150 ft (QC): 9 Type of Wheelchair: N/A #of Steps: 12 1 Step (curb) (QC): 4 4 Steps (QC): 4 12 Steps (QC): 4 Balance Sitting Static: Normal Balance Sitting Dynamic: Normal Balance-Standing Static: Fair Picking up an Object (QC): 4 (CGA, without using a chemist water purification) Occupational Therapy Decreased Activ Tolerance, Decreased UE Strength Eating (QC): 6 (IND with lunch) Oral Hygiene (QC): 4 (Supervsion) Shower/Bathe Self (QC): 5 (set up to cover dressing) Upper Body Dressing (QC): 6 Lower Body Dressing (QC): 6 On/Off Footwear (QC): 6 (IND donning/doffing gripper socks.) Toileting Hygiene (QC): 6 (IND with clothing management and hygiene.) PT Traffic I Manager Goals Traffic I Manager Goals PT Penitentiary Goals Time Frame: Feb 27, 2022 Roll Left to Right (QC): 6 Sit to Lying (QC): 6 Lying-Sitting on Side/Bed(QC): 6 Sit to Stand (QC): 5 Chair/Ysu-gd-Vlwmb Xfer(QC): 5 Car Transfer (QC): 5 Does the Patient Walk: Yes Walk 10 feet (QC): 5 Walk 10ft-Uneven Surface(QC): 5 Walk 50ft with 2 Turns (QC): 5 Walk 150 ft (QC): 5 Wheel 50 feet with 2 turns (QC: 9 1 Step (curb) (QC): 4 (SBA) 4 Steps (QC): 4 (SBA) 12 Steps (QC): 4 (SBA) Picking up an Object (QC): 4 (SBA) OT Traffic I Manager Goals Traffic I Manager Goals Time Frame: Mar 07, 2022 Eating (QC): 6 (mt) Oral Hygiene (QC): 6 (not met) Shower/Bathe Self (QC): 6 (not met) Upper Body Dressing (QC): 6 (met) Lower Body Dressing (QC): 6 (met) On/Off Footwear (QC): 6 (met) Toileting Hygiene (QC): 6 (met) Toilet/Commode Transfer (QC): 5 Additional Goals: 1-Demonstrate ADL Tasks, 2-Verbalize Understanding, 3- ImproveStrength/Dolly 1=Demonstrate adherence to instructed precautions during ADL tasks. 2=Patient will verbalize/demonstrate understanding of assistive de vices/modifications for ADL. 3=Patient will improve strength/tolerance for activity to enable patient to perform ADL's. Speech Penitentiary Goals Traffic I Manager Goals 1. The patient will demonstrate improved cognitive linguistic skills for safe discharge to the least restrictive environment. NOT MET Expression of Ideas/Wants: (4) Understanding Verbal Content: Usually Understands (3) (The patient's hearing status may negatively impact comprehension.) Brief Interview-Mental Status: Yes Repetition of Three Words: Three (3) Temporal Orientation: Year: Correct (3) Temporal Orientation: Month: Accurate within 5 days(2) Temporal Orientation: Day: Correct (1) Recall : Wear to say "Sock": Yes, no cue required (2) Recall : Color: Yes, no cue required (2) Recall : Bed: (0) No, after cueing. Memory/Recall Ability: Current season, That he or she is in a hsp/hsp unit, room number, staff names. Time Frame: Ten Days. KYLE HEREDIA PT Feb 13, 2022 15:14
== END 2022-02-13 11:30 | disposition home health service (06) | DRG 57 ==
PROVIDERS: ADMIT Internal Medicine; ATTEND Internal Medicine
DX: I69.398 Other sequelae of cerebral infarction (principal); I50.42 Chronic combined systolic (congestive) and diastolic (congestive) heart failure; H53.462 Homonymous bilateral field defects, left side; H53.461 Homonymous bilateral field defects, right side; R26.9 Unspecified abnormalities of gait and mobility; R53.1 Weakness; J44.9 Chronic obstructive pulmonary disease, unspecified; I11.0 Hypertensive heart disease with heart failure; Z66 Do not resuscitate; I25.10 Atherosclerotic heart disease of native coronary artery without angina pectoris; E78.2 Mixed hyperlipidemia; I48.91 Unspecified atrial fibrillation; K21.9 Gastro-esophageal reflux disease without esophagitis; E03.9 Hypothyroidism, unspecified; G47.33 Obstructive sleep apnea (adult) (pediatric); I49.5 Sick sinus syndrome; G62.9 Polyneuropathy, unspecified; I65.23 Occlusion and stenosis of bilateral carotid arteries; M19.91 Primary osteoarthritis, unspecified site; G47.00 Insomnia, unspecified; D64.9 Anemia, unspecified; Z87.891 Personal history of nicotine dependence; Z95.1 Presence of aortocoronary bypass graft; Z95.5 Presence of coronary angioplasty implant and graft; Z88.0 Allergy status to penicillin; Z91.041 Radiographic dye allergy status; Z79.02 Long term (current) use of antithrombotics/antiplatelets; Z79.82 Long term (current) use of aspirin
CPT/HCPCS: 36415; 80053; 80061; 82947; 85025; 94640; 94760

== ENCOUNTER → 2022-02-10 | Day surgery (SDC) | payer MEDICARE ==
[~2022-02-10] MED LIST changes: +METO50TA7 PO; +ONDA4TAB11 PO; +POTA-160 PO; +SUCR1TAB PO
== END ==
LOC: CATH 11:23
PROVIDERS: ATTEND Internal Medicine Cardiovascular Disease
DX: I63.9 Cerebral infarction, unspecified (principal); Z87.891 Personal history of nicotine dependence; I25.10 Atherosclerotic heart disease of native coronary artery without angina pectoris; I10 Essential (primary) hypertension
CPT/HCPCS: 33285; C1764

== ENCOUNTER 2022-02-26 14:55 | Emergency (ER) | payer MEDICARE ==
[2022-02-26 15:21] LABS: BILIRUBIN,URINE NEGATIVE (NEGATIVE); CLARITY,URINE CLEAR; COLOR,URINE YELLOW; GLUCOSE, URINE (UA) NEGATIVE (NEGATIVE); KETONES,URINE 1+ (NEGATIVE); LEUKOCYTE ESTERASE ,URINE NEGATIVE (NEGATIVE); NITRITE,URINE NEGATIVE (NEGATIVE); PROTEIN,URINE TRACE (NEGATIVE)
[2022-02-26 15:26] LABS: BASOPHILS % (AUTO) 0 % (0-10); EOSINOPHILS # (AUTO) 0.1 10^3/uL (0.0-0.3); EOSINOPHILS % (AUTO) 1 % (0-10); HEMATOCRIT 39 % (40-54); HEMOGLOBIN 12.7 g/dL (13.3-17.7); LYMPHOCYTES # (AUTO) 1.5 10^3/uL (1.0-4.0); LYMPHOCYTES % (AUTO) 21 % (12-44); MEAN CORPUSCULAR HEMOGLOBIN 33 pg (25-34); MEAN CORPUSCULAR HGB CONC 33 g/dL (32-36); MEAN CORPUSCULAR VOLUME 102 fL (80-99); MEAN PLATELET VOLUME 10.5 fL (9.0-12.2); MONOCYTES # (AUTO) 0.6 10^3/uL (0.0-1.0); MONOCYTES % (AUTO) 8 % (0-12); NEUTROPHILS # (AUTO) 4.9 10^3/uL (1.8-7.8); NEUTROPHILS % (AUTO) 70 % (42-75); PLATELET COUNT 229 10^3/uL (130-400); WHITE BLOOD COUNT 7.1 10^3/uL (4.3-11.0)
--- NOTE | 2022-02-26 15:26 | Diagnostic Imaging Report ---
INDICATION: Left shoulder pain. COMPARISON: Chest radiograph dated 02/14/2021. FINDINGS: Three radiographic views of the left shoulder were obtained. Patient is status post previous left shoulder hemiarthroplasty. Humeral component appears appropriately positioned within the proximal humerus. Note is made that the humeral component is moderately superiorly subluxed in respect to the [place] glenoid. 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 Patient also appears to be status post partial resection of the distal clavicle. No acute osseous abnormality is seen. No unexpected radiopaque foreign bodies are identified. Included portions of left hemithorax are clear. IMPRESSION: 1. Postop changes to the left shoulder, as above. No evidence of periprosthetic fracture. 2. 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 Dictated by: Dictated on workstation # [id number]
[2022-02-26 15:30] LABS: RBC,URINE 0-2 /HPF
[2022-02-26 15:31] LABS: BACTERIA,URINE NEGATIVE /HPF; WBC,URINE 0-2 /HPF
[2022-02-26 15:43] LABS: ALANINE AMINOTRANSFERASE 8 U/L (0-55); ALKALINE PHOSPHATASE 93 U/L (40-136); BILIRUBIN,TOTAL 0.8 MG/DL (0.1-1.0); BUN/CREATININE RATIO 16; CALCIUM 9.8 MG/DL (8.5-10.1); CARBON DIOXIDE 24 MMOL/L (21-32); CHLORIDE 102 MMOL/L (98-107); CREATININE SERUM 1.06 MG/DL (0.60-1.30); GFR ESTIMATED 67; GLUCOSE 92 MG/DL (70-105); SODIUM 138 MMOL/L (135-145); TOTAL PROTEIN 7.5 GM/DL (6.4-8.2)
[2022-02-26 15:44] LABS: ALBUMIN 4.5 GM/DL (3.2-4.5)
[2022-02-26] MEDS ORDERED: PHENAZOPYRIDINE 100 MG (PYRIDIUM) TABLET PO ONE (16:00)
[2022-02-26 16:30] VITALS: BP 160/74
--- NOTE | 2022-02-26 16:32 | ED GU-Female ---
General Chief Complaint: - Reproductive Stated Complaint: URINARY DIFFICULTY Nursing Triage Note: PT REPORTS HE HAS HAD URINARY RETENTION SINCE THURSDAY. HE WENT TO [facility] THAT DAY. Source: patient Exam Limitations: no limitations History of Present Illness Date Seen by Provider: Feb 26, 2022 Time Seen by Provider: 15:00 Initial Comments Patient is a 89 yo male who presents with multiple medical complaints. Patient reports decreased urinary output and dysuria since yesterday. He also reports chronic left shoulder pain worse with palpation and range of motion. No cough, SOA, chest pain, cough, sore throat or abdominal pain. No leg pain or swelling. Timing/Duration: this morning Severity/Quality: other Location: other Radiation: other Activities at Onset: other Sexual [place] History: other Modifying Factors: Improves With Other Associated Symptoms: other Allergies and Home Medications Allergies Coded Allergies: penicillin G (Verified Allergy, Unknown, 08/11/05) Uncoded Allergies: IV CONTRAST (Allergy, Intermediate, 07/23/15) Patient Home Medication List Home Medication List Reviewed: Yes Albuterol Sulfate (Albuterol Sulfate) 2.5 Mg/3 Ml Vial.neb, 2.5 MG INH Q4H PRN for SHORTNESS OF BREATH, (Reported) Entered as Reported by: MARQUISE CHACON on 01/30/21 0839 Amlodipine Besylate (Amlodipine Besylate) 5 Mg Tablet, 5 MG PO DAILY, (Reported) Entered as Reported by: JACINTO MORENO on 02/06/22 140 Aspirin (Aspirin) 81 Mg Tab.chew, 81 MG PO DAILY, (Reported) Entered as Reported by: JACINTO MORENO on 02/06/22 1403 Atorvastatin Calcium (Atorvastatin Calcium) 80 Mg Tablet, 40 MG PO HS, (Reported) Entered as Reported by: JACINTO MORENO on 09/04/20 1227 Clopidogrel Bisulfate (Clopidogrel) 75 Mg Tablet, 75 MG PO DAILY, (Reported) Entered as Reported by: JACINTO MORENO on 02/06/22 140 Furosemide (Furosemide) 20 Mg Tablet, 20 MG PO DAILY, (Reported) Entered as Reported by: JACINTO MORENO on 02/06/22 1403 Gabapentin (Gabapentin) 100 Mg Capsule, 100 MG PO BID, (Reported) Entered as Reported by: JACINTO MORENO on 09/04/20 1227 Lisinopril (Lisinopril) 20 Mg Tablet, 20 MG PO DAILY, (Reported) Entered as Reported by: MARQUISE CHACON on 01/30/21 0839 Meloxicam (Meloxicam) 15 Mg Tablet, 7.5 MG PO DAILY, (Reported) Entered as Reported by: JACINTO MORENO on 02/06/22 1403 Metoprolol Succinate (Metoprolol Succinate) 50 Mg Tab.er.24h, 50 MG PO DAILY, ( Reported) Entered as Reported by: JACINTO MORENO on 02/06/22 1403 Ondansetron (Ondansetron Odt) 4 Mg Tab.rapdis, 4 MG PO Q6H PRN for NAUSEA/VOMITING-1ST LINE Prescribed by: TOY TAPIA on 02/12/22 1133 Pantoprazole Sodium (Pantoprazole Sodium) 40 Mg Tablet.dr, 40 MG PO BID Prescribed by: TOY TAPIA on 02/12/22 113 Potassium Chloride (Klor-Con 10) 10 Meq Tablet.er, 10 MEQ PO DAILY, (Reported) Entered as Reported by: JACINTO MORENO on 02/06/22 1403 Sucralfate (Sucralfate) 1 Gram Tablet, 1 GM PO ACHS Prescribed by: TOY TAPIA on 02/12/22 1133 Review of Systems Review of Systems Constitutional: see HPI EENTM: see HPI Respiratory: see HPI Cardiovascular: see HPI Gastrointestinal: see HPI Genitourinary: see HPI Musculoskeletal: see HPI Skin: see HPI Psychiatric/Neurological: See HPI Endocrine: See HPI Hematologic/Lymphatic: See HPI All Other Systemes Reviewed Negative Unless Noted: No Past Qwhbrgy-Ftzkui-Wfozbz Hx Patient Social History Tobacco Use?: No Use of E-Cig and/or Vaping dev: No Substance use?: No Alcohol Use?: No Pt feels they are or have been: No Immunizations Up To Date Tetanus Booster (TDap): Unknown First/Initial COVID19 Vaccinat: 06/2021 Second COVID19 Vaccination Rony: 06/2021 Third COVID19 Vaccination Date: 06/2021 Seasonal Allergies Seasonal Allergies: No Past Medical History Surgery/Hospitalization HX: 5 VESSEL CABG, CARDIAC CATHS AND MULTIPLE STENTS AND ANGIOPLASTIES- LAST CARDIAC CATH ON 01/30/[address] MACHADO. CAD, LEFT SHOULDER SURGERY HIATAL HERNIA REPAIR, EGD/COLONOSCOPIES, CATARACTS REMOVED. Surgeries: Yes (HIATAL HERNIA REPAIR;L SHOULDER REPLACEMENT;3V CABG + STENTS;CATARACTS) Abdominal, Cardiac, CABG, Coronary Stent, Eye Surgery, Joint Replacement, Orthopedic Respiratory: Yes Chronic Bronchitis, Sleep Apnea Currently Using CPAP: No Cardiac: Yes (5 VESSEL CABG + STENTS/ANGIOPLASTIES;MILD CAROTID DISEASE;CHF;SVT/PVC/PAC) Atrial Fibrillation, Coronary Artery Disease, Heart Attack, High Cholesterol, Hypertension, Palpitations Neurological: Yes TIA Reproductive Disorders: No Sexually Transmitted Disease: No HIV/AIDS: No Genitourinary: No Gastrointestinal: Yes (S/P HIATAL HERNIA REPAIR) Gastroesophageal Reflux, Gastrointestinal Bleed, Diverticulosis, Hiatal Hernia Musculoskeletal: Yes (LEFT SHOULDER REPLACEMENT) Arthritis Endocrine: Yes Hypothyroidsim HEENT: Yes Cataract Cancer: No Psychosocial: No Integumentary: No Blood Disorders: No Adverse Reaction/Blood Tranf: No Family Medical History Patient reports no known family medical history. SOCIAL HISTORY: -ETOH--REGULAR/DAILY USE--"A COUPLE " OF DRINKS A DAY -DRUGS-DENIES USE -SMOKED 1 , QUIT 1988 ADDITIONAL PAST MEDICAL/SURGICAL HISTORY: -CARDIAC CATH 07/2015--NO INTERVENTION. DR. MACHADO Physical Exam Vital Signs Vital Signs - First Documented 02/26/22 14:55 Temp 36.9 Pulse 98 Resp 18 B/P (MAP) 174/83 (113) Pulse Ox 98 O2 Delivery Room Air Capillary Refill : Less Than 3 Seconds Height, Weight, BMI Height: 5'8.00" Weight: 166lbs. 0.0oz. [id number]; 25.14 BMI Method: General Appearance: WD/WN, no apparent distress HEENT: PERRL/EOMI, normal ENT inspection Neck: non-tender, full range of motion Cardiovascular: regular rate, rhythm Respiratory: lungs clear, decreased breath sounds Gastrointestinal: non tender, soft Extremities: normal range of motion, non-tender, other (L shoulder pain, no swelling or bruising.) Neurologic/Psychiatric: alert, normal mood/affect, abnormal cerebellar tests Skin: normal color Progress/Results/Core Measures Suspected Sepsis SIRS Temperature: Pulse: 98 Respiratory Rate: 18 Laboratory Tests 02/26/22 15:08: White Blood Count 7.1 Blood Pressure 174 /83 Mean: 113 Laboratory Tests 02/26/22 15:08: Creatinine 1.06, Platelet Count 229, Total Bilirubin 0.8 Results/Orders Lab Results Laboratory Tests Test 02/26/22 15:08 02/26/22 15:11 Range/Units White Blood Count 7.1 4.3-11.0 10^3/uL Red Blood Count 3.82 L 4.30-5.52 10^6/uL Hemoglobin 12.7 L 13.3-17.7 g/dL Hematocrit 39 L 40-54 % Mean Corpuscular Volume 102 H 80-99 fL Mean Corpuscular Hemoglobin 33 25-34 pg Mean Corpuscular Hemoglobin Concent 33 32-36 g/dL Red Cell Distribution Width 13.5 10.0-14.5 % Platelet Count 229 130-400 10^3/uL Mean Platelet Volume 10.5 9.0-12.2 fL Immature Granulocyte % (Auto) 0 % Neutrophils (%) (Auto) 70 42-75 % Lymphocytes (%) (Auto) 21 12-44 % Monocytes (%) (Auto) 8 0-12 % Eosinophils (%) (Auto) 1 0-10 % Basophils (%) (Auto) 0 0-10 % Neutrophils # (Auto) 4.9 1.8-7.8 10^3/uL Lymphocytes # (Auto) 1.5 1.0-4.0 10^3/uL Monocytes # (Auto) 0.6 0.0-1.0 10^3/uL Eosinophils # (Auto) 0.1 0.0-0.3 10^3/uL Basophils # (Auto) 0.0 0.0-0.1 10^3/uL Immature Granulocyte # (Auto) 0.0 0.0-0.1 10^3/uL Sodium Level 138 135-145 MMOL/L Potassium Level 4.0 3.6-5.0 MMOL/L Chloride Level 102 98-107 MMOL/L Carbon Dioxide Level 24 21-32 MMOL/L Anion Gap 12 5-14 MMOL/L Blood Urea Nitrogen 17 7-18 MG/DL Creatinine 1.06 0.60-1.30 MG/DL Estimat Glomerular Filtration Rate 67 BUN/Creatinine Ratio 16 Glucose Level 92 70-105 MG/DL Calcium Level 9.8 8.5-10.1 MG/DL Corrected Calcium 9.4 8.5-10.1 MG/DL Total Bilirubin 0.8 0.1-1.0 MG/DL Aspartate Amino Transf (AST/SGOT) 21 5-34 U/L Alanine Aminotransferase (ALT/SGPT) 8 0-55 U/L Alkaline Phosphatase 93 40-136 U/L Troponin I < 0.30 <0.30 NG/ML Total Protein 7.5 6.4-8.2 GM/DL Albumin 4.5 3.2-4.5 GM/DL Urine Color YELLOW Urine Clarity CLEAR Urine pH 6.0 5-9 Urine Specific Holt 1.020 1.016-1.022 Urine Protein TRACE H NEGATIVE Urine Glucose (UA) NEGATIVE NEGATIVE Urine Ketones 1+ H NEGATIVE Urine Nitrite NEGATIVE NEGATIVE Urine Bilirubin NEGATIVE NEGATIVE Urine Urobilinogen 0.2 < = 1.0 MG/DL Urine Leukocyte Esterase NEGATIVE NEGATIVE Urine RBC (Auto) NEGATIVE NEGATIVE Urine RBC 0-2 /HPF Urine WBC 0-2 /HPF Urine Squamous Epithelial Cells 2-5 /HPF Urine Crystals NONE /LPF Urine Bacteria NEGATIVE /HPF Urine Casts NONE /LPF Urine Mucus NEGATIVE /LPF Urine Culture Indicated NO My Orders Orders - GUNNAR POWELL DO Urinalysis (02/26/22 15:06) Cbc With Automated Diff (02/26/22 15:06) Comprehensive Metabolic Panel (02/26/22 15:06) Troponin I Fs (02/26/22 15:06) Ekg Tracing (02/26/22 15:06) Shoulder 3 View Left (02/26/22 15:06) Phenazopyridine Tablet (Pyridium Tablet) (02/26/22 16:00) Uric Acid (02/26/22 16:21) Basic Metabolic Panel (02/26/22 16:21) Medications Given in ED Current Medications Medications Dose Ordered Sig/Adolfo Route Start Time Stop Time Status Last Admin Dose Admin Phenazopyridine HCl 200 mg ONCE ONCE PO 02/26/22 16:00 02/26/22 16:01 DC 02/26/22 15:51 200 MG Vital Signs/I&O 02/26/22 14:55 Temp 36.9 Pulse 98 Resp 18 B/P (MAP) 174/83 (113) Pulse Ox 98 O2 Delivery Room Air Capillary Refill : Less Than 3 Seconds Blood Pressure Mean: 113 Departure Communication (Admissions) XR L shoulder: No acute findings per radiology report. EKG: NSR, NEELAM with ST, T-wave abnl. EKG, lab and imaging symptoms reviewed and reassuring. 75 cc of urine return on straight cath. Dysuria improved with pyridum. Patient resting comfortably at time of dc. PCP f/u recommended. Return precautions reviewed. Patient verbalizes understanding and agreement with dc instructions prior to departure. Impression Primary Impression: Dysuria Additional Impression: Shoulder pain Disposition: HOME, SELF-CARE Condition: Stable Departure-Patient Inst. Decision time for Depature: 16:41 Referrals: FOUZIA NJ DO (PCP/Family) Primary Care Physician Patient Instructions: Shoulder Pain (DC), Dysuria, Adult (DC) Add. Discharge Instructions: You were evaluated in the ED for decreased and painful urination. EKG, lab and imaging studies were reviewed and are reassuring. Please take newly prescribed medications as directed and follow up with your PCP follow-up in 2-3 days for re-evaluation. Return to the ED if new or concerning symptoms. All discharge instructions reviewed with patient and/or family. Voiced understanding. Scripts Phenazopyridine HCl (Pyridium) 100 Mg Tablet 100 MG PO TID, #6 TAB Prov: GUNNAR POWELL DO 02/26/22 GUNNAR POWELL DO Feb 26, 2022 16:32
[2022-02-26] MEDS ORDERED: PHEN-639 PO (16:44)
[2022-02-27] MEDS ORDERED: CEPH500T PO (08:26)
== END 2022-02-26 16:52 | disposition home or self-care (01) ==
LOC: EDUNIT# 14:55 → ER FS 15:04
DX: R30.0 Dysuria (principal); M25.512 Pain in left shoulder; Z87.891 Personal history of nicotine dependence
CPT/HCPCS: 36415; 51702; 73030; 80053; 81000; 84484; 85025; 93005

== ENCOUNTER 2022-02-27 06:38 | Emergency (ER) | payer MEDICARE ==
[~2022-02-27 06:38] MED LIST changes: +PHEN-639 PO
--- NOTE | 2022-02-27 07:14 | ED GI ---
General Stated Complaint: ABD PAIN History of Present Illness Date Seen by Provider: Feb 27, 2022 Time Seen by Provider: 07:11 Initial Comments 89-year-old male presents with left lower quadrant pain. Patient reports that it started he thinks this morning. Patient is poor historian. Patient was seen on 02/24/2022 at [facility] for urinary retention and unsure of results or or work-up. Patient was seen yesterday with concerns for decreased urine and dysuria. Patient today thinks that he might have some blood in his urine as it is discolored and has some pain in the left lower quadrant. Patient has no reports of fever or chills. Patient denies any chest pain, shortness of breath nausea vomiting or other systemic complaints Allergies and Home Medications Allergies Coded Allergies: penicillin G (Verified Allergy, Unknown, 08/11/05) Uncoded Allergies: IV CONTRAST (Allergy, Intermediate, 07/23/15) Patient Home Medication List Home Medication List Reviewed: Yes Albuterol Sulfate (Albuterol Sulfate) 2.5 Mg/3 Ml Vial.neb, 2.5 MG INH Q4H PRN for SHORTNESS OF BREATH, (Reported) Entered as Reported by: MARQUISE CHACON on 01/30/21 0839 Amlodipine Besylate (Amlodipine Besylate) 5 Mg Tablet, 5 MG PO DAILY, (Reported) Entered as Reported by: JACINTO MORENO on 02/06/22 1403 Aspirin (Aspirin) 81 Mg Tab.chew, 81 MG PO DAILY, (Reported) Entered as Reported by: JACINTO MORENO on 02/06/22 1403 Atorvastatin Calcium (Atorvastatin Calcium) 80 Mg Tablet, 40 MG PO HS, (Reported) Entered as Reported by: JACINTO MORENO on 09/04/20 1227 Cephalexin (Cephalexin) 500 Mg Tablet, 500 MG PO QID Prescribed by: SARWAT CIFUENTES on 02/27/22 0826 Clopidogrel Bisulfate (Clopidogrel) 75 Mg Tablet, 75 MG PO DAILY, (Reported) Entered as Reported by: JACINTO MORENO on 02/06/22 1403 Furosemide (Furosemide) 20 Mg Tablet, 20 MG PO DAILY, (Reported) Entered as Reported by: JACINTO MORENO on 02/06/22 1403 Gabapentin (Gabapentin) 100 Mg Capsule, 100 MG PO BID, (Reported) Entered as Reported by: JACINTO MORENO on 09/04/20 1227 Lisinopril (Lisinopril) 20 Mg Tablet, 20 MG PO DAILY, (Reported) Entered as Reported by: MARQUISE CHACON on 01/30/21 0839 Meloxicam (Meloxicam) 15 Mg Tablet, 7.5 MG PO DAILY, (Reported) Entered as Reported by: JACINTO MORENO on 02/06/22 1403 Metoprolol Succinate (Metoprolol Succinate) 50 Mg Tab.er.24h, 50 MG PO DAILY, (Reported) Entered as Reported by: JACINTO MORENO on 02/06/22 1403 Ondansetron (Ondansetron Odt) 4 Mg Tab.rapdis, 4 MG PO Q6H PRN for NAUSEA/VOMITING-1ST LINE Prescribed by: TOY TAPIA on 02/12/22 1133 Pantoprazole Sodium (Pantoprazole Sodium) 40 Mg Tablet.dr, 40 MG PO BID Prescribed by: TOY TAPIA on 02/12/22 1133 Phenazopyridine HCl (Pyridium) 100 Mg Tablet, 100 MG PO TID Prescribed by: GUNNAR POWELL on 02/26/22 1644 Potassium Chloride (Klor-Con 10) 10 Meq Tablet.er, 10 MEQ PO DAILY, (Reported) Entered as Reported by: JACINTO MORENO on 02/06/22 1403 Sucralfate (Sucralfate) 1 Gram Tablet, 1 GM PO ACHS Prescribed by: TOY TAPIA on 02/12/22 1133 Review of Systems Review of Systems Constitutional: No chills, No fever Respiratory: Denies Cough, Denies Shortness of Air Cardiovascular: Denies Chest Pain Gastrointestinal: Abdominal Pain (llq ); Denies Nausea, Denies Vomiting Genitourinary: See HPI Musculoskeletal: no symptoms reported Skin: no symptoms reported Endocrine: No Symptoms Reported Hematologic/Lymphatic: No Symptoms Reported Past Yofvjvo-Miirit-Thxjac Hx Immunizations Up To Date Tetanus Booster (TDap): Unknown First/Initial COVID19 Vaccinat: 06/2021 Second COVID19 Vaccination Rony: 06/2021 Third COVID19 Vaccination Date: 06/2021 Seasonal Allergies Seasonal Allergies: No Past Medical History Surgery/Hospitalization HX: 5 VESSEL CABG, CARDIAC CATHS AND MULTIPLE STENTS AND ANGIOPLASTIES- LAST CARDIAC CATH ON 01/30/[address] MACHADO. CAD, LEFT SHOULDER SURGERY HIATAL HERNIA REPAIR, EGD/COLONOSCOPIES, CATARACTS REMOVED. Surgeries: Yes (HIATAL HERNIA REPAIR;L SHOULDER REPLACEMENT;3V CABG + STENTS;CATARACTS) Abdominal, Cardiac, CABG, Coronary Stent, Eye Surgery, Joint Replacement, Orthopedic Respiratory: Yes Chronic Bronchitis, Sleep Apnea Currently Using CPAP: No Cardiac: Yes (5 VESSEL CABG + STENTS/ANGIOPLASTIES;MILD CAROTID DISEASE;CHF;SVT/PVC/PAC) Atrial Fibrillation, Coronary Artery Disease, Heart Attack, High Cholesterol, Hypertension, Palpitations Neurological: Yes TIA Reproductive Disorders: No Sexually Transmitted Disease: No HIV/AIDS: No Genitourinary: No Gastrointestinal: Yes (S/P HIATAL HERNIA REPAIR) Gastroesophageal Reflux, Gastrointestinal Bleed, Diverticulosis, Hiatal Hernia Musculoskeletal: Yes (LEFT SHOULDER REPLACEMENT) Arthritis Endocrine: Yes Hypothyroidsim HEENT: Yes Cataract Cancer: No Psychosocial: No Integumentary: No Blood Disorders: No Adverse Reaction/Blood Tranf: No Family Medical History Patient reports no known family medical history. SOCIAL HISTORY: -ETOH--REGULAR/DAILY USE--"A COUPLE " OF DRINKS A DAY -DRUGS-DENIES USE -SMOKED 1 PPD, QUIT 1988 ADDITIONAL PAST MEDICAL/SURGICAL HISTORY: -CARDIAC CATH 07/2015--NO INTERVENTION. DR. MACHADO Physical Exam Vital Signs Vital Signs - First Documented 02/27/22 06:41 Temp 36.9 Pulse 101 Resp 20 B/P (MAP) 179/82 (114) Pulse Ox 97 O2 Delivery Room Air Capillary Refill : Height/Weight/BMI Height: 5'8.00" Weight: 166lbs. 0.0oz. 75.531335yt; 25.14 BMI Method: General Appearance: WD/WN, no apparent distress Respiratory: lungs clear, normal breath sounds Cardiovascular: normal peripheral pulses, regular rate, rhythm Gastrointestinal: soft, tenderness (llq ) Extremities: normal range of motion, non-tender Neurologic/Psychiatric: alert, normal mood/affect, oriented x 3 Skin: normal color, warm/dry Focused Exam Lactate Level 02/27/22 07:33: Lactic Acid Level 1.13 Lactic Acid Level Laboratory Tests Test 02/27/22 07:33 Lactic Acid Level 1.13 MMOL/L (0.50-2.00) Progress/Results/Core Measures Results/Orders Lab Results Laboratory Tests Test 02/27/22 06:50 02/27/22 07:31 02/27/22 07:33 Range/Units White Blood Count 7.6 4.3-11.0 10^3/uL Red Blood Count 3.69 L 4.30-5.52 10^6/uL Hemoglobin 12.8 L 13.3-17.7 g/dL Hematocrit 37 L 40-54 % Mean Corpuscular Volume 101 H 80-99 fL Mean Corpuscular Hemoglobin 35 H 25-34 pg Mean Corpuscular Hemoglobin Concent 34 32-36 g/dL Red Cell Distribution Width 13.4 10.0-14.5 % Platelet Count 239 130-400 10^3/uL Mean Platelet Volume 10.5 9.0-12.2 fL Immature Granulocyte % (Auto) 0 % Neutrophils (%) (Auto) 73 42-75 % Lymphocytes (%) (Auto) 17 12-44 % Monocytes (%) (Auto) 9 0-12 % Eosinophils (%) (Auto) 1 0-10 % Basophils (%) (Auto) 0 0-10 % Neutrophils # (Auto) 5.6 1.8-7.8 10^3/uL Lymphocytes # (Auto) 1.3 1.0-4.0 10^3/uL Monocytes # (Auto) 0.7 0.0-1.0 10^3/uL Eosinophils # (Auto) 0.1 0.0-0.3 10^3/uL Basophils # (Auto) 0.0 0.0-0.1 10^3/uL Immature Granulocyte # (Auto) 0.0 0.0-0.1 10^3/uL Sodium Level 137 135-145 MMOL/L Potassium Level 3.9 3.6-5.0 MMOL/L Chloride Level 101 98-107 MMOL/L Carbon Dioxide Level 22 21-32 MMOL/L Anion Gap 14 5-14 MMOL/L Blood Urea Nitrogen 18 7-18 MG/DL Creatinine 1.11 0.60-1.30 MG/DL Estimat Glomerular Filtration Rate 63 BUN/Creatinine Ratio 16 Glucose Level 83 70-105 MG/DL Calcium Level 9.6 8.5-10.1 MG/DL Corrected Calcium 9.4 8.5-10.1 MG/DL Magnesium Level 1.8 1.6-2.4 MG/DL Total Bilirubin 1.0 0.1-1.0 MG/DL Aspartate Amino Transf (AST/SGOT) 20 5-34 U/L Alanine Aminotransferase (ALT/SGPT) 10 0-55 U/L Alkaline Phosphatase 91 40-136 U/L Total Protein 7.2 6.4-8.2 GM/DL Albumin 4.3 3.2-4.5 GM/DL Procalcitonin 0.03 <0.10 NG/ML Urine Color ORANGE Urine Clarity SL CLOUDY Urine pH 5.0 5-9 Urine Specific [place] 1.025 H 1.016-1.022 Urine Protein 2+ H NEGATIVE Urine Glucose (UA) TRACE H NEGATIVE Urine Ketones NEGATIVE Urine Nitrite NEGATIVE Urine Bilirubin 1+ H NEGATIVE Urine Urobilinogen < = 1.0 MG/DL Urine Leukocyte Esterase TRACE H NEGATIVE Urine RBC (Auto) TRACE-I H NEGATIVE Urine RBC NONE /HPF Urine WBC 5-10 H /HPF Urine Squamous Epithelial Cells RARE /HPF Urine Crystals NONE /LPF Urine Bacteria NEGATIVE /HPF Urine Casts NONE /LPF Urine Mucus N /LPF Urine Culture Indicated YES Lactic Acid Level 1.13 0.50-2.00 MMOL/L My Orders Orders - CIFUENTES,SARWAT L DO Cbc With Automated Diff (02/27/22 07:09) Comprehensive Metabolic Panel (02/27/22 07:09) Lactic Acid Analyzer (02/27/22 07:09) Magnesium (02/27/22 07:09) Procalcitonin (Pct) (02/27/22 07:09) Ua Culture If Indicated (02/27/22 07:09) Acute Abd Series (02/27/22 07:09) Ed Iv/Invasive Line Start (02/27/22 07:16) Ns Iv 500 Ml (Sodium Chloride 0.9%) (02/27/22 07:30) Ct Abdomen/Pelvis Wo (02/27/22 07:16) Urine Culture (02/27/22 07:31) Medications Given in ED Vital Signs/I&O 02/27/22 02/27/22 06:41 08:39 Temp 36.9 36.9 Pulse 101 86 Resp 20 20 B/P (MAP) 179/82 (114) 153/82 Pulse Ox 97 96 O2 Delivery Room Air Room Air Progress Progress Note : Progress Note Patient urine shows what appears to be early infection. He was started on Pyridium yesterday which is why his urine is orange-colored. no acute changes in his labs from yesterday. Abdominal x-ray and CT abdomen showed no acute finding. Patient will be started on Keflex. Patient stable and discharged home Diagnostic Imaging Diagonstic Imaging: CT Plain Films/CT/US/NM/MRI: abdomen Comments Date of Exam:02/27/22 CT ABDOMEN/PELVIS WO EXAMINATION: CT abdomen and pelvis without contrast. TECHNIQUE: Multiple contiguous axial images were obtained through the abdomen and pelvis without the use of intravenous contrast. All CT scans use one or more of the following dose optimizing techniques: automated exposure control, MA and/or KvP adjustment based on patient size and exam type or iterative reconstruction. HISTORY: llq abd pain COMPARISON: 07/23/2015 FINDINGS: Lung bases: The lung bases are clear. Solid organs: The liver is normal. The gallbladder is normal. There is no biliary ductal dilation. Pancreas is normal. Spleen is normal. Adrenal glands are normal. Bilateral renal cysts are present which require no follow-up. No visualized renal calculus or hydronephrosis. Bowel: There is a moderate hiatal hernia. No bowel obstruction. There is moderate amount of stool seen throughout the colon. There is scattered colonic diverticulosis. No findings of acute appendicitis. Peritoneum: There is no intraperitoneal free fluid or free air. No suspicious lymphadenopathy. Vasculature: Calcification of the aorta without aneurysm. Musculoskeletal: Degenerative changes of the spine without suspicious osseous lesion or compression fracture. Pelvis: The prostate gland is enlarged. There is bladder wall thickening and trabeculation which may be secondary to chronic obstruction. IMPRESSION: 1. No acute abnormality in the abdomen or pelvis. 2. Colonic diverticulosis without findings of diverticulitis. Reviewed: Reviewed by Me, Reviewed/Discussed Diagonstic Imaging: Xray Plain Films/CT/US/NM/MRI: chest, abdomen Comments Date of Exam:02/27/22 ACUTE ABD SERIES EXAMINATION: Abdominal series and chest radiograph HISTORY: llq abd pain COMPARISON: 07/23/2015 FINDINGS: Heart size and pulmonary vasculature are normal. Surgical changes from median sternotomy and CABG. Numerous surgical clips overlie the left mediastinum. The lungs are clear without consolidation, pleural effusion, or pneumothorax. Degenerative changes of the thoracic spine. Osseous structures are otherwise intact. There is moderate amount of gas and stool throughout the colon. Nonobstructive bowel gas pattern. No radiopaque foreign body. Degenerative changes of the hips and spine. Osseous structures are otherwise intact. IMPRESSION: No acute abnormality in the chest or abdomen. Reviewed: Reviewed by Me, Reviewed/Discussed Departure Impression Primary Impression: Acute cystitis Qualified Codes: N30.01 - Acute cystitis with hematuria Disposition: HOME, SELF-CARE Condition: Stable Departure-Patient Inst. Referrals: FOUZIA NJ DO (PCP/Family) Primary Care Physician Patient Instructions: Acute Cystitis (DC) Add. Discharge Instructions: Continue your current medications, follow-up with your primary care provider on Thursday of next week for recheck of your symptoms Scripts Cephalexin (Cephalexin) 500 Mg Tablet 500 MG PO QID, #20 TAB 0 Refills Prov: SARWAT CIFUENTES DO 02/27/22 SARWAT CIFUENTES DO Feb 27, 2022 07:14
[2022-02-27] MEDS ORDERED: NS IV 500 ML 500 ML IV ONE (07:30)
[2022-02-27 07:31] LABS: BASOPHILS % (AUTO) 0 % (0-10); EOSINOPHILS # (AUTO) 0.1 10^3/uL (0.0-0.3); EOSINOPHILS % (AUTO) 1 % (0-10); HEMATOCRIT 37 % (40-54); HEMOGLOBIN 12.8 g/dL (13.3-17.7); LYMPHOCYTES # (AUTO) 1.3 10^3/uL (1.0-4.0); LYMPHOCYTES % (AUTO) 17 % (12-44); MEAN CORPUSCULAR HEMOGLOBIN 35 pg (25-34); MEAN CORPUSCULAR HGB CONC 34 g/dL (32-36); MEAN CORPUSCULAR VOLUME 101 fL (80-99); MEAN PLATELET VOLUME 10.5 fL (9.0-12.2); MONOCYTES # (AUTO) 0.7 10^3/uL (0.0-1.0); MONOCYTES % (AUTO) 9 % (0-12); NEUTROPHILS # (AUTO) 5.6 10^3/uL (1.8-7.8); NEUTROPHILS % (AUTO) 73 % (42-75); PLATELET COUNT 239 10^3/uL (130-400); WHITE BLOOD COUNT 7.6 10^3/uL (4.3-11.0)
[2022-02-27 07:39] LABS: CLARITY,URINE SL CLOUDY; COLOR,URINE ORANGE; GLUCOSE, URINE (UA) TRACE (NEGATIVE); LEUKOCYTE ESTERASE ,URINE TRACE (NEGATIVE); PROTEIN,URINE 2+ (NEGATIVE)
[2022-02-27 07:54] LABS: POTASSIUM 3.9 MMOL/L (3.6-5.0)
[2022-02-27 07:55] LABS: ALBUMIN 4.3 GM/DL (3.2-4.5); CALCIUM 9.6 MG/DL (8.5-10.1); CREATININE SERUM 1.11 MG/DL (0.60-1.30); MAGNESIUM 1.8 MG/DL (1.6-2.4); TOTAL PROTEIN 7.2 GM/DL (6.4-8.2)
--- NOTE | 2022-02-27 08:09 | Diagnostic Imaging Report ---
EXAMINATION: CT abdomen and pelvis without contrast. TECHNIQUE: Multiple contiguous axial images were obtained through the abdomen and pelvis without the use of intravenous contrast. All CT scans use one or more of the following dose optimizing techniques: automated exposure control, MA and/or KvP adjustment based on patient size and exam type or iterative reconstruction. HISTORY: llq abd pain COMPARISON: 07/23/2015 FINDINGS: Lung bases: The lung bases are clear. Solid organs: The liver is normal. The gallbladder is normal. There is no biliary ductal dilation. Pancreas is normal. Spleen is normal. Adrenal glands are normal. Bilateral renal cysts are present which require no follow-up. No visualized renal calculus or hydronephrosis. Bowel: There is a moderate hiatal hernia. No bowel obstruction. There is moderate amount of stool seen throughout the colon. There is scattered colonic diverticulosis. No findings of acute appendicitis. Peritoneum: There is no intraperitoneal free fluid or free air. No suspicious lymphadenopathy. Vasculature: Calcification of the aorta without aneurysm. Musculoskeletal: Degenerative changes of the spine without suspicious osseous lesion or compression fracture. Pelvis: The prostate gland is enlarged. There is bladder wall thickening and trabeculation which may be secondary to chronic obstruction. IMPRESSION: 1. No acute abnormality in the abdomen or pelvis. 2. Colonic diverticulosis without findings of diverticulitis. Dictated by: Dictated on workstation # [id number]
[2022-02-27 08:11] LABS: BACTERIA,URINE NEGATIVE /HPF; BILIRUBIN,URINE 1+ (NEGATIVE); SQUAMOUS EPITHELIAL CELL,UR RARE /HPF
--- NOTE | 2022-02-27 08:14 | Diagnostic Imaging Report ---
EXAMINATION: Abdominal series and chest radiograph HISTORY: llq abd pain COMPARISON: 07/23/2015 FINDINGS: Heart size and pulmonary vasculature are normal. Surgical changes from median sternotomy and CABG. Numerous surgical clips overlie the left mediastinum. The lungs are clear without consolidation, pleural effusion, or pneumothorax. Degenerative changes of the thoracic spine. Osseous structures are otherwise intact. There is moderate amount of gas and stool throughout the colon. Nonobstructive bowel gas pattern. No radiopaque foreign body. Degenerative changes of the hips and spine. Osseous structures are otherwise intact. IMPRESSION: No acute abnormality in the chest or abdomen. Dictated by: Dictated on workstation # [id number]
[2022-02-27] MEDS ORDERED: CEPH500T PO (08:26)
[2022-02-27 08:39] VITALS: BP 153/82
[2022-02-28] MEDS ORDERED: ONDA8TAB13 PO (08:40)
[2022-02-28] MEDS ORDERED: CLT4KB PO (23:14)
== END 2022-02-27 08:39 | disposition home or self-care (01) ==
LOC: ER FS 06:39 → EDUNIT# 07:08 → ER FS 08:39
DX: N30.00 Acute cystitis without hematuria (principal); Z87.891 Personal history of nicotine dependence
CPT/HCPCS: 36415; 74022; 74176; 80053; 81000; 83605; 83735; 84145; 85025; 87088

== ENCOUNTER 2022-02-28 07:46 | Emergency (ER) | payer MEDICARE ==
[~2022-02-28 07:46] MED LIST changes: +CEPH500T PO
--- NOTE | 2022-02-28 08:03 | ED General ---
General Chief Complaint: Abdominal/GI Problems Stated Complaint: NAUSEA Nursing Triage Note: Patient brought to the ED by EMS for chief complaint of nausea. Patient seen in the ED yesterday and diagnosed with a UTI and started on keflex. Patient reported to EMS that he took his medications on an empty stomach this morning. Patient given zofran and IVF by EMS, patient states his nausea is better on arrival to the ED. Patient reports he has not had a bowel movement in 3-4 days. Patient states he has pain in his left ankle from a fall earlier this week, but no other pain. Source of Information: Patient Exam Limitations: No Limitations History of Present Illness Date Seen by Provider: Feb 28, 2022 Time Seen by Provider: 07:45 Initial Comments 89-year-old male presents for nausea. Symptoms started this morning. He has not vomited. This is his fifth ER visit in the last few days. Work-up yesterday with CT scanning, lab work and urine revealed a urinary tract infection. He was started on antibiotics. There is a question whether he may have taken his antibiotics on an empty stomach this morning. He has not had any fevers. He states he has not had a bowel movement in the last 3 or 4 days. Allergies and Home Medications Allergies Coded Allergies: penicillin G (Verified Allergy, Unknown, 08/11/05) Uncoded Allergies: IV CONTRAST (Allergy, Intermediate, 07/23/15) Patient Home Medication List Home Medication List Reviewed: Yes Albuterol Sulfate (Albuterol Sulfate) 2.5 Mg/3 Ml Vial.neb, 2.5 MG INH Q4H PRN for SHORTNESS OF BREATH, (Reported) Entered as Reported by: MARQUISE CHACON on 01/30/21 0839 Amlodipine Besylate (Amlodipine Besylate) 5 Mg Tablet, 5 MG PO DAILY, (Reported) Entered as Reported by: JACINTO MORENO on 02/06/22 1403 Aspirin (Aspirin) 81 Mg Tab.chew, 81 MG PO DAILY, (Reported) Entered as Reported by: JACINTO MORENO on 02/06/22 1403 Atorvastatin Calcium (Atorvastatin Calcium) 80 Mg Tablet, 40 MG PO HS, (Reported) Entered as Reported by: JACINTO MORENO on 09/04/20 1227 Cephalexin (Cephalexin) 500 Mg Tablet, 500 MG PO QID Prescribed by: SARWAT CIFUENTES on 02/27/22 0826 Clopidogrel Bisulfate (Clopidogrel) 75 Mg Tablet, 75 MG PO DAILY, (Reported) Entered as Reported by: JACINTO MORENO on 02/06/22 140 Furosemide (Furosemide) 20 Mg Tablet, 20 MG PO DAILY, (Reported) Entered as Reported by: JACINTO MORENO on 02/06/22 1403 Gabapentin (Gabapentin) 100 Mg Capsule, 100 MG PO BID, (Reported) Entered as Reported by: JACINTO MORENO on 09/04/20 1227 Lisinopril (Lisinopril) 20 Mg Tablet, 20 MG PO DAILY, (Reported) Entered as Reported by: MARQUISE CHACON on 01/30/21 0839 Meloxicam (Meloxicam) 15 Mg Tablet, 7.5 MG PO DAILY, (Reported) Entered as Reported by: JACINTO MORENO on 02/06/22 140 Metoprolol Succinate (Metoprolol Succinate) 50 Mg Tab.er.24h, 50 MG PO DAILY, (Reported) Entered as Reported by: JACINTO MORENO on 02/06/22 140 Ondansetron (Ondansetron Odt) 4 Mg Tab.rapdis, 4 MG PO Q6H PRN for NAUSEA/VOMITING-1ST LINE Prescribed by: TOY TAPIA on 02/12/22 113 Pantoprazole Sodium (Pantoprazole Sodium) 40 Mg Tablet.dr, 40 MG PO BID Prescribed by: TOY TAPIA on 02/12/22 113 Phenazopyridine HCl (Pyridium) 100 Mg Tablet, 100 MG PO TID Prescribed by: GUNNAR POWELL on 02/26/22 1644 Potassium Chloride (Klor-Con 10) 10 Meq Tablet.er, 10 MEQ PO DAILY, (Reported) Entered as Reported by: JACINTO MORENO on 02/06/22 1403 Sucralfate (Sucralfate) 1 Gram Tablet, 1 GM PO ACHS Prescribed by: TOY TAPIA on 02/12/22 113 Review of Systems Review of Systems Constitutional: no symptoms reported EENTM: no symptoms reported Respiratory: no symptoms reported Cardiovascular: no symptoms reported Gastrointestinal: nausea Genitourinary: no symptoms reported Musculoskeletal: no symptoms reported Skin: no symptoms reported Psychiatric/Neurological: No Symptoms Reported Hematologic/Lymphatic: No Symptoms Reported Immunological/Allergic: no symptoms reported Past Rpmyvyc-Zydzsf-Vsfdgn Hx Patient Social History Tobacco Use?: No Substance use?: No Alcohol Use?: No Pt feels they are or have been: No Immunizations Up To Date Tetanus Booster (TDap): Unknown First/Initial COVID19 Vaccinat: 06/2021 Second COVID19 Vaccination Rony: 06/2021 Third COVID19 Vaccination Date: 06/2021 Seasonal Allergies Seasonal Allergies: No Past Medical History Surgery/Hospitalization HX: 5 VESSEL CABG, CARDIAC CATHS AND MULTIPLE STENTS AND ANGIOPLASTIES- LAST CARDIAC CATH ON 01/30/[address] MACHADO. CAD, LEFT SHOULDER SURGERY HIATAL HERNIA REPAIR, EGD/COLONOSCOPIES, CATARACTS REMOVED. HX Falls Surgeries: Yes (HIATAL HERNIA REPAIR;L SHOULDER REPLACEMENT;3V CABG + STENTS;CATARACTS) Abdominal, Cardiac, CABG, Coronary Stent, Eye Surgery, Joint Replacement, Orthopedic Respiratory: Yes Chronic Bronchitis, Sleep Apnea Currently Using CPAP: No Cardiac: Yes (5 VESSEL CABG + STENTS/ANGIOPLASTIES;MILD CAROTID DISEASE;CHF;SVT/PVC/PAC) Atrial Fibrillation, Coronary Artery Disease, Heart Attack, High Cholesterol, Hypertension, Palpitations Neurological: Yes TIA Reproductive Disorders: No Sexually Transmitted Disease: No HIV/AIDS: No Genitourinary: No Gastrointestinal: Yes (S/P HIATAL HERNIA REPAIR) Gastroesophageal Reflux, Gastrointestinal Bleed, Diverticulosis, Hiatal Hernia Musculoskeletal: Yes (LEFT SHOULDER REPLACEMENT) Arthritis Endocrine: Yes Hypothyroidsim HEENT: Yes Cataract Cancer: No Psychosocial: No Integumentary: No Blood Disorders: No Adverse Reaction/Blood Tranf: No Family Medical History Reviewed Nursing Family Hx Patient reports no known family medical history. No Pertinent Family Hx SOCIAL HISTORY: -ETOH--REGULAR/DAILY USE--"A COUPLE " OF DRINKS A DAY -DRUGS-DENIES USE -SMOKED 1 PPD, QUIT 1988 ADDITIONAL PAST MEDICAL/SURGICAL HISTORY: -CARDIAC CATH 07/2015--NO INTERVENTION. DR. MACHADO Physical Exam Vital Signs Vital Signs - First Documented 02/28/22 07:50 Temp 36.3 Pulse 88 Resp 18 B/P (MAP) 178/91 (120) Pulse Ox 98 O2 Delivery Room Air Capillary Refill : Less Than 3 Seconds Height, Weight, BMI Height: 5'8.00" Weight: 166lbs. 0.0oz. 75.824022rt; 25.14 BMI Method: General Appearance: No Apparent Distress, Chronically ill HEENT: PERRL/EOMI, Normal ENT Inspection, Pharynx Normal Neck: Normal Inspection, Non Tender, Supple Respiratory: Chest Non Tender, Lungs Clear, Normal Breath Sounds, No Accessory Muscle Use, No Respiratory Distress, Other (Bruising to his midsternal region.) Cardiovascular: Regular Rate, Rhythm, No Edema, No Gallop, No JVD, No Murmur, Normal Peripheral Pulses Gastrointestinal: Normal Bowel Sounds, No Organomegaly, Soft, Tenderness (Mild diffuse abdominal tenderness.) Back: Normal Inspection, No CVA Tenderness Extremity: Normal Capillary Refill, Normal Inspection, Non Tender, No Calf Tenderness Neurologic/Psychiatric: Alert, Oriented x3, No Motor/Sensory Deficits, Normal Mood/Affect Skin: Normal Color, Warm/Dry, Other (Some scattered ecchymoses) Lymphatic: No Adenopathy Progress/Results/Core Measures Suspected Sepsis SIRS Temperature: Pulse: 88 Respiratory Rate: 18 Blood Pressure 178 /91 Mean: 120 Results/Orders Vital Signs/I&O 02/28/22 07:50 Temp 36.3 Pulse 88 Resp 18 B/P (MAP) 178/91 (120) Pulse Ox 98 O2 Delivery Room Air Capillary Refill : Less Than 3 Seconds Blood Pressure Mean: 120 Departure Communication (Admissions) The patient is hemodynamically stable, alert and oriented. Vital signs are normal outside of some mild hypertension. I started antibiotics for UTI. It sounds as though he took antibiotics on an empty stomach this morning and had some nausea. He is tolerated p.o. prior to discharge. He has had a thorough work-up recently, as recent as yesterday with labs and CT scan which were all normal. Discharged home in stable condition with supportive care Impression Primary Impression: Nausea alone Disposition: HOME, SELF-CARE Condition: Stable Departure-Patient Inst. Referrals: FOUZIA NJ DO (PCP/Family) Primary Care Physician Patient Instructions: Nausea and Vomiting, Adult (DC) Add. Discharge Instructions: Take the provided nausea medicines as prescribed. Increase your fluids at home, rest. Return to the emergency department for any severe concerns. All discharge instructions reviewed with patient and/or family. Voiced understanding. Scripts Ondansetron (Ondansetron Odt) 8 Mg Tab.rapdis 8 MG PO Q6H for Nausea for 7 Days, #30 TAB Prov: EDWIN CARREON DO 02/28/22 EDWIN CARREON DO Feb 28, 2022 08:03
[2022-02-28] MEDS ORDERED: ONDA8TAB13 PO (08:40)
[2022-02-28 08:50] VITALS: BP 168/87
[2022-02-28] MEDS ORDERED: CLT4KB PO (23:14)
== END 2022-02-28 08:53 | disposition home or self-care (01) ==
LOC: EDUNIT# 07:46 → ER FS 07:47
DX: R11.0 Nausea (principal); I10 Essential (primary) hypertension; Z87.891 Personal history of nicotine dependence
CPT/HCPCS: 99283

== ENCOUNTER 2022-02-28 23:02 | Emergency (ER) | payer MEDICARE ==
[~2022-02-28] VITALS: Ht 172.7 cm; Wt 63.5 kg
[~2022-02-28 23:02] MED LIST changes: +ONDA8TAB13 PO
[2022-02-28 23:07] VITALS: BP 189/94
[2022-02-28] MEDS ORDERED: CLT4KB PO (23:14)
--- NOTE | 2022-02-28 23:16 | ED General ---
General Stated Complaint: CONSTIPATION Source of Information: Patient Exam Limitations: No Limitations History of Present Illness Date Seen by Provider: Feb 28, 2022 Time Seen by Provider: 23:05 Initial Comments 89-year-old male with his sixth ER visit in the last 3 days. States he is constipated. Has not a bowel movement in 4 days. No abdominal pain. He has some mild nausea. He is currently being treated with antibiotics for urinary tract infection he was seen here yesterday by the previous doctor and had a CT scan with labs that were normal. He has tried prune juice and MiraLAX without a bowel movement as of yet. Allergies and Home Medications Allergies Coded Allergies: penicillin G (Verified Allergy, Unknown, 08/11/05) Uncoded Allergies: IV CONTRAST (Allergy, Intermediate, 07/23/15) Patient Home Medication List Home Medication List Reviewed: Yes Albuterol Sulfate (Albuterol Sulfate) 2.5 Mg/3 Ml Vial.neb, 2.5 MG INH Q4H PRN for SHORTNESS OF BREATH, (Reported) Entered as Reported by: MARQUISE CHACON on 01/30/21 0839 Amlodipine Besylate (Amlodipine Besylate) 5 Mg Tablet, 5 MG PO DAILY, (Reported) Entered as Reported by: JACINTO MORENO on 02/06/22 1403 Aspirin (Aspirin) 81 Mg Tab.chew, 81 MG PO DAILY, (Reported) Entered as Reported by: JACINTO MORENO on 02/06/22 1403 Atorvastatin Calcium (Atorvastatin Calcium) 80 Mg Tablet, 40 MG PO HS, (Reported) Entered as Reported by: JACINTO MORENO on 09/04/20 1227 Cephalexin (Cephalexin) 500 Mg Tablet, 500 MG PO QID Prescribed by: SARWAT CIFUENTES on 02/27/22 0826 Clopidogrel Bisulfate (Clopidogrel) 75 Mg Tablet, 75 MG PO DAILY, (Reported) Entered as Reported by: JACINTO MORENO on 02/06/22 1403 Furosemide (Furosemide) 20 Mg Tablet, 20 MG PO DAILY, (Reported) Entered as Reported by: JACINTO MORENO on 02/06/22 1403 Gabapentin (Gabapentin) 100 Mg Capsule, 100 MG PO BID, (Reported) Entered as Reported by: JACINTO MORENO on 09/04/20 1227 Lisinopril (Lisinopril) 20 Mg Tablet, 20 MG PO DAILY, (Reported) Entered as Reported by: MARQUISE CHACON on 01/30/21 0839 Meloxicam (Meloxicam) 15 Mg Tablet, 7.5 MG PO DAILY, (Reported) Entered as Reported by: JACINTO MORENO on 02/06/22 1403 Metoprolol Succinate (Metoprolol Succinate) 50 Mg Tab.er.24h, 50 MG PO DAILY, (Reported) Entered as Reported by: JACINTO MORENO on 02/06/22 1403 Ondansetron (Ondansetron Odt) 4 Mg Tab.rapdis, 4 MG PO Q6H PRN for NAUSEA/VOMITING-1ST LINE Prescribed by: TOY TAPIA on 02/12/22 1133 Ondansetron (Ondansetron Odt) 8 Mg Tab.rapdis, 8 MG PO Q6H Prescribed by: EDWIN CARREON MD on 02/28/22 0840 Pantoprazole Sodium (Pantoprazole Sodium) 40 Mg Tablet.dr, 40 MG PO BID Prescribed by: TOY TAPIA on 02/12/22 1133 Peg/Electrolytes (Golytely Solution) 236-22.74G Soln, 4,000 ML PO ONCE Prescribed by: EDWIN CARREON MD on 02/28/22 2314 Phenazopyridine HCl (Pyridium) 100 Mg Tablet, 100 MG PO TID Prescribed by: GUNNAR POWELL on 02/26/22 1644 Potassium Chloride (Klor-Con 10) 10 Meq Tablet.er, 10 MEQ PO DAILY, (Reported) Entered as Reported by: JACINTO MORENO on 02/06/22 1403 Sucralfate (Sucralfate) 1 Gram Tablet, 1 GM PO ACHS Prescribed by: TOY TAPIA on 02/12/22 1133 Review of Systems Review of Systems Constitutional: no symptoms reported EENTM: no symptoms reported Respiratory: no symptoms reported Cardiovascular: no symptoms reported Gastrointestinal: constipation, nausea Genitourinary: no symptoms reported Musculoskeletal: no symptoms reported Skin: no symptoms reported Psychiatric/Neurological: No Symptoms Reported Hematologic/Lymphatic: No Symptoms Reported Immunological/Allergic: no symptoms reported Past Pkycphd-Lmprzb-Agwlkl Hx Patient Social History Tobacco Use?: No Use of E-Cig and/or Vaping dev: No Substance use?: No Alcohol Use?: No Family Medical History Reviewed Nursing Family Hx No Pertinent Family Hx Physical Exam Vital Signs Vital Signs - First Documented 02/28/22 23:07 Temp 36.4 Pulse 96 Resp 20 B/P (MAP) 189/94 (125) Pulse Ox 98 O2 Delivery Room Air Capillary Refill : Height, Weight, BMI Height: '" Weight: lbs. oz. kg; BMI Method: General Appearance: No Apparent Distress, WD/WN HEENT: Normal ENT Inspection, Pharynx Normal Neck: Full Range of Motion, Normal Inspection, Non Tender, Supple Respiratory: Chest Non Tender, Lungs Clear, Normal Breath Sounds, No Accessory Muscle Use, No Respiratory Distress Cardiovascular: Regular Rate, Rhythm, No Edema, No Gallop, No JVD, No Murmur, Normal Peripheral Pulses Gastrointestinal: Normal Bowel Sounds, No Organomegaly, No Pulsatile Mass, Non Tender, Soft Extremity: Normal Capillary Refill, Normal Inspection, Normal Range of Motion, Non Tender, No Calf Tenderness Neurologic/Psychiatric: Alert, Oriented x3, No Motor/Sensory Deficits, Normal Mood/Affect Skin: Normal Color, Warm/Dry Progress/Results/Core Measures Suspected Sepsis SIRS Temperature: Pulse: Respiratory Rate: Blood Pressure / Mean: Results/Orders My Orders Orders - EDWIN CARREON DO Ondansetron Oral Dissolve Tab (Zofran (02/28/22 23:23) Vital Signs/I&O 02/28/22 23:07 Temp 36.4 Pulse 96 Resp 20 B/P (MAP) 189/94 (125) Pulse Ox 98 O2 Delivery Room Air Capillary Refill : Departure Communication (Admissions) Patient is hemodynamically stable. He just had a CT scan and labs yesterday which were unremarkable. Unfortunately there is a nationwide shortage of magnesium citrate. Prescribe GoLytely to continuous pickling line pickler in the morning. Recommended follow-up with primary doctor in 2 to 3 days. Impression Primary Impression: Constipation Qualified Codes: K59.00 - Constipation, unspecified Disposition: 01 HOME, SELF-CARE Condition: Stable Departure-Patient Inst. Patient Instructions: Constipation in Adults Add. Discharge Instructions: fitter up the prescription in the morning to help with your constipation. Drink lots of fluids as this will cause you to have loose stools. Return to the emergency department for any severe concerns. Follow-up with your primary doctor in 2 to 3 days. Scripts Peg/Electrolytes (Golytely Solution) 236-22.74G Soln 4000 ML PO ONCE for 1 Day, #1 EA Prov: EDWIN CARREON DO 02/28/22 EDWIN CARREON DO Feb 28, 2022 23:16
[2022-02-28] MEDS ORDERED: ONDANSETRON 4 MG (ZOFRAN) ORAL DISSOLVE TAB PO STA (23:23)
== END 2022-02-28 23:33 | disposition home or self-care (01) ==
LOC: EDUNIT# 23:02 → ER FS 23:14
DX: K59.00 Constipation, unspecified (principal); R11.0 Nausea
CPT/HCPCS: 99283

== ENCOUNTER 2022-03-10 15:28 | Emergency (ER) | payer MEDICARE ==
[~2022-03-10] VITALS: Ht 172.7 cm; Wt 61.2 kg
[~2022-03-10 15:28] MED LIST changes: +CLT4KB PO
[2022-03-10 16:31] LABS: BILIRUBIN,URINE NEGATIVE (NEGATIVE); CLARITY,URINE CLEAR; COLOR,URINE YELLOW; GLUCOSE, URINE (UA) NEGATIVE (NEGATIVE); KETONES,URINE NEGATIVE (NEGATIVE); LEUKOCYTE ESTERASE ,URINE NEGATIVE (NEGATIVE); NITRITE,URINE NEGATIVE (NEGATIVE); PH,URINE 6.5 (5-9); PROTEIN,URINE NEGATIVE (NEGATIVE)
[2022-03-10 16:36] LABS: POTASSIUM 3.6 MMOL/L (3.6-5.0)
[2022-03-10 16:37] LABS: BASOPHILS % (AUTO) 0 % (0-10); CALCIUM 9.2 MG/DL (8.5-10.1); EOSINOPHILS # (AUTO) 0.1 10^3/uL (0.0-0.3); EOSINOPHILS % (AUTO) 1 % (0-10); HEMATOCRIT 37 % (40-54); HEMOGLOBIN 12.3 g/dL (13.3-17.7); LYMPHOCYTES # (AUTO) 1.3 10^3/uL (1.0-4.0); LYMPHOCYTES % (AUTO) 22 % (12-44); MEAN CORPUSCULAR HEMOGLOBIN 34 pg (25-34); MEAN CORPUSCULAR HGB CONC 33 g/dL (32-36); MEAN CORPUSCULAR VOLUME 102 fL (80-99); MEAN PLATELET VOLUME 11.1 fL (9.0-12.2); MONOCYTES # (AUTO) 0.7 10^3/uL (0.0-1.0); MONOCYTES % (AUTO) 11 % (0-12); NEUTROPHILS # (AUTO) 3.9 10^3/uL (1.8-7.8); NEUTROPHILS % (AUTO) 65 % (42-75); PLATELET COUNT 281 10^3/uL (130-400); WHITE BLOOD COUNT 5.9 10^3/uL (4.3-11.0)
[2022-03-10 16:38] LABS: TOTAL PROTEIN 6.8 GM/DL (6.4-8.2)
[2022-03-10 16:40] LABS: BILIRUBIN,TOTAL 0.5 MG/DL (0.1-1.0)
[2022-03-10 16:42] LABS: CREATININE SERUM 1.06 MG/DL (0.60-1.30)
[2022-03-10 16:44] LABS: BACTERIA,URINE NEGATIVE /HPF; SQUAMOUS EPITHELIAL CELL,UR RARE /HPF
--- NOTE | 2022-03-10 17:10 | ED Respiratory ---
General Chief Complaint: Respiratory Problems Stated Complaint: SOA Source: patient Exam Limitations: no limitations History of Present Illness Date Seen by Provider: Mar 10, 2022 Time Seen by Provider: 17:09 Initial Comments To ER by private vehicle from home with reports of shortness of breath, severe low back pain, urinary frequency. states that he also seems confused. This will be his sixth ER visit this month. Currently on antibiotics for a bladder infection. He had a stroke in January and has fallen a couple of times since then resulting in his current back pain which has not yet been imaged he states. Timing/Duration: constant Severity: moderate Associated Symptoms: denies symptoms Allergies and Home Medications Allergies Coded Allergies: penicillin G (Verified Allergy, Unknown, 08/11/05) Uncoded Allergies: IV CONTRAST (Allergy, Intermediate, 07/23/15) Patient Home Medication List Home Medication List Reviewed: Yes Albuterol Sulfate (Albuterol Sulfate) 2.5 Mg/3 Ml Vial.neb, 2.5 MG INH Q4H PRN for SHORTNESS OF BREATH, (Reported) Entered as Reported by: MARQUISE CHACON on 01/30/21 0839 Amlodipine Besylate (Amlodipine Besylate) 5 Mg Tablet, 5 MG PO DAILY, (Reported) Entered as Reported by: JACINTO MORENO on 02/06/22 1403 Aspirin (Aspirin) 81 Mg Tab.chew, 81 MG PO DAILY, (Reported) Entered as Reported by: JACINTO MORENO on 02/06/22 1403 Atorvastatin Calcium (Atorvastatin Calcium) 80 Mg Tablet, 40 MG PO HS, (Reported) Entered as Reported by: JACINTO MORENO on 09/04/20 1227 Cephalexin (Cephalexin) 500 Mg Tablet, 500 MG PO QID Prescribed by: SARWAT CIFUENTES on 02/27/22 0826 Clopidogrel Bisulfate (Clopidogrel) 75 Mg Tablet, 75 MG PO DAILY, (Reported) Entered as Reported by: JACINTO MORENO on 02/06/22 1403 Furosemide (Furosemide) 20 Mg Tablet, 20 MG PO DAILY, (Reported) Entered as Reported by: JACINTO MORENO on 02/06/22 1403 Gabapentin (Gabapentin) 100 Mg Capsule, 100 MG PO BID, (Reported) Entered as Reported by: JACINTO MORENO on 09/04/20 1227 Hydrocodone/Acetaminophen (Hydrocodone-Acetamin 5-325 mg) 5 Mg-325 Mg Tablet, 1 TAB PO Q6H PRN for PAIN-MODERATE (5-7) Prescribed by: DONY JOHNSON on 03/10/22 181 Lisinopril (Lisinopril) 20 Mg Tablet, 20 MG PO DAILY, (Reported) Entered as Reported by: MARQUISE CHACON on 01/30/21 0839 Meloxicam (Meloxicam) 15 Mg Tablet, 7.5 MG PO DAILY, (Reported) Entered as Reported by: JACINTO MORENO on 02/06/22 1403 Metoprolol Succinate (Metoprolol Succinate) 50 Mg Tab.er.24h, 50 MG PO DAILY, (Reported) Entered as Reported by: JACINTO MORENO on 02/06/22 1403 Ondansetron (Ondansetron Odt) 4 Mg Tab.rapdis, 4 MG PO Q6H PRN for NAUSEA/VOMITING-1ST LINE Prescribed by: TOY TAPIA on 02/12/22 1133 Ondansetron (Ondansetron Odt) 8 Mg Tab.rapdis, 8 MG PO Q6H Prescribed by: EDWIN CARREON MD on 02/28/22 0840 Ondansetron (Ondansetron Odt) 4 Mg Tab.rapdis, 4 MG PO Q4H PRN for NAUSEA/VOMITING Prescribed by: DONY JOHNSON on 03/10/221811 Pantoprazole Sodium (Pantoprazole Sodium) 40 Mg Tablet.dr, 40 MG PO BID Prescribed by: TOY TAPIA on 02/12/22 1133 Peg/Electrolytes (Golytely Solution) 236-22.74G Soln, 4,000 ML PO ONCE Prescribed by: EDWIN CARREON MD on 02/28/22 2314 Phenazopyridine HCl (Pyridium) 100 Mg Tablet, 100 MG PO TID Prescribed by: GUNNAR POWELL on 02/26/22 1644 Potassium Chloride (Klor-Con 10) 10 Meq Tablet.er, 10 MEQ PO DAILY, (Reported) Entered as Reported by: JACINTO MORENO on 02/06/22 1403 Sucralfate (Sucralfate) 1 Gram Tablet, 1 GM PO ACHS Prescribed by: TOY TAPIA on 02/12/22 1133 Review of Systems Review of Systems Constitutional: see HPI EENTM: see HPI Respiratory: see HPI, dyspnea on exertion Cardiovascular: no symptoms reported Genitourinary: no symptoms reported Musculoskeletal: see HPI, back pain Skin: no symptoms reported Psychiatric/Neurological: No Symptoms Reported Hematologic/Lymphatic: No Symptoms Reported Past Kwiahsl-Hnydva-Fosgxl Hx Patient Social History Tobacco Use?: No Use of E-Cig and/or Vaping dev: No Substance use?: No Alcohol Use?: Yes Alcohol type: Beer Alcohol Frequency: Once in a while Immunizations Up To Date Tetanus Booster (TDap): Unknown First/Initial COVID19 Vaccinat: 06/2021 Second COVID19 Vaccination Rony: 06/2021 Third COVID19 Vaccination Date: 06/2021 Seasonal Allergies Seasonal Allergies: No Past Medical History Surgery/Hospitalization HX: 5 VESSEL CABG, CARDIAC CATHS AND MULTIPLE STENTS AND ANGIOPLASTIES- LAST CARDIAC CATH ON 01/30/[address] MACHADO. CAD, LEFT SHOULDER SURGERY HIATAL HERNIA REPAIR, EGD/COLONOSCOPIES, CATARACTS REMOVED. HX Falls Surgeries: Yes (HIATAL HERNIA REPAIR;L SHOULDER REPLACEMENT;3V CABG + STENTS;CATARACTS) Abdominal, Cardiac, CABG, Coronary Stent, Eye Surgery, Joint Replacement, O rthopedic Respiratory: Yes Chronic Bronchitis, Sleep Apnea Currently Using CPAP: No Cardiac: Yes (5 VESSEL CABG + STENTS/ANGIOPLASTIES;MILD CAROTID DISEASE;CHF;SVT/PVC/PAC) Atrial Fibrillation, Coronary Artery Disease, Heart Attack, High Cholesterol, Hypertension, Palpitations Neurological: Yes TIA Reproductive Disorders: No Sexually Transmitted Disease: No HIV/AIDS: No Genitourinary: No Gastrointestinal: Yes (S/P HIATAL HERNIA REPAIR) Gastroesophageal Reflux, Gastrointestinal Bleed, Diverticulosis, Hiatal Hernia Musculoskeletal: Yes (LEFT SHOULDER REPLACEMENT) Arthritis Endocrine: Yes Hypothyroidsim HEENT: Yes Cataract Cancer: No Psychosocial: No Integumentary: No Blood Disorders: No Adverse Reaction/Blood Tranf: No Family Medical History Patient reports no known family medical history. No Pertinent Family Hx SOCIAL HISTORY: -ETOH--REGULAR/DAILY USE--"A COUPLE " OF DRINKS A DAY -DRUGS-DENIES USE -SMOKED 1 PPD, QUIT 1988 ADDITIONAL PAST MEDICAL/SURGICAL HISTORY: -CARDIAC CATH 07/2015--NO INTERVENTION. DR. MACHADO Physical Exam Vital Signs - First Documented 03/10/22 15:28 Temp 37.2 Pulse 78 Resp 16 B/P (MAP) 159/84 (109) Pulse Ox 97 O2 Delivery Room Air Capillary Refill : Less Than 3 Seconds Height: 5'8.00" Weight: 166lbs. 0.0oz. 75.242387hv; 20.00 BMI Method: General Appearance: WD/WN, no apparent distress Eyes: Bilateral Eye Normal Inspection, Bilateral Eye PERRL, Bilateral Eye EOMI HEENT: PERRL/EOMI, normal ENT inspection Neck: non-tender, full range of motion Respiratory: normal breath sounds, no respiratory distress, no accessory muscle use, other (Oxygen saturation 97% on room air) Gastrointestinal: normal bowel sounds, non tender, soft Extremities: normal range of motion, non-tender Neurologic/Psychiatric: alert, normal mood/affect, oriented x 3, other (No confusion here) Skin: normal color, warm/dry Progress/Results/Core Measures Suspected Sepsis SIRS Temperature: Pulse: 78 Respiratory Rate: 16 Laboratory Tests 03/10/22 15:43: White Blood Count 5.9 Blood Pressure 159 /84 Mean: 109 Laboratory Tests 03/10/22 15:43: Creatinine 1.06, Platelet Count 281, Total Bilirubin 0.5 Results/Orders Lab Results Laboratory Tests Test 03/10/22 15:43 03/10/22 16:15 Range/Units White Blood Count 5.9 4.3-11.0 10^3/uL Red Blood Count 3.63 L 4.30-5.52 10^6/uL Hemoglobin 12.3 L 13.3-17.7 g/dL Hematocrit 37 L 40-54 % Mean Corpuscular Volume 102 H 80-99 fL Mean Corpuscular Hemoglobin 34 25-34 pg Mean Corpuscular Hemoglobin Concent 33 32-36 g/dL Red Cell Distribution Width 12.8 10.0-14.5 % Platelet Count 281 130-400 10^3/uL Mean Platelet Volume 11.1 9.0-12.2 fL Immature Granulocyte % (Auto) 1 % Neutrophils (%) (Auto) 65 42-75 % Lymphocytes (%) (Auto) 22 12-44 % Monocytes (%) (Auto) 11 0-12 % Eosinophils (%) (Auto) 1 0-10 % Basophils (%) (Auto) 0 0-10 % Neutrophils # (Auto) 3.9 1.8-7.8 10^3/uL Lymphocytes # (Auto) 1.3 1.0-4.0 10^3/uL Monocytes # (Auto) 0.7 0.0-1.0 10^3/uL Eosinophils # (Auto) 0.1 0.0-0.3 10^3/uL Basophils # (Auto) 0.0 0.0-0.1 10^3/uL Immature Granulocyte # (Auto) 0.0 0.0-0.1 10^3/uL D-Dimer 0.88 H 0.00-0.49 UG/ML Sodium Level 138 135-145 MMOL/L Potassium Level 3.6 3.6-5.0 MMOL/L Chloride Level 102 98-107 MMOL/L Carbon Dioxide Level 23 21-32 MMOL/L Anion Gap 13 5-14 MMOL/L Blood Urea Nitrogen 17 7-18 MG/DL Creatinine 1.06 0.60-1.30 MG/DL Estimat Glomerular Filtration Rate 67 BUN/Creatinine Ratio 16 Glucose Level 102 70-105 MG/DL Calcium Level 9.2 8.5-10.1 MG/DL Corrected Calcium 9.2 8.5-10.1 MG/DL Total Bilirubin 0.5 0.1-1.0 MG/DL Aspartate Amino Transf (AST/SGOT) 18 5-34 U/L Alanine Aminotransferase (ALT/SGPT) 12 0-55 U/L Alkaline Phosphatase 98 40-136 U/L B-Type Natriuretic Peptide 260.1 H <100.0 PG/ML Total Protein 6.8 6.4-8.2 GM/DL Albumin 4.0 3.2-4.5 GM/DL Urine Color YELLOW Urine Clarity CLEAR Urine pH 6.5 5-9 Urine Specific [place] 1.010 L 1.016-1.022 Urine Protein NEGATIVE NEGATIVE Urine Glucose (UA) NEGATIVE NEGATIVE Urine Ketones NEGATIVE NEGATIVE Urine Nitrite NEGATIVE NEGATIVE Urine Bilirubin NEGATIVE NEGATIVE Urine Urobilinogen 1.0 < = 1.0 MG/DL Urine Leukocyte Esterase NEGATIVE NEGATIVE Urine RBC (Auto) NEGATIVE NEGATIVE Urine RBC NONE /HPF Urine WBC NONE /HPF Urine Squamous Epithelial Cells RARE /HPF Urine Crystals NONE /LPF Urine Bacteria NEGATIVE /HPF Urine Casts NONE /LPF Urine Mucus NEGATIVE /LPF Urine Culture Indicated NO My Orders Orders - DONY JOHNSON PERIOPERATIVE MANAGER Cbc With Automated Diff (03/10/22 16:22) Comprehensive Metabolic Panel (03/10/22 16:22) Ua Culture If Indicated (03/10/22 16:22) Fibrin Degradation Products (03/10/22 16:22) Ed Iv/Invasive Line Start (03/10/22 16:22) Bnp Damon (03/10/22 16:22) Ekg Tracing (03/10/22 16:22) Ct Lumbar Spine Wo (03/10/22 16:22) Tramadol Tablet (Ultram Tablet) (03/10/22 16:30) Chest 1 View, Ap/Pa Only (03/10/22 16:30) Ondansetron Injection (Zofran Injectio (03/10/22 17:45) Ketorolac Injection (Toradol Injection) (03/10/22 17:45) Rx-Hydrocodone/Apap 5-325 Mg (Rx-Vicodin (03/10/22 18:15) Rx-Ondansetron Po (Rx-Zofran Po) (03/10/22 18:12) Medications Given in ED Current Medications Medications Dose Ordered Sig/Adolfo Route Start Time Stop Time Status Last Admin Dose Admin Ketorolac Tromethamine 15 mg ONCE ONCE IVP 03/10/22 17:45 03/10/22 17:46 DC 03/10/22 17:53 15 MG Ondansetron HCl 4 mg ONCE ONCE IVP 03/10/22 17:45 03/10/22 17:46 DC 03/10/22 17:52 4 MG Tramadol HCl 50 mg ONCE ONCE PO 03/10/22 16:30 03/10/22 16:31 DC 03/10/22 16:45 50 MG Vital Signs/I&O 03/10/22 15:28 Temp 37.2 Pulse 78 Resp 16 B/P (MAP) 159/84 (109) Pulse Ox 97 O2 Delivery Room Air Capillary Refill : Less Than 3 Seconds Blood Pressure Mean: 109 Departure Impression Primary Impression: Low back pain Disposition: 01 HOME, SELF-CARE Condition: Stable Departure-Patient Inst. Decision time for Depature: 18:06 Referrals: FOUZIA NJ DO (PCP/Family) Primary Care Physician Patient Instructions: Low Back Pain ED Add. Discharge Instructions: 1. Return to ER for any concerns. Call Dr. Moran tomorrow to make an appointment to be seen for follow-up. All discharge instructions reviewed with patient and/or family. Voiced understanding. Scripts Ondansetron (Ondansetron Odt) 4 Mg Tab.rapdis 4 MG PO Q4H PRN for NAUSEA/VOMITING, #14 TAB Prov: DONY JOHNSON APRN 03/10/22 Hydrocodone/Acetaminophen (Hydrocodone-Acetamin 5-325 mg) 5 Mg-325 Mg Tablet 1 TAB PO Q6H PRN for PAIN-MODERATE (5-7), #10 TAB Prov: DONY JOHNSON APRN 03/10/22 DONY JOHNSON APRN Mar 10, 2022 17:10
--- NOTE | 2022-03-10 17:18 | Diagnostic Imaging Report ---
CLINICAL INDICATION: Patient with low back pain and recent falls. Patient has history of stroke. EXAM: Axial CT scan of the lumbar spine performed without IV contrast. Sagittal and coronal reformatted images are created. Auto Exposure Controls were utilized during the CT exam to meet ALARA standards for radiation dose reduction. COMPARISON: MRI of the lumbar spine without contrast dated 01/21/2018. FINDINGS: There is no acute lumbar spine fracture. There is subtle grade 1 retrolisthesis of L1 on L2, which is stable. There is no pars defect and is likely degenerative. There are moderate to severely hypertrophic spurs involving the lumbar spine. There is multilevel lumbar spine facet arthropathy/hypertrophy. There is no significant paraspinal soft tissue abnormality. T12-L1: There is no significant central canal or neural foramen narrowing. L1-L2: There is a diffuse disc bulge and bilateral facet arthropathy. There is some degree of central canal stenosis which is difficult to accurately determine on this exam. There is [id number] left neural foramen narrowing and moderate right neural foramen narrowing which appears to have slightly progressed. L2-L3: There is a diffuse disc bulge with moderate bilateral facet arthropathy. There is moderate loss of disc space height. There is at least moderate central canal stenosis. There is severe right neural foramen narrowing and [id number]-aw-xuyrkxea left neural foramen narrowing which appears to have slightly progressed. L3-L4: There is a diffuse disc bulge with owhvqkgq-ya-[id number] loss of disc space height. There are disc spurs extending into the foraminal regions and posteriorly. There is at least mild central canal stenosis. There is concern for severe bilateral neural foramen narrowing which may be similar to the prior study. L4-L5: There is a diffuse disc bulge with severe loss of disc space height. There are disc spurs extending posteriorly and into the foraminal regions bilaterally. There is bilateral facet arthropathy. There is severe bilateral neural foramen narrowing which has not significantly changed in the interim as visualized. There is at least mild central canal stenosis. L5-S1: There is again seen diffuse disc bulge with severe loss of disc space height. There is bilateral facet arthropathy. There is mild bilateral neural foramen narrowing and no significant central canal stenosis. IMPRESSION: 1: There is no acute lumbar spine fracture. 2: There is doluizsv-qp-qyxryh multilevel lumbar spine degenerative disease which is difficult to accurately compare to the prior study regarding the degree of central canal stenosis. MRI of the lumbar spine or CT lumbar myelogram would better evaluate for degree of true central canal stenosis. Dictated by: Dictated on workstation # [id number]
--- NOTE | 2022-03-10 17:19 | Diagnostic Imaging Report ---
INDICATION: Dyspnea. EXAMINATION: Chest, 03/10/2022. COMPARISON: 08/15/2021. FINDINGS: There are postoperative changes throughout the chest, similar to previous imaging, with a loop recorder device noted. Postoperative changes are also noted in the left shoulder. The heart is unremarkable. Pulmonary vasculature is normal. There is a likely moderate-sized hiatal hernia. There are no infiltrates or effusions. No pneumothorax. IMPRESSION: 1. Chronic findings. No acute cardiopulmonary process. Dictated by: Dictated on workstation # [id number]
[2022-03-10] MEDS ORDERED: ONDANSETRON 4 MG/2 ML (SDV) Z0FRAN IVP ONE (17:45)
[2022-03-10] MEDS ORDERED: KETOROLAC 30 MG/ML VIAL IVP ONE (17:45)
[2022-03-10] MEDS ORDERED: ONDA4TAB11 PO (18:12)
[2022-03-10] MEDS ORDERED: ACHD5005 PO (18:12)
[2022-03-10] MEDS ORDERED: RX-ONDANSETRON 4 MG ODT (ZOFRAN) PPK #4 PO STA (18:12)
[2022-03-10 18:23] VITALS: BP 143/86
== END 2022-03-10 18:24 | disposition home or self-care (01) ==
LOC: EDUNIT# 15:28 → ER 15:30
DX: M54.50 Low back pain, unspecified (principal); N30.90 Cystitis, unspecified without hematuria; Z87.891 Personal history of nicotine dependence; Z79.2 Long term (current) use of antibiotics
CPT/HCPCS: 36415; 71045; 72131; 80053; 81000; 83880; 85025; 85379; 93005

== ENCOUNTER 2022-08-06 19:30 | Emergency (ER) | payer MEDICARE ==
[~2022-08-06] VITALS: Ht 172 cm; Wt 65.7 kg
[~2022-08-06 19:30] MED LIST changes: +ALBU8.5H6 IH; -RT-ALBUINH IH
--- NOTE | 2022-08-06 19:44 | ED Chest Pain ---
General Chief Complaint: Chest Pain Stated Complaint: SOA CHEST PAIN Nursing Triage Note: PATIENT STATES HAVING CHEST PAIN AND SHORTNESS OF BREATH ON/OFF SINCE 1400. History of Present Illness Date Seen by Provider: Aug 06, 2022 Time Seen by Provider: 19:38 Initial Comments 89-year-old male presents with chronic mid and left-sided chest pain and shortness of breath. He reports been going on and off since around 2 PM this afternoon. He has minimal to no pain at this time. He does report that he uses inhalers occasionally and has not used it in about 3 days. He describes it as more of a tightness than an actual sharp or stabbing pain. He does not complain any diaphoresis nausea vomiting or radiation of the pain he reports he was just sitting there when it started and does not feel like anything makes it worse or better. Allergies and Home Medications Allergies Coded Allergies: penicillin G (Verified Allergy, Unknown, 08/11/05) Uncoded Allergies: IV CONTRAST (Allergy, Intermediate, 07/23/15) Patient Home Medication List Home Medication List Reviewed: Yes Albuterol Sulfate (Albuterol Sulfate) 2.5 Mg/3 Ml Vial.neb, 2.5 MG INH Q4H PRN for SHORTNESS OF BREATH, (Reported) Entered as Reported by: MARQUISE CHACON on 01/30/21 0839 Amlodipine Besylate (Amlodipine Besylate) 5 Mg Tablet, 5 MG PO DAILY, (Reported) Entered as Reported by: JACINTO MORENO on 02/06/22 1403 Aspirin (Aspirin) 81 Mg Tab.chew, 81 MG PO DAILY, (Reported) Entered as Reported by: JACINTO MORENO on 02/06/22 1403 Atorvastatin Calcium (Atorvastatin Calcium) 80 Mg Tablet, 40 MG PO HS, (Reported) Entered as Reported by: JACINTO MORENO on 09/04/20 1227 Cephalexin (Cephalexin) 500 Mg Tablet, 500 MG PO QID Prescribed by: SARWAT CIFUENTES on 02/27/22 0826 Clopidogrel Bisulfate (Clopidogrel) 75 Mg Tablet, 75 MG PO DAILY, (Reported) Entered as Reported by: JACINTO MORENO on 02/06/22 1403 Furosemide (Furosemide) 20 Mg Tablet, 20 MG PO DAILY, (Reported) Entered as Reported by: JACINTO MORENO on 02/06/22 1403 Gabapentin (Gabapentin) 100 Mg Capsule, 100 MG PO BID, (Reported) Entered as Reported by: JACINTO MORENO on 09/04/20 1227 Hydrocodone/Acetaminophen (Hydrocodone-Acetamin 5-325 mg) 5 Mg-325 Mg Tablet, 1 TAB PO Q6H PRN for PAIN-MODERATE (5-7) Prescribed by: DONY JOHNSON on 03/10/22 181 Lisinopril (Lisinopril) 20 Mg Tablet, 20 MG PO DAILY, (Reported) Entered as Reported by: MARQUISE CHACON on 01/30/21 0839 Meloxicam (Meloxicam) 15 Mg Tablet, 7.5 MG PO DAILY, (Reported) Entered as Reported by: JACINTO MORENO on 02/06/22 1403 Metoprolol Succinate (Metoprolol Succinate) 50 Mg Tab.er.24h, 50 MG PO DAILY, (Reported) Entered as Reported by: JACINTO MORENO on 02/06/22 1403 Ondansetron (Ondansetron Odt) 4 Mg Tab.rapdis, 4 MG PO Q6H PRN for NAUSEA/VOMITING-1ST LINE Prescribed by: TOY TAPIA on 02/12/22 1133 Ondansetron (Ondansetron Odt) 8 Mg Tab.rapdis, 8 MG PO Q6H Prescribed by: EDWIN CARREON MD on 02/28/22 0840 Ondansetron (Ondansetron Odt) 4 Mg Tab.rapdis, 4 MG PO Q4H PRN for NAUSEA/VOMITING Prescribed by: DONY JOHNSON on 03/10/22 181 Pantoprazole Sodium (Pantoprazole Sodium) 40 Mg Tablet.dr, 40 MG PO BID Prescribed by: TOY TAPIA on 02/12/22 1133 Peg/Electrolytes (Golytely Solution) 236-22.74G Soln, 4,000 ML PO ONCE Prescribed by: EDWIN CARREON MD on 02/28/22 2314 Phenazopyridine HCl (Pyridium) 100 Mg Tablet, 100 MG PO TID Prescribed by: GUNNAR POWELL on 02/26/22 1644 Potassium Chloride (Klor-Con 10) 10 Meq Tablet.er, 10 MEQ PO DAILY, (Reported) Entered as Reported by: JACINTO MORENO on 02/06/22 1403 Sucralfate (Sucralfate) 1 Gram Tablet, 1 GM PO ACHS Prescribed by: TOY TAPIA on 02/12/22 1133 Review of Systems Review of Systems Constitutional: No chills, No fever Respiratory: Cough, Shortness of Air Cardiovascular: Chest Pain; Denies Edema, Denies Irregular Heart Rate Gastrointestinal: No Symptoms Reported Genitourinary: No Symptoms Reported Musculoskeletal: no symptoms reported Skin: no symptoms reported Psychiatric/Neurological: No Symptoms Reported Endocrine: No Symptoms Reported Past Guuswwy-Sdxmhd-Ceutop Hx Immunizations Up To Date Tetanus Booster (TDap): Unknown First/Initial COVID19 Vaccinat: 06/2021 Second COVID19 Vaccination Rony: 06/2021 Third COVID19 Vaccination Date: 06/2021 Seasonal Allergies Seasonal Allergies: No Past Medical History Surgery/Hospitalization HX: 5 VESSEL CABG, CARDIAC CATHS AND MULTIPLE STENTS AND ANGIOPLASTIES- LAST CARDIAC CATH ON 01/30/[address] MACHADO. CAD, LEFT SHOULDER SURGERY HIATAL HERNIA REPAIR, EGD/COLONOSCOPIES, CATARACTS REMOVED. HX Falls Surgeries: Yes (HIATAL HERNIA REPAIR;L SHOULDER REPLACEMENT;3V CABG + STENTS;CATARACTS) Abdominal, Cardiac, CABG, Coronary Stent, Eye Surgery, Joint Replacement, Orthopedic Respiratory: Yes Chronic Bronchitis, Sleep Apnea Currently Using CPAP: No Cardiac: Yes (5 VESSEL CABG + STENTS/ANGIOPLASTIES;MILD CAROTID DISEASE;CHF;SVT/PVC/PAC) Atrial Fibrillation, Coronary Artery Disease, Heart Attack, High Cholesterol, Hypertension, Palpitations Neurological: Yes TIA Reproductive Disorders: No Sexually Transmitted Disease: No HIV/AIDS: No Genitourinary: No Gastrointestinal: Yes (S/P HIATAL HERNIA REPAIR) Gastroesophageal Reflux, Gastrointestinal Bleed, Diverticulosis, Hiatal Hernia Musculoskeletal: Yes (LEFT SHOULDER REPLACEMENT) Arthritis Endocrine: Yes Hypothyroidsim HEENT: Yes Cataract Cancer: No Psychosocial: No Integumentary: No Blood Disorders: No Adverse Reaction/Blood Tranf: No Family Medical History Patient reports no known family medical history. No Pertinent Family Hx SOCIAL HISTORY: -ETOH--REGULAR/DAILY USE--"A COUPLE " OF DRINKS A DAY -DRUGS-DENIES USE -SMOKED 1 PPD, QUIT 1988 ADDITIONAL PAST MEDICAL/SURGICAL HISTORY: -CARDIAC CATH 07/2015--NO INTERVENTION. DR. MACHADO Physical Exam Vital Signs Vital Signs - First Documented 08/06/22 19:33 Pulse 117 Resp 14 B/P (MAP) 157/54 (88) Pulse Ox 97 O2 Delivery Room Air Capillary Refill : Less Than 3 Seconds Height, Weight, BMI Height: 5'8.00" Weight: 166lbs. 0.0oz. 75.818231fa; 22.00 BMI Method: General Appearance: No Apparent Distress, WD/WN Respiratory: No Accessory Muscle Use, No Respiratory Distress, Decreased Breath Sounds Cardiovascular: Normal Peripheral Pulses, Tachycardia Gastrointestinal: Non Tender, Soft Extremity: Normal Capillary Refill Neurologic/Psychiatric: Alert, Oriented x3 Skin: Normal Color, Warm/Dry Progress/Results/Core Measures Results/Orders Lab Results Laboratory Tests Test 08/06/22 19:39 08/06/22 19:45 Range/Units White Blood Count 7.8 4.3-11.0 10^3/uL Red Blood Count 3.73 L 4.30-5.52 10^6/uL Hemoglobin 12.4 L 13.3-17.7 g/dL Hematocrit 38 L 40-54 % Mean Corpuscular Volume 101 H 80-99 fL Mean Corpuscular Hemoglobin 33 25-34 pg Mean Corpuscular Hemoglobin Concent 33 32-36 g/dL Red Cell Distribution Width 13.2 10.0-14.5 % Platelet Count 240 130-400 10^3/uL Mean Platelet Volume 10.8 9.0-12.2 fL Immature Granulocyte % (Auto) 0 % Neutrophils (%) (Auto) 65 42-75 % Lymphocytes (%) (Auto) 22 12-44 % Monocytes (%) (Auto) 11 0-12 % Eosinophils (%) (Auto) 1 0-10 % Basophils (%) (Auto) 0 0-10 % Neutrophils # (Auto) 5.1 1.8-7.8 10^3/uL Lymphocytes # (Auto) 1.7 1.0-4.0 10^3/uL Monocytes # (Auto) 0.8 0.0-1.0 10^3/uL Eosinophils # (Auto) 0.1 0.0-0.3 10^3/uL Basophils # (Auto) 0.0 0.0-0.1 10^3/uL Immature Granulocyte # (Auto) 0.0 0.0-0.1 10^3/uL Prothrombin Time 12.9 12.2-14.7 SEC INR Comment 0.9 0.8-1.4 Activated Partial Thromboplast Time 24 24-35 SEC Sodium Level 140 135-145 MMOL/L Potassium Level 4.0 3.6-5.0 MMOL/L Chloride Level 106 98-107 MMOL/L Carbon Dioxide Level 22 21-32 MMOL/L Anion Gap 12 5-14 MMOL/L Blood Urea Nitrogen 46 H 7-18 MG/DL Creatinine 1.54 H 0.60-1.30 MG/DL Estimat Glomerular Filtration Rate 43 BUN/Creatinine Ratio 30 Glucose Level 101 70-105 MG/DL Calcium Level 9.1 8.5-10.1 MG/DL Corrected Calcium 9.2 8.5-10.1 MG/DL Magnesium Level 2.2 1.6-2.4 MG/DL Total Bilirubin 0.3 0.1-1.0 MG/DL Aspartate Amino Transf (AST/SGOT) 17 5-34 U/L Alanine Aminotransferase (ALT/SGPT) 12 0-55 U/L Alkaline Phosphatase 94 40-136 U/L Troponin I < 0.028 <0.028 NG/ML Total Protein 7.1 6.4-8.2 GM/DL Albumin 3.9 3.2-4.5 GM/DL Influenza Type A (RT-PCR) Not Detected Not Detecte Influenza Type B (RT-PCR) Not Detected Not Detecte SARS-CoV-2 RNA (RT-PCR) Not Detected Not Detecte My Orders Orders - CIFUENTES,SARWAT L DO Cbc With Automated Diff (08/06/22 19:35) Magnesium (08/06/22 19:35) Chest 1 View, Ap/Pa Only (08/06/22 19:35) Ekg Tracing (08/06/22 19:35) Comprehensive Metabolic Panel (08/06/22 19:35) Protime With Inr (08/06/22 19:35) Partial Thromboplastin Time (08/06/22 19:35) Monitor-Rhythm Ecg Trace Only (08/06/22 19:35) Ed Iv/Invasive Line Start (08/06/22 19:35) Troponin I [place] (08/06/22 19:35) Aspirin Chewable Tablet (Baby Aspirin Ch (08/06/22 19:45) Influenza A And B By Pcr (08/06/22 19:35) Covid 19 Inhouse Test (08/06/22 19:35) Albuterol/Ipra Inhalation Soln (Duoneb I (08/06/22 19:45) Svn Small Volume Nebulizer (08/06/22 19:35) Dexamethasone Injection (Decadron Injec (08/06/22 20:45) Ed Iv/Invasive Line Start (08/06/22 20:46) Ns Iv 500 Ml (Sodium Chloride 0.9%) (08/06/22 21:00) Medications Given in ED Current Medications Medications Dose Ordered Sig/Adolfo Route Start Time Stop Time Status Last Admin Dose Admin Albuterol/ Ipratropium 3 ml ONCE ONCE INH 08/06/22 19:45 08/06/22 19:46 DC 08/06/22 19:42 3 ML Aspirin 324 mg ONCE ONCE PO 08/06/22 19:45 08/06/22 19:46 DC 08/06/22 19:42 324 MG Dexamethasone Sodium Phosphate 8 mg ONCE ONCE IV 08/06/22 20:45 08/06/22 20:46 DC 08/06/22 20:50 8 MG Sodium Chloride 500 ml @ 0 mls/hr Q0M ONCE IV 08/06/22 21:00 08/06/22 21:01 08/06/22 20:50 0 MLS/HR Vital Signs/I&O 08/06/22 19:33 Pulse 117 Resp 14 B/P (MAP) 157/54 (88) Pulse Ox 97 O2 Delivery Room Air Blood Pressure Mean: 88 Progress Progress Note : Progress Note Patient's x-ray was reviewed and showed no acute findings. Patient's EKG was reviewed and showed mild tachycardia 104, some PVCs and some nonspecific changes. Patient labs were reviewed and showed slight elevation of his BUN and creatinine above his baseline. Patient has a negative troponin and negative COVID and influenza. Patient was treated with a DuoNeb and his symptoms resolved and he feels significantly better. Patient was also given 500 bolus to help with his likely mild dehydration based on his age and probably poor p.o. intake. Patient was given 10 of Decadron as he is likely having a mild COPD exacerbation. At this time I do not feel antibiotics are indicated or further steroid treatment. Patient currently has a nebulizer at home and I recommend he use it every 4-6 hours as needed for the next 24 to 36 hours. Patient is stable and discharged Initial ECG Impression Date: Aug 06, 2022 Initial ECG Impression Time: 19:34 Initial ECG Rhythm: S.Tach Initial ECG Intervals: Normal Comment sinus tach, paired pvc's. non specific changes Diagnostic Imaging Diagonstic Imaging: Xray Plain Films/CT/US/NM/MRI: chest Comments Date of Exam:08/06/22 CHEST 1 VIEW, AP/PA ONLY INDICATION: Chest pain. COMPARISON: 03/10/2022. FINDINGS: Single frontal view of the chest demonstrates normal heart size and pulmonary vascularity. The lungs are well aerated and clear. No large pleural effusion or pneumothorax is seen. The visualized osseous structures show no acute abnormality. IMPRESSION: No acute cardiopulmonary process. Dictated on workstation # [id number] Reviewed: Reviewed by Me, Reviewed/Discussed Departure Impression Primary Impression: Chronic bronchitis with acute exacerbation Disposition: HOME, SELF-CARE Condition: Stable Departure-Patient Inst. Referrals: FOUZIA NJ DO (PCP/Family) Primary Care Physician Patient Instructions: How to Use a Nebulizer ED, Chronic Bronchitis Add. Discharge Instructions: Please use your nebulizer/inhaler every 4-6 hours for the next 24 hours while you are awake and as needed. Follow-up with your primary care provider in a couple days for recheck. Return to the ER as needed. All discharge instructions reviewed with patient and/or family. Voiced understanding. SARWAT CIFUENTES DO Aug 06, 2022 19:44
[2022-08-06] MEDS ORDERED: RT-ALBUTEROL/IPRATROPIUM 3 ML (DUONEB) VIAL INH ONE (19:45)
[2022-08-06] MEDS ORDERED: ASPIRIN 81 MG CHEW (CHILDREN'S ASA) PO ONE (19:45)
[2022-08-06 19:48] LABS: BASOPHILS % (AUTO) 0 % (0-10); EOSINOPHILS # (AUTO) 0.1 10^3/uL (0.0-0.3); EOSINOPHILS % (AUTO) 1 % (0-10); HEMATOCRIT 38 % (40-54); HEMOGLOBIN 12.4 g/dL (13.3-17.7); LYMPHOCYTES # (AUTO) 1.7 10^3/uL (1.0-4.0); LYMPHOCYTES % (AUTO) 22 % (12-44); MEAN CORPUSCULAR HEMOGLOBIN 33 pg (25-34); MEAN CORPUSCULAR HGB CONC 33 g/dL (32-36); MEAN CORPUSCULAR VOLUME 101 fL (80-99); MEAN PLATELET VOLUME 10.8 fL (9.0-12.2); MONOCYTES # (AUTO) 0.8 10^3/uL (0.0-1.0); MONOCYTES % (AUTO) 11 % (0-12); NEUTROPHILS # (AUTO) 5.1 10^3/uL (1.8-7.8); NEUTROPHILS % (AUTO) 65 % (42-75); PLATELET COUNT 240 10^3/uL (130-400); WHITE BLOOD COUNT 7.8 10^3/uL (4.3-11.0)
--- NOTE | 2022-08-06 19:55 | Diagnostic Imaging Report ---
INDICATION: Chest pain. COMPARISON: 03/10/2022. FINDINGS: Single frontal view of the chest demonstrates normal heart size and pulmonary vascularity. The lungs are well aerated and clear. No large pleural effusion or pneumothorax is seen. The visualized osseous structures show no acute abnormality. IMPRESSION: No acute cardiopulmonary process. Dictated by: Dictated on workstation # [id number]
[2022-08-06 20:03] LABS: INR 0.9 (0.8-1.4); PROTHROMBIN TIME PATIENT 12.9 SEC (12.2-14.7)
[2022-08-06 20:12] LABS: ALBUMIN 3.9 GM/DL (3.2-4.5); BILIRUBIN,TOTAL 0.3 MG/DL (0.1-1.0); CALCIUM 9.1 MG/DL (8.5-10.1); CREATININE SERUM 1.54 MG/DL (0.60-1.30); MAGNESIUM 2.2 MG/DL (1.6-2.4); TOTAL PROTEIN 7.1 GM/DL (6.4-8.2)
[2022-08-06] MEDS ORDERED: NS IV 500 ML 500 ML IV ONE (21:00)
[2022-08-06 21:16] VITALS: BP 141/87
== END 2022-08-06 21:19 | disposition home or self-care (01) ==
LOC: EDUNIT# 19:30 → ER 19:31
DX: J42 Unspecified chronic bronchitis (principal); Z87.891 Personal history of nicotine dependence; Z20.822 Contact with and (suspected) exposure to COVID-19
CPT/HCPCS: 36415; 71045; 80053; 83735; 84484; 85025; 85610; 85730; 87636; 93005; 93041

== ENCOUNTER → 2022-08-07 | Outpatient (CLI) | payer MEDICARE | LOC: CARD 09:30 | PROVIDERS: ATTEND Physician Assistant | DX: I11.0 Hypertensive heart disease with heart failure (principal) | CPT/HCPCS: 93306 ==

== ENCOUNTER → 2022-09-15 | Outpatient (CLI) | payer MEDICARE ==
[~2022-09-15] MED LIST changes: +REGADENOSON 0.4 MG/5 ML SYR (LEXISCAN) IV ONE
[2022-09-15 09:17] VITALS: BP 182/90
--- NOTE | 2022-09-16 08:09 | Cardiology Stress Test Report ---
Stress Test Report Date of Procedure/Referring: Date of Procedure: Sep 15, 2022 PCP Jj Martinez DO Admitting Physician Admitting Physician: Attending Physician: Mary Zambrano Baseline Heart Rate: 64 Baseline Blood Pressure: Blood Pressure Systolic: 182 Blood Pressure Diastolic: 90 Baseline Vitals Vital Signs Date Time Temp Pulse Resp B/P (MAP) Pulse Ox O2 Delivery O2 Flow Rate FiO2 09/15/22 09:17 64 182/90 (120) 97 Room Air Baseline EKG: Baseline EKG: NSR Summary After explaining the procedure to the patient, he signed a consent and then brought to the stress nuclear laboratory. Patient received 0.4 mg Lexiscan for stress test, ECG, heart rate and blood pressure were monitored continuously. Resting and stress dose of radio tracer were injected, imaging was acquired and reviewed in short axis, horizontal long axis and vertical long axis views. TID: 1 SSS: 11 SDS: 4 EF: 37 Patient tolerated Lexiscan well Extracardiac attenuation affecting the quality of the images, there is decreased uptake at the base of the anterior wall which is fixed, decreased uptake involving the anterior lateral and inferolateral wall with mild reversibility Normal left ventricular size, diffuse left ventricular hypokinesia, ejection fraction 37%. Copy Copies To 1: JJ MARTINEZ BASHAR J MD Sep 16, 2022 08:08
== END ==
LOC: CARD 07:36
PROVIDERS: ATTEND Physician Assistant
DX: I25.10 Atherosclerotic heart disease of native coronary artery without angina pectoris (principal)
CPT/HCPCS: 78452; 93017; A9502